=== PATIENT | male | born 1935 | race Caucasian/White ===

== ENCOUNTER → 2016-03-30 | Outpatient (CLI) | payer BC, OTHER ==
[~2016-03-30] MED LIST: AMLO2.5T PO; ASPI81TA21 PO; ATV5 PO; CHOL2000 PO; FLV1 PO; IPRASOL4 INH; MGNO400 PO; MRLP17X PO; MULTCHW PO; NCDT21 TD; PRD20 PO; RST15 PO; SIMV20TA2 PO; THM100 PO; VENL75CA PO; ZTHM250 PO
--- NOTE | 2016-03-30 11:53 | DIAGNOSTIC IMAGING REPORT ---
TWO VIEW CHEST CLINICAL HISTORY: Dyspnea. FINDINGS: PA and lateral chest radiographs are compared to chest x-ray and chest CT dated 12/30/2015. The cardiomediastinal silhouette is unremarkable. There is atherosclerotic calcification of the thoracic aorta. Advanced emphysema and chronic interstitial thickening is similar to previous. Superimposed patchy airspace opacities are present at the left lung base, best seen on the lateral view. No pleural effusion is identified. There is no pneumothorax. The skeletal structures are osteopenic. 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 IMPRESSION: 1. Advanced emphysema. 2. Patchy airspace opacities are present at the left lung base, best seen on the lateral view. Correlate clinically for evidence of pneumonia/aspiration pneumonitis. Radiographic follow-up to resolution is recommended. Electronically signed by: Kali Mason M.D. 03/30/2016 11:52 AM Dictated Date/Time: 03/30/2016 11:49 AM
== END | disposition home or self-care (01) ==
LOC: C.RAD1850 11:36
PROVIDERS: ATTEND Nurse Practitioner Family
DX: J43.9 Emphysema, unspecified (principal)

== ENCOUNTER → 2016-11-23 | Outpatient (CLI) | payer BC ==
[~2016-11-23] MED LIST changes: +FLUT1INH PO; +NLT50 PO; +ZLF/100 PO
--- NOTE | 2016-11-23 12:48 | DIAGNOSTIC IMAGING REPORT ---
CHEST 2 VIEWS ROUTINE CLINICAL HISTORY: COPD dyspnea COMPARISON STUDY: 03/30/2016 FINDINGS: Stable bilateral emphysematous change. Improved left basilar infiltrative process. Minimal residual at the posterior gastric angle. Interstitial prominence throughout both hemithoraces considered stable. IMPRESSION: Diffuse emphysematous change with a superimposed infiltrate left base improved from the prior exam. The above report was generated using voice recognition software. It may contain grammatical, syntax or spelling errors. Electronically signed by: Elieser Mireles M.D. 11/23/2016 12:47 PM Dictated Date/Time: 11/23/2016 12:46 PM
== END | disposition home or self-care (01) ==
LOC: C.RAD 12:20
PROVIDERS: ATTEND Family Medicine
DX: J44.1 Chronic obstructive pulmonary disease with (acute) exacerbation (principal)

== ENCOUNTER 2016-12-13 09:23 | Inpatient (IN) | payer BC, OTHER ==
[~2016-12-13] VITALS: Ht 170.2 cm; Wt 55.2 kg
[~2016-12-13 09:23] MED LIST changes: -FLUT1INH PO; -NLT50 PO; -ZLF/100 PO
[2016-12-13] MEDS ORDERED: SODIUM CHLORIDE 0.9% 1000ML 500 ML IV STA (10:10)
[2016-12-13] MEDS ORDERED: ALBUT/IPRATROP 3MG/0.5MG NEB 3 ML VIAL INH STA (10:10)
[2016-12-13] MEDS ORDERED: ACETAMINOPHEN 500 MG TAB PO STA (10:10)
--- NOTE | 2016-12-13 10:58 | EMERGENCY ROOM VISIT NOTE ---
History Report prepared by Joselyn: Milla Flannery Under the Supervision of: Dr. Kali Valverde M.D. First contact with patient: 10:00 Chief Complaint: FALL Stated Complaint: FELL, BRUISED RIB, IN PAIN History of Present Illness The patient is a 81 year old male who presents to the Emergency Room with complaints of an episode of a fall occurring last night. The patient got up in the middle of the night to go to the bathroom. When he was coming back to bed he went to sit down, but was too far away from the bed. He fell onto his buttocks on the floor and hit his right mid back and lower ribs on the bed frame. The patient reports pain and bruising to that area. Movement exacerbates his pain. He rates his pain as a 6/10 in severity. He did not take any medications for his pain. His daughter did not want to give him any medications because he had been drinking alcohol heavily last night. The patient denies headache, nausea, vomiting, diarrhea, and abdominal pain. He has been eating and drinking normally. Daughter is concerned that the patient also fell a couple of days ago. He had some bleeding on his face that he states was from scratching, but his daughter thinks he possibly fell. The patient's tetanus is up to date. Source of History: patient, family (daughter) Onset: last night Position: back (lower) Symptom Intensity: 6/10 Timing: other (episode) Modifying Factors (Worsening): movement Associated Symptoms: No headache, No nausea, No vomiting, No abdominal pain , No diarrhea Review of Systems See HPI for pertinent positives & negatives. A total of 10 systems reviewed and were otherwise negative. Past Medical & Surgical Medical Problems: (1) Alcohol withdrawal (2) COPD (chronic obstructive pulmonary disease) (3) COPD exacerbation Family History No significant family history Social History Smoking Status: Heavy Tobacco Smoker Alcohol Use: heavy Drug Use: marijuana Marital Status: , Housing Status: lives with family Occupation Status: retired Current/Historical Medications Scheduled Amlodipine (Norvasc), 2.5 MG PO QPM Aspirin Enteric Coated (Ecotrin Or Generic), 81 MG PO QPM Azithromycin (Azithromycin), 250 MG PO QAM Cholecalciferol (Vitamin D3), 2,000 INTER.UNIT PO QPM Fluticasone-Salmeterol (Fluticasone Propionate/SA 113-14 Mcg/Act), 1 PUFF PO BID Folic Acid (Folic Acid), 1 MG PO QAM Multiple Vitamins W/ Minerals (Centrum Silver), 1 TAB PO QAM Naltrexone HCl (Naltrexone HCl), 50 MG PO DAILY Prednisone (Prednisone), 20 MG PO BID Sertraline HCl (Sertraline HCl), 100 MG PO DAILY Simvastatin (Zocor), 40 MG PO QPM Thiamine HCl (Vitamin B-1), 100 MG PO QAM Scheduled PRN Polyethylene (Miralax), 17 GM PO DAILY PRN for Constipation Allergies Coded Allergies: Penicillins (Verified Allergy, Unknown, 12/13/16) Physical Exam Vital Signs Date Time Temp Pulse Resp B/P (MAP) Pulse Ox O2 Delivery O2 Flow Rate FiO2 12/13/16 16:15 81 20 162/73 92 Room Air 12/13/16 15:00 73 20 165/73 93 Room Air 12/13/16 14:36 76 18 156/88 94 Room Air 12/13/16 14:09 81 20 93 Room Air 12/13/16 13:14 86 12/13/16 12:29 83 18 165/67 92 Room Air 12/13/16 11:44 79 18 141/80 92 Room Air 12/13/16 11:19 84 18 164/74 92 Room Air 12/13/16 10:41 82 16 154/69 97 Nebulizer 6.0 12/13/16 10:40 89 Room Air 12/13/16 10:33 89 Room Air 12/13/16 09:48 85 12/13/16 09:30 36.9 95 18 160/72 89 Room Air Physical Exam GENERAL: Patient is in no acute distress. HEENT: There is a healing abrasion to the left maxillary face, no obvious fracture. No scalp hematomas. Mucous membranes are moist. NECK: No stridor, no adenopathy, no meningismus, trachea is midline. LUNGS: Clear to auscultation bilaterally, no wheeze, no rhonchi, breath sounds equal. HEART: Without murmurs gallops or rubs, regular rate and rhythm. ABDOMEN: Soft, nontender, bowel sounds positive, no hernias, no peritonitis. BACK: There is a contusion to the right lower posterior lateral ribs, this area is tender and some crepitus was noted. EXTREMITIES: No cyanosis or edema, full range of motion of all the joints without pain or difficulty, no signs for acute trauma. NEUROLOGIC: Oriented x 3, no acute motor or sensory deficits, no focal weakness. SKIN: No rash, no jaundice, no diaphoresis. Medical Decision & Procedures ER Provider Diagnostic Interpretation: Radiology results as stated below per my review and radiologist interpretation: AP CHEST WITH RIGHT-SIDED RIB SERIES CLINICAL HISTORY: Fall with right chest wall pain. FINDINGS: An AP upright chest radiograph with 4 additional views may right-sided rib series is compared to study dated 11/23/2016 and correlated with chest CT dated 12/30/2015. The heart is normal in size and there is atherosclerotic calcification of the thoracic aorta. Advanced emphysema and chronic interstitial thickening is similar to previous. Bibasilar airspace opacities likely represent atelectasis. There is no lobar consolidation or large pleural effusion. No pneumothorax is seen. The skeletal structures are osteopenic. There are minimally distracted right anterolateral 9th and 10th as well as posterior 11th and 12th rib fractures. There is a healed right lateral 5th rib fracture. The remainder of the bony thorax is grossly intact. Calcific tendinopathy is seen in the left shoulder. IMPRESSION: 1. Severe emphysema. No acute cardiopulmonary abnormality is seen. 2. Acute right lower rib fractures as above. Electronically signed by: Kali Mason M.D. 12/13/2016 12:23 PM Dictated Date/Time: 12/13/2016 12:[address] SCAN OF THE BRAIN WITHOUT IV CONTRAST CLINICAL HISTORY: Fall. Weakness. COMPARISON STUDY: CT of the brain dated 10/10/2015. TECHNIQUE: Unenhanced axial CT scan of the brain is performed from the vertex to the skull base. CT DOSE: 614.27 mGy.cm FINDINGS: Brain parenchyma: There are age-related involutional changes noting moderate confluent subcortical and periventricular microangiopathic change. There is no hemorrhage, mass effect, or evidence of acute territorial ischemia by CT criteria. 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 Joiner-white matter is preserved. No extra-axial fluid collection is seen. Ventricles, sulci, cisterns: Prominent secondary to involutional change. Intracranial vasculature: There is atherosclerotic calcification of the cavernous carotid and vertebral arteries. Calvarium: The skeletal structures are osteopenic. No depressed calvarial fracture is seen. Sinuses and mastoids: The visualized paranasal sinuses are clear. There is trace right mastoid effusion. The left mastoid air cells are well pneumatized. Orbits: The bony orbits are grossly intact. IMPRESSION: Senescent changes as above with no hemorrhage, mass effect, or evidence of acute territorial ischemia by CT criteria. Electronically signed by: Kali Maosn M.D. 12/13/2016 12:18 PM Dictated Date/Time: 12/13/2016 12:[address] SCAN OF THE ABDOMEN AND PELVIS WITH IV CONTRAST CLINICAL HISTORY: Trauma. Fall. COMPARISON STUDY: Abdominal ultrasound dated 05/15/2015. TECHNIQUE: Following the IV administration of 93 cc of Optiray 320, CT scan of the abdomen and pelvis is performed from the lung bases to the proximal femora. Images are reviewed in the axial, sagittal, and coronal planes. IV contrast was administered without complication. A dose lowering technique was utilized adhering to the principles of ALARA. CT DOSE: 246.50 mGy.cm FINDINGS: Lung bases: The heart is normal in size and without pericardial effusion. There are coronary artery calcifications. Advanced emphysematous change is noted. A trace right pleural effusion is identified. Fluid/secretions are present within the lower lobe airways. A calcified granulomas noted in the left lower lobe. Liver: The contrast-enhanced liver is normal in size, contour, and attenuation. There is no intrahepatic biliary ductal dilatation. The hepatic veins and portal veins are patent. Gallbladder: Unremarkable. Spleen: Normal in size and attenuation. Pancreas: Atrophic and grossly unremarkable. Adrenal glands: Unremarkable. Kidneys: The contrast enhanced kidneys demonstrate cortical atrophy and are without hydronephrosis. The kidneys enhance symmetrically. Renovascular calcifications are noted. Abdominal vasculature: There is advanced atherosclerotic calcification and ectasia of the abdominal aorta and iliac arteries. 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 High-grade stenosis is also suggested in the right external iliac artery and the right superficial femoral artery. Bowel: The small bowel and colon are normal in course and caliber. There is advanced colonic diverticulosis without CT evidence of acute diverticulitis. The appendix is well-visualized and normal. Peritoneum: There is no intraperitoneal free air or abdominal ascites. Lymphadenopathy: None. Pelvic viscera: The prostate gland is enlarged and heterogeneous, measuring 4.7 cm in transverse diameter. There is median lobe hypertrophy. The bladder is normal as imaged. Skeletal structures: The skeletal structures are osteopenic. There are acute right anterior 8th through 10th rib fractures as well as acute left posterior 11th and 12th rib fractures. Several of these fractures are mildly distracted. Advanced lumbosacral spondylosis is observed. Vertebral body height is maintained throughout the imaged thoracolumbar spine. No lytic or blastic lesions are seen. IMPRESSION: 1. Acute right lower rib fractures as above. 2. There is no evidence of solid organ injury in the abdomen or pelvis. 3. Severe emphysema. 4. Fluid/secretions are present within the lower lobe airways bilaterally. Correlate clinically for evidence of mucous plugging versus aspiration. 5. Advanced atherosclerotic disease. 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 6. Advanced colonic diverticulosis without CT evidence of acute diverticulitis. 7. Additional findings as above. Electronically signed by: Kali Mason M.D. 12/13/2016 12:36 PM Dictated Date/Time: 12/13/2016 12:26 PM Laboratory Results 12/13/16 11:10 Red Blood Count 4.81, Mean Corpuscular Volume 89.8, Mean Corpuscular Hemoglobin 31.2, Mean Corpuscular Hemoglobin Concent 34.7, Mean Platelet Volume 8.9, Neutrophils (%) (Auto) 76.2, Lymphocytes (%) (Auto) 16.5, Monocytes (%) (Auto) 6.4, Eosinophils (%) (Auto) 0.5, Basophils (%) (Auto) 0.2, Neutrophils # (Auto) 8.15, Lymphocytes # (Auto) 1.77, Monocytes # (Auto) 0.69, Eosinophils # (Auto) 0.05, Basophils # (Auto) 0.02 12/13/16 11:10 Test 12/13/16 11:10 12/13/16 12:40 White Blood Count 10.70 K/uL (4.8-10.8) Red Blood Count 4.81 M/uL (4.7-6.1) Hemoglobin 15.0 g/dL (14.0-18.0) Hematocrit 43.2 % (42-52) Mean Corpuscular Volume 89.8 fL (80-100) Mean Corpuscular Hemoglobin 31.2 pg (25-34) Mean Corpuscular Hemoglobin Concent 34.7 g/dl (32-36) Platelet Count 197 K/uL (130-400) Mean Platelet Volume 8.9 fL (7.4-10.4) Neutrophils (%) (Auto) 76.2 % Lymphocytes (%) (Auto) 16.5 % Monocytes (%) (Auto) 6.4 % Eosinophils (%) (Auto) 0.5 % Basophils (%) (Auto) 0.2 % Neutrophils # (Auto) 8.15 K/uL (1.4-6.5) Lymphocytes # (Auto) 1.77 K/uL (1.2-3.4) Monocytes # (Auto) 0.69 K/uL (0.11-0.59) Eosinophils # (Auto) 0.05 K/uL (0-0.5) Basophils # (Auto) 0.02 K/uL (0-0.2) RDW Standard Deviation 46.7 fL (36.4-46.3) RDW Coefficient of Variation 14.2 % (11.5-14.5) Immature Granulocyte % (Auto) 0.2 % Immature Granulocyte # (Auto) 0.02 K/uL (0.00-0.02) Prothrombin Time 10.0 SECONDS (9.0-12.0) Prothromb Time International Ratio 0.9 (0.9-1.1) Activated Partial Thromboplast Time 27.1 SECONDS (21.0-31.0) Partial Thromboplastin Ratio 1.0 Anion Gap 11.0 mmol/L (3-11) Estimated GFR () 102.5 Estimated GFR (Non- 88.4 BUN/Creatinine Ratio 20.6 (10-20) Calcium Level 9.0 mg/dl (8.5-10.1) Magnesium Level 1.8 mg/dl (1.8-2.4) Total Bilirubin 1.5 mg/dl (0.2-1) Aspartate Amino Transf (AST/SGOT) 38 U/L (15-37) Alanine Aminotransferase (ALT/SGPT) 39 U/L (12-78) Alkaline Phosphatase 36 U/L (45-117) Total Creatine Kinase 274 U/L (39-308) Troponin I < 0.015 ng/ml (0-0.045) Total Protein 7.4 gm/dl (6.4-8.2) Albumin 3.8 gm/dl (3.4-5.0) Globulin 3.6 gm/dl (2.5-4.0) Albumin/Globulin Ratio 1.1 (0.9-2) Thyroid Stimulating Hormone (TSH) 2.120 uIu/ml (0.300-4.500) Urine Color YELLOW Urine Appearance CLEAR (CLEAR) Urine pH 5.5 (4.5-7.5) Urine Specific [place] 1.020 (1.000-1.030) Urine Protein 1+ (NEG) Urine Glucose (UA) NEG (NEG) Urine Ketones 2+ (NEG) Urine Occult Blood NEG (NEG) Urine Nitrite NEG (NEG) Urine Bilirubin NEG (NEG) Urine Urobilinogen NEG (NEG) Urine Leukocyte Esterase NEG (NEG) Urine RBC 0-4 /hpf (0-4) Urine WBC 1-5 /hpf (0-5) Urine Epithelial Cells 10-20 /lpf (0-5) Urine Bacteria NEG (NEG) Urine Hyaline Casts 5-10 /lpf (0-5) Urine Granular Casts 0-3 /lpf (0) Urine White Blood Cell Casts 0-3 /lpf (0) Laboratory results reviewed by me. Medications Administered Medications (Trade) Dose Ordered Sig/Etienne Route Start Time Stop Time Status Last Admin Dose Admin Sodium Chloride 500 ml @ 999 mls/hr Q31M STAT IV 12/13/16 10:10 12/13/16 10:40 DC 12/13/16 11:21 999 MLS/HR Acetaminophen (Tylenol Tab) 1,000 mg NOW STAT PO 12/13/16 10:10 12/13/16 10:14 DC 12/13/16 10:34 1,000 MG Albuterol/ Ipratropium (Duoneb) 3 ml NOW STAT INH 12/13/16 10:10 12/13/16 10:14 DC 12/13/16 10:34 3 ML ECG Indication: other Rate (beats per minute): 83 Rhythm: normal sinus Findings: no acute ischemic change, no ectopy ED Course 1000: The patient was evaluated in room C6. A complete history and physical exam was performed. 1010: DuoNeb 3 ml INH, Tylenol Tab 1000 mg PO, NSS 500 ml @ 999 mls/hr IV 1251: I updated the patient and his daughter on his results. We discussed the patient's treatment plan. 1302: I spoke with the field nurse case manager regarding the patient's treatment plan. The [facility] liaison will evaluate the patient in the ED. 165: I reassessed the patient at this time. He is feeling better and resting comfortably. I discussed the results and treatment plan with the patient and his daughter. I answered all pertaining questions that they had. They expressed understanding and verbalized agreement. 165: I spoke with Dr. Hart. We discussed the patients case. The patient will be evaluated by the [facility] for further management. Medical Decision Differential diagnoses includes intracranial bleeding, rib fracture, renal or liver injury, dehydration, electrolyte imbalance, debilitation. There is no leukocytosis or worrisome anemia. No significant electrolyte abnormality or kidney failure. There were some very minimal liver enzyme elevations noted. No coagulopathy. Urinalysis does not show infection, some dehydration was noted by UA. The patient appears to be in a euthyroid state. There is no coagulopathy. Brain CT shows no acute bleed or mass effect. EKG shows a sinus rhythm, no acute ischemia. Cardiac enzyme testing times one is not consistent with acute cardiac injury. Abdominal and pelvis CT shows 5 lower right rib fractures, no solid organ injury noted across the abdomen or pelvis. Right rib series shows lower right rib fractures, no pneumothorax or pulmonary contusion. The patient was given a DuoNeb, he received oral Tylenol for pain, he received IV saline. The patient is in need of more help at home especially, given these new rib fractures. He was seen by the [facility] rehabilitation team. Unfortunately , he needs to stay in the hospital overnight and could possibly go to rehabilitation tomorrow if doing well. I spoke to the patient and his family. I spoke with case management. The on-call hospitalist was consulted. Medication Reconcilliation Current Medication List: was personally reviewed by me Blood Pressure Screening Patient's blood pressure: Elevated blood pressure Blood pressure disposition: Elevated BP felt to be situational Consults Time Called: 1650 Consulting Physician: Dr. Hart Returned Call: [address] Hart. We discussed the patients case. The patient will be evaluated by the [facility] for further management. Impression Primary Impression: Multiple fractures of ribs, right side, initial encounter for closed fracture Additional Impressions: Fall Alcohol abuse Scribe Attestation The scribe's documentation has been prepared under my direction and personally reviewed by me in its entirety. I confirm that the note above accurately reflects all work, treatment, procedures, and medical decision making performed by me. Departure Information Dispostion Being Evaluated By Hospitalist Referrals Oumar Bradley M.D. (PCP) Patient Instructions My [facility] Problem Qualifiers Additional Impressions: Fall Encounter type: initial encounter Qualified Codes: W19.XXXA - Unspecified fall, initial encounter
[2016-12-13] MEDS ORDERED: FLUT1INH PO (11:01)
[2016-12-13] MEDS ORDERED: NLT50 PO (11:01)
[2016-12-13] MEDS ORDERED: ZLF/100 PO (11:01)
[2016-12-13 11:32] LABS: BASO % 0.2 %; BASO ABS # 0.02 K/uL (0-0.2); COMPLETE YES; EOS % 0.5 %; HEMATOCRIT 43.2 % (42-52); IG% 0.2 %; LYMPH % 16.5 %; LYMPH ABS # 1.77 K/uL (1.2-3.4); MEAN CELL VOLUME 89.8 fL (80-100); MEAN CORPUSCULAR HEMOGLOBIN 31.2 pg (25-34); MEAN CORPUSCULAR HGB CONC 34.7 g/dl (32-36); MEAN PLATELET VOLUME 8.9 fL (7.4-10.4); MONO % 6.4 %; NEUT % 76.2 %; PLATELET COUNT 197 K/uL (130-400); RED BLOOD COUNT 4.81 M/uL (4.7-6.1)
[2016-12-13 11:39] LABS: INR 0.9 (0.9-1.1)
[2016-12-13 11:41] LABS: ALT/SGPT 39 U/L (12-78); AST/SGOT 38 U/L (15-37); BLOOD UREA NITROGEN 14 mg/dl (7-18); BUN/CREATININE RATIO 20.6 (10-20); CARBON DIOXIDE 26 mmol/L (21-32); CHLORIDE 101 mmol/L (98-107); CREATININE 0.69 mg/dl (0.60-1.40); GLUCOSE 93 mg/dl (70-99); MAGNESIUM 1.8 mg/dl (1.8-2.4); POTASSIUM 4.3 mmol/L (3.5-5.1); SODIUM 138 mmol/L (136-145)
[2016-12-13 11:52] LABS: ALB/GLOB RATIO 1.1 (0.9-2); ALKALINE PHOSPHATASE 36 U/L (45-117)
[2016-12-13] MEDS ORDERED: OPTIRAY 320 IV PRN (12:00)
--- NOTE | 2016-12-13 12:19 | DIAGNOSTIC IMAGING REPORT ---
CT SCAN OF THE BRAIN WITHOUT IV CONTRAST CLINICAL HISTORY: Fall. Weakness. COMPARISON STUDY: CT of the brain dated 10/10/2015. TECHNIQUE: Unenhanced axial CT scan of the brain is performed from the vertex to the skull base. CT DOSE: 614.27 mGy.cm FINDINGS: Brain parenchyma: There are age-related involutional changes noting moderate confluent subcortical and periventricular microangiopathic change. There is no hemorrhage, mass effect, or evidence of acute territorial ischemia by CT criteria. 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 Joiner-white matter is preserved. No extra-axial fluid collection is seen. Ventricles, sulci, cisterns: Prominent secondary to involutional change. Intracranial vasculature: There is atherosclerotic calcification of the cavernous carotid and vertebral arteries. Calvarium: The skeletal structures are osteopenic. No depressed calvarial fracture is seen. Sinuses and mastoids: The visualized paranasal sinuses are clear. There is trace right mastoid effusion. The left mastoid air cells are well pneumatized. Orbits: The bony orbits are grossly intact. IMPRESSION: Senescent changes as above with no hemorrhage, mass effect, or evidence of acute territorial ischemia by CT criteria. Electronically signed by: Kali Mason M.D. 12/13/2016 12:18 PM Dictated Date/Time: 12/13/2016 12:15 PM
--- NOTE | 2016-12-13 12:25 | DIAGNOSTIC IMAGING REPORT ---
AP CHEST WITH RIGHT-SIDED RIB SERIES CLINICAL HISTORY: Fall with right chest wall pain. FINDINGS: An AP upright chest radiograph with 4 additional views may right-sided rib series is compared to study dated 11/23/2016 and correlated with chest CT dated 12/30/2015. The heart is normal in size and there is atherosclerotic calcification of the thoracic aorta. Advanced emphysema and chronic interstitial thickening is similar to previous. Bibasilar airspace opacities likely represent atelectasis. There is no lobar consolidation or large pleural effusion. No pneumothorax is seen. The skeletal structures are osteopenic. There are minimally distracted right anterolateral 9th and 10th as well as posterior 11th and 12th rib fractures. There is a healed right lateral 5th rib fracture. The remainder of the bony thorax is grossly intact. Calcific tendinopathy is seen in the left shoulder. IMPRESSION: 1. Severe emphysema. No acute cardiopulmonary abnormality is seen. 2. Acute right lower rib fractures as above. Electronically signed by: Kali Mason M.D. 12/13/2016 12:23 PM Dictated Date/Time: 12/13/2016 12:18 PM
--- NOTE | 2016-12-13 12:37 | DIAGNOSTIC IMAGING REPORT ---
CT SCAN OF THE ABDOMEN AND PELVIS WITH IV CONTRAST CLINICAL HISTORY: Trauma. Fall. COMPARISON STUDY: Abdominal ultrasound dated 05/15/2015. TECHNIQUE: Following the IV administration of 93 cc of Optiray 320, CT scan of the abdomen and pelvis is performed from the lung bases to the proximal femora. Images are reviewed in the axial, sagittal, and coronal planes. IV contrast was administered without complication. A dose lowering technique was utilized adhering to the principles of ALARA. CT DOSE: 246.50 mGy.cm FINDINGS: Lung bases: The heart is normal in size and without pericardial effusion. There are coronary artery calcifications. Advanced emphysematous change is noted. A trace right pleural effusion is identified. Fluid/secretions are present within the lower lobe airways. A calcified granulomas noted in the left lower lobe. Liver: The contrast-enhanced liver is normal in size, contour, and attenuation. There is no intrahepatic biliary ductal dilatation. The hepatic veins and portal veins are patent. Gallbladder: Unremarkable. Spleen: Normal in size and attenuation. Pancreas: Atrophic and grossly unremarkable. Adrenal glands: Unremarkable. Kidneys: The contrast enhanced kidneys demonstrate cortical atrophy and are without hydronephrosis. The kidneys enhance symmetrically. Renovascular calcifications are noted. Abdominal vasculature: There is advanced atherosclerotic calcification and ectasia of the abdominal aorta and iliac arteries. 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 High-grade stenosis is also suggested in the right external iliac artery and the right superficial femoral artery. Bowel: The small bowel and colon are normal in course and caliber. There is advanced colonic diverticulosis without CT evidence of acute diverticulitis. The appendix is well-visualized and normal. Peritoneum: There is no intraperitoneal free air or abdominal ascites. Lymphadenopathy: None. Pelvic viscera: The prostate gland is enlarged and heterogeneous, measuring 4.7 cm in transverse diameter. There is median lobe hypertrophy. The bladder is normal as imaged. Skeletal structures: The skeletal structures are osteopenic. There are acute right anterior 8th through 10th rib fractures as well as acute left posterior 11th and 12th rib fractures. Several of these fractures are mildly distracted. Advanced lumbosacral spondylosis is observed. Vertebral body height is maintained throughout the imaged thoracolumbar spine. No lytic or blastic lesions are seen. IMPRESSION: 1. Acute right lower rib fractures as above. 2. There is no evidence of solid organ injury in the abdomen or pelvis. 3. Severe emphysema. 4. Fluid/secretions are present within the lower lobe airways bilaterally. Correlate clinically for evidence of mucous plugging versus aspiration. 5. Advanced atherosclerotic disease. 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 6. Advanced colonic diverticulosis without CT evidence of acute diverticulitis. 7. Additional findings as above. Electronically signed by: Kali Mason M.D. 12/13/2016 12:36 PM Dictated Date/Time: 12/13/2016 12:26 PM
[2016-12-13 12:48] LABS: MANUAL MICROSCOPIC REQUIRED? YES; URINE APPEARANCE CLEAR (CLEAR); URINE BILIRUBIN NEG (NEG); URINE COLOR YELLOW; URINE NITRITE NEG (NEG); URINE PH 5.5 (4.5-7.5); UROBILINOGEN NEG (NEG)
[2016-12-13 12:49] LABS: REVIEW REQ? NO
[2016-12-13 13:02] LABS: URINE RBC 0-4 /hpf (0-4)
[2016-12-13 13:03] LABS: URINE BACTERIA NEG (NEG); URINE GRANULAR CAST 0-3 /lpf (0)
[2016-12-13 13:04] LABS: URINE WHITE BLOOD CELL CAST 0-3 /lpf (0); ZZUR CULT IF INDIC CLEAN CATCH NO
--- NOTE | 2016-12-13 17:01 | History and Physical ---
History & Physical Date & Time of Service: Dec 13, 2016 at 17:01 Chief Complaint: Fell, Bruised Rib, In Pain Primary Care Physician: Oumar Bradley M.D. History of Present Illness Source: patient, hospital records The patient is an 81-year-old male who presents to the emergency department with report of a fall that happened last night while he was up in the middle of the night to go to the bathroom. He reports that he was walking backwards to sit on the bed, misjudged the distance, and fell backward. His daughter did not give him any pain medications last night, as he has been drinking alcohol heavily. His daughter also reports that he had fallen a couple days ago as well. He reported to her that bleeding on his face was from scratching, but she was concerned that he had fallen. Past Medical/Surgical History Medical Problems: (1) COPD (chronic obstructive pulmonary disease) Status: Chronic Family History No significant family history Social History Smoking Status: Heavy Tobacco Smoker Smokeless Tobacco Use: No Alcohol Use: heavy Drug Use: marijuana Marital Status: , Housing status: lives with family Occupational Status: retired Immunizations History of Influenza Vaccine: No History of Tetanus Vaccine?: Unknown History of Pneumococcal: Yes Pneumococcal Date: Oct 09, 2004 History of Hepatitis B Vaccine: Unknown Multi-Drug Resistant Organisms History of MDRO: No Allergies Coded Allergies: Penicillins (Verified Allergy, Unknown, 12/13/16) Home Medications Scheduled Amlodipine (Norvasc), 2.5 MG PO QPM Aspirin Enteric Coated (Ecotrin Or Generic), 81 MG PO QPM Azithromycin (Azithromycin), 250 MG PO QAM Cholecalciferol (Vitamin D3), 2,000 INTER.UNIT PO QPM Fluticasone-Salmeterol (Fluticasone Propionate/SA 113-14 Mcg/Act), 1 PUFF PO BID Folic Acid (Folic Acid), 1 MG PO QAM Multiple Vitamins W/ Minerals (Centrum Silver), 1 TAB PO QAM Naltrexone HCl (Naltrexone HCl), 50 MG PO DAILY Prednisone (Prednisone), 20 MG PO BID Sertraline HCl (Sertraline HCl), 100 MG PO DAILY Simvastatin (Zocor), 40 MG PO QPM Thiamine HCl (Vitamin B-1), 100 MG PO QAM Scheduled PRN Polyethylene (Miralax), 17 GM PO DAILY PRN for Constipation Review of Systems The patient denies palpitations, shortness of breath, cough, lower extremity swelling, vision change, hearing change, sore throat, fevers, chills, sweats, weight change, fatigue, nausea, vomiting, diarrhea or constipation, abdominal pain, pelvic pain, blood in urine or stool, dysuria, urinary frequency or urgency, lightheadedness , dizziness, headache, rash, abnormal bruising or bleeding, focal or generalized weakness, numbness or tingling in arms or legs, generalized arthralgias or myalgias, neck pain, or night sweats. The review of systems is otherwise negative other than for that already noted above, and at least 10 systems have been reviewed. Physical Exam Vital Signs Date Time Temp Pulse Resp B/P (MAP) Pulse Ox O2 Delivery O2 Flow Rate FiO2 12/13/16 16:15 81 20 162/73 92 Room Air 12/13/16 15:00 73 20 165/73 93 Room Air 12/13/16 14:36 76 18 156/88 94 Room Air 12/13/16 14:09 81 20 93 Room Air 12/13/16 13:14 86 12/13/16 12:29 83 18 165/67 92 Room Air 12/13/16 11:44 79 18 141/80 92 Room Air 12/13/16 11:19 84 18 164/74 92 Room Air 12/13/16 10:41 82 16 154/69 97 Nebulizer 6.0 12/13/16 10:40 89 Room Air 12/13/16 10:33 89 Room Air 12/13/16 09:48 85 12/13/16 09:30 36.9 95 18 160/72 89 Room Air The patient is awake, well-developed and adequately nourished, alert and oriented 3, healing abrasion to left maxillary area, lying in bed and in no acute distress. HEENT--PERRL, EOMI, mucous membranes and oropharynx dry. Neck--supple, no JVD or bruits, thyroid normal, trachea midline, no adenopathy. Heart--normal S1 and S2, no extra beats, no murmurs, rubs or gallops. Lungs--diminished throughout, no respiratory distress, no accessory muscle use. Abdomen--normal bowel sounds and soft, nontender and nondistended, no hernias or masses, no organomegaly. Extremities--no cyanosis, clubbing or edema. There are good distal pulses b/l. Dermatologic--scattered bruises. Neurologic--cranial nerves II through XII grossly intact, motor and sensory examination normal. Rheumatologic--reproducible pain over right anterior chest wall and left posterior chest wall with light touch Psychiatric--normal affect. Diagnostics Laboratory Results Results Past 24 Hours Test 12/13/16 11:10 12/13/16 12:40 Range/Units White Blood Count 10.70 4.8-10.8 K/uL Red Blood Count 4.81 4.7-6.1 M/uL Hemoglobin 15.0 14.0-18.0 g/dL Hematocrit 43.2 42-52 % Mean Corpuscular Volume 89.8 80-100 fL Mean Corpuscular Hemoglobin 31.2 25-34 pg Mean Corpuscular Hemoglobin Concent 34.7 32-36 g/dl Platelet Count 197 130-400 K/uL Mean Platelet Volume 8.9 7.4-10.4 fL Neutrophils (%) (Auto) 76.2 % Lymphocytes (%) (Auto) 16.5 % Monocytes (%) (Auto) 6.4 % Eosinophils (%) (Auto) 0.5 % Basophils (%) (Auto) 0.2 % Neutrophils # (Auto) 8.15 1.4-6.5 K/uL Lymphocytes # (Auto) 1.77 1.2-3.4 K/uL Monocytes # (Auto) 0.69 0.11-0.59 K/uL Eosinophils # (Auto) 0.05 0-0.5 K/uL Basophils # (Auto) 0.02 0-0.2 K/uL RDW Standard Deviation 46.7 36.4-46.3 fL RDW Coefficient of Variation 14.2 11.5-14.5 % Immature Granulocyte % (Auto) 0.2 % Immature Granulocyte # (Auto) 0.02 0.00-0.02 K/uL Prothrombin Time 10.0 9.0-12.0 SECONDS Prothromb Time International Ratio 0.9 0.9-1.1 Activated Partial Thromboplast Time 27.1 21.0-31.0 SECONDS Partial Thromboplastin Ratio 1.0 Sodium Level 138 136-145 mmol/L Potassium Level 4.3 3.5-5.1 mmol/L Chloride Level 101 98-107 mmol/L Carbon Dioxide Level 26 21-32 mmol/L Anion Gap 11.0 3-11 mmol/L Blood Urea Nitrogen 14 7-18 mg/dl Creatinine 0.69 0.60-1.40 mg/dl Estimated GFR () 102.5 Estimated GFR (Non- 88.4 BUN/Creatinine Ratio 20.6 10-20 Random Glucose 93 70-99 mg/dl Calcium Level 9.0 8.5-10.1 mg/dl Magnesium Level 1.8 1.8-2.4 mg/dl Total Bilirubin 1.5 0.2-1 mg/dl Aspartate Amino Transf (AST/SGOT) 38 15-37 U/L Alanine Aminotransferase (ALT/SGPT) 39 12-78 U/L Alkaline Phosphatase 36 45-117 U/L Total Creatine Kinase 274 39-308 U/L Troponin I < 0.015 0-0.045 ng/ml Total Protein 7.4 6.4-8.2 gm/dl Albumin 3.8 3.4-5.0 gm/dl Globulin 3.6 2.5-4.0 gm/dl Albumin/Globulin Ratio 1.1 0.9-2 Thyroid Stimulating Hormone (TSH) 2.120 0.300-4.500 uIu/ml Urine Color YELLOW Urine Appearance CLEAR CLEAR Urine pH 5.5 4.5-7.5 Urine Specific [place] 1.020 1.000-1.030 Urine Protein 1+ NEG Urine Glucose (UA) NEG NEG Urine Ketones 2+ NEG Urine Occult Blood NEG NEG Urine Nitrite NEG NEG Urine Bilirubin NEG NEG Urine Urobilinogen NEG NEG Urine Leukocyte Esterase NEG NEG Urine RBC 0-4 0-4 /hpf Urine WBC 1-5 0-5 /hpf Urine Epithelial Cells 10-20 0-5 /lpf Urine Bacteria NEG NEG Urine Hyaline Casts 5-10 0-5 /lpf Urine Granular Casts 0-3 0 /lpf Urine White Blood Cell Casts 0-3 0 /lpf Diagnostic Radiology Patient Name: BRENDA CUELLAR Unit Number: [id number] Dictated: 12/13/161217 Transcribed: 12/13/161217 EV Printed Date/Time: [~ rep prt dt]/[~ rep prt tm] [~ rep ct labl] - [~ rep ct ivnm] [facility] [place] [address] Dictated: 12/13/161217 Transcribed: 12/13/161217 EV Printed Date/Time: [~ rep prt dt]/[~ rep prt tm] [~ rep ct labl] - [~ rep ct ivnm] [~ rep ct add3]] AP CHEST WITH RIGHT-SIDED RIB SERIES CLINICAL HISTORY: Fall with right chest wall pain. FINDINGS: An AP upright chest radiograph with 4 additional views may right-sided rib series is compared to study dated 11/23/2016 and correlated with chest CT dated 12/30/2015. The heart is normal in size and there is atherosclerotic calcification of the thoracic aorta. Advanced emphysema and chronic interstitial thickening is similar to previous. Bibasilar airspace opacities likely represent atelectasis. There is no lobar consolidation or large pleural effusion. No pneumothorax is seen. The skeletal structures are osteopenic. There are minimally distracted right anterolateral 9th and 10th as well as posterior 11th and 12th rib fractures. There is a healed right lateral 5th rib fracture. The remainder of the bony thorax is grossly intact. Calcific tendinopathy is seen in the left shoulder. IMPRESSION: 1. Severe emphysema. No acute cardiopulmonary abnormality is seen. 2. Acute right lower rib fractures as above. Electronically signed by: Kali Mason M.D. 12/13/2016 12:23 PM Dictated Date/Time: 12/13/2016 12:18 PM The status of this report is Signed. Draft = Not yet reviewed or approved by Radiologist. Signed = Reviewed and approved by Radiologist. <AttendingPhy></AttendingPhy> <FamilyPhy>Oumar Bradley M.D.</FamilyPhy> < PrimaryPhy>Oumar Bradley M.D.</PrimaryPhy> <UnitNumber>[id number]</ UnitNumber> <VisitNumber>[id number]</VisitNumber> <PatientName>BRENDA CUELLAR</PatientName> <DateOfBirth>1935</DateOfBirth> <Location>[facility]</ Location> <ServiceDate>12/13/16</ServiceDate> <MNE>ESINDI</MNE> <OrderingPhy> Kali Valverde M.D.</OrderingPhy> <OrderingPhyMNE>f rep ord dr fortune</ OrderingPhyMNE> <DictatingPhyMNE>f rep dict dr fortune</DictatingPhyMNE> <CCListMNE> f rep ct mne</CCListMNE> <AdmittingPhyMNE>f pt admit dr fortune</AdmittingPhyMNE> < AttendingPhyMNE>f pt attend dr fortune</AttendingPhyMNE> <ConsultingPhyMNE>f pt consult dr fortune</ConsultingPhyMNE> <FamilyPhyMNE>f pt fam dr fortune</FamilyPhyMNE> <OtherPhyMNE>f pt other dr fortune</OtherPhyMNE> < PrimaryPhyMNE>f pt prim care dr fortune</PrimaryPhyMNE> <ReferringPhyMNE>f pt referring dr fortune</ReferringPhyMNE> Patient Name: BRENDA CUELLAR Unit Number: [id number] Dictated: 12/13/161214 Transcribed: 12/13/161214 EV Printed Date/Time: [~ rep prt dt]/[~ rep prt tm] [~ rep ct labl] - [~ rep ct ivnm] [facility] [place] [address] Dictated: 12/13/161214 Transcribed: 12/13/161214 EV Printed Date/Time: [~ rep prt dt]/[~ rep prt tm] [~ rep ct labl] - [~ rep ct ivnm] CT SCAN OF THE BRAIN WITHOUT IV CONTRAST CLINICAL HISTORY: Fall. Weakness. COMPARISON STUDY: CT of the brain dated 10/10/2015. TECHNIQUE: Unenhanced axial CT scan of the brain is performed from the vertex to the skull base. CT DOSE: 614.27 mGy.cm FINDINGS: Brain parenchyma: There are age-related involutional changes noting moderate confluent subcortical and periventricular microangiopathic change. There is no hemorrhage, mass effect, or evidence of acute territorial ischemia by CT criteria. 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 Joiner-white matter is preserved. No extra-axial fluid collection is seen. Ventricles, sulci, cisterns: Prominent secondary to involutional change. Intracranial vasculature: There is atherosclerotic calcification of the cavernous carotid and vertebral arteries. Calvarium: The skeletal structures are osteopenic. No depressed calvarial fracture is seen. Sinuses and mastoids: The visualized paranasal sinuses are clear. There is trace right mastoid effusion. The left mastoid air cells are well pneumatized. Orbits: The bony orbits are grossly intact. IMPRESSION: Senescent changes as above with no hemorrhage, mass effect, or evidence of acute territorial ischemia by CT criteria. Electronically signed by: Kali Mason M.D. 12/13/2016 12:18 PM Dictated Date/Time: 12/13/2016 12:15 PM The status of this report is Signed. Draft = Not yet reviewed or approved by Radiologist. Signed = Reviewed and approved by Radiologist. <AttendingPhy></AttendingPhy> <FamilyPhy>Oumar Bradley M.D.</FamilyPhy> < PrimaryPhy>Oumar Bradley M.D.</PrimaryPhy> <UnitNumber>[id number]</ UnitNumber> <VisitNumber>[id number]</VisitNumber> <PatientName>BRENDA CUELLAR</PatientName> <DateOfBirth>1935</DateOfBirth> <Location>[facility]</ Location> <ServiceDate>12/13/16</ServiceDate> <MNE>ESINDI</MNE> <OrderingPhy> Kali Valverde M.D.</OrderingPhy> <OrderingPhyMNE>f rep ord dr fortune</ OrderingPhyMNE> <DictatingPhyMNE>f rep dict dr fortune</DictatingPhyMNE> <CCListMNE> f rep ct tong</CCListMNE> <AdmittingPhyMNE>f pt admit dr fortune</AdmittingPhyMNE> < AttendingPhyMNE>f pt attend dr fortune</AttendingPhyMNE> <ConsultingPhyMNE>f pt consult dr fortune</ConsultingPhyMNE> <FamilyPhyMNE>f pt fam dr mne</FamilyPhyMNE> <OtherPhyMNE>f pt other dr fortune</OtherPhyMNE> < PrimaryPhyMNE>f pt prim care dr fortune</PrimaryPhyMNE> <ReferringPhyMNE>f pt referring dr fortune</ReferringPhyMNE> Patient Name: BRENDA CUELLAR Unit Number: [id number] Dictated: 12/13/161225 Transcribed: 12/13/161225 EV Printed Date/Time: [~ rep prt dt]/[~ rep prt tm] [~ rep ct labl] - [~ rep ct ivnm] [facility] [place] [address] Dictated: 12/13/161225 Transcribed: 12/13/161225 EV Printed Date/Time: [~ rep prt dt]/[~ rep prt tm] [~ rep ct labl] - [~ rep ct ivnm] [~ rep ct add3]] CT SCAN OF THE ABDOMEN AND PELVIS WITH IV CONTRAST CLINICAL HISTORY: Trauma. Fall. COMPARISON STUDY: Abdominal ultrasound dated 05/15/2015. TECHNIQUE: Following the IV administration of 93 cc of Optiray 320, CT scan of the abdomen and pelvis is performed from the lung bases to the proximal femora. Images are reviewed in the axial, sagittal, and coronal planes. IV contrast was administered without complication. A dose lowering technique was utilized adhering to the principles of ALARA. CT DOSE: 246.50 mGy.cm FINDINGS: Lung bases: The heart is normal in size and without pericardial effusion. There are coronary artery calcifications. Advanced emphysematous change is noted. A trace right pleural effusion is identified. Fluid/secretions are present within the lower lobe airways. A calcified granulomas noted in the left lower lobe. Liver: The contrast-enhanced liver is normal in size, contour, and attenuation. There is no intrahepatic biliary ductal dilatation. The hepatic veins and portal veins are patent. Gallbladder: Unremarkable. Spleen: Normal in size and attenuation. Pancreas: Atrophic and grossly unremarkable. Adrenal glands: Unremarkable. Kidneys: The contrast enhanced kidneys demonstrate cortical atrophy and are without hydronephrosis. The kidneys enhance symmetrically. Renovascular calcifications are noted. Abdominal vasculature: There is advanced atherosclerotic calcification and ectasia of the abdominal aorta and iliac arteries. 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 High-grade stenosis is also suggested in the right external iliac artery and the right superficial femoral artery. Bowel: The small bowel and colon are normal in course and caliber. There is advanced colonic diverticulosis without CT evidence of acute diverticulitis. The appendix is well-visualized and normal. Peritoneum: There is no intraperitoneal free air or abdominal ascites. Lymphadenopathy: None. Pelvic viscera: The prostate gland is enlarged and heterogeneous, measuring 4.7 cm in transverse diameter. There is median lobe hypertrophy. The bladder is normal as imaged. Skeletal structures: The skeletal structures are osteopenic. There are acute right anterior 8th through 10th rib fractures as well as acute left posterior 11th and 12th rib fractures. Several of these fractures are mildly distracted. Advanced lumbosacral spondylosis is observed. Vertebral body height is maintained throughout the imaged thoracolumbar spine. No lytic or blastic lesions are seen. IMPRESSION: 1. Acute right lower rib fractures as above. 2. There is no evidence of solid organ injury in the abdomen or pelvis. 3. Severe emphysema. 4. Fluid/secretions are present within the lower lobe airways bilaterally. Correlate clinically for evidence of mucous plugging versus aspiration. 5. Advanced atherosclerotic disease. 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 6. Advanced colonic diverticulosis without CT evidence of acute diverticulitis. 7. Additional findings as above. Electronically signed by: Kali Mason M.D. 12/13/2016 12:36 PM Dictated Date/Time: 12/13/2016 12:26 PM The status of this report is Signed. Draft = Not yet reviewed or approved by Radiologist. Signed = Reviewed and approved by Radiologist. <AttendingPhy></AttendingPhy> <FamilyPhy>Oumar Bradley M.D.</FamilyPhy> < PrimaryPhy>Oumar Bradley M.D.</PrimaryPhy> <UnitNumber>[id number]</ UnitNumber> <VisitNumber>[id number]</VisitNumber> <PatientName>BRENDA CUELLAR</PatientName> <DateOfBirth>1935</DateOfBirth> <Location>[facility]</ Location> <ServiceDate>12/13/16</ServiceDate> <MNE>ESINDI</MNE> <OrderingPhy> Kali Valverde M.D.</OrderingPhy> <OrderingPhyMNE>f rep ord dr fortune</ OrderingPhyMNE> <DictatingPhyMNE>f rep dict dr fortune</DictatingPhyMNE> <CCListMNE> f rep ct mne</CCListMNE> <AdmittingPhyMNE>f pt admit dr fortune</AdmittingPhyMNE> < AttendingPhyMNE>f pt attend dr fortune</AttendingPhyMNE> <ConsultingPhyMNE>f pt consult dr fortune</ConsultingPhyMNE> <FamilyPhyMNE>f pt fam dr fortune</FamilyPhyMNE> <OtherPhyMNE>f pt other dr fortune</OtherPhyMNE> < PrimaryPhyMNE>f pt prim care dr fortune</PrimaryPhyMNE> <ReferringPhyMNE>f pt referring dr fortune</ReferringPhyMNE> EKG EKG shows normal sinus rhythm at 83 bpm, no acute ST-T changes, and no change compared to 12/30/2015. Impression Assessment and Plan Multiple rib fractures status post fall/right anterior 8 through 10/left posterior to -- Admit to the hospital for pain control and oxygen monitoring. Lidoderm patch Tramadol when necessary Peripheral arterial disease/near-complete occlusion of the right common iliac artery/high-grade stenoses of right external iliac and right superficial femoral arteries-- Order bilateral lower extremity arterial Dopplers. Hypertension--continue amlodipine 2.5 mg by mouth daily, aspirin 81 mg by mouth daily Alcohol abuse/history of alcohol withdrawal-- Continue folic acid, thiamine, multivitamin with minerals, and naltrexone. Place on alcohol withdrawal program. Next Severe COPD-- Continue Advair and prednisone. Depression--continue sertraline. Hyperlipidemia--continue simvastatin Level of Care Telemetry Advanced Directives Existing Advance Directive: No Existing Living Will: No Existing Power of Assembler Watch Train: No Resuscitation Status FULL RESUSCITATION VTE Prophylaxis VTE Risk Assessment Done? Y/N: Yes Risk Level: Moderate Given or contraindicated: SCD's
[2016-12-13] MEDS ORDERED: NITROGLYCERIN 0.4 MG SL PER TAB CHARGE SL PRN (17:45)
[2016-12-13] MEDS ORDERED: POLYETHYLENE (MIRALAX) 17 GM PACK PO PRN (17:45)
[2016-12-13] MEDS ORDERED: INFLUENZA VIRUS QUAD VACCINE 0.5 ML SYR IM. ONE (17:45)
[2016-12-13] MEDS ORDERED: PNEUMOCOCCAL POLYSACCHARIDES 25 MCG/0.5 ML VIAL/SYR IM. ONE (17:45)
[2016-12-13] MEDS ORDERED: ACETAMINOPHEN 325 MG TAB PO PRN (17:45)
--- NOTE | 2016-12-13 17:53 | EMERGENCY ROOM VISIT NOTE ---
ED Visit Note First contact with patient: 10:00 I did speak to the physician on-call for the patient's insurance. The patient was felt in need of a hospital stay for now. He was not felt to be a good candidate for rehabilitation at this time. There were concerns with the number of rib fractures, his COPD and his history of alcohol abuse. A hospital stay was felt more appropriate.
[2016-12-13] MEDS ORDERED: LORAZEPAM 2 MG/ML 1 ML VIAL IV PRN (18:15)
[2016-12-13 19:34] VITALS: BP 177/72; PULSE 73; TEMP 37.2; O2SAT 91
[2016-12-13] MEDS ORDERED: INFLUENZA VACCINE HIGH DOSE 65+ 0.5 ML SYR IM. ONE (19:45)
[2016-12-13] MEDS ORDERED: PNEUMOCOCCAL ADMINISTRATION CHARGE ONE (19:45)
[2016-12-13] MEDS ORDERED: INFLUENZA ADMINISTRATION CHARGE ONE (19:45)
[2016-12-13 20:05] VITALS: BP 177/72; PULSE 73; TEMP 37.2; Ht 170.2 cm; Wt 55.2 kg
[2016-12-13 20:15] VITALS: BP 155/76; PULSE 64; TEMP 37; O2SAT 92
[2016-12-13] MEDS: NSS + 20MEQ KCL 1000ML 1,000 ML IV SCH (20:50)
[2016-12-13] MEDS: FLUTICASONE/SALMETEROL 250/50 (ADVAIR) 14 PUFF/1 INHALER INH SCH (20:52)
[2016-12-13] MEDS: SIMVASTATIN 40 MG TAB PO SCH (20:52)
[2016-12-13] MEDS: ASPIRIN 81 MG ECTAB PO SCH (20:52)
[2016-12-13] MEDS: TRAMADOL HCL 50 MG TAB PO PRN (21:00)
[2016-12-13] MEDS ORDERED: AMLODIPINE BESYLATE 5 MG TAB PO SCH (21:00)
[2016-12-13 23:56] VITALS: BP 136/53; PULSE 64; TEMP 36.9; O2SAT 92
[2016-12-14] VITALS (10 sets, daily range): BP systolic 127–158; BP diastolic 61–70; PULSE 70–79; TEMP 36.5–37.2; O2SAT 90–93
[2016-12-14] MEDS: NSS + 20MEQ KCL 1000ML 1,000 ML IV SCH ×3 (05:50→22:35)
--- NOTE | 2016-12-14 07:01 | DIAGNOSTIC IMAGING REPORT ---
DUPLEX ULTRASOUND OF THE LOWER EXTREMITIES BILATERALLY CLINICAL HISTORY: ABNORMAL CT COMPARISON STUDY: CT scan dated 12/13/2016 FINDINGS: The left brachial artery systolic pressure was 146 mmHg. The right posterior tibial arterial systolic pressure was 92 mmHg. The right dorsalis pedis systolic pressure was 85 mmHg. This yields a right-sided ankle arm index of 0.6. The left posterior tibial and dorsalis pedis arteries were noncompressible and accurate pressures could not be obtained. On the right there is monophasic flow within the common femoral artery. There is monophasic flow within the right superficial femoral artery. There is monophasic flow within the right popliteal posterior tibial and anterior tibial and peroneal arteries. In the left there is monophasic flow within the common femoral artery. There is monophasic flow within the left superficial femoral artery with a focus of elevated velocity involving the distal left superficial femoral artery consistent with a focal stenosis. There is monophasic flow within the anterior tibial posterior tibial and popliteal arteries on the left. IMPRESSION: 1. Monophasic flow within both common femoral arteries, a finding suggesting a more proximal iliac artery stenosis. 2. Elevated velocity involving the distal left superficial femoral artery consistent with a focal stenosis 3. Diffuse atheromatous changes 4. Right ankle arm index of 0.6. A left ankle arm index could not be obtained as the dorsalis pedis and posterior tibial arteries on the left were noncompressible. Electronically signed by: Jose Gray M.D. 12/14/2016 6:59 AM Dictated Date/Time: 12/14/2016 6:54 AM
[2016-12-14] MEDS: FLUTICASONE/SALMETEROL 250/50 (ADVAIR) 14 PUFF/1 INHALER INH SCH ×2 (08:13→20:43)
[2016-12-14] MEDS: CHOLECALCIFEROL 1000 INTER.UNIT TAB PO SCH (08:13)
[2016-12-14] MEDS: SERTRALINE HCL 100 MG TAB PO SCH (08:13)
[2016-12-14] MEDS: LIDODERM (LIDOCAINE) PATCH 5% TD SCH (08:14)
[2016-12-14] MEDS: THIAMINE HCL 100 MG TAB PO SCH (08:14)
[2016-12-14] MEDS: TRAMADOL HCL 50 MG TAB PO PRN (08:23)
--- NOTE | 2016-12-14 08:24 | Family Medicine Progress Note ---
Progress Note Date of Service Dec 14, 2016. Subjective Pt evaluation today including: conversation w/ patient, physical exam, chart review, lab review, review of studies, conversation w/ aviation consultant, review of inpatient medication list Patient lying comfortably in bed. Denies chest pain at rest. Breathing comfortably when not inspiring to fast or too deeply on room air. Pain is worse when transitioning from lying to sitting. He has not ambulated yet. He denies any abdominal pain or nausea, he tolerated breakfast well. When asked about his previous tobacco and alcohol use, he admits to one pack a day for the last 60 years and about 1 pint of bourbon drink every day for the last 20 years. He's been to alcohol rehabilitation previously, but states she will never go again. He shows no interest in cessation of either tobacco or alcohol at this time. When asked about leg cramping, he does state that this will occur intermittently. He is not able to quantify exercise tolerance as he states he rarely leaves his home. He does say he is able to climb one flight of stairs in his home without difficulty. All Other Systems: Reviewed and Negative Objective Vital Signs Date Time Temp Pulse Resp B/P (MAP) Pulse Ox O2 Delivery O2 Flow Rate FiO2 12/14/16 07:34 36.5 73 18 155/70 (98) 90 Room Air 12/14/16 04:34 36.8 70 18 127/65 (85) 92 Room Air 12/14/16 04:05 Room Air 12/14/16 00:05 Room Air 12/14/16 00:05 Room Air 12/13/16 23:56 36.9 64 16 136/53 (80) 92 Room Air 12/13/16 20:15 37.0 64 16 155/76 (102) 92 Room Air 12/13/16 20:05 37.2 73 20 177/72 Room Air 12/13/16 19:34 37.2 73 20 177/72 (107) 91 Room Air 12/13/16 18:27 73 18 159/75 93 12/13/16 17:28 78 20 159/75 93 Room Air 12/13/16 17:16 72 12/13/16 16:15 81 20 162/73 92 Room Air 12/13/16 15:00 73 20 165/73 93 Room Air 12/13/16 14:36 76 18 156/88 94 Room Air 12/13/16 14:09 81 20 93 Room Air 12/13/16 13:14 86 12/13/16 12:29 83 18 165/67 92 Room Air 12/13/16 11:44 79 18 141/80 92 Room Air 12/13/16 11:19 84 18 164/74 92 Room Air 12/13/16 10:41 82 16 154/69 97 Nebulizer 6.0 12/13/16 10:40 89 Room Air 12/13/16 10:33 89 Room Air 12/13/16 09:48 85 12/13/16 09:30 36.9 95 18 160/72 89 Room Air Physical Exam General Appearance: WD/WN, + mild distress (when taking deep breaths or moving right arm) Eyes: normal inspection ENT: hearing grossly normal Neck: supple Respiratory/Chest: no respiratory distress, no accessory muscle use, + decreased breath sounds (patient splinting secondary to pain), + rhonchi Cardiovascular: regular rate, rhythm, no murmur, + pertinent finding ( peripheral pulses present but diminished) Abdomen: normal bowel sounds, soft, + tenderness (tender in right upper quadrant likely secondary to rib pain) Extremities: normal inspection, no pedal edema, no calf tenderness, normal capillary refill Neurologic/Psychiatric: alert, normal mood/affect, oriented x 3 Skin: normal color, warm/dry, no rash Assessment and Plan 81 year old male chronic smoker with severe emphysema, chronic alcohol abuse, HTN, HLD and depression admitted with multiple rib fractures s/p fall. Multiple rib fractures status post fall/right anterior 8 through 10/left posterior to -- - Pain control: lidoderm patch, acetaminophen, [place] PRN pain Peripheral arterial disease -- near-complete occlusion of the right common iliac artery/high-grade stenoses of right external iliac and right superficial femoral arteries. Lower extremity arterial Doppler report consistent with this finding. - Aspirin 81mg daily - Vascular surgery consulted Hypertension -- - Amlodipine increased to 5mg daily Alcohol abuse/history of alcohol withdrawal -- - Continue folic acid, thiamine, multivitamin with minerals, and naltrexone. - On alcohol withdrawal program. Severe COPD -- - Continue Advair and prednisone. Depression -- - Continue sertraline. Hyperlipidemia -- - continue simvastatin Dispo - PT/OT eval FULL CODE Continued [facility] stay due to: inadequate oral pain control Resident Tracking Resident Involvement: Resident Care Provided Care Provided: Adult Hospital Medicine
[2016-12-14] MEDS: CEROVITE ADV FORMULA TAB PO SCH (08:47)
[2016-12-14] MEDS: NALTREXONE HCL 50 MG TAB PO SCH (08:47)
[2016-12-14] MEDS ORDERED: ASPIRIN 81 MG ECTAB PO SCH (09:00)
[2016-12-14] MEDS: HYDROCODONE/ACETAMOPHEN 5/325MG TAB PO PRN ×2 (15:26→21:56)
[2016-12-14] MEDS ORDERED: LORAZEPAM 2 MG/ML 1 ML VIAL IV PRN (19:00)
[2016-12-14] MEDS: AMLODIPINE BESYLATE 5 MG TAB PO SCH (20:48)
[2016-12-14] MEDS: SIMVASTATIN 40 MG TAB PO SCH (20:49)
[2016-12-14] MEDS: ASPIRIN 81 MG ECTAB PO SCH (21:57)
[2016-12-15] VITALS (8 sets, daily range): BP systolic 120–170; BP diastolic 66–74; PULSE 64–77; TEMP 36.5–37; O2SAT 90–94
[2016-12-15] MEDS: HYDROCODONE/ACETAMOPHEN 5/325MG TAB PO PRN ×3 (04:15→17:53)
[2016-12-15] MEDS: FLUTICASONE/SALMETEROL 250/50 (ADVAIR) 14 PUFF/1 INHALER INH SCH ×2 (08:18→20:43)
[2016-12-15] MEDS: NALTREXONE HCL 50 MG TAB PO SCH (08:19)
[2016-12-15] MEDS: SERTRALINE HCL 100 MG TAB PO SCH (08:19)
[2016-12-15] MEDS: CHOLECALCIFEROL 1000 INTER.UNIT TAB PO SCH (08:19)
[2016-12-15] MEDS: CEROVITE ADV FORMULA TAB PO SCH (08:19)
[2016-12-15] MEDS: THIAMINE HCL 100 MG TAB PO SCH (08:20)
[2016-12-15] MEDS: LIDODERM (LIDOCAINE) PATCH 5% TD SCH (08:45)
[2016-12-15] MEDS: NSS + 20MEQ KCL 1000ML 1,000 ML IV SCH ×2 (08:48→21:31)
[2016-12-15] MEDS: IV FLUIDS COMPLETED PRN (08:50)
--- NOTE | 2016-12-15 10:45 | Surgery Consultation ---
Consultation Date of Service Dec 15, 2016. (Karen Branch PA-C) Chief Complaint PAD (Kaern Branch PA-C) History of Present Illness The patient is a 81 year old male with hx of ETOH abuse and cigarette smoking, HTN, COPD, admitted with multiple rib fx after a fall at home, seen in consultation today for BLE arterial disease noted on imaging. Pt admits R hip claudication when ambulating up an incline, but denies claudication in either leg when walking on flat surface. Admits severe rib pain from recent fx, worsened with movement and breathing. States is ambulatory at home. Denies BATES , fever, chills, SOB, abd pain, N/V, rest pain, ulcerations, other complaints. (Karen Branch PA-C) Vitals Vital Signs Past 12 Hours Date Time Temp Pulse Resp B/P (MAP) Pulse Ox O2 Delivery O2 Flow Rate FiO2 12/15/16 08:08 36.6 66 18 151/67 (95) 92 Room Air 12/15/16 08:00 Room Air 12/15/16 04:00 92 Room Air 12/15/16 04:00 37.0 64 18 148/66 (93) 94 Room Air 12/15/16 00:00 92 Room Air 12/14/16 23:43 37.2 74 22 128/65 (86) 93 Room Air (Karen Branch PA-C) Allergies Coded Allergies: Penicillins (Verified Allergy, Unknown, 12/13/16) Home Medications Scheduled Amlodipine (Norvasc), 2.5 MG PO QPM Aspirin Enteric Coated (Ecotrin Or Generic), 81 MG PO QPM Azithromycin (Azithromycin), 250 MG PO QAM Cholecalciferol (Vitamin D3), 2,000 INTER.UNIT PO QPM Fluticasone-Salmeterol (Fluticasone Propionate/SA 113-14 Mcg/Act), 1 PUFF PO BID Folic Acid (Folic Acid), 1 MG PO QAM Multiple Vitamins W/ Minerals (Centrum Silver), 1 TAB PO QAM Naltrexone HCl (Naltrexone HCl), 50 MG PO DAILY Prednisone (Prednisone), 20 MG PO BID Sertraline HCl (Sertraline HCl), 100 MG PO DAILY Simvastatin (Zocor), 40 MG PO QPM Thiamine HCl (Vitamin B-1), 100 MG PO QAM Scheduled PRN Polyethylene (Miralax), 17 GM PO DAILY PRN for Constipation Problem List Medical Problems: (1) Alcohol withdrawal (2) COPD (chronic obstructive pulmonary disease) (3) COPD exacerbation (Karen Branch PA-C) Surgical / Medical History Hx Cardiac Surgery: No Hx Abdominal Surgery: No Hx Cancer Surgery: No Hx Thoracic Surgery: No Hx Orthopedic: No Hx Urinary Tract Surgery: No Past Medical/Surgical History: Hypertension (Karen Branch PA-C) Family History No significant family history (Karen Branch PA-C) No significant family history (Keanu Berger M.D.) Social History Smoking Status: Heavy Tobacco Smoker Hx Tobacco Use In Past Year?: Yes Hx Alcohol Use - Type & Amnt: Yes (bourbon 3-5 day ) Hx Substance Use -Type & Amnt: Yes (Karen Branch PA-C) Review of Systems Constitutional: + malaise, No chills, No fever Skin: No change in color Eyes: No visual changes ENMT: No sore throat Respiratory: + cough, + [place], No hemoptysis, No orthopnea, No short of breath Cardiovascular: + chest pain (d/t rib fx), + intermittent claudication (R hip with ambulation up incline only), No palpitations, No syncope, No edema Gastrointestinal: No abdominal pain, No nausea, No vomiting Neurologic: No dizziness, No headache, No numbness, No tingling (Karen Branch, RAFAEL) Physical Exam Constitutional: General Apperance: well-nourished, well-developed, too thin Level of Distress: NAD Psychiatric: Mental Status: active & alert, normal mood, normal affect Orientation: oriented except where noted, to time, to place, to person Memory: recent memory normal, remote memory normal Head: normocephalic, atraumatic Eyes: EOM: EOMI ENMT: normal ENT inspection, hearing grossly normal Neck: supple, trachea midline Lungs: Respiratory effort: no dyspnea Auscultation: decreased breath sounds, wet rales/crackles, rhonchi Cardiovascular: Apical Impulse: not displaced Heart Auscultation: RRR, no rubs, no gallops Peripheral Pulses: Pulses: full and equal, in all extremities except if noted Bruits: none appreciated Carotid Pulse: normal on the left, normal on the right Brachial Pulses: normal on the left, normal on the right Radial Pulse: normal on the left, normal on the right Femoral Pulse: pertinent finding (Nonpalpable BLE) Posterior Tibialis Pulse: pertinent finding (Nonpalpable BLE) Dorsalis Pedis Pulse: pertinent finding (Nonpalpable BLE) Abdomen: Bowel Sounds: normal Inspection & Palpation: soft, non-distended, no tenderness, guarding & rebound Musculoskeletal: normal tone Extremities: Upper Right: no cyanosis, no edema, no varicosities Upper Left: no cyanosis, no edema, no varicosities Lower Right: no cyanosis, no edema, no varicosities, pertinent finding ( brisk cap refill BLE) Lower Left: no cyanosis, no edema, no varicosities Neurologic: Cranial Nerves: grossly intact Sensation: grossly intact (Karen Branch, PA-C) Assessment and Plan ASSESSMENT and PLAN: PAD, mild R hip claudication Pt denies activity-limiting claudication, feet are not ischemic. No indications for vascular surgical intervention at this time. Will see in office in 1-2 month to reevaluate. Pt discussed with Dr Berger. Please call if needed. (Karen Branch, PA-C) Patient was seen, examined, and chart reviewed. Agree with exam and treatment plan of the Vascular PA. (Keanu Berger M.D.)
--- NOTE | 2016-12-15 19:56 | Family Medicine Progress Note ---
Progress Note Date of Service Dec 15, 2016. Subjective Pt evaluation today including: conversation w/ patient, physical exam, chart review, lab review, review of studies, conversation w/ computer consultant, review of inpatient medication list Patient well, denies acute overnight events. States ongoing pain. Currently rated as non-existent at rest, but up to 8-10 out of 10 with movement namely transitioning from lying to sitting. He states that the [place] helps to significantly alleviate the pain, and allowed him to sleep comfortably overnight. He otherwise denies shortness of breath, palpitations, abdominal pain, nausea or vomiting. He is tolerating diet, and voiding and stooling appropriately. All Other Systems: Reviewed and Negative Objective Vital Signs Date Time Temp Pulse Resp B/P (MAP) Pulse Ox O2 Delivery O2 Flow Rate FiO2 12/15/16 19:44 36.7 72 20 163/70 (101) 93 Room Air 12/15/16 15:55 Room Air 12/15/16 15:51 36.5 77 20 163/74 (103) 91 Room Air 12/15/16 12:08 36.9 72 18 120/70 (87) 90 Room Air 12/15/16 12:00 Room Air 12/15/16 08:08 36.6 66 18 151/67 (95) 92 Room Air 12/15/16 08:00 Room Air 12/15/16 04:00 92 Room Air 12/15/16 04:00 37.0 64 18 148/66 (93) 94 Room Air 12/15/16 00:00 92 Room Air 12/14/16 23:43 37.2 74 22 128/65 (86) 93 Room Air 12/14/16 20:09 36.9 77 20 136/61 (86) 91 Room Air 12/14/16 20:01 92 Room Air Physical Exam General Appearance: WD/WN, no apparent distress Eyes: normal inspection ENT: hearing grossly normal Neck: supple Respiratory/Chest: lungs clear, no respiratory distress, no accessory muscle use, + decreased breath sounds (secondary to decreased chest expansion due to pain) Cardiovascular: regular rate, rhythm, no edema, no murmur Abdomen: normal bowel sounds, non tender, soft Extremities: non-tender, no pedal edema, no calf tenderness Neurologic/Psychiatric: alert, normal mood/affect, oriented x 3 Skin: normal color, warm/dry, no rash Assessment and Plan 81 year old male chronic smoker with severe emphysema, chronic alcohol abuse, HTN, HLD and depression admitted with multiple rib fractures s/p fall. Multiple rib fractures status post fall/right anterior 8 through 10/left posterior to -- - Pain control: lidoderm patch, acetaminophen, [place] PRN pain Peripheral arterial disease -- near-complete occlusion of the right common iliac artery/high-grade stenoses of right external iliac and right superficial femoral arteries. Lower extremity arterial Doppler report consistent with this finding. - Aspirin 81mg daily - Vascular surgery consulted - Recs appreciated. They will follow up with patient in office in 1-2 month to reevaluate. Hypertension -- - Amlodipine 5mg daily Alcohol abuse/history of alcohol withdrawal -- admits to drinking 1 pint of bourban daily. Has never had DT. Has done rehab once, but not amenable to try again. No benzodiazepine required thus far. - Continue folic acid, thiamine, multivitamin with minerals, and naltrexone. - On alcohol withdrawal program. Severe COPD -- patient has a 60 pack year history of tobacco use, and not contemplating stopping. Smoking cessation encouraged and support offered. - Continue Advair and prednisone. - Nicotine patch Depression -- - Continue sertraline. Hyperlipidemia -- - continue simvastatin Dispo - PT/OT cortneyals completed - To [facility] pending approval Discharge planning: rehab hospital
[2016-12-15] MEDS: AMLODIPINE BESYLATE 5 MG TAB PO SCH (20:43)
[2016-12-15] MEDS: ASPIRIN 81 MG ECTAB PO SCH (20:43)
[2016-12-15] MEDS: SIMVASTATIN 40 MG TAB PO SCH (20:43)
[2016-12-15] MEDS: NICOTINE 14 MG/24 HR TDSY TD SCH (21:31)
[2016-12-16] VITALS (9 sets, daily range): BP systolic 150–179; BP diastolic 65–76; PULSE 63–73; TEMP 36.5–36.7; O2SAT 90–95
[2016-12-16] MEDS: HYDROCODONE/ACETAMOPHEN 5/325MG TAB PO PRN ×3 (03:19→19:51)
[2016-12-16 06:36] LABS: HEMATOCRIT 33.9 % (42-52); MEAN CELL VOLUME 89.7 fL (80-100); MEAN CORPUSCULAR HEMOGLOBIN 30.7 pg (25-34); MEAN CORPUSCULAR HGB CONC 34.2 g/dl (32-36); MEAN PLATELET VOLUME 9.5 fL (7.4-10.4); PLATELET COUNT 169 K/uL (130-400); RED BLOOD COUNT 3.78 M/uL (4.7-6.1); WHITE BLOOD COUNT 7.04 K/uL (4.8-10.8)
[2016-12-16 07:07] LABS: BUN/CREATININE RATIO 18.6 (10-20); CALCIUM 8.5 mg/dl (8.5-10.1); CREATININE 0.43 mg/dl (0.60-1.40); POTASSIUM 3.9 mmol/L (3.5-5.1)
[2016-12-16] MEDS: IV FLUIDS COMPLETED PRN ×2 (08:00→17:40)
[2016-12-16] MEDS: NSS + 20MEQ KCL 1000ML 1,000 ML IV SCH (08:22)
[2016-12-16] MEDS: NALTREXONE HCL 50 MG TAB PO SCH (08:22)
[2016-12-16] MEDS: FLUTICASONE/SALMETEROL 250/50 (ADVAIR) 14 PUFF/1 INHALER INH SCH ×2 (08:22→19:47)
[2016-12-16] MEDS: LIDODERM (LIDOCAINE) PATCH 5% TD SCH (08:23)
[2016-12-16] MEDS: CEROVITE ADV FORMULA TAB PO SCH (08:23)
[2016-12-16] MEDS: SERTRALINE HCL 100 MG TAB PO SCH (08:23)
[2016-12-16] MEDS: THIAMINE HCL 100 MG TAB PO SCH (08:23)
[2016-12-16] MEDS: CHOLECALCIFEROL 1000 INTER.UNIT TAB PO SCH (08:23)
[2016-12-16] MEDS ORDERED: NURSING VERBAL MED ORDER ONE (09:45)
[2016-12-16] MEDS: GUAIFENESIN 600 MG TABCR PO SCH ×2 (10:54→19:48)
--- NOTE | 2016-12-16 16:32 | Family Medicine Progress Note ---
Progress Note Date of Service Dec 16, 2016. Subjective Pt evaluation today including: conversation w/ patient, physical exam, chart review, lab review Pain: well controlled PO Intake: good 81-year-old male with a past medical history of emphysema secondary to chronic cigarette smoking, chronic alcohol abuse, hypertension, hyperlipidemia and depression admitted after a fall resulting in multiple rib fractures. No acute events overnight. Pain is fairly well controlled with Alloy as needed , pain is especially worse on changing posture and taking deep breaths. Denies any shortness of breath, chest pain (except at the fracture site), palpitations. Denies any restlessness, anxiety Constitutional: No fever, No chills Eyes: No worsening of vision ENT: No hearing loss Cardiovascular: + chest pain (at rib fracture sites) Abdomen: No pain, No nausea, No vomiting Musculoskeletal: No joint pain Male : No dysuria Neurologic: No memory loss Psychiatric: No depression symptoms Medications Current Inpatient Medications Medications (Trade) Dose Ordered Sig/Etienne Route Start Time Stop Time Status Last Admin Dose Admin Ioversol (Optiray 320) 100 ml UD PRN IV 12/13/16 12:00 12/17/16 11:59 Potassium Chloride/Sodium Chloride 1,000 ml @ 100 mls/hr Q10H IV 12/13/16 19:15 01/12/17 19:14 12/16/16 08:22 100 MLS/HR Acetaminophen (Tylenol Tab) 650 mg Q4H PRN PO 12/13/16 17:45 01/12/17 17:44 Nitroglycerin (Nitrostat Tab) 0.4 mg UD PRN SL 12/13/16 17:45 01/12/17 17:44 Aspirin (Ecotrin Tab) 81 mg QPM PO 12/13/16 21:00 01/12/17 20:59 12/15/16 20:43 81 MG Folic Acid (Folvite Tab) 1 mg QAM PO 12/14/16 09:00 01/13/17 08:59 12/16/16 08:22 1 MG Polyethylene (Miralax Powder Packet) 17 gm DAILY PRN PO 12/13/16 17:45 01/12/17 17:44 Sertraline HCl (Zoloft Tab) 100 mg DAILY PO 12/14/16 09:00 01/13/17 08:59 12/16/16 08:23 100 MG Simvastatin (Zocor Tab) 40 mg QPM PO 12/13/16 21:00 01/12/17 20:59 12/15/16 20:43 40 MG Thiamine HCl (Vitamin B-1 Tab) 100 mg QAM PO 12/14/16 09:00 01/13/17 08:59 12/16/16 08:23 100 MG Cholecalciferol (Vitamin D Tab) 2,000 inter.unit QAM PO 12/14/16 09:00 01/13/17 08:59 12/16/16 08:23 2,000 INTER.UNIT Salmeterol Xinafoate/ Fluticasone (Advair Diskus 250/50 Inh) 1 puff BID INH 12/13/16 21:00 01/12/17 20:59 12/16/16 08:22 1 PUFF Naltrexone HCl (Naltrexone) 50 mg DAILY PO 12/14/16 09:00 01/13/17 08:59 12/16/16 08:22 50 MG Multivitamins/ Minerals (Multivitamin W/ Minerals Tab) 1 tab QAM PO 12/14/16 09:00 01/13/17 08:59 12/16/16 08:23 1 TAB Lidocaine (Lidoderm Patch 5%) 1 patch QAM TD 12/14/16 09:00 01/13/17 08:59 12/16/16 08:23 1 PATCH Miscellaneous (Remove Lidoderm Patch) 1 ea DAILY@21 N/A 12/13/16 21:00 01/12/17 20:59 12/15/16 20:43 1 EA Lorazepam (Ativan Inj) PRN Dosing -Active Protocol Q1H PRN IV 12/13/16 18:15 01/12/17 18:14 Miscellaneous (Iv Fluids Completed) 1 ea PRN PRN N/A 12/14/16 01:00 12/14/17 00:59 12/15/16 08:50 1 EA Amlodipine Besylate (Norvasc Tab) 5 mg QPM PO 12/14/16 21:00 01/12/17 20:59 12/15/16 20:43 5 MG Acetaminophen/ Hydrocodone Bitart (Alloy 5/325 Tab) 1 tab Q6H PRN PO 12/14/16 14:30 12/28/16 14:29 12/16/16 10:59 1 TAB Lorazepam (Ativan Inj) 1 mg ONE PRN IV 12/14/16 19:00 Nicotine (Nicoderm Cq 14MG Patch) 1 patch QPM TD 12/15/16 21:00 01/14/17 20:59 12/15/16 21:31 1 PATCH Guaifenesin (Mucinex Contr Rel Tab) 600 mg Q12 PO 12/16/16 10:00 01/15/17 09:59 12/16/16 10:54 600 MG Objective Vital Signs Date Time Temp Pulse Resp B/P (MAP) Pulse Ox O2 Delivery O2 Flow Rate FiO2 12/16/16 15:12 36.7 65 18 150/76 (100) 95 Room Air 12/16/16 12:00 Room Air 12/16/16 11:32 36.6 63 18 157/70 (99) 95 Room Air 12/16/16 10:56 66 153/65 (94) 12/16/16 07:55 Room Air 12/16/16 07:28 36.5 70 18 171/65 (100) 90 Nasal Cannula 2.0 12/16/16 04:00 36.5 73 20 169/69 (102) 93 Room Air 12/16/16 04:00 93 Room Air 12/16/16 00:00 93 Room Air 12/15/16 23:43 36.9 72 20 170/67 (101) 93 Room Air 12/15/16 20:00 90 Room Air 12/15/16 20:00 90 Room Air 12/15/16 19:44 36.7 72 20 163/70 (101) 93 Room Air Physical Exam General Appearance: WD/WN, no apparent distress Eyes: normal inspection ENT: hearing grossly normal Neck: supple Respiratory/Chest: lungs clear, normal breath sounds, no respiratory distress, + pertinent finding (tenderness on anterior and posterior aspect of lower ribs) Cardiovascular: regular rate, rhythm Abdomen: normal bowel sounds, non tender, soft Extremities: no pedal edema Neurologic/Psychiatric: alert, normal mood/affect, oriented x 3 Laboratory Results 12/16/16 05:57 12/16/16 05:57 Test 12/16/16 05:57 Red Blood Count 3.78 M/uL (4.7-6.1) Mean Corpuscular Volume 89.7 fL (80-100) Mean Corpuscular Hemoglobin 30.7 pg (25-34) Mean Corpuscular Hemoglobin Concent 34.2 g/dl (32-36) RDW Standard Deviation 45.6 fL (36.4-46.3) RDW Coefficient of Variation 13.9 % (11.5-14.5) Mean Platelet Volume 9.5 fL (7.4-10.4) Anion Gap 7.0 mmol/L (3-11) Est Creatinine Clear Calc Drug Dose 102.3 ml/min Estimated GFR () 124.5 Estimated GFR (Non- 107.4 BUN/Creatinine Ratio 18.6 (10-20) Calcium Level 8.5 mg/dl (8.5-10.1) Assessment and Plan 81-year-old male with a past medical history of emphysema secondary to chronic cigarette smoking, chronic alcohol abuse, hypertension, hyperlipidemia and depression admitted after a fall resulting in multiple rib fractures. Multiple rib fractures secondary to mechanical fall: - Fractures involving anterolateral ninth, 10th ribs, posterior 11th and 12th ribs - Pain control with Lidoderm patch, Tylenol, Alloy as needed Chronic alcohol abuse -Drinks about half to 1 pint of bourbon every night, last drink about 3 days ago - Monitor for withdrawal symptoms, alcohol withdrawal protocol in place - Supplement folic acid, thiamine Hypertension: - Continue Norvasc 5 mg daily Peripheral arterial disease: - Abdominal CT high-grade stenosis with near complete to complete occlusion in the right common iliac artery. High-grade stenosis is also suggested in the right external iliac artery and the right superficial femoral artery. - Arterial Doppler indicative of PAD - Vascular surgery consult- to be followed as an outpatient - Continue 81 mg of aspirin daily COPD: - Secondary to chronic history of more than 60 pack years - Continue Advair and prednisone -Smoking cessation counseling , NicoDerm patch Hyperlipidemia: -Continue simvastatin Depression: -Continue Zoloft PT/OT Disposition: Referral made to [facility] for acute rehabilitation. Monitor for alcohol withdrawal Resident Tracking Resident Involvement: Resident Care Provided Care Provided: Adult Hospital Medicine Reviewed: Pt Seen/Exam by Me History Resident Physician Supervision Note: I interviewed and examined the patient. Discussed with Dr. Gallegos and agree with findings and plan as documented in the note. Any exceptions or clarifications are listed here: Pt feeling fine, pain controlled at rest, still painful in ribs with movement. Is using IS. Yarely po, moving bowels and making urine. No beds available today at [facility] for him. Pt reports he is not likely to quit smoking. Says his last drink of EtOH was 2 months ago, then says well "maybe that's not accurate..." RN reports pt is owning, but perfectly oriented and fine during daytime Vitals reviewed NAD, alert, awake, pleasant RRR no mgr Lungs with diminished BS throughout, some coarse BS anteriorly but not posteriorly Abd +BS soft NT ND Ext no edema 81 yo male with a h/o EtOH dependence, PAD, COPD, HTN, current smoker, and depression, with multiple admissions for EtOH intoxication and withdrawal, here with a fall while intoxicated resulting in multiple rib fractures. Having some delirium in the evenings, not requiring ativan. -advised RN to watch carefully for withdrawal today as would be most likely to have DTs today as he has in the past and BPs are high -lorazepam prn signs of EtOH withdrawal as per protocol, continue naltrexone as Rxd by his Psychiatrist for substance abuse -continue pain control, encouraged IS -Vascular f/u as outpt in 1-2 months for RLE PAD-continue ASA, statin -d/c IVFs today -is NOT on prednisone as stated above--> says he was on it prior to admission but not any longer -consider increasing amlodipine to 7.5mg if BPs still high tomorrow -encouraged smoking cessation but he declines once he gets home-continue nicotine for now -continue Zoloft for depression, f/u with Psych after discharge -hopeful for dc to [facility] tomorrow-awaiting acceptance and bed availability proph-add on Lovenox Documented By: Mandie Gonzalez
[2016-12-16] MEDS: SIMVASTATIN 40 MG TAB PO SCH (19:48)
[2016-12-16] MEDS: NICOTINE 14 MG/24 HR TDSY TD SCH (19:49)
[2016-12-16] MEDS: ASPIRIN 81 MG ECTAB PO SCH (19:50)
[2016-12-16] MEDS: AMLODIPINE BESYLATE 5 MG TAB PO SCH (19:50)
[2016-12-17] MEDS: ENOXAPARIN 30 MG/0.3 ML SYR SQ SCH ×2 (00:46→21:10)
[2016-12-17] MEDS: HYDROCODONE/ACETAMOPHEN 5/325MG TAB PO PRN ×3 (01:38→21:13)
[2016-12-17 04:00] VITALS: BP 140/70; PULSE 63; TEMP 36.5; O2SAT 94
[2016-12-17 07:32] VITALS: BP_SYST 173; BP_SYST 176; BP_DIAS 71; BP_DIAS 81; PULSE 66; TEMP 36.8; O2SAT 95
[2016-12-17] MEDS: FLUTICASONE/SALMETEROL 250/50 (ADVAIR) 14 PUFF/1 INHALER INH SCH ×2 (08:13→21:09)
[2016-12-17] MEDS: THIAMINE HCL 100 MG TAB PO SCH (08:14)
[2016-12-17] MEDS: NALTREXONE HCL 50 MG TAB PO SCH (08:14)
[2016-12-17] MEDS: CEROVITE ADV FORMULA TAB PO SCH (08:15)
[2016-12-17] MEDS: SERTRALINE HCL 100 MG TAB PO SCH (08:15)
[2016-12-17] MEDS: CHOLECALCIFEROL 1000 INTER.UNIT TAB PO SCH (08:15)
[2016-12-17] MEDS: LIDODERM (LIDOCAINE) PATCH 5% TD SCH (08:15)
[2016-12-17] MEDS: GUAIFENESIN 600 MG TABCR PO SCH ×2 (08:15→21:12)
[2016-12-17 11:38] VITALS: BP 143/62; PULSE 67; TEMP 36.7; O2SAT 92
[2016-12-17 14:50] VITALS: BP 138/70; PULSE 65; TEMP 36.7; O2SAT 92
--- NOTE | 2016-12-17 17:28 | Family Medicine Progress Note ---
Progress Note Date of Service Dec 17, 2016. Subjective Pt evaluation today including: conversation w/ patient, physical exam, chart review, lab review Pain: continues to have pain at the fracture site especially on movement PO Intake: good Voiding: no voiding problems Constitutional: No fever, No chills Eyes: No worsening of vision ENT: No hearing loss Respiratory: No cough, No sputum Cardiovascular: + chest pain (at the site of the fractures) Abdomen: No pain, No nausea Male : No dysuria, No urinary frequency Neurologic: No memory loss Psychiatric: No depression symptoms Heme: No abnormal bleeding/bruising Medications Current Inpatient Medications Medications (Trade) Dose Ordered Sig/Etienne Route Start Time Stop Time Status Last Admin Dose Admin Acetaminophen (Tylenol Tab) 650 mg Q4H PRN PO 12/13/16 17:45 01/12/17 17:44 Nitroglycerin (Nitrostat Tab) 0.4 mg UD PRN SL 12/13/16 17:45 01/12/17 17:44 Aspirin (Ecotrin Tab) 81 mg QPM PO 12/13/16 21:00 01/12/17 20:59 12/16/16 19:50 81 MG Folic Acid (Folvite Tab) 1 mg QAM PO 12/14/16 09:00 01/13/17 08:59 12/17/16 08:14 1 MG Polyethylene (Miralax Powder Packet) 17 gm DAILY PRN PO 12/13/16 17:45 01/12/17 17:44 Sertraline HCl (Zoloft Tab) 100 mg DAILY PO 12/14/16 09:00 01/13/17 08:59 12/17/16 08:15 100 MG Simvastatin (Zocor Tab) 40 mg QPM PO 12/13/16 21:00 01/12/17 20:59 12/16/16 19:48 40 MG Thiamine HCl (Vitamin B-1 Tab) 100 mg QAM PO 12/14/16 09:00 01/13/17 08:59 12/17/16 08:14 100 MG Cholecalciferol (Vitamin D Tab) 2,000 inter.unit QAM PO 12/14/16 09:00 01/13/17 08:59 12/17/16 08:15 2,000 INTER.UNIT Salmeterol Xinafoate/ Fluticasone (Advair Diskus 250/50 Inh) 1 puff BID INH 12/13/16 21:00 01/12/17 20:59 12/17/16 08:13 1 PUFF Naltrexone HCl (Naltrexone) 50 mg DAILY PO 12/14/16 09:00 01/13/17 08:59 12/17/16 08:14 50 MG Multivitamins/ Minerals (Multivitamin W/ Minerals Tab) 1 tab QAM PO 12/14/16 09:00 01/13/17 08:59 12/17/16 08:15 1 TAB Lidocaine (Lidoderm Patch 5%) 1 patch QAM TD 12/14/16 09:00 01/13/17 08:59 12/17/16 08:15 1 PATCH Miscellaneous (Remove Lidoderm Patch) 1 ea DAILY@21 N/A 12/13/16 21:00 01/12/17 20:59 12/16/16 19:47 1 EA Lorazepam (Ativan Inj) PRN Dosing -Active Protocol Q1H PRN IV 12/13/16 18:15 01/12/17 18:14 Miscellaneous (Iv Fluids Completed) 1 ea PRN PRN N/A 12/14/16 01:00 12/14/17 00:59 12/15/16 08:50 1 EA Amlodipine Besylate (Norvasc Tab) 5 mg QPM PO 12/14/16 21:00 01/12/17 20:59 12/16/16 19:50 5 MG Acetaminophen/ Hydrocodone Bitart ([place] 5/325 Tab) 1 tab Q6H PRN PO 12/14/16 14:30 12/28/16 14:29 12/17/16 08:14 1 TAB Lorazepam (Ativan Inj) 1 mg ONE PRN IV 12/14/16 19:00 Nicotine (Nicoderm Cq 14MG Patch) 1 patch QPM TD 12/15/16 21:00 01/14/17 20:59 12/15/16 21:31 1 PATCH Guaifenesin (Mucinex Contr Rel Tab) 600 mg Q12 PO 12/16/16 10:00 01/15/17 09:59 12/17/16 08:15 600 MG Enoxaparin Sodium (Lovenox Inj) 30 mg HS SQ 12/17/16 00:30 01/16/17 00:29 12/17/16 00:46 30 MG Objective Vital Signs Date Time Temp Pulse Resp B/P (MAP) Pulse Ox O2 Delivery O2 Flow Rate FiO2 12/17/16 16:00 Room Air 12/17/16 14:50 36.7 65 16 138/70 (92) 92 Room Air 12/17/16 12:00 Room Air 12/17/16 11:38 36.7 67 18 143/62 (89) 92 Room Air 12/17/16 08:00 Room Air 12/17/16 07:32 36.8 66 18 173/81 (111) 95 Room Air 176/71 (106) 12/17/16 04:00 Room Air 12/17/16 04:00 36.5 63 20 140/70 (93) 94 Room Air 12/17/16 00:00 Room Air 12/16/16 22:49 36.6 70 18 172/67 (102) 94 Room Air 12/16/16 20:00 92 Room Air 2.0 12/16/16 19:31 36.6 70 20 179/72 (107) 92 Room Air Physical Exam General Appearance: WD/WN, no apparent distress Eyes: normal inspection ENT: hearing grossly normal Neck: supple Respiratory/Chest: lungs clear, + decreased breath sounds (likely secondary to restricted breathing due to pain), + pertinent finding (tenderness of the chest at the site of the fractures) Cardiovascular: regular rate, rhythm Abdomen: non tender, soft Extremities: no pedal edema Neurologic/Psychiatric: alert, normal mood/affect, oriented x 3 Skin: normal color Assessment and Plan 81-year-old male with a past medical history of emphysema secondary to chronic cigarette smoking, chronic alcohol abuse, hypertension, hyperlipidemia and depression admitted after a fall resulting in multiple rib fractures. Multiple rib fractures secondary to mechanical fall: - Fractures involving anterolateral ninth, 10th ribs, posterior 11th and 12th ribs - Pain control with Lidoderm patch, Tylenol, [place] as needed Chronic alcohol abuse: -Drinks about half to 1 pint of bourbon every night, last drink about 4 days ago - Monitor for withdrawal symptoms, alcohol withdrawal protocol in place - Supplement folic acid, thiamine Hypertension: - Continue Norvasc 5 mg daily, consider increasing to 7.5 mg if blood pressure seems uncontrolled Peripheral arterial disease: - Abdominal CT high-grade stenosis with near complete to complete occlusion in the right common iliac artery. High-grade stenosis is also suggested in the right external iliac artery and the right superficial femoral artery. - Arterial Doppler indicative of PAD - Vascular surgery consult- to be followed as an outpatient - Continue 81 mg of aspirin daily, simvastatin COPD: - Secondary to chronic history of smoking for more than 60 pack years - Continue Advair and prednisone -Smoking cessation counseling , NicoDerm patch Hyperlipidemia: -Continue simvastatin Depression: -Continue Zoloft PT/OT Disposition: Referral to [facility] denied. Family is planning to appeal Resident Tracking Resident Involvement: Resident Care Provided Care Provided: Adult [facility] Medicine Reviewed: Pt Seen/Exam by Me History Resident Physician Supervision Note: I interviewed and examined the patient. Discussed with Dr. Gallegos and agree with findings and plan as documented in the note. Any exceptions or clarifications are listed here: Feels better today. Pain more controlled but will present with movement. BPs improved today, no CP or SOB, no other concerns Vitals reviewed NAD, alert, awake, pleasant RRR no mgr Lungs with diminished BS throughout, a few scattered rhonchi posteriorly but otherwise clear Abd +BS soft NT ND Ext no edema 81 yo male with a h/o EtOH dependence, PAD, COPD, HTN, current smoker, and depression, with multiple admissions for EtOH intoxication and withdrawal, here with a fall while intoxicated resulting in multiple rib fractures. Was previously having some delirium in the evenings, not requiring ativan, now resolved -not likely to have EtOH withdrawal at this point, BPs improved, no further delirium -lorazepam prn signs of EtOH withdrawal as per protocol, continue naltrexone as Rxd by his Psychiatrist for substance abuse, thiamine and folate -continue pain control, encouraged IS -Vascular f/u as outpt in 1-2 months for RLE PAD-continue ASA, statin -encouraged smoking cessation but he declines once he gets home-continue nicotine for now -continue Zoloft for depression, f/u with Psych after discharge -hopeful for dc to [facility]-awaiting family appeal proph-Lovenox Documented By: Mandie Gonzalez
[2016-12-17 19:21] VITALS: BP 131/62; PULSE 65; TEMP 36.9; O2SAT 92
[2016-12-17 20:00] VITALS: O2SAT 92
[2016-12-17] MEDS: NICOTINE 14 MG/24 HR TDSY TD SCH (21:00)
[2016-12-17] MEDS: ASPIRIN 81 MG ECTAB PO SCH (21:11)
[2016-12-17] MEDS: SIMVASTATIN 40 MG TAB PO SCH (21:12)
[2016-12-17] MEDS: AMLODIPINE BESYLATE 5 MG TAB PO SCH (21:13)
[2016-12-18] VITALS (13 sets, daily range): BP systolic 132–153; BP diastolic 44–73; PULSE 62–72; TEMP 36.5–36.8; O2SAT 92–96
[2016-12-18] MEDS: THIAMINE HCL 100 MG TAB PO SCH (08:42)
[2016-12-18] MEDS: FLUTICASONE/SALMETEROL 250/50 (ADVAIR) 14 PUFF/1 INHALER INH SCH ×2 (08:42→20:48)
[2016-12-18] MEDS: SERTRALINE HCL 100 MG TAB PO SCH (08:42)
[2016-12-18] MEDS: NALTREXONE HCL 50 MG TAB PO SCH (08:42)
[2016-12-18] MEDS: CEROVITE ADV FORMULA TAB PO SCH (08:42)
[2016-12-18] MEDS: GUAIFENESIN 600 MG TABCR PO SCH ×2 (08:43→20:46)
[2016-12-18] MEDS: CHOLECALCIFEROL 1000 INTER.UNIT TAB PO SCH (08:44)
[2016-12-18] MEDS: LIDODERM (LIDOCAINE) PATCH 5% TD SCH (08:45)
[2016-12-18] MEDS ORDERED: IV FLUIDS COMPLETED PRN (11:45)
--- NOTE | 2016-12-18 11:55 | DIAGNOSTIC IMAGING REPORT ---
CHEST INSPIRAT/EXPIRAT CLINICAL HISTORY: Suspected pneumothorax chest pain COMPARISON STUDY: 11/23/2016 FINDINGS: The chest has an emphysematous configuration. There is no focal pulmonary consolidation. There is no failure. There are no pleural effusions. No pneumothorax is visualized. Right-sided lower rib fractures are evident. IMPRESSION: 1. Emphysema 2. Right-sided rib fractures 3. No evidence of pneumothorax Electronically signed by: Jose Gary M.D. 12/18/2016 11:54 AM Dictated Date/Time: 12/18/2016 11:52 AM
--- NOTE | 2016-12-18 16:35 | Hospitalist Progress Note ---
Hospitalist Progress Note Date of Service Dec 18, 2016. (Deandra Lopez CRNP) Subjective Pt evaluation today including: conversation w/ patient, physical exam Voiding: no voiding problems Mr. Nelson had some change in lung sounds per nursing. He is not expressing any distress or sob. Rib pain is mostly under control, bothers him most when changing positions. Constitutional: No fever, No chills Respiratory: + cough (baseline), + sputum (clear), No shortness of breath Cardiovascular: No chest pain Abdomen: No pain, No nausea, No vomiting, No diarrhea, No constipation All Other Systems: Reviewed and Negative (Deandra Lopez CRNP) Medications Medications Administered Medications (Trade) Dose Ordered Sig/Etienne Route Start Time Stop Time Status Last Admin Dose Admin Sodium Chloride 500 ml @ 999 mls/hr Q31M STAT IV 12/13/16 10:10 12/13/16 10:40 DC 12/13/16 11:21 999 MLS/HR Acetaminophen (Tylenol Tab) 1,000 mg NOW STAT PO 12/13/16 10:10 12/13/16 10:14 DC 12/13/16 10:34 1,000 MG Albuterol/ Ipratropium (Duoneb) 3 ml NOW STAT INH 12/13/16 10:10 12/13/16 10:14 DC 12/13/16 10:34 3 ML Potassium Chloride/Sodium Chloride 1,000 ml @ 100 mls/hr Q10H IV 12/13/16 19:15 12/16/16 16:29 DC 12/16/16 08:22 100 MLS/HR Amlodipine Besylate (Norvasc Tab) 2.5 mg QPM PO 12/13/16 21:00 12/14/16 14:25 DC 12/13/16 20:53 2.5 MG Aspirin (Ecotrin Tab) 81 mg QPM PO 12/13/16 21:00 01/12/17 20:59 12/17/16 21:11 81 MG Folic Acid (Folvite Tab) 1 mg QAM PO 12/14/16 09:00 01/13/17 08:59 12/18/16 08:43 1 MG Sertraline HCl (Zoloft Tab) 100 mg DAILY PO 12/14/16 09:00 01/13/17 08:59 12/18/16 08:42 100 MG Simvastatin (Zocor Tab) 40 mg QPM PO 12/13/16 21:00 01/12/17 20:59 12/17/16 21:12 40 MG Thiamine HCl (Vitamin B-1 Tab) 100 mg QAM PO 12/14/16 09:00 01/13/17 08:59 12/18/16 08:42 100 MG Cholecalciferol (Vitamin D Tab) 2,000 inter.unit QAM PO 12/14/16 09:00 01/13/17 08:59 12/18/16 08:44 2,000 INTER.UNIT Salmeterol Xinafoate/ Fluticasone (Advair Diskus 250/50 Inh) 1 puff BID INH 12/13/16 21:00 01/12/17 20:59 12/18/16 08:42 1 PUFF Naltrexone HCl (Naltrexone) 50 mg DAILY PO 12/14/16 09:00 01/13/17 08:59 12/18/16 08:42 50 MG Multivitamins/ Minerals (Multivitamin W/ Minerals Tab) 1 tab QAM PO 12/14/16 09:00 01/13/17 08:59 12/18/16 08:42 1 TAB Lidocaine (Lidoderm Patch 5%) 1 patch QAM TD 12/14/16 09:00 01/13/17 08:59 12/18/16 08:45 1 PATCH Miscellaneous (Remove Lidoderm Patch) 1 ea DAILY@21 N/A 12/13/16 21:00 01/12/17 20:59 12/16/16 19:47 1 EA Tramadol HCl (Ultram Tab) 50 mg Q4H PRN PO 12/13/16 18:00 12/14/16 14:26 DC 12/14/16 08:23 50 MG Influenza Virus Vaccine (Fluzone High-Dose Pf 0.5 ml) 0.5 ml ONCE ONCE IM. 12/13/16 19:45 12/13/16 19:46 DC 12/14/16 14:13 0.5 ML Miscellaneous (Iv Fluids Completed) 1 ea PRN PRN N/A 12/14/16 01:00 12/14/17 00:59 12/16/16 08:00 1 EA Amlodipine Besylate (Norvasc Tab) 5 mg QPM PO 12/14/16 21:00 01/12/17 20:59 12/17/16 21:13 5 MG Acetaminophen/ Hydrocodone Bitart ([place] 5/325 Tab) 1 tab Q6H PRN PO 12/14/16 14:30 12/28/16 14:29 12/17/16 21:13 1 TAB Nicotine (Nicoderm Cq 14MG Patch) 1 patch QPM TD 12/15/16 21:00 01/14/17 20:59 12/15/16 21:31 1 PATCH Guaifenesin (Mucinex Contr Rel Tab) 600 mg Q12 PO 12/16/16 10:00 01/15/17 09:59 12/18/16 08:43 600 MG Enoxaparin Sodium (Lovenox Inj) 30 mg HS SQ 12/17/16 00:30 01/16/17 00:29 12/17/16 21:10 30 MG (Deandra Lopez CRNP) Objective Vital Signs Date Time Temp Pulse Resp B/P (MAP) Pulse Ox O2 Delivery O2 Flow Rate FiO2 12/18/16 15:54 137/65 (89) 12/18/16 15:37 36.7 62 20 132/44 (73) 96 12/18/16 12:04 36.7 63 18 151/70 (97) 93 Room Air 12/18/16 12:00 92 Room Air 12/18/16 08:00 92 Room Air 12/18/16 07:01 36.5 69 18 141/73 (95) 93 Room Air 12/18/16 04:11 36.8 69 18 153/70 (97) 92 Room Air 12/18/16 04:00 92 Room Air 12/18/16 00:02 36.8 68 18 147/69 (95) 96 Room Air 12/18/16 00:00 92 Room Air 12/17/16 20:00 92 Room Air 12/17/16 19:21 36.9 65 20 131/62 (85) 92 Room Air (Deandra Lopez CRNP) Physical Exam Notes: General: no distress Eyes: normal inspection, PERLL Respiratory: chest non tender, coarse bases bilaterally to auscultation, no respiratory distress, no accessory muscle use Cardiac: regular rate and rhythm, no rub or gallop, no murmur, no edema, no jvd GI/: active bowel sounds, no abd pain or tenderness, soft, non distended Extremities: normal range of motion, normal strength, non tender Neuro/Psych: alert and oriented x 3, normal mood and affect Skin: normal color, dry, ecchymosis right flank (Deandra Lopez, MAKEDA) Laboratory Results 12/16/16 05:57 12/16/16 05:57 Test 12/13/16 11:10 12/13/16 12:40 12/16/16 05:57 Immature Granulocyte % (Auto) 0.2 % White Blood Count 10.70 K/uL (4.8-10.8) Red Blood Count 4.81 M/uL (4.7-6.1) 3.78 M/uL (4.7-6.1) Hemoglobin 15.0 g/dL (14.0-18.0) Hematocrit 43.2 % (42-52) Mean Corpuscular Volume 89.8 fL (80-100) 89.7 fL (80-100) Mean Corpuscular Hemoglobin 31.2 pg (25-34) 30.7 pg (25-34) Mean Corpuscular Hemoglobin Concent 34.7 g/dl (32-36) 34.2 g/dl (32-36) Platelet Count 197 K/uL (130-400) Mean Platelet Volume 8.9 fL (7.4-10.4) 9.5 fL (7.4-10.4) Neutrophils (%) (Auto) 76.2 % Lymphocytes (%) (Auto) 16.5 % Monocytes (%) (Auto) 6.4 % Eosinophils (%) (Auto) 0.5 % Basophils (%) (Auto) 0.2 % Neutrophils # (Auto) 8.15 K/uL (1.4-6.5) Lymphocytes # (Auto) 1.77 K/uL (1.2-3.4) Monocytes # (Auto) 0.69 K/uL (0.11-0.59) Eosinophils # (Auto) 0.05 K/uL (0-0.5) Basophils # (Auto) 0.02 K/uL (0-0.2) Immature Granulocyte # (Auto) 0.02 K/uL (0.00-0.02) Prothrombin Time 10.0 SECONDS (9.0-12.0) Prothromb Time International Ratio 0.9 (0.9-1.1) Activated Partial Thromboplast Time 27.1 SECONDS (21.0-31.0) Partial Thromboplastin Ratio 1.0 Magnesium Level 1.8 mg/dl (1.8-2.4) Total Bilirubin 1.5 mg/dl (0.2-1) Aspartate Amino Transf (AST/SGOT) 38 U/L (15-37) Alanine Aminotransferase (ALT/SGPT) 39 U/L (12-78) Alkaline Phosphatase 36 U/L (45-117) Total Creatine Kinase 274 U/L (39-308) Troponin I < 0.015 ng/ml (0-0.045) Total Protein 7.4 gm/dl (6.4-8.2) Albumin 3.8 gm/dl (3.4-5.0) Globulin 3.6 gm/dl (2.5-4.0) Albumin/Globulin Ratio 1.1 (0.9-2) Thyroid Stimulating Hormone (TSH) 2.120 uIu/ml (0.300-4.500) Urine Color YELLOW Urine Appearance CLEAR (CLEAR) Urine pH 5.5 (4.5-7.5) Urine Specific [place] 1.020 (1.000-1.030) Urine Protein 1+ (NEG) Urine Glucose (UA) NEG (NEG) Urine Ketones 2+ (NEG) Urine Occult Blood NEG (NEG) Urine Nitrite NEG (NEG) Urine Bilirubin NEG (NEG) Urine Urobilinogen NEG (NEG) Urine Leukocyte Esterase NEG (NEG) Urine RBC 0-4 /hpf (0-4) Urine WBC 1-5 /hpf (0-5) Urine Epithelial Cells 10-20 /lpf (0-5) Urine Bacteria NEG (NEG) Urine Hyaline Casts 5-10 /lpf (0-5) Urine Granular Casts 0-3 /lpf (0) Urine White Blood Cell Casts 0-3 /lpf (0) RDW Standard Deviation 45.6 fL (36.4-46.3) RDW Coefficient of Variation 13.9 % (11.5-14.5) Anion Gap 7.0 mmol/L (3-11) Est Creatinine Clear Calc Drug Dose 102.3 ml/min Estimated GFR () 124.5 Estimated GFR (Non- 107.4 BUN/Creatinine Ratio 18.6 (10-20) Calcium Level 8.5 mg/dl (8.5-10.1) (Deandar Lopez CRNP) Assessment and Plan 81-year-old male with a past medical history of emphysema secondary to chronic cigarette smoking, chronic alcohol abuse, hypertension, hyperlipidemia and depression admitted after a fall resulting in multiple rib fractures. Multiple rib fractures secondary to mechanical fall: - Fractures involving anterolateral ninth, 10th ribs, posterior 11th and 12th ribs - Pain control with Lidoderm patch, Tylenol, [place] as needed Chronic alcohol abuse: -Drinks about half to 1 pint of bourbon every night, last drink about 4 days ago - Monitor for withdrawal symptoms, alcohol withdrawal protocol in place - Supplement folic acid, thiamine Hypertension: - Continue Norvasc 5 mg daily, consider increasing to 7.5 mg if blood pressure seems uncontrolled Peripheral arterial disease: - Abdominal CT high-grade stenosis with near complete to complete occlusion in the right common iliac artery. High-grade stenosis is also suggested in the right external iliac artery and the right superficial femoral artery. - Arterial Doppler indicative of PAD - Vascular surgery consult- to be followed as an outpatient - Continue 81 mg of aspirin daily, simvastatin COPD: - Secondary to chronic history of smoking for more than 60 pack years - Continue Advair and prednisone -Smoking cessation counseling , NicoDerm patch - CXR 12/18 showed no acute process/pneumo Hyperlipidemia: -Continue simvastatin Depression: -Continue Zoloft PT/OT Disposition: Referral to [facility] denied. Family is planning to appeal, to [facility] if [facility] appeal denied (Deandra Lopez CRNP) Reviewed: Pt Seen/Exam by Me (Mandie Gonzalez MD) History Nurse Practitioner Supervision Note: I interviewed and examined the patient. Discussed with Ms. Lopez and agree with findings and plan as documented in the note. Any exceptions or clarifications are listed here: Feels well, no concerns, pain only wiht movement but is improving Vitals reviewed NAD, alert, awake, pleasant RRR no mgr Lungs with diminished BS throughout, a few scattered rhonchi posteriorly but otherwise clear Abd +BS soft NT ND Ext no edema 81 yo male with a h/o EtOH dependence, PAD, COPD, HTN, current smoker, and depression, with multiple admissions for EtOH intoxication and withdrawal, here with a fall while intoxicated resulting in multiple rib fractures. Was previously having some delirium in the evenings, not requiring ativan, now resolved -not likely to have EtOH withdrawal at this point, BPs improved, no further delirium -continue naltrexone as Rxd by his Psychiatrist for substance abuse, thiamine and folate -continue pain control, encouraged IS -Vascular f/u as outpt in 1-2 months for RLE PAD-continue ASA, statin -encouraged smoking cessation but he declines -continue Zoloft for depression, f/u with Psych after discharge -hopeful for dc to [facility]-awaiting family appeal proph-Lovenox Documented By: Mandie Gonzalez (Mandie Gonzalez MD)
[2016-12-18] MEDS: ASPIRIN 81 MG ECTAB PO SCH (20:45)
[2016-12-18] MEDS: ENOXAPARIN 30 MG/0.3 ML SYR SQ SCH (20:46)
[2016-12-18] MEDS: SIMVASTATIN 40 MG TAB PO SCH (20:46)
[2016-12-18] MEDS: AMLODIPINE BESYLATE 5 MG TAB PO SCH (20:47)
[2016-12-18] MEDS: NICOTINE 14 MG/24 HR TDSY TD SCH (20:47)
[2016-12-19] VITALS (8 sets, daily range): BP systolic 130–159; BP diastolic 56–79; PULSE 60–74; TEMP 36.4–36.9; O2SAT 93–97
[2016-12-19] MEDS: HYDROCODONE/ACETAMOPHEN 5/325MG TAB PO PRN (05:44)
[2016-12-19] MEDS: THIAMINE HCL 100 MG TAB PO SCH (08:16)
[2016-12-19] MEDS: NALTREXONE HCL 50 MG TAB PO SCH (08:16)
[2016-12-19] MEDS: CEROVITE ADV FORMULA TAB PO SCH (08:17)
[2016-12-19] MEDS: SERTRALINE HCL 100 MG TAB PO SCH (08:17)
[2016-12-19] MEDS: GUAIFENESIN 600 MG TABCR PO SCH ×2 (08:17→20:37)
[2016-12-19] MEDS: LIDODERM (LIDOCAINE) PATCH 5% TD SCH ×2 (08:17→08:20)
[2016-12-19] MEDS: CHOLECALCIFEROL 1000 INTER.UNIT TAB PO SCH (08:17)
[2016-12-19] MEDS: FLUTICASONE/SALMETEROL 250/50 (ADVAIR) 14 PUFF/1 INHALER INH SCH ×2 (08:18→20:36)
--- NOTE | 2016-12-19 14:55 | Hospitalist Progress Note ---
Hospitalist Progress Note Date of Service Dec 19, 2016. (Andria Ortega ., PA-C) Subjective Pt evaluation today including: conversation w/ patient, conversation w/ family (daughter at bedside ), physical exam, lab review, review of studies, review of inpatient medication list Voiding: no voiding problems Patient feeling well. Laying in bed w/ no signs of acute distress. Eating and drinking OK. Pain is well controlled. Denies withdrawal s/s. Patient denies any fever, chills, sweats, lightheadedness, dizziness, vision changes, CP, palpitations, edema, SOB, wheezing, cough, abdominal pain, nausea, vomiting, diarrhea, urinary symptoms, melena, numbness/tingling, weakness, anxiety/depression, active bleeding, or new skin discoloration/changes. Per daughter, would like referrals to [facility] if [facility] is declined. [facility] would be an out of pocket expense and would like to avoid if possible. (Andria Ortega ., PA-C) Medications Current Inpatient Medications Medications (Trade) Dose Ordered Sig/Etienne Route Start Time Stop Time Status Last Admin Dose Admin Acetaminophen (Tylenol Tab) 650 mg Q4H PRN PO 12/13/16 17:45 01/12/17 17:44 Nitroglycerin (Nitrostat Tab) 0.4 mg UD PRN SL 12/13/16 17:45 01/12/17 17:44 Aspirin (Ecotrin Tab) 81 mg QPM PO 12/13/16 21:00 01/12/17 20:59 12/18/16 20:45 81 MG Folic Acid (Folvite Tab) 1 mg QAM PO 12/14/16 09:00 01/13/17 08:59 12/19/16 08:17 1 MG Polyethylene (Miralax Powder Packet) 17 gm DAILY PRN PO 12/13/16 17:45 01/12/17 17:44 Sertraline HCl (Zoloft Tab) 100 mg DAILY PO 12/14/16 09:00 01/13/17 08:59 12/19/16 08:17 100 MG Simvastatin (Zocor Tab) 40 mg QPM PO 12/13/16 21:00 01/12/17 20:59 12/18/16 20:46 40 MG Thiamine HCl (Vitamin B-1 Tab) 100 mg QAM PO 12/14/16 09:00 01/13/17 08:59 12/19/16 08:16 100 MG Cholecalciferol (Vitamin D Tab) 2,000 inter.unit QAM PO 12/14/16 09:00 01/13/17 08:59 12/19/16 08:17 2,000 INTER.UNIT Salmeterol Xinafoate/ Fluticasone (Advair Diskus 250/50 Inh) 1 puff BID INH 12/13/16 21:00 01/12/17 20:59 12/19/16 08:18 1 PUFF Naltrexone HCl (Naltrexone) 50 mg DAILY PO 12/14/16 09:00 01/13/17 08:59 12/19/16 08:16 50 MG Multivitamins/ Minerals (Multivitamin W/ Minerals Tab) 1 tab QAM PO 12/14/16 09:00 01/13/17 08:59 12/19/16 08:17 1 TAB Lidocaine (Lidoderm Patch 5%) 1 patch QAM TD 12/14/16 09:00 01/13/17 08:59 12/19/16 08:17 1 PATCH Miscellaneous (Remove Lidoderm Patch) 1 ea DAILY@21 N/A 12/13/16 21:00 01/12/17 20:59 12/18/16 20:52 1 EA Lorazepam (Ativan Inj) PRN Dosing -Active Protocol Q1H PRN IV 12/13/16 18:15 01/12/17 18:14 Miscellaneous (Iv Fluids Completed) 1 ea PRN PRN N/A 12/14/16 01:00 12/14/17 00:59 12/16/16 08:00 1 EA Amlodipine Besylate (Norvasc Tab) 5 mg QPM PO 12/14/16 21:00 01/12/17 20:59 12/18/16 20:47 5 MG Acetaminophen/ Hydrocodone Bitart ([place] 5/325 Tab) 1 tab Q6H PRN PO 12/14/16 14:30 12/28/16 14:29 12/19/16 05:44 1 TAB Lorazepam (Ativan Inj) 1 mg ONE PRN IV 12/14/16 19:00 Nicotine (Nicoderm Cq 14MG Patch) 1 patch QPM TD 12/15/16 21:00 01/14/17 20:59 12/18/16 20:47 1 PATCH Guaifenesin (Mucinex Contr Rel Tab) 600 mg Q12 PO 12/16/16 10:00 01/15/17 09:59 12/19/16 08:17 600 MG Enoxaparin Sodium (Lovenox Inj) 30 mg HS SQ 12/17/16 00:30 01/16/17 00:29 12/18/16 20:46 30 MG Miscellaneous (Iv Fluids Completed) 1 ea PRN PRN N/A 12/18/16 11:45 12/18/17 11:44 (Andria Ortega ., PA-C) Objective Vital Signs Date Time Temp Pulse Resp B/P (MAP) Pulse Ox O2 Delivery O2 Flow Rate FiO2 12/19/16 12:15 Room Air 12/19/16 11:32 36.6 68 18 159/74 (102) 95 Room Air 12/19/16 08:30 Room Air 12/19/16 07:21 36.4 60 20 152/63 (92) 97 Room Air 12/19/16 04:00 Room Air 12/19/16 03:52 36.6 66 18 134/62 (86) 94 Room Air 12/19/16 00:00 Room Air 12/18/16 23:30 36.7 69 18 133/50 (77) Room Air 12/18/16 20:00 Room Air 12/18/16 19:00 36.6 72 18 152/68 (96) 94 Room Air 12/18/16 18:33 94 Room Air 12/18/16 16:00 Room Air 12/18/16 15:54 137/65 (89) 12/18/16 15:37 36.7 62 20 132/44 (73) 96 (Andria Ortega ., PA-C) Physical Exam General Appearance: no apparent distress, + thin Eyes: normal inspection, PERRL ENT: hearing grossly normal Neck: supple Respiratory/Chest: lungs clear, no respiratory distress, no accessory muscle use, + decreased breath sounds (throughtout all lung quiroz ) Cardiovascular: regular rate, rhythm Abdomen: normal bowel sounds, non tender, soft Extremities: no pedal edema, no calf tenderness Neurologic/Psychiatric: alert, normal mood/affect, oriented x 3 Skin: normal color, warm/dry, no rash (Murarik, Andria ., PA-C) Assessment and Plan 81-year-old male with a past medical history of emphysema secondary to chronic cigarette smoking, chronic alcohol abuse, hypertension, hyperlipidemia and depression admitted after a fall resulting in multiple rib fractures. Multiple rib fractures- involving anterolateral ninth, 10th ribs, posterior 11th and 12th ribs, secondary to mechanical fall: - Pain control with Lidoderm patch, Tylenol, [place] q6 hrs PRN for pain management Chronic alcohol abuse: - Alcohol withdrawal protocol - Continue Naltrexone 50 mg daily - Supplement folic acid and thiamine Hypertension: Continue Norvasc 5 mg daily RLE PAD, HLD: - Abdominal CT and ultrasound reviewed - Vascular surgery consulted- f/u outpatient in 1-2 months - Continue ASA 81 mg daily, Zocor 40 mg HS COPD w/out exacerbation, h/o tobacco abuse: - Continue Advair - Smoking cessation counseling Depression: Continue Zoloft 100 mg daily DVT prophylaxis: Lovenox SQ daily Code Status: LEVEL I, FULL Disposition: Stable for discharge- pending acute rehab placement- PT/OT and CM consulted (Andria Ortega PA-C) Reviewed: Pt Seen/Exam by Me (Mandie Gonzalez MD) History Physician School Vocational Educator Supervision Note: I interviewed and examined the patient. Discussed with BASSAM Ortega and agree with findings and plan as documented in the note. Any exceptions or clarifications are listed here: Doing very well, no complaints. Again, waiting for placement. Pain controlled Vitals reviewed NAD, AAOx3 RRR no mgr CTAB no wcr Ext no edema 81 yo male with fall resulting in rib fractures bilat while intoxicated, h/o EtOH dependence, smoking. -continue pain control -naltrexone for substance abuse -continue to await dc placement Documented By: Mandie Gonzalez (Mandie Gonzalez MD)
[2016-12-19] MEDS: NICOTINE 14 MG/24 HR TDSY TD SCH (20:36)
[2016-12-19] MEDS: AMLODIPINE BESYLATE 5 MG TAB PO SCH (20:36)
[2016-12-19] MEDS: ENOXAPARIN 30 MG/0.3 ML SYR SQ SCH (20:37)
[2016-12-19] MEDS: SIMVASTATIN 40 MG TAB PO SCH (20:38)
[2016-12-19] MEDS: ASPIRIN 81 MG ECTAB PO SCH (20:38)
[2016-12-20 04:14] VITALS: BP 140/63; PULSE 68; TEMP 36.5; O2SAT 94
[2016-12-20 05:39] LABS: HEMATOCRIT 35.1 % (42-52); MEAN CELL VOLUME 91.2 fL (80-100); MEAN CORPUSCULAR HEMOGLOBIN 31.2 pg (25-34); MEAN CORPUSCULAR HGB CONC 34.2 g/dl (32-36); MEAN PLATELET VOLUME 8.5 fL (7.4-10.4); PLATELET COUNT 252 K/uL (130-400); RED BLOOD COUNT 3.85 M/uL (4.7-6.1)
[2016-12-20 06:05] LABS: CREATININE 0.7 mg/dl (0.60-1.40)
[2016-12-20 07:31] VITALS: BP 137/53; PULSE 65; TEMP 36.5; O2SAT 94
[2016-12-20 08:00] VITALS: O2SAT 93
[2016-12-20] MEDS: GUAIFENESIN 600 MG TABCR PO SCH (08:37)
[2016-12-20] MEDS: SERTRALINE HCL 100 MG TAB PO SCH (08:37)
[2016-12-20] MEDS: FLUTICASONE/SALMETEROL 250/50 (ADVAIR) 14 PUFF/1 INHALER INH SCH (08:37)
[2016-12-20] MEDS: CEROVITE ADV FORMULA TAB PO SCH (08:37)
[2016-12-20] MEDS: NALTREXONE HCL 50 MG TAB PO SCH (08:37)
[2016-12-20] MEDS: CHOLECALCIFEROL 1000 INTER.UNIT TAB PO SCH (08:38)
[2016-12-20] MEDS: THIAMINE HCL 100 MG TAB PO SCH (08:38)
[2016-12-20] MEDS: LIDODERM (LIDOCAINE) PATCH 5% TD SCH (08:39)
[2016-12-20 11:18] VITALS: BP 151/65; PULSE 62; TEMP 36.5; O2SAT 95
[2016-12-20] MEDS ORDERED: HYDR-5688 PO ×2 (11:52→12:11)
[2016-12-20] MEDS ORDERED: AMLO-110 PO (11:52)
[2016-12-20 12:00] VITALS: O2SAT 93
--- NOTE | 2016-12-20 12:19 | Discharge Summary ---
Discharge Summary Date of Service Dec 20, 2016. (Andria Ortega PA-C) Discharge Summary Admission Date: Dec 18, 2016 at 11:19 Discharge Date: Dec 20, 2016 Discharge Disposition: Home with services Principal Diagnosis: multiple right rib fractures secondary to fall Problems/Secondary Diagnoses: Chronic alcohol abuse Hypertension RLE PAD HLD COPD w/out exacerbation h/o tobacco abuse Depression Immunizations: Have You Had Influenza Vaccine: No History of Tetanus Vaccine?: Unknown History of Pneumococcal: Yes Pneumococcal Date: Oct 09, 2004 History of Hepatitis B Vaccine: Unknown Procedures: AP CHEST WITH RIGHT-SIDED RIB SERIES CLINICAL HISTORY: Fall with right chest wall pain. FINDINGS: An AP upright chest radiograph with 4 additional views may right-sided rib series is compared to study dated 11/23/2016 and correlated with chest CT dated 12/30/2015. The heart is normal in size and there is atherosclerotic calcification of the thoracic aorta. Advanced emphysema and chronic interstitial thickening is similar to previous. Bibasilar airspace opacities likely represent atelectasis. There is no lobar consolidation or large pleural effusion. No pneumothorax is seen. The skeletal structures are osteopenic. There are minimally distracted right anterolateral 9th and 10th as well as posterior 11th and 12th rib fractures. There is a healed right lateral 5th rib fracture. The remainder of the bony thorax is grossly intact. Calcific tendinopathy is seen in the left shoulder. IMPRESSION: 1. Severe emphysema. No acute cardiopulmonary abnormality is seen. 2. Acute right lower rib fractures as above. Electronically signed by: Kali Mason M.D. 12/13/2016 12:23 PM Dictated Date/Time: 12/13/2016 12:18 PM The status of this report is Signed. Draft = Not yet reviewed or approved by Radiologist. Signed = Reviewed and approved by Radiologist. CT SCAN OF THE BRAIN WITHOUT IV CONTRAST CLINICAL HISTORY: Fall. Weakness. COMPARISON STUDY: CT of the brain dated 10/10/2015. TECHNIQUE: Unenhanced axial CT scan of the brain is performed from the vertex to the skull base. CT DOSE: 614.27 mGy.cm FINDINGS: Brain parenchyma: There are age-related involutional changes noting moderate confluent subcortical and periventricular microangiopathic change. There is no hemorrhage, mass effect, or evidence of acute territorial ischemia by CT criteria. 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 Joiner-white matter is preserved. No extra-axial fluid collection is seen. Ventricles, sulci, cisterns: Prominent secondary to involutional change. Intracranial vasculature: There is atherosclerotic calcification of the cavernous carotid and vertebral arteries. Calvarium: The skeletal structures are osteopenic. No depressed calvarial fracture is seen. Sinuses and mastoids: The visualized paranasal sinuses are clear. There is trace right mastoid effusion. The left mastoid air cells are well pneumatized. Orbits: The bony orbits are grossly intact. IMPRESSION: Senescent changes as above with no hemorrhage, mass effect, or evidence of acute territorial ischemia by CT criteria. Electronically signed by: Kali Mason M.D. 12/13/2016 12:18 PM Dictated Date/Time: 12/13/2016 12:15 PM The status of this report is Signed. Draft = Not yet reviewed or approved by Radiologist. Signed = Reviewed and approved by Radiologist. CT SCAN OF THE ABDOMEN AND PELVIS WITH IV CONTRAST CLINICAL HISTORY: Trauma. Fall. COMPARISON STUDY: Abdominal ultrasound dated 05/15/2015. TECHNIQUE: Following the IV administration of 93 cc of Optiray 320, CT scan of the abdomen and pelvis is performed from the lung bases to the proximal femora. Images are reviewed in the axial, sagittal, and coronal planes. IV contrast was administered without complication. A dose lowering technique was utilized adhering to the principles of ALARA. CT DOSE: 246.50 mGy.cm FINDINGS: Lung bases: The heart is normal in size and without pericardial effusion. There are coronary artery calcifications. Advanced emphysematous change is noted. A trace right pleural effusion is identified. Fluid/secretions are present within the lower lobe airways. A calcified granulomas noted in the left lower lobe. Liver: The contrast-enhanced liver is normal in size, contour, and attenuation. There is no intrahepatic biliary ductal dilatation. The hepatic veins and portal veins are patent. Gallbladder: Unremarkable. Spleen: Normal in size and attenuation. Pancreas: Atrophic and grossly unremarkable. Adrenal glands: Unremarkable. Kidneys: The contrast enhanced kidneys demonstrate cortical atrophy and are without hydronephrosis. The kidneys enhance symmetrically. Renovascular calcifications are noted. Abdominal vasculature: There is advanced atherosclerotic calcification and ectasia of the abdominal aorta and iliac arteries. 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 High-grade stenosis is also suggested in the right external iliac artery and the right superficial femoral artery. Bowel: The small bowel and colon are normal in course and caliber. There is advanced colonic diverticulosis without CT evidence of acute diverticulitis. The appendix is well-visualized and normal. Peritoneum: There is no intraperitoneal free air or abdominal ascites. Lymphadenopathy: None. Pelvic viscera: The prostate gland is enlarged and heterogeneous, measuring 4.7 cm in transverse diameter. There is median lobe hypertrophy. The bladder is normal as imaged. Skeletal structures: The skeletal structures are osteopenic. There are acute right anterior 8th through 10th rib fractures as well as acute left posterior 11th and 12th rib fractures. Several of these fractures are mildly distracted. Advanced lumbosacral spondylosis is observed. Vertebral body height is maintained throughout the imaged thoracolumbar spine. No lytic or blastic lesions are seen. IMPRESSION: 1. Acute right lower rib fractures as above. 2. There is no evidence of solid organ injury in the abdomen or pelvis. 3. Severe emphysema. 4. Fluid/secretions are present within the lower lobe airways bilaterally. Correlate clinically for evidence of mucous plugging versus aspiration. 5. Advanced atherosclerotic disease. 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 6. Advanced colonic diverticulosis without CT evidence of acute diverticulitis. 7. Additional findings as above. Electronically signed by: Kali Mason M.D. 12/13/2016 12:36 PM Dictated Date/Time: 12/13/2016 12:26 PM The status of this report is Signed. Draft = Not yet reviewed or approved by Radiologist. Signed = Reviewed and approved by Radiologist. DUPLEX ULTRASOUND OF THE LOWER EXTREMITIES BILATERALLY CLINICAL HISTORY: ABNORMAL CT COMPARISON STUDY: CT scan dated 12/13/2016 FINDINGS: The left brachial artery systolic pressure was 146 mmHg. The right posterior tibial arterial systolic pressure was 92 mmHg. The right dorsalis pedis systolic pressure was 85 mmHg. This yields a right-sided ankle arm index of 0.6. The left posterior tibial and dorsalis pedis arteries were noncompressible and accurate pressures could not be obtained. On the right there is monophasic flow within the common femoral artery. There is monophasic flow within the right superficial femoral artery. There is monophasic flow within the right popliteal posterior tibial and anterior tibial and peroneal arteries. In the left there is monophasic flow within the common femoral artery. There is monophasic flow within the left superficial femoral artery with a focus of elevated velocity involving the distal left superficial femoral artery consistent with a focal stenosis. There is monophasic flow within the anterior tibial posterior tibial and popliteal arteries on the left. IMPRESSION: 1. Monophasic flow within both common femoral arteries, a finding suggesting a more proximal iliac artery stenosis. 2. Elevated velocity involving the distal left superficial femoral artery consistent with a focal stenosis 3. Diffuse atheromatous changes 4. Right ankle arm index of 0.6. A left ankle arm index could not be obtained as the dorsalis pedis and posterior tibial arteries on the left were noncompressible. Electronically signed by: Jose Gray M.D. 12/14/2016 6:59 AM Dictated Date/Time: 12/14/2016 6:54 AM The status of this report is Signed. Draft = Not yet reviewed or approved by Radiologist. Signed = Reviewed and approved by Radiologist. CHEST INSPIRAT/EXPIRAT CLINICAL HISTORY: Suspected pneumothorax chest pain COMPARISON STUDY: 11/23/2016 FINDINGS: The chest has an emphysematous configuration. There is no focal pulmonary consolidation. There is no failure. There are no pleural effusions. No pneumothorax is visualized. Right-sided lower rib fractures are evident. IMPRESSION: 1. Emphysema 2. Right-sided rib fractures 3. No evidence of pneumothorax Electronically signed by: Jose Gray M.D. 12/18/2016 11:54 AM Dictated Date/Time: 12/18/2016 11:52 AM The status of this report is Signed. Draft = Not yet reviewed or approved by Radiologist. Signed = Reviewed and approved by Radiologist. Consultations: Vascular surgery (Andria Ortega PA-C) Problems/Secondary Diagnoses: Multiple chronic lacunar infarcts/CVAs (Mandie Gonzalez MD) Medication Reconciliation New Medications: Hydrocodone/Acetaminophen 5MG/325MG ([place] 5MG/325MG) Tab 1 TABLET PO Q6H PRN for Pain for 3 Days, #12 TAB Changed Medications: Amlodipine (Norvasc) 5 Mg Tab 5 MG PO DAILY for 30 Days, #30 TAB (Changed from: Amlodipine (Norvasc) 2.5 Mg Tab 2.5 Mg PO QPM) Continued Medications: Aspirin Enteric Coated (Ecotrin Or Generic) 81 Mg Tab 81 MG PO QPM, TAB Cholecalciferol (Vitamin D3) 2,000 Unit Cap 2000 INTER.UNIT PO QPM, CAP Fluticasone-Salmeterol (Fluticasone Propionate/SA 113-14 Mcg/Act) 1 Inh Inh 1 PUFF PO BID Folic Acid (Folic Acid) 1 Mg Tab 1 MG PO QAM for 30 Days, #30 TAB Multiple Vitamins W/ Minerals (Centrum Silver) 1 Chw Chw 1 TAB PO QAM Naltrexone HCl (Naltrexone HCl) 50 Mg Tab 50 MG PO DAILY Polyethylene (Miralax) 17 Gm Pow 17 GM PO DAILY PRN for Constipation for 7 Days Sertraline HCl (Sertraline HCl) 100 Mg Tab 100 MG PO DAILY Simvastatin (Zocor) 20 Mg Tab 40 MG PO QPM, TAB Thiamine HCl (Vitamin B-1) 100 Mg Tab 100 MG PO QAM for 30 Days, #30 TAB Discontinued Medications: Azithromycin (Azithromycin) 250 Mg Tab 250 MG PO QAM for 3 Days, #3 TAB Prednisone (Prednisone) 20 Mg Tab 20 MG PO BID for 8 Days, #15 2 tab of 20 mg po bid for 2 days then 1 tab po bid for 2 days then 1 tab po daily for 2 days then 1/2 tabl po daily for 2 days then stop Referrals At Discharge Follow up Referrals: Family Practice Referral - Within 1 Week with Oumar Bradley M.D. Surgery Referral - Within a Month with Keanu Berger M.D. Discharge Exam Review of Systems: Constitutional: No fever, No chills, No sweats, No weakness, No fatigue ENT: + sore throat, No hearing loss Respiratory: No cough, No shortness of breath, No hemoptysis Cardiovascular: No chest pain, No edema, No palpitations Abdomen: No pain, No nausea, No vomiting, No diarrhea, No constipation Musculoskeletal: + joint pain, + muscle pain, No swelling, No calf pain Genitourinary - Male: No hematuria, No dysuria Neurologic: No weakness, No numbness/tingling Psychiatric: No depression symptoms, No anxiety Hematologic / Lymphatic: No abnormal bleeding/bruising Integumentary: No rash, No itch, No new/changing skin lesions Physical Exam: General Appearance: no apparent distress, + thin Eyes: normal inspection, PERRL ENT: hearing grossly normal Neck: supple Respiratory/Chest: lungs clear, no respiratory distress, no accessory muscle use, + decreased breath sounds (throughout ) Cardiovascular: regular rate, rhythm Abdomen / GI: normal bowel sounds, non tender, soft Extremities: no calf tenderness, no pedal edema Neurologic/Psychiatric: alert, normal mood/affect, oriented x 3 Skin: normal color, warm/dry, no rash (Andria Ortega, RAFAEL) Hospital Course Admission H&P: The patient is an 81-year-old male who presents to the emergency department with report of a fall that happened last night while he was up in the middle of the night to go to the bathroom. He reports that he was walking backwards to sit on the bed, misjudged the distance, and fell backward. His daughter did not give him any pain medications last night, as he has been drinking alcohol heavily. His daughter also reports that he had fallen a couple days ago as well. He reported to her that bleeding on his face was from scratching, but she was concerned that he had fallen. Physical Exam Vital Signs Date Time Temp Pulse Resp B/P (MAP) Pulse Ox O2 Delivery O2 Flow Rate FiO2 12/13/16 16:15 81 20 162/73 92 Room Air 12/13/16 15:00 73 20 165/73 93 Room Air 12/13/16 14:36 76 18 156/88 94 Room Air 12/13/16 14:09 81 20 93 Room Air 12/13/16 13:14 86 12/13/16 12:29 83 18 165/67 92 Room Air 12/13/16 11:44 79 18 141/80 92 Room Air 12/13/16 11:19 84 18 164/74 92 Room Air 12/13/16 10:41 82 16 154/69 97 Nebulizer 6.0 12/13/16 10:40 89 Room Air 12/13/16 10:33 89 Room Air 12/13/16 09:48 85 12/13/16 09:30 36.9 95 18 160/72 89 Room Air The patient is awake, well-developed and adequately nourished, alert and oriented 3, healing abrasion to left maxillary area, lying in bed and in no acute distress. HEENT--PERRL, EOMI, mucous membranes and oropharynx dry. Neck--supple, no JVD or bruits, thyroid normal, trachea midline, no adenopathy. Heart--normal S1 and S2, no extra beats, no murmurs, rubs or gallops. Lungs--diminished throughout, no respiratory distress, no accessory muscle use. Abdomen--normal bowel sounds and soft, nontender and nondistended, no hernias or masses, no organomegaly. Extremities--no cyanosis, clubbing or edema. There are good distal pulses b/l. Dermatologic--scattered bruises. Neurologic--cranial nerves II through XII grossly intact, motor and sensory examination normal. Rheumatologic--reproducible pain over right anterior chest wall and left posterior chest wall with light touch Psychiatric--normal affect. Hospital Course: 81-year-old male with a past medical history of emphysema secondary to chronic cigarette smoking, chronic alcohol abuse, hypertension, hyperlipidemia and depression admitted after a fall resulting in multiple rib fractures. Multiple rib fractures- involving anterolateral ninth, 10th ribs, posterior 11th and 12th ribs, secondary to mechanical fall: - Pain control with Lidoderm patch, Tylenol, [place] q6 hrs PRN for pain management Chronic alcohol abuse: - Alcohol withdrawal protocol - Continue Naltrexone 50 mg daily - Supplement folic acid and thiamine Hypertension: Continue Norvasc 5 mg daily RLE PAD, HLD: - Abdominal CT and ultrasound reviewed - Vascular surgery consulted- f/u outpatient in 1-2 months - Continue ASA 81 mg daily, Zocor 40 mg HS COPD w/out exacerbation, h/o tobacco abuse: - Continue Advair - Smoking cessation counseling Depression: Continue Zoloft 100 mg daily DVT prophylaxis: Lovenox SQ daily Code Status: LEVEL I, FULL Disposition: Discharge to [facility] Total Time Spent: Greater than 30 minutes This includes examination of the patient, discharge planning, medication reconciliation, and communication with other providers. (Andria Ortega PA-C) Discharge Instructions Please refer to the electronic Patient Visit Report (Discharge Instructions) for additional information. (Andria Ortega PA-C) Follow-Up Follow-up with [facility] provider within 24-48 hours Please follow-up with your PCP within 5-7 days Please follow-up/keep all of your subspecialty appointments (Andria Ortega PA-C) Additional Copies To Oumar Bradley M.D.; [facility] Reviewed: Pt Seen/Exam by Me (Mandie Gonzalez MD) History Physician Physician Practice Coordinator Supervision Note: I interviewed and examined the patient. Discussed with BASSAM Ortega and agree with findings and plan as documented in the note. Any exceptions or clarifications are listed here: Doing very well, no complaints. Vitals reviewed NAD, AAOx3 RRR no mgr CTAB no wcr Ext no edema Skin: left lateral leg with crusted nodule with scab about 1 x 1.5 cm 81 yo male with fall resulting in rib fractures bilat while intoxicated, h/o EtOH dependence, smoking. -continue pain control -naltrexone for substance abuse -placement at [facility] today with home PT -Recommended f/u with DERMATOLOGY for left leg crusted nodule x several months- probably a SCC, needs excision/biopsy -f/u Vascular in 1-2 months Documented By: Mandie Gonzalez (Mandie Gonzalez MD)
--- NOTE | 2016-12-20 12:20 | Discharge Instructions ---
Discharge Instructions Date of Service Dec 20, 2016. Admission Reason for Admission: Alcohol Abuse, Multiple Fractures Of Ribs, Right Discharge Discharge Diagnosis / Problem: Alcohol abuse; multiple right rib fractures secondary to fall Discharge Goals Goal(s): Decrease discomfort, Improve function, Increase independence, Improve disease control, Improve nutritional status, Learn about illness, Diagnostic testing, Therapeutic intervention, Prevent Disease Progression Activity Recommendations Activity Limitations: resume your previous activity . Instructions / Follow-Up Instructions / Follow-Up Rib fractures: You may take [place] 1 tablet every 6 hours, ONLY NEEDED, for pain Hypertension (high blood pressure): Your Amlodipine was INCREASED from 2.5 to 5 mg once daily for better blood pressure control AVOID ALL ALCOHOL USE!! Resume all other regular home medications FOLLOW-UPS: Please follow-up with your PCP within 5-7 days Please follow-up/keep all of your subspecialty appointments Current Hospital Diet Patient's current hospital diet: Regular Diet Discharge Diet Recommended Diet: Regular Diet Pending Studies Studies pending at discharge: no Medical Emergencies . Who to Call and When: Medical Emergencies: If at any time you feel your situation is an emergency, please call 911 immediately. . Non-Emergent Contact Non-Emergency issues call your: Primary Care Provider . . "Provider Documentation" section prepared by Andria Ortega. . VTE Core Measure Inpt VTE Proph given/why not?: Unfractionated heparin SQ, SCD's
[2016-12-20] MEDS ORDERED: LDDP5 TD (13:01)
[2016-12-20 13:12] VITALS: BP 151/65; PULSE 62; TEMP 36.5; O2SAT 95
== END 2016-12-20 16:05 | disposition home health service (06) | DRG 184 ==
LOC: C.EDB 09:24 → C.MED 17:40 → ENRESERV 17:57 → OBSVTOIN 12-18 11:19
PROVIDERS: ADMIT Hospitalist; ATTEND Family Medicine
DX: S22.41XA Multiple fractures of ribs, right side, initial encounter for closed fracture (principal); F10.239 Alcohol dependence with withdrawal, unspecified; J44.9 Chronic obstructive pulmonary disease, unspecified; F17.200 Nicotine dependence, unspecified, uncomplicated; F12.10 Cannabis abuse, uncomplicated; I10 Essential (primary) hypertension; F32.9 Major depressive disorder, single episode, unspecified; E78.5 Hyperlipidemia, unspecified; I73.9 Peripheral vascular disease, unspecified; Z79.82 Long term (current) use of aspirin; W19.XXXA Unspecified fall, initial encounter

== ENCOUNTER 2017-03-06 23:55 | Inpatient (IN) | payer BC, OTHER ==
[~2017-03-06] VITALS: Ht 170.2 cm; Wt 54.9 kg
[~2017-03-06 23:55] MED LIST changes: -AMLO2.5T PO; -ATV5 PO; +FLUT1INH PO; -IPRASOL4 INH; +LDDP5 TD; -MGNO400 PO; +NALT50TA16 PO; -NCDT21 TD; -PRD20 PO; -RST15 PO; -VENL75CA PO; +ZLF/100 PO; -ZTHM250 PO
[2017-03-07] VITALS (11 sets, daily range): BP systolic 116–154; BP diastolic 53–91; PULSE 76–144; TEMP 36.4–36.9; O2SAT 88–97; Ht 170.2 cm; Wt 54.9 kg
[2017-03-07] MEDS ORDERED: SODIUM CHLORIDE 0.9% 1000ML 1,000 ML IV STA (00:01)
[2017-03-07] MEDS ORDERED: METHYLPREDNISOLONE 125 MG VIAL IV STA (00:01)
--- NOTE | 2017-03-07 00:09 | EMERGENCY ROOM VISIT NOTE ---
History Report prepared by Anaibdomenica: Wendi Kasper Under the Supervision of: Dr. Karl Barrera M.D. First contact with patient: 23:59 Chief Complaint: RESPIRATORY PROBLEMS Stated Complaint: COUGH/RESPIRATORY PROBLEM History of Present Illness The patient is an 81 year old male who presents to the Emergency Room with complaints of intermittent respiratory problems for the past 3 weeks. He was brought to the ED via EMS from [facility], where he resides. The patient is a current smoker and states he does not normally wear Oxygen. Earlier today, he "slid out of bed", but sustained no injuries and did not lose consciousness. EMS was called when the patient fell out of bed, and brought the patient to the ED. The patient admits to diarrhea last night. He denies any fevers, neck pain, shortness of breath, nausea, vomiting, or swelling in his legs. He states he does not feel short of breath here in the ED. The patient does not take daily blood thinners or a water pill. 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 A total of ten systems were reviewed and were otherwise negative. Past Medical & Surgical Medical Problems: (1) Alcohol withdrawal (2) COPD (chronic obstructive pulmonary disease) (3) COPD exacerbation (4) Fall at home (5) Hypoxia (6) PAD (peripheral artery disease) Social History Problems: (1) ETOH abuse Family History No significant family history Social History Smoking Status: Heavy Tobacco Smoker Alcohol Use: heavy Drug Use: marijuana Marital Status: , Housing Status: lives with family Occupation Status: retired Current/Historical Medications Scheduled Amlodipine (Norvasc), 5 MG PO QAM Cholecalciferol (Vitamin D3), 2,000 INTER.UNIT PO QPM AT 1700 Fluticasone-Salmeterol (Fluticasone Propionate/SA 113-14 Mcg/Act), 1 PUFF PO BID Folic Acid (Folvite), 1 MG PO QAM Multiple Vitamins W/ Minerals (Centrum Silver 50+Men), 1 TAB PO QAM Sertraline HCl (Sertraline HCl), 150 MG PO QAM Simvastatin (Zocor), 20 MG PO QPM AT 1700 Thiamine Mononitrate (Vitamin B1), 100 MG PO QAM Scheduled PRN Acetaminophen (Arthritis Pain Relief), 1,300 MG PO Q8 PRN for Pain Hydrocodone/Acetaminophen 5MG/325MG ([place] 5MG/325MG), 1 TABLET PO Q6H PRN for Pain Polyethylene Glycol 3350 (Miralax), 17 GM PO DAILY PRN for Constipation Allergies Coded Allergies: Penicillins (Verified Allergy, Unknown, 03/07/17) Physical Exam Vital Signs Date Time Temp Pulse Resp B/P (MAP) Pulse Ox O2 Delivery O2 Flow Rate FiO2 03/07/17 02:11 145 20 117/64 92 Nasal Cannula 5.0 03/07/17 02:02 155 03/07/17 00:50 107 22 168/67 93 Nasal Cannula 10.0 03/07/17 00:42 109 22 92 Nasal Cannula 3.0 03/07/17 00:10 104 03/07/17 00:05 92 Nasal Cannula 5.0 03/07/17 00:05 92 Nasal Cannula 5.0 03/07/17 00:02 36.9 116 18 131/73 91 Nasal Cannula 5.0 03/07/17 00:02 79 Room Air Physical Exam GENERAL: Awake, alert, dyspneic, cachectic-appearing, in no distress HENT: Normocephalic, atraumatic. Oropharynx unremarkable. Dry cracked mucous membranes. EYES: Normal conjunctiva. Sclera non-icteric. NECK: Supple. No nuchal rigidity. FROM. No JVD. RESPIRATORY: Scattered wheezes and rhonchi. CARDIAC: Regular rate, normal rhythm. Extremities warm and well perfused. Pulses equal. ABDOMEN: Soft, non-distended. No tenderness to palpation. No rebound or guarding. No masses. RECTAL: Deferred. MUSCULOSKELETAL: Chest examination reveals no tenderness. The back is symmetrical on inspection without obvious abnormality. There is no CVA tenderness to palpation. No joint edema. LOWER EXTREMITIES: Calves are equal size bilaterally and non-tender. No edema. No discoloration. NEURO: Normal sensorium. No sensory or motor deficits noted. SKIN: No rash or jaundice noted. Medical Decision & Procedures ER Provider Diagnostic Interpretation: Radiology results as stated below per my review and radiologist interpretation: CHEST X-RAY Diffuse left sided patchy interstitial infiltrates seen on X-Ray. Laboratory Results 03/07/17 00:02 Red Blood Count 4.18, Mean Corpuscular Volume 90.9, Mean Corpuscular Hemoglobin 31.6, Mean Corpuscular Hemoglobin Concent 34.7, Mean Platelet Volume 9.0, Neutrophils (%) (Auto) 85.9, Lymphocytes (%) (Auto) 6.4, Monocytes (%) (Auto) 4.6, Eosinophils (%) (Auto) 0.0, Basophils (%) (Auto) 0.1, Neutrophils # (Auto) 11.90, Lymphocytes # (Auto) 0.88, Monocytes # (Auto) 0.63, Eosinophils # (Auto) 0.00, Basophils # (Auto) 0.01 03/07/17 00:02 Test 03/07/17 00:02 03/07/17 00:29 03/07/17 02:00 White Blood Count 13.84 K/uL (4.8-10.8) Red Blood Count 4.18 M/uL (4.7-6.1) Hemoglobin 13.2 g/dL (14.0-18.0) Hematocrit 38.0 % (42-52) Mean Corpuscular Volume 90.9 fL (80-100) Mean Corpuscular Hemoglobin 31.6 pg (25-34) Mean Corpuscular Hemoglobin Concent 34.7 g/dl (32-36) Platelet Count 227 K/uL (130-400) Mean Platelet Volume 9.0 fL (7.4-10.4) Neutrophils (%) (Auto) 85.9 % Lymphocytes (%) (Auto) 6.4 % Monocytes (%) (Auto) 4.6 % Eosinophils (%) (Auto) 0.0 % Basophils (%) (Auto) 0.1 % Neutrophils # (Auto) 11.90 K/uL (1.4-6.5) Lymphocytes # (Auto) 0.88 K/uL (1.2-3.4) Monocytes # (Auto) 0.63 K/uL (0.11-0.59) Eosinophils # (Auto) 0.00 K/uL (0-0.5) Basophils # (Auto) 0.01 K/uL (0-0.2) RDW Standard Deviation 45.2 fL (36.4-46.3) RDW Coefficient of Variation 13.6 % (11.5-14.5) Immature Granulocyte % (Auto) 3.0 % Immature Granulocyte # (Auto) 0.42 K/uL (0.00-0.02) Toxic Vacuolation 1+ Dohle Bodies 1+ Echinocytes 1+ Anion Gap 9.0 mmol/L (3-11) Est Creatinine Clear Calc Drug Dose 49.3 ml/min Estimated GFR () 73.7 Estimated GFR (Non- 63.6 BUN/Creatinine Ratio 30.5 (10-20) Calcium Level 8.7 mg/dl (8.5-10.1) Total Bilirubin 1.9 mg/dl (0.2-1) Direct Bilirubin 0.8 mg/dl (0-0.2) Aspartate Amino Transf (AST/SGOT) 17 U/L (15-37) Alanine Aminotransferase (ALT/SGPT) 20 U/L (12-78) Alkaline Phosphatase 32 U/L (45-117) Troponin I < 0.015 ng/ml (0-0.045) Total Protein 6.8 gm/dl (6.4-8.2) Albumin 2.5 gm/dl (3.4-5.0) Lipase 32 U/L (73-393) Influenza Type A (RT-PCR) Neg for Influ A (NEG) Influenza Type A Antigen Neg for Influ A (NEG) Influenza Type B Antigen Neg for Influ B (NEG) Influenza Type B (RT-PCR) Neg for Influ B (NEG) Venous Blood pH 7.40 (7.36-7.41) Venous Blood Partial Pressure CO2 41 mmHg (38.0-50.0) Venous Blood Partial Pressure O2 47 mmHg Venous Blood HCO3 25 mmol/L Venous Blood Oxygen Saturation 80.4 % Venous Blood Base Excess 0.2 mEq/L Lactic Acid Level 2.5 mmol/L (0.4-2.0) Urine Color ORANGE Urine Appearance CLEAR (CLEAR) Urine pH 5.0 (4.5-7.5) Urine Specific [place] 1.024 (1.000-1.030) Urine Protein 1+ (NEG) Urine Glucose (UA) NEG (NEG) Urine Ketones 1+ (NEG) Urine Occult Blood NEG (NEG) Urine Nitrite NEG (NEG) Urine Bilirubin NEG (NEG) Urine Urobilinogen NEG (NEG) Urine Leukocyte Esterase NEG (NEG) Urine WBC (Auto) 1-5 /hpf (0-5) Urine RBC (Auto) 0-4 /hpf (0-4) Urine Hyaline Casts (Auto) >30 /lpf (0-5) Urine Epithelial Cells (Auto) >30 /lpf (0-5) Urine Bacteria (Auto) NEG (NEG) Urine Pathogenic Casts /lpf (0) Laboratory results reviewed by me Medications Administered Medications (Trade) Dose Ordered Sig/Etienne Route Start Time Stop Time Status Last Admin Dose Admin Sodium Chloride 1,000 ml @ 999 mls/hr Q1H1M STAT IV 03/07/17 00:01 03/07/17 01:01 DC 03/07/17 00:13 999 MLS/HR Albuterol/ Ipratropium (Duoneb) 12 ml ONE ONCE INH 03/07/17 00:15 03/07/17 00:16 DC 03/07/17 00:42 12 ML Methylprednisolone Sodium Succinate (Solu-Medrol IV) 125 mg NOW STAT IV 03/07/17 00:01 03/07/17 00:07 DC 03/07/17 00:13 125 MG Magnesium Sulfate (Magnesium Sulfate) 2 gm NOW STAT IV 03/07/17 00:12 03/07/17 00:13 DC 03/07/17 00:43 2 GM Vancomycin HCl 1500 mg/Sodium Chloride 530 ml @ 200 mls/hr ONE STAT IV 03/07/17 00:57 03/07/17 03:35 DC 03/07/17 01:51 200 MLS/HR Piperacillin Sod/ Tazobactam Sod (Zosyn Iv) 4.5 gm NOW STAT IV 03/07/17 00:57 03/07/17 01:01 DC 03/07/17 01:11 4.5 GM ECG Indication: SOB/dyspnea Rate (beats per minute): 107 Rhythm: sinus tachycardia Findings: PAC, no acute ischemic change, other (normal axis) ED Course 0000: The patient was evaluated in room A11B. A complete history and physical exam was performed. 0103: I discussed the patients case with Dr. Stevenson, [facility] Hospitalist. The patient will be further evaluated. Medical Decision I reviewed the patient's past medical history, medications, and the nursing notes as described above. Differential Diagnoses: reactive airway disease, pneumonia, pneumothorax, COPD, CHF, cardiac ischemia, pulmonary embolism, musculoskeletal, gastrointestinal, as well as others were entertained. The patient is a 81 y/o gentleman with a pmhx of COPD on home O2 who presents to the ED from SNF with worsening SOB per staff at facility per HPI. On arrival the patient appears dyspneic with O2 sat low 90s on 5LNC. HR 100s and otherwise VSS. On exam the patient has diffuse rhonchi/wheezes with dimished BS at bases. CXR notable for patchy interstitial infiltrates on left with WBC 13.8. Lactate 2.5 Will treat for sepsis/HCAP with Vanc/Zosyn given patient comes from SNF. BUN /Cr > 20 suggesting mild dehydration. Case d/w Dr. Stevenson, [facility] hospitalist who will admit the patient for further management. Medication Reconcilliation Current Medication List: was personally reviewed by me Blood Pressure Screening Patient's blood pressure: Elevated blood pressure Blood pressure disposition: Elevated BP felt to be situational Consults Time Called: 0103 Consulting Physician: Dr. Stevenson, [facility] Hospitalist Returned Call: 0103 I discussed the patients case with Dr. Stevenson, [facility] Hospitalist. The patient will be further evaluated. Impression Primary Impression: Pneumonia Additional Impression: Sepsis Critical Care I have personally spent greater than 35 minutes of critical care time in the direct management of this patient. This includes bedside care, interpretation of diagnostic studies, and testing, discussion with consultants, patient, and family members, and other required patient management activities. This 35 minutes is in excess of all separately billable procedures. Scribe Attestation The scribe's documentation has been prepared under my direction and personally reviewed by me in its entirety. I confirm that the note above accurately reflects all work, treatment, procedures, and medical decision making performed by me. Departure Information Dispostion Being Evaluated By Hospitalist Referrals Oumar Bradley M.D. (PCP) Patient Instructions My [facility] Problem Qualifiers
[2017-03-07] MEDS ORDERED: MAGNESIUM SULFATE 1GM / D5W 1 GM BAG IV STA (00:12)
[2017-03-07] MEDS ORDERED: ALBUT/IPRATROP 3MG/0.5MG NEB 3 ML VIAL INH ONE (00:15)
[2017-03-07 00:25] LABS: HEMOGLOBIN 13.2 g/dL (14.0-18.0); MEAN CELL VOLUME 90.9 fL (80-100); MEAN CORPUSCULAR HEMOGLOBIN 31.6 pg (25-34); MEAN CORPUSCULAR HGB CONC 34.7 g/dl (32-36); PLATELET COUNT 227 K/uL (130-400); RED CELL DISTRIBUTION WIDTH CV 13.6 % (11.5-14.5); RED CELL DISTRIBUTION WIDTH SD 45.2 fL (36.4-46.3); WHITE BLOOD COUNT 13.84 K/uL (4.8-10.8)
[2017-03-07 00:42] LABS: ALBUMIN 2.5 gm/dl (3.4-5.0); ALT/SGPT 20 U/L (12-78); AST/SGOT 17 U/L (15-37); BLOOD UREA NITROGEN 33 mg/dl (7-18); CALCIUM 8.7 mg/dl (8.5-10.1); CARBON DIOXIDE 27 mmol/L (21-32); CREATININE 1.08 mg/dl (0.60-1.40); GLUCOSE 195 mg/dl (70-99); LIPASE 32 U/L (73-393); POTASSIUM 3.6 mmol/L (3.5-5.1); SODIUM 133 mmol/L (136-145)
[2017-03-07] MEDS ORDERED: POLY335019 PO (00:42)
[2017-03-07] MEDS ORDERED: ACET650T49 PO (00:42)
[2017-03-07] MEDS ORDERED: THIA1TAB11 PO (00:42)
[2017-03-07] MEDS ORDERED: HYDR-5688 PO (00:42)
[2017-03-07] MEDS ORDERED: AMLO-110 PO (00:42)
[2017-03-07] MEDS ORDERED: FOLI1TAB8 PO (00:42)
[2017-03-07] MEDS ORDERED: MULT-1093 PO (00:46)
[2017-03-07 00:48] LABS: ALKALINE PHOSPHATASE 32 U/L (45-117); TOTAL PROTEIN 6.8 gm/dl (6.4-8.2)
[2017-03-07 00:50] LABS: BASO % 0.1 %; BASO ABS # 0.01 K/uL (0-0.2); IG# 0.42 K/uL (0.00-0.02); LYMPH % 6.4 %; LYMPH ABS # 0.88 K/uL (1.2-3.4); MONO % 4.6 %; MONO ABS # 0.63 K/uL (0.11-0.59); NEUT % 85.9 %
[2017-03-07 00:51] LABS: INFLUENZA B ANTIGEN Neg for Influ B (NEG)
[2017-03-07] MEDS ORDERED: VANCOMYCIN INJ 1,500 MG in SODIUM CHLORIDE 0.9% 500ML 500 ML IV STA (00:57)
[2017-03-07] MEDS ORDERED: PIPERACILLIN/TAZOBACTAM 4.5 GM/100ML D5W IV STA (00:57)
[2017-03-07 01:03] LABS: INFLUENZA A PCR Neg for Influ A (NEG); INFLUENZA B PCR Neg for Influ B (NEG)
[2017-03-07] MEDS ORDERED: HYDROCODONE/ACETAMOPHEN 5/325MG TAB PO PRN (02:15)
[2017-03-07] MEDS ORDERED: LEVALBUTEROL 1.25MG/3ML NEB INH PRN (02:30)
[2017-03-07] MEDS ORDERED: ALUMINUM/MAGNESIUM/SIMETH (MAALOX MAX) 30 ML UDC PO PRN (02:30)
[2017-03-07] MEDS ORDERED: MAGNESIUM HYDROXIDE SUSP 30 ML UDC PO PRN (02:30)
[2017-03-07] MEDS ORDERED: MoRPHine SULFATE 2 MG/ML CARP IV PRN (02:30)
[2017-03-07] MEDS ORDERED: POLYETHYLENE (MIRALAX) 17 GM PACK PO PRN (02:30)
[2017-03-07] MEDS ORDERED: ACETAMINOPHEN 325 MG TAB PO PRN (02:30)
[2017-03-07] MEDS ORDERED: ONDANSETRON INJ 2 MG/ML 2 ML VIAL IV PRN (02:30)
--- NOTE | 2017-03-07 02:40 | History and Physical ---
History & Physical Date & Time of Service: Mar 07, 2017 at 02:20 Chief Complaint: Cough/Respiratory Problem Primary Care Physician: Oumar Bradley M.D. History of Present Illness Source: patient, hospital records 81 y/o M COPD, HTN, HPL, ETOH abuse, smoker - presenting from a nursing facility with reported SOB. The pt denies SOB on arrival, however, he is requiring 5L 02 to maintain an adequate saturation. He has a chronic cough which he states is worse today. He denies CP, N/V, dysuria or fevers. He does admit that he fell out of bed earlier in the day but denies any significant trauma or LOC. 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 Leukocytosis is present on initial labs. Past Medical/Surgical History 1) COPD 2) ETOH abuse 3) Tobacco abuse 4) HTN 5) HPL 6) Frequent falls 7) Rib fractures 12/19 Family History No significant family history Social History Smoking Status: Current Every Day Smoker Drug Use: marijuana Marital Status: , Housing status: lives with family Occupational Status: retired Immunizations History of Influenza Vaccine: No History of Tetanus Vaccine?: Unknown History of Pneumococcal: Yes Pneumococcal Date: Oct 09, 2004 History of Hepatitis B Vaccine: Unknown Multi-Drug Resistant Organisms History of MDRO: No Allergies Coded Allergies: Penicillins (Verified Allergy, Unknown, 03/07/17) Home Medications Scheduled Amlodipine (Norvasc), 5 MG PO QAM Cholecalciferol (Vitamin D3), 2,000 INTER.UNIT PO QPM AT 1700 Fluticasone-Salmeterol (Fluticasone Propionate/SA 113-14 Mcg/Act), 1 PUFF PO BID Folic Acid (Folvite), 1 MG PO QAM Multiple Vitamins W/ Minerals (Centrum Silver 50+Men), 1 TAB PO QAM Sertraline HCl (Sertraline HCl), 150 MG PO QAM Simvastatin (Zocor), 20 MG PO QPM AT 1700 Thiamine Mononitrate (Vitamin B1), 100 MG PO QAM Scheduled PRN Acetaminophen (Arthritis Pain Relief), 1,300 MG PO Q8 PRN for Pain Hydrocodone/Acetaminophen 5MG/325MG ([place] 5MG/325MG), 1 TABLET PO Q6H PRN for Pain Polyethylene Glycol 3350 (Miralax), 17 GM PO DAILY PRN for Constipation Review of Systems Constitutional: No fever, No chills, No sweats Eyes: No worsening of vision ENT: No hearing loss, No nasal symptoms Respiratory: + cough, + sputum, + shortness of breath (reported by care staff - denies on admission) Cardiovascular: No chest pain, No orthopnea Abdomen: No pain, No nausea, No vomiting Musculoskeletal: No joint pain Genitourinary - Male: No hematuria, No dysuria Neurologic: + balance problems (chronic), No memory loss, No paralysis, No weakness Endocrine: No fatigue Hematologic / Lymphatic: No abnormal bleeding/bruising Integumentary: No rash Allergic / Immunologic: No environmental allergies Physical Exam Vital Signs Date Time Temp Pulse Resp B/P (MAP) Pulse Ox O2 Delivery O2 Flow Rate FiO2 03/07/17 02:11 145 20 117/64 92 Nasal Cannula 5.0 03/07/17 02:02 155 03/07/17 00:50 107 22 168/67 93 Nasal Cannula 10.0 03/07/17 00:42 109 22 92 Nasal Cannula 3.0 03/07/17 00:10 104 03/07/17 00:05 92 Nasal Cannula 5.0 03/07/17 00:05 92 Nasal Cannula 5.0 03/07/17 00:02 36.9 116 18 131/73 91 Nasal Cannula 5.0 03/07/17 00:02 79 Room Air General Appearance: WD/WN, no apparent distress, + pertinent finding (Pleasant , elderly male in no distress) Head: normocephalic Eyes: normal inspection ENT: normal ENT inspection, pharynx normal Neck: supple, no JVD Respiratory/Chest: chest non-tender, + pertinent finding (Poor BL air movement - no clear crackles or wheezing) Cardiovascular: no edema, no gallop, + tachycardia Abdomen/GI: normal bowel sounds, non tender, soft Back: normal inspection, no CVA tenderness Neurologic/Psych: protection specialist II-XII nml as tested, no motor/sensory deficits, alert Skin: normal color Diagnostics Laboratory Results Results Past 24 Hours Test 03/07/17 00:02 03/07/17 00:29 03/07/17 02:00 Range/Units White Blood Count 13.84 4.8-10.8 K/uL Red Blood Count 4.18 4.7-6.1 M/uL Hemoglobin 13.2 14.0-18.0 g/dL Hematocrit 38.0 42-52 % Mean Corpuscular Volume 90.9 80-100 fL Mean Corpuscular Hemoglobin 31.6 25-34 pg Mean Corpuscular Hemoglobin Concent 34.7 32-36 g/dl Platelet Count 227 130-400 K/uL Mean Platelet Volume 9.0 7.4-10.4 fL Neutrophils (%) (Auto) 85.9 % Lymphocytes (%) (Auto) 6.4 % Monocytes (%) (Auto) 4.6 % Eosinophils (%) (Auto) 0.0 % Basophils (%) (Auto) 0.1 % Neutrophils # (Auto) 11.90 1.4-6.5 K/uL Lymphocytes # (Auto) 0.88 1.2-3.4 K/uL Monocytes # (Auto) 0.63 0.11-0.59 K/uL Eosinophils # (Auto) 0.00 0-0.5 K/uL Basophils # (Auto) 0.01 0-0.2 K/uL RDW Standard Deviation 45.2 36.4-46.3 fL RDW Coefficient of Variation 13.6 11.5-14.5 % Immature Granulocyte % (Auto) 3.0 % Immature Granulocyte # (Auto) 0.42 0.00-0.02 K/uL Toxic Vacuolation 1+ Dohle Bodies 1+ Echinocytes 1+ Sodium Level 133 136-145 mmol/L Potassium Level 3.6 3.5-5.1 mmol/L Chloride Level 97 98-107 mmol/L Carbon Dioxide Level 27 21-32 mmol/L Anion Gap 9.0 3-11 mmol/L Blood Urea Nitrogen 33 7-18 mg/dl Creatinine 1.08 0.60-1.40 mg/dl Est Creatinine Clear Calc Drug Dose 49.3 ml/min Estimated GFR () 73.7 Estimated GFR (Non- 63.6 BUN/Creatinine Ratio 30.5 10-20 Random Glucose 195 70-99 mg/dl Calcium Level 8.7 8.5-10.1 mg/dl Total Bilirubin 1.9 0.2-1 mg/dl Direct Bilirubin 0.8 0-0.2 mg/dl Aspartate Amino Transf (AST/SGOT) 17 15-37 U/L Alanine Aminotransferase (ALT/SGPT) 20 12-78 U/L Alkaline Phosphatase 32 45-117 U/L Troponin I < 0.015 0-0.045 ng/ml Total Protein 6.8 6.4-8.2 gm/dl Albumin 2.5 3.4-5.0 gm/dl Lipase 32 73-393 U/L Influenza Type A (RT-PCR) Neg for Influ A NEG Influenza Type A Antigen Neg for Influ A NEG Influenza Type B Antigen Neg for Influ B NEG Influenza Type B (RT-PCR) Neg for Influ B NEG Venous Blood pH 7.40 7.36-7.41 Venous Blood Partial Pressure CO2 41 38.0-50.0 mmHg Venous Blood Partial Pressure O2 47 mmHg Venous Blood HCO3 25 mmol/L Venous Blood Oxygen Saturation 80.4 % Venous Blood Base Excess 0.2 mEq/L Lactic Acid Level 2.5 0.4-2.0 mmol/L Urine Color ORANGE Urine Appearance CLEAR CLEAR Urine pH 5.0 4.5-7.5 Urine Specific [place] 1.024 1.000-1.030 Urine Protein 1+ NEG Urine Glucose (UA) NEG NEG Urine Ketones 1+ NEG Urine Occult Blood NEG NEG Urine Nitrite NEG NEG Urine Bilirubin NEG NEG Urine Urobilinogen NEG NEG Urine Leukocyte Esterase NEG NEG Microbiology Results 03/07/17 Blood Culture, Received Pending 03/07/17 Blood Culture, Received Pending Diagnostic Radiology BL infiltrates - multifocal PNM EKG Sinus tach with PACs Impression Assessment and Plan 81 y/o M COPD, HTN, HPL, ETOH abuse, smoker - presenting from a nursing facility with reported SOB. The pt denies SOB on arrival, however, he is requiring 5L 02 to maintain an adequate saturation. He has a chronic cough which he states is worse today. He denies CP, N/V, dysuria or fevers. He does admit that he fell out of bed earlier in the day but denies any significant trauma or LOC. 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 Leukocytosis is present on initial labs. 1) Hypoxia - COPD and PNM - placed on Levaquin which we believe is clinically reasonable. He was initially provided with Vanc and Zosyn in the ER. Consider HCAP coverage with any worsening or lack of improvement. We will treat for COPD exacerbation as well - Duonebs/Albuterol, Methylprednisolone - 02 protocol - can continue long-acting INH 2) ETOH abuse - takes daily Thiamine and Folate - Has not had a drink since admission to assisted living one month ago. 3) HTN 4) HPL 5) Smoker - does not convey any interest in cessation Full code - SCDs due to significant fall risk Total time for this admit including review of labs, meds, imaging, records - discussion with pt and ER attending - 37 min Level of Care Telemetry Resuscitation Status FULL RESUSCITATION VTE Prophylaxis Given or contraindicated: SCD's
[2017-03-07] MEDS ORDERED: NSS + 20MEQ KCL 1000ML 1,000 ML IV SCH (04:00)
[2017-03-07] MEDS ORDERED: LEVOFLOXACIN CONSULT ACTIVE PRN (04:00)
[2017-03-07] MEDS: ALBUT/IPRATROP 3MG/0.5MG NEB 3 ML VIAL INH SCH ×4 (04:18→19:38)
[2017-03-07] MEDS: METHYLPREDNISOLONE IV 40 MG in SYRINGE 0 ML IV SCH ×3 (05:27→18:18)
[2017-03-07] MEDS ORDERED: PNEUMOCOCCAL POLYSACCHARIDES 25 MCG/0.5 ML VIAL/SYR IM. ONE (05:30)
[2017-03-07] MEDS ORDERED: PNEUMOCOCCAL ADMINISTRATION CHARGE ONE (05:30)
--- NOTE | 2017-03-07 06:50 | DIAGNOSTIC IMAGING REPORT ---
CHEST ONE VIEW PORTABLE CLINICAL HISTORY: CHEST PAIN dyspnea COMPARISON STUDY: 12/18/2016 FINDINGS: Interval development of a diffuse parenchymal infiltrate left hemithorax. Slight blunting left lateral costophrenic angle. Potential minimal parenchymal infiltrative change right mid and lower lung region. No significant cardiac enlargement. IMPRESSION: Diffuse parenchymal infiltrative change left hemithorax. Minimal parenchymal infiltrative change right lung. The above report was generated using voice recognition software. It may contain grammatical, syntax or spelling errors. Electronically signed by: Elieser Mireles M.D. 03/07/2017 6:49 AM Dictated Date/Time: 03/07/2017 6:48 AM
[2017-03-07] MEDS: LEVOFLOXACIN / D5W 750 MG in PREMIXED IN D5W 150 ML IV SCH (07:45)
[2017-03-07] MEDS: SERTRALINE HCL 100 MG TAB PO SCH (08:20)
[2017-03-07] MEDS: THIAMINE HCL 100 MG TAB PO SCH (08:20)
[2017-03-07] MEDS: AMLODIPINE BESYLATE 5 MG TAB PO SCH (08:20)
[2017-03-07] MEDS: CEROVITE ADV FORMULA TAB PO SCH (08:20)
--- NOTE | 2017-03-07 10:34 | Hospitalist Progress Note ---
Hospitalist Progress Note Date of Service Mar 07, 2017. (Deandra Lopez ., MAKEDA) Subjective Pt evaluation today including: conversation w/ patient, physical exam, chart review, lab review, review of inpatient medication list Voiding: no voiding problems Mr. Nelson is feeling much improved today. He is not sob, he is still coughing with some clear mucous production. No aches or chills or fever. He is eating and drinking well. ROS Constitutional: no chills, aches, sweats or fever Respiratory: see HPI Cardiac: no chest pain, palpitations, edema, orthopnea or lightheadedness GI: no abdominal pain, nausea, vomiting, diarrhea or constipation : no dysuria or hesitancy Extremities: no joint pain or weakness Skin: no rash All other systems reviewed and negative (Deandra Lopez CRNP) Medications Medications (Trade) Dose Ordered Sig/Etienne Route Start Time Stop Time Status Last Admin Dose Admin Sodium Chloride 1,000 ml @ 999 mls/hr Q1H1M STAT IV 03/07/17 00:01 03/07/17 01:01 DC 03/07/17 00:13 999 MLS/HR Albuterol/ Ipratropium (Duoneb) 12 ml ONE ONCE INH 03/07/17 00:15 03/07/17 00:16 DC 03/07/17 00:42 12 ML Methylprednisolone Sodium Succinate (Solu-Medrol IV) 125 mg NOW STAT IV 03/07/17 00:01 03/07/17 00:07 DC 03/07/17 00:13 125 MG Magnesium Sulfate (Magnesium Sulfate) 2 gm NOW STAT IV 03/07/17 00:12 03/07/17 00:13 DC 03/07/17 00:43 2 GM Vancomycin HCl 1500 mg/Sodium Chloride 530 ml @ 200 mls/hr ONE STAT IV 03/07/17 00:57 03/07/17 03:35 DC 03/07/17 01:51 200 MLS/HR Piperacillin Sod/ Tazobactam Sod (Zosyn Iv) 4.5 gm NOW STAT IV 03/07/17 00:57 03/07/17 01:01 DC 03/07/17 01:11 4.5 GM Levofloxacin 750 mg/Prmx 150 ml @ 100 mls/hr Q24H IV 03/07/17 08:00 03/14/17 07:59 03/07/17 07:45 100 MLS/HR Potassium Chloride/Sodium Chloride 1,000 ml @ 100 mls/hr Q10H IV 03/07/17 04:00 03/07/17 13:59 03/07/17 04:38 100 MLS/HR Amlodipine Besylate (Norvasc Tab) 5 mg QAM PO 03/07/17 09:00 04/06/17 08:59 03/07/17 08:20 5 MG Folic Acid (Folvite Tab) 1 mg QAM PO 03/07/17 09:00 04/06/17 08:59 03/07/17 08:20 1 MG Multivitamins/ Minerals (Multivitamin W/ Minerals Tab) 1 tab QAM PO 03/07/17 09:00 04/06/17 08:59 03/07/17 08:20 1 TAB Sertraline HCl (Zoloft Tab) 150 mg QAM PO 03/07/17 09:00 04/06/17 08:59 03/07/17 08:20 150 MG Thiamine HCl (Vitamin B-1 Tab) 100 mg QAM PO 03/07/17 09:00 04/06/17 08:59 03/07/17 08:20 100 MG Albuterol/ Ipratropium (Duoneb) 3 ml Q6R INH 03/07/17 03:00 04/06/17 02:59 03/07/17 07:12 3 ML Methylprednisolone Sodium Succinate 40 mg/Syringe 0.64 ml @ 1.5 mls/min Q6H IV 03/07/17 06:00 04/06/17 05:59 03/07/17 05:27 1.5 MLS/MIN (Deandra Lopez, MAKEDA) Objective Vital Signs Date Time Temp Pulse Resp B/P (MAP) Pulse Ox O2 Delivery O2 Flow Rate FiO2 03/07/17 08:00 Nasal Cannula 3.0 03/07/17 07:39 36.7 94 18 133/71 (91) 94 3.0 03/07/17 07:12 88 18 97 Nasal Cannula 3.0 03/07/17 04:04 36.7 144 22 116/59 90 Nasal Cannula 5.0 03/07/17 02:11 145 20 117/64 92 Nasal Cannula 5.0 03/07/17 02:02 155 03/07/17 00:50 107 22 168/67 93 Nasal Cannula 10.0 03/07/17 00:42 109 22 92 Nasal Cannula 3.0 03/07/17 00:10 104 03/07/17 00:05 92 Nasal Cannula 5.0 03/07/17 00:05 92 Nasal Cannula 5.0 03/07/17 00:02 36.9 116 18 131/73 91 Nasal Cannula 5.0 03/07/17 00:02 79 Room Air (Deandra Lopez CRNP) Physical Exam Notes: General: no distress Eyes: normal inspection, PERLL Respiratory: chest non tender, coarse left base, no respiratory distress, no accessory muscle use Cardiac: regular rate and rhythm, no rub or gallop, no murmur, no edema, no jvd GI/: active bowel sounds, no abd pain or tenderness, soft, non distended Extremities: normal range of motion, normal strength, non tender Neuro/Psych: alert and oriented x 3, normal mood and affect Skin: normal color, dry (Deandra Lopez CRNP) Laboratory Results Last 24 Hours Test 03/07/17 00:02 03/07/17 00:29 03/07/17 02:00 White Blood Count 13.84 K/uL Red Blood Count 4.18 M/uL Hemoglobin 13.2 g/dL Hematocrit 38.0 % Mean Corpuscular Volume 90.9 fL Mean Corpuscular Hemoglobin 31.6 pg Mean Corpuscular Hemoglobin Concent 34.7 g/dl Platelet Count 227 K/uL Mean Platelet Volume 9.0 fL Neutrophils (%) (Auto) 85.9 % Lymphocytes (%) (Auto) 6.4 % Monocytes (%) (Auto) 4.6 % Eosinophils (%) (Auto) 0.0 % Basophils (%) (Auto) 0.1 % Neutrophils # (Auto) 11.90 K/uL Lymphocytes # (Auto) 0.88 K/uL Monocytes # (Auto) 0.63 K/uL Eosinophils # (Auto) 0.00 K/uL Basophils # (Auto) 0.01 K/uL RDW Standard Deviation 45.2 fL RDW Coefficient of Variation 13.6 % Immature Granulocyte % (Auto) 3.0 % Immature Granulocyte # (Auto) 0.42 K/uL Toxic Vacuolation 1+ Dohle Bodies 1+ Echinocytes 1+ Sodium Level 133 mmol/L Potassium Level 3.6 mmol/L Chloride Level 97 mmol/L Carbon Dioxide Level 27 mmol/L Anion Gap 9.0 mmol/L Blood Urea Nitrogen 33 mg/dl Creatinine 1.08 mg/dl Est Creatinine Clear Calc Drug Dose 49.3 ml/min Estimated GFR () 73.7 Estimated GFR (Non- 63.6 BUN/Creatinine Ratio 30.5 Random Glucose 195 mg/dl Calcium Level 8.7 mg/dl Total Bilirubin 1.9 mg/dl Direct Bilirubin 0.8 mg/dl Aspartate Amino Transf (AST/SGOT) 17 U/L Alanine Aminotransferase (ALT/SGPT) 20 U/L Alkaline Phosphatase 32 U/L Troponin I < 0.015 ng/ml Total Protein 6.8 gm/dl Albumin 2.5 gm/dl Lipase 32 U/L Influenza Type A (RT-PCR) Neg for Influ A Influenza Type A Antigen Neg for Influ A Influenza Type B Antigen Neg for Influ B Influenza Type B (RT-PCR) Neg for Influ B Venous Blood pH 7.40 Venous Blood Partial Pressure CO2 41 mmHg Venous Blood Partial Pressure O2 47 mmHg Venous Blood HCO3 25 mmol/L Venous Blood Oxygen Saturation 80.4 % Venous Blood Base Excess 0.2 mEq/L Lactic Acid Level 2.5 mmol/L Urine Color ORANGE Urine Appearance CLEAR Urine pH 5.0 Urine Specific Aurora 1.024 Urine Protein 1+ Urine Glucose (UA) NEG Urine Ketones 1+ Urine Occult Blood NEG Urine Nitrite NEG Urine Bilirubin NEG Urine Urobilinogen NEG Urine Leukocyte Esterase NEG Urine WBC (Auto) 1-5 /hpf Urine RBC (Auto) 0-4 /hpf Urine Hyaline Casts (Auto) >30 /lpf Urine Epithelial Cells (Auto) >30 /lpf Urine Bacteria (Auto) NEG Urine Pathogenic Casts /lpf (Deandra Lopez, MAKEDA) Assessment and Plan 81 y/o M here with hypoxic respiratory failure due to COPD adn PNM Hypoxic respiratory failure due to COPD and PNM - continue Levaquin. - continue duonebs, O2 per protocol, solumedrol - continue telemetry for today as tachycardia persisted until aluminum siding applicator. ETOH abuse - continue Thiamine and Folate - Has not had a drink since admission to assisted living one month ago. HTN - continue amlodipine HPL - continue statin Smoker - smoking cessation education Depression - continue sertraline Full code - SCDs (Deandra Lopez ., MAKEDA) I agree with MAKEDA assessment and plan and have seen and examined pt myself Admitted with PNA Labs reviewed Elev lactic acid, repeat and obtain procalcitonin Cont antibx Pt improving at this time Cont O2 protocol Cont to monitor (Anderson Balderrama D.O.)
[2017-03-07] MEDS: SIMVASTATIN 20 MG TAB PO SCH (20:09)
[2017-03-08] VITALS (11 sets, daily range): BP systolic 112–130; BP diastolic 55–72; PULSE 53–96; TEMP 36.2–36.6; O2SAT 91–95
[2017-03-08] MEDS: METHYLPREDNISOLONE IV 40 MG in SYRINGE 0 ML IV SCH ×3 (00:09→20:10)
[2017-03-08] MEDS: ALBUT/IPRATROP 3MG/0.5MG NEB 3 ML VIAL INH SCH ×4 (02:11→19:22)
--- NOTE | 2017-03-08 08:23 | Clinical Documentation Query ---
CLINICAL DOCUMENTATION QUERY An 81 year old male who presents to the Emergency Room with complaints of intermittent respiratory problems for the past 3 weeks. In your clinical opinion is this patient being managed for: ( X ) Sepsis, in the setting of pneumonia and treated with IV Vancomycin, Levoquin, and Zosyn ( ) Not Agree ( ) Other explanation of clinical findings (Please Explain) ( ) Unable to determine (Please Define) ( ) Need to Discuss The medical record reflects the following clinical findings, treatment, and risk factors. Clinical Indicators: WBC 13.84, lactic acid 2.5, pulse 155, respirations 22, SPO2 79% Treatment: IV Vancomycin, Levaquin, Zosyn, IV hydration Risk Factors: Age, COPD, pneumonia Please clarify and document your clinical opinion in the progress notes and discharge summary. Terms such as "probable", "suspected", "likely", "questionable", "possible", or "still to be ruled out" are acceptable. IF IN AGREEMENT, YOU MUST DOCUMENT ABOVE DIAGNOSTIC STATEMENT IN DAILY PROGRESS NOTES AND DISCHARGE SUMMARY. This document is not part of the patient's record. Thank You, Lea Thorne RN [phone]
[2017-03-08 08:39] LABS: HEMOGLOBIN A1C 6.2 % (4.5-5.6)
[2017-03-08 08:46] LABS: HEMATOCRIT 33.8 % (42-52); HEMOGLOBIN 11.8 g/dL (14.0-18.0); MEAN CELL VOLUME 89.2 fL (80-100); MEAN CORPUSCULAR HEMOGLOBIN 31.1 pg (25-34); MEAN CORPUSCULAR HGB CONC 34.9 g/dl (32-36); MEAN PLATELET VOLUME 9.1 fL (7.4-10.4); PLATELET COUNT 262 K/uL (130-400); RED CELL DISTRIBUTION WIDTH CV 13.5 % (11.5-14.5); RED CELL DISTRIBUTION WIDTH SD 44.2 fL (36.4-46.3)
[2017-03-08] MEDS: AMLODIPINE BESYLATE 5 MG TAB PO SCH (08:52)
[2017-03-08] MEDS: CEROVITE ADV FORMULA TAB PO SCH (08:52)
[2017-03-08] MEDS: SERTRALINE HCL 100 MG TAB PO SCH (08:52)
[2017-03-08] MEDS: LEVOFLOXACIN / D5W 750 MG in PREMIXED IN D5W 150 ML IV SCH (08:52)
[2017-03-08] MEDS: THIAMINE HCL 100 MG TAB PO SCH (08:53)
[2017-03-08 09:53] LABS: CALCIUM 9.3 mg/dl (8.5-10.1); CREATININE 0.72 mg/dl (0.60-1.40); POTASSIUM 3.9 mmol/L (3.5-5.1)
--- NOTE | 2017-03-08 10:59 | Hospitalist Progress Note ---
Hospitalist Progress Note Date of Service Mar 08, 2017. (Deandra Lopez CRNP) Subjective Pt evaluation today including: conversation w/ patient, physical exam, chart review, lab review, review of inpatient medication list Voiding: no voiding problems Mr. Nelson is feeling better today, he is seated in a chair bedside. He is eating and drinking well. Continues to have cough productive of clear sputum. He reports that he wears oxygen during the day most days at his SNF but does not need it at night. He thinks he wears about 4L but is unsure ROS Constitutional: no chills, aches, sweats or fever Respiratory: see HPI Cardiac: no chest pain, palpitations, edema, orthopnea or lightheadedness GI: no abdominal pain, nausea, vomiting, diarrhea or constipation : no dysuria or hesitancy Extremities: no joint pain or weakness Skin: no rash All other systems reviewed and negative (Deandra Lopez CRNP) Medications Medications (Trade) Dose Ordered Sig/Etienne Route Start Time Stop Time Status Last Admin Dose Admin Simvastatin (Zocor Tab) 20 mg HS PO 03/07/17 21:00 04/06/17 20:59 03/07/17 20:09 20 MG (Deandra Lopez CRNP) Objective Vital Signs Date Time Temp Pulse Resp B/P (MAP) Pulse Ox O2 Delivery O2 Flow Rate FiO2 03/08/17 08:20 36.4 87 18 122/55 (77) 91 4.0 03/08/17 07:48 53 18 91 Nasal Cannula 4.0 03/08/17 04:00 Nasal Cannula 4.0 03/08/17 03:30 36.5 92 23 128/62 (84) 92 Nasal Cannula 4.0 03/08/17 02:12 81 16 93 Nasal Cannula 2.0 03/08/17 00:01 Nasal Cannula 4.0 03/07/17 23:41 36.9 86 18 126/67 (86) 93 Nasal Cannula 4.0 03/07/17 20:30 36.6 91 20 122/62 (82) 91 Nasal Cannula 4.0 03/07/17 20:00 Nasal Cannula 4.0 03/07/17 19:41 91 16 88 Nasal Cannula 2.0 03/07/17 16:00 Nasal Cannula 3.0 03/07/17 15:37 36.6 88 16 120/53 (75) 92 Nasal Cannula 2.0 03/07/17 15:18 86 16 91 Nasal Cannula 3.0 03/07/17 12:00 Nasal Cannula 3.0 03/07/17 11:15 36.4 92 18 124/67 (86) 94 3.0 (Deandra Lopez CRNP) Physical Exam Notes: General: no distress Eyes: normal inspection, PERLL Respiratory: chest non tender, clear to auscultation, normal breath sounds, no respiratory distress, no accessory muscle use Cardiac: regular rate and rhythm, no rub or gallop, no murmur, no edema, no jvd GI/: active bowel sounds, no abd pain or tenderness, soft, non distended Extremities: normal range of motion, normal strength, non tender Neuro/Psych: alert and oriented x 3, normal mood and affect Skin: normal color, dry (Deandra Lopez CRNP) Laboratory Results Last 24 Hours Test 03/07/17 15:53 03/08/17 07:45 03/08/17 07:46 Lactic Acid Level 1.4 mmol/L 1.5 mmol/L Procalcitonin 16.29 ng/ml White Blood Count 14.80 K/uL Red Blood Count 3.79 M/uL Hemoglobin 11.8 g/dL Hematocrit 33.8 % Mean Corpuscular Volume 89.2 fL Mean Corpuscular Hemoglobin 31.1 pg Mean Corpuscular Hemoglobin Concent 34.9 g/dl RDW Standard Deviation 44.2 fL RDW Coefficient of Variation 13.5 % Platelet Count 262 K/uL Mean Platelet Volume 9.1 fL Sodium Level 134 mmol/L Potassium Level 3.9 mmol/L Chloride Level 102 mmol/L Carbon Dioxide Level 25 mmol/L Anion Gap 7.0 mmol/L Blood Urea Nitrogen 27 mg/dl Creatinine 0.72 mg/dl Est Creatinine Clear Calc Drug Dose 61.4 ml/min Estimated GFR () 100.7 Estimated GFR (Non- 86.9 BUN/Creatinine Ratio 37.0 Random Glucose 128 mg/dl Estimated Average Glucose 131 mg/dl Hemoglobin A1c 6.2 % Calcium Level 9.3 mg/dl (Deandra Lopez CRNP) Assessment and Plan 81 y/o M here with hypoxic respiratory failure due to COPD and PNM Hypoxic respiratory failure due to COPD and PNM - continue Levaquin, initiated / - continue duonebs, O2 per protocol, solumedrol reduced to 40 mg bid - transferred to med surg as patient was no longer experiencing as high heart rates, highest was 110 but mostly sinus in the 80s and 90s. - Incentive spirometry ETOH abuse - continue Thiamine and Folate - Has not had a drink since admission to assisted living one month ago. HTN - continue amlodipine HPL - continue statin Smoker - smoking cessation education - nicotene patch Depression - continue sertraline Full code - SCDs (Deandra Lopez ., MAKEDA) I agree with MAKEDA assessment and plan and have seen and examined pt myself Admitted with PNA Labs reviewed Lactic acid WNL now Cont antibx BCx NGTD Pt improving at this time Cont O2 protocol Cont to monitor (Anderson Balderrama, D.O.)
[2017-03-08] MEDS ORDERED: NICOTINE 14 MG/24 HR TDSY TD ONE (11:30)
[2017-03-08] MEDS: SIMVASTATIN 20 MG TAB PO SCH (20:10)
[2017-03-09] VITALS (7 sets, daily range): BP systolic 125–137; BP diastolic 61–72; PULSE 69–90; TEMP 36.3; O2SAT 92–97
[2017-03-09] MEDS: ALBUT/IPRATROP 3MG/0.5MG NEB 3 ML VIAL INH SCH ×3 (02:11→14:21)
[2017-03-09] MEDS: LEVOFLOXACIN / D5W 750 MG in PREMIXED IN D5W 150 ML IV SCH (08:22)
[2017-03-09] MEDS: THIAMINE HCL 100 MG TAB PO SCH (08:23)
[2017-03-09] MEDS: CEROVITE ADV FORMULA TAB PO SCH (08:23)
[2017-03-09] MEDS: METHYLPREDNISOLONE IV 40 MG in SYRINGE 0 ML IV SCH (08:23)
[2017-03-09] MEDS: AMLODIPINE BESYLATE 5 MG TAB PO SCH (08:23)
[2017-03-09] MEDS: SERTRALINE HCL 100 MG TAB PO SCH (08:24)
[2017-03-09] MEDS ORDERED: NICOTINE 14 MG/24 HR TDSY TD SCH (09:00)
[2017-03-09] MEDS ORDERED: LEVO750T23 PO (13:26)
[2017-03-09] MEDS ORDERED: HYDR-5688 PO (13:26)
--- NOTE | 2017-03-09 13:29 | Discharge Instructions ---
Discharge Instructions Date of Service Mar 09, 2017. Admission Reason for Admission: Hypoxia, Pneumonia Discharge Discharge Diagnosis / Problem: Pneumonia, hypoxia Discharge Goals Goal(s): Decrease discomfort, Improve function, Increase independence, Improve disease control, Learn about illness, Diagnostic testing, Therapeutic intervention, Prevent Disease Progression Activity Recommendations Activity Limitations: resume your previous activity Exercise/Sports Limitations: as tolerated . Instructions / Follow-Up Instructions / Follow-Up Patient to be discharged back to nursing facility Will require O2 on discharge Patient will need to be placed on course of levaquin 750 mg by mouth daily for 7 more days No further changes at this time Current Hospital Diet Patient's current hospital diet: AHA Diet (Heart Healthy) Discharge Diet Recommended Diet: AHA Diet (Heart Healthy) Pending Studies Studies pending at discharge: no Laboratory Results Hemoglobin A1c Test 03/08/17 07:46 Range/Units Estimated Average Glucose 131 mg/dl Hemoglobin A1c 6.2 H 4.5-5.6 % Medical Emergencies . Who to Call and When: Medical Emergencies: If at any time you feel your situation is an emergency, please call 911 immediately. . Non-Emergent Contact Non-Emergency issues call your: Primary Care Provider Call Non-Emergent contact if: you have a fever . . "Provider Documentation" section prepared by Andesron Balderrama. . VTE Core Measure Inpt VTE Proph given/why not?: SCD's
--- NOTE | 2017-03-09 20:10 | Discharge Summary ---
Discharge Summary Date of Service Mar 09, 2017. Discharge Summary Admission Date: Mar 07, 2017 at 02:29 Discharge Date: Mar 09, 2017 Discharge Disposition: Home with services Principal Diagnosis: Pneumonia, hypoxia Immunizations: Have You Had Influenza Vaccine: No History of Tetanus Vaccine?: Unknown History of Pneumococcal: Yes Pneumococcal Date: Oct 09, 2004 History of Hepatitis B Vaccine: Unknown Medication Reconciliation New Medications: Levofloxacin (Levaquin) 750 Mg Tab 1 TAB PO DAILY for 7 Days, #7 TAB Continued Medications: Acetaminophen (Arthritis Pain Relief) 650 Mg Tab 1300 MG PO Q8 PRN for Pain MAX 3 GRAM APAP/24 HOURS. Amlodipine (Norvasc) 5 Mg Tab 5 MG PO QAM, TAB Cholecalciferol (Vitamin D3) 2,000 Unit Cap 2000 INTER.UNIT PO QPM AT 1700, CAP Fluticasone-Salmeterol (Fluticasone Propionate/SA 113-14 Mcg/Act) 1 Inh Inh 1 PUFF PO BID Folic Acid (Folvite) 1 Mg Tab 1 MG PO QAM, TAB Hydrocodone/Acetaminophen 5MG/325MG (Edwards 5MG/325MG) Tab 1 TABLET PO Q6H PRN for Pain, #30 TAB (This prescription has been renewed) MAX 3 GRAM APAP/24 HOURS. Multiple Vitamins W/ Minerals (Centrum Silver 50+Men) 1 Tab Tab 1 TAB PO QAM Polyethylene Glycol 3350 (Miralax) 1 Pow Pow 17 GM PO DAILY PRN for Constipation, #255 GM Sertraline HCl (Sertraline HCl) 100 Mg Tab 150 MG PO QAM Simvastatin (Zocor) 20 Mg Tab 20 MG PO QPM AT 1700, TAB Thiamine Mononitrate (Vitamin B1) 100 Mg Tab 100 MG PO QAM Discharge Exam Review of Systems: Constitutional: No fever, No chills, No sweats, No weight loss, No weakness , No fatigue, No problem reported Eyes: No worsening of vision, No eye pain, No redness, No discharge, No diplopia, No problem reported ENT: No hearing loss, No unusual epistaxis, No nasal symptoms, No sore throat, No tinnitus, No dental problems, No trouble swallowing, No problem reported Respiratory: No cough, No sputum, No wheezing, No shortness of breath, No dyspnea on exertion, No dyspnea at rest, No hemoptysis, No problem reported Cardiovascular: No chest pain, No orthopnea, No PND, No edema, No claudication, No palpitations, No problem reported Abdomen: No pain, No nausea, No vomiting, No diarrhea, No constipation, No GI bleeding, No problem reported Musculoskeletal: No joint pain, No muscle pain, No swelling, No calf pain, No problem reported Genitourinary - Male: No hematuria, No dysuria, No urinary frequency, No urinary urgency, No urinary hesitancy, No urinary retention, No urinary incontinence, No penile discharge, No lesions, No impotence, No problem reported Neurologic: No memory loss, No paralysis, No weakness, No numbness/tingling , No vertigo, No balance problems, No problem reported Psychiatric: No depression symptoms, No anhedonism, No anxiety, No insomnia , No substance abuse, No problem reported Endocrine: No fatigue, No excessive thirst, No excessive urination, No problem reported Physical Exam: General Appearance: WD/WN, no apparent distress ENT: normal ENT inspection, hearing grossly normal, TMs normal, pharynx normal Neck: supple, no adenopathy, thyroid normal, no JVD Respiratory/Chest: chest non-tender, no respiratory distress, no accessory muscle use, + decreased breath sounds Cardiovascular: regular rate, rhythm, no edema, no gallop, no JVD Abdomen / GI: normal bowel sounds, non tender, soft, no organomegaly Extremities: normal inspection, no calf tenderness, normal capillary refill , no pedal edema, normal range of motion Neurologic/Psychiatric: no motor/sensory deficits, alert, normal mood/affect , oriented x 3 Skin: normal color, warm/dry, no rash Lymphatic: no adenopathy Hospital Course 81 y/o M here with hypoxic respiratory failure due to COPD and PNM Sepsis in setting on PNA, hypoxic respiratory failure due to COPD and PNM - continue Levaquin, initiated 03/07, DC on levaquin 750 mg PO daily for another 7 days - continue duonebs, O2 per protocol, solumedrol reduced to 40 mg bid - transferred to med surg as patient was no longer experiencing as high heart rates, highest was 110 but mostly sinus in the 80s and 90s. - Incentive spirometry, pt qualified for O2 on discharge ETOH abuse - continue Thiamine and Folate - Has not had a drink since admission to assisted living one month ago. HTN - continue amlodipine HPL - continue statin Smoker - smoking cessation education - nicotene patch Depression - continue sertraline Full code - SCDs Total Time Spent: Greater than 30 minutes This includes examination of the patient, discharge planning, medication reconciliation, and communication with other providers. Discharge Instructions Please refer to the electronic Patient Visit Report (Discharge Instructions) for additional information. Additional Copies To Oumar Bradley M.D.
[2017-03-10] MEDS ORDERED: LEVOFLOXACIN 750 MG TAB PO SCH (11:00)
== END 2017-03-09 19:25 | disposition home or self-care (01) | DRG 871 ==
LOC: EDBD 23:55 → C.EDA 23:57 → C.2T 03-07 02:29 → ENRESERV 03-07 02:46 → EDBEDREQ 03-08 11:08 → EDBEDREQSVC 03-08 11:08 → ENRESERV 03-08 11:10 → C.MS2W 03-08 13:18
PROVIDERS: ADMIT Internal Medicine; ATTEND Internal Medicine
DX: A41.9 Sepsis, unspecified organism (principal); J18.9 Pneumonia, unspecified organism; J96.91 Respiratory failure, unspecified with hypoxia; J44.0 Chronic obstructive pulmonary disease with (acute) lower respiratory infection; J44.1 Chronic obstructive pulmonary disease with (acute) exacerbation; I10 Essential (primary) hypertension; F32.9 Major depressive disorder, single episode, unspecified; F10.10 Alcohol abuse, uncomplicated; F17.200 Nicotine dependence, unspecified, uncomplicated; Z79.899 Other long term (current) drug therapy; Z91.81 History of falling

== ENCOUNTER → 2017-05-31 | Outpatient (CLI) | payer BC ==
[~2017-05-31] MED LIST changes: +ACET650T49 PO; +AMLO-110 PO; +AMOX875T PO; -ASPI81TA21 PO; -FLV1 PO; +FOLI1TAB8 PO; +HYDR-5688 PO; -LDDP5 TD; -MRLP17X PO; +MULT-1093 PO; -MULTCHW PO; -NALT50TA16 PO; +NUTR-706 PO; +OXGN; +POLY335019 PO; +PRED10TA PO; +THIA1TAB11 PO; -THM100 PO; +VNTHFA/IN INH
--- NOTE | 2017-05-31 18:19 | DIAGNOSTIC IMAGING REPORT ---
CHEST 2 VIEWS ROUTINE CLINICAL HISTORY: 81 years-old Male presenting with SOB,COUGH, HX OF OTHER DISEASES OF RESPIRATORY. TECHNIQUE: PA and lateral views of the chest were obtained. COMPARISON: 03/07/2017. FINDINGS: Atherosclerosis of the aortic arch. Cardiac silhouette normal in size. Significant interval decrease in diffuse left lung opacity. Architectural distortion of the left lung base. Suspected small left pleural effusion or pleural thickening. Right lung and pleural space clear. The right lung is hyperinflated. Degenerative changes of the thoracic spine. Chronic elevation of the left hemidiaphragm resulting in apparent subpleural opacity at the left lung base. IMPRESSION: 1. Significant interval decrease in diffuse left lung opacities, consistent with resolving pneumonia. 2. Emphysema. 3. Chronic elevation of the left hemidiaphragm best visualized on prior CT from 12/30/2015. Electronically signed by: Donald Pettit M.D. 05/31/2017 6:17 PM Dictated Date/Time: 05/31/2017 6:14 PM
== END | disposition home or self-care (01) ==
LOC: C.RAD 17:55
PROVIDERS: ATTEND Nurse Practitioner Family
DX: R06.02 Shortness of breath (principal); Z87.09 Personal history of other diseases of the respiratory system; R05 Cough; J43.9 Emphysema, unspecified

== ENCOUNTER 2017-06-09 09:56 | Inpatient (IN) | payer BC, OTHER ==
[~2017-06-09] VITALS: Ht 170.2 cm; Wt 57.4 kg
[~2017-06-09 09:56] MED LIST changes: -AMOX875T PO; -NUTR-706 PO; -OXGN; -PRED10TA PO; -VNTHFA/IN INH
--- NOTE | 2017-06-09 10:42 | EMERGENCY ROOM VISIT NOTE ---
History Report prepared by Joselyn: Marlo Calvillo Under the Supervision of: Dr. Kali Valverde M.D. First contact with patient: 10:28 Chief Complaint: FALL Stated Complaint: FELL OUT OF BED,WEAKNESS IN RT LEG AND HAND History of Present Illness The patient is a 81 year old male who presents to the Emergency Room with complaints of constant right sided weakness beginning this morning. The patient states that he was sitting on the side of his bed today at 0730 when he slid off the bed and hit the ground. He notes hitting his shoulder on the ground, but denies hitting his head, fainting, or experiencing any chest pain prior to his fall. The patient's daughter denies any changes in the patient's speech. The patient reports feeling normal strength in his right side last night. The patient reports that he stays at the [facility] assisted living facility. The patient's daughter states that nurses at the [facility] [place] informed her that the patient was dragging his right leg at 0900 this morning. The patient notes that he always wears 2L oxygen secondary to his history of COPD. He also states that he is currently taking Augmentin for pneumonia, and recently completed a 5 day prednisone taper. Source of History: patient, family (daughter) Onset: This morning. Position: other (Right side of body) Quality: other (weakness) Timing: constant Associated Symptoms: No LOC, No chest pain Note: Associated Symptoms: Fall. Denies: Hitting head during fall. Review of Systems See HPI for pertinent positives & negatives. A total of 10 systems reviewed and were otherwise negative. Past Medical & Surgical Medical Problems: (1) Alcohol withdrawal (2) COPD (chronic obstructive pulmonary disease) (3) COPD exacerbation (4) CVA (cerebral vascular accident) (5) Fall at home (6) Hypoxia (7) PAD (peripheral artery disease) Social History Problems: (1) ETOH abuse Family History No significant family history Social History Smoking Status: Current Every Day Smoker Alcohol Use: heavy Drug Use: marijuana Marital Status: , Housing Status: lives with family Occupation Status: retired Current/Historical Medications Scheduled Amlodipine (Norvasc), 5 MG PO QAM Amoxicillin & Pot Clavulanate (Augmentin 875-125 mg), 1 TAB PO BID Cholecalciferol (Vitamin D3), 2,000 INTER.UNIT PO QPM AT 1700 Enteral Nutrition Formula (Ensure), 1 CAN PO PM Fluticasone-Salmeterol (Fluticasone Propionate/SA 113-14 Mcg/Act), 1 PUFF PO BID Folic Acid (Folvite), 1 MG PO QAM Home O2 Therapy (Oxygen), 1-3 LITERS NA PRN Multiple Vitamins W/ Minerals (Centrum Silver 50+Men), 1 TAB PO QAM Prednisone Tab (Prednisone), 30 MG PO QDB Sertraline HCl (Sertraline HCl), 150 MG PO QAM Simvastatin (Zocor), 20 MG PO QPM AT 1700 Thiamine Mononitrate (Vitamin B1), 100 MG PO QAM Scheduled PRN Acetaminophen (Arthritis Pain Relief), 1,300 MG PO Q8 PRN for Pain Albuterol Hfa (Ventolin Hfa), 2 PUFFS INH Q4 PRN for SOB/Wheezing Hydrocodone/Acetaminophen 5MG/325MG ([place] 5MG/325MG), 1 TABLET PO Q6H PRN for Pain Polyethylene Glycol 3350 (Miralax), 17 GM PO DAILY PRN for Constipation Allergies Coded Allergies: Penicillins (Verified Allergy, Unknown, 06/09/17) Physical Exam Vital Signs Date Time Temp Pulse Resp B/P (MAP) Pulse Ox O2 Delivery O2 Flow Rate FiO2 06/09/17 13:01 98 Nasal Cannula 2.0 06/09/17 12:48 66 18 141/78 98 Room Air 06/09/17 11:51 65 18 154/68 98 Room Air 06/09/17 11:09 58 18 150/69 96 Nasal Cannula 2.0 06/09/17 10:24 Nasal Cannula 2.5 06/09/17 10:11 36.3 70 20 152/69 90 Nasal Cannula 2.0 Physical Exam GENERAL: Patient is in no acute distress. HEENT: No acute trauma, normocephalic atraumatic, mucous membranes moist, no nasal congestion, no scleral icterus. NECK: No stridor, no adenopathy, no meningismus, trachea is midline. LUNGS: Decreased breath sounds bilaterally, no respiratory distress. Wheezing and crackles heard in both lungs. HEART: 2/6 systolic murmur with regular rate and rhythm ABDOMEN: Soft, nontender, bowel sounds positive, no hernias, no peritonitis. EXTREMITIES: No cyanosis or edema, full range of motion of all the joints without pain or difficulty, no signs for acute trauma. NEUROLOGIC: Awake and alert oriented x3, no speech slur or facial droop, no extremity drift. Some difficult with cerebellar function in both right upper and lower extremities. Difficulty with rapid alternating movement of right upper extremity. SKIN: No rash, no jaundice, no diaphoresis. Medical Decision & Procedures ER Provider Diagnostic Interpretation: Radiology results as stated below per my review and radiologist interpretation: [~ rep ct add3]] HEAD WITHOUT CONTRAST (CT) CLINICAL HISTORY: 81 years-old Male presenting with Stroke, unwitnessed fall, right sided weakness in hand and leg. TECHNIQUE: Multidetector CT imaging of the head was performed without the use of intravenous contrast. IV contrast: None. A dose lowering technique was used consistent with the principles of ALARA (as low as reasonably achievable). COMPARISON: 12/13/2016. CT DOSE (mGy.cm): The estimated cumulative dose is 537.48 mGy.cm. FINDINGS: [place] topogram: Unremarkable. Ventricles and sulci normal in size. Periventricular and subcortical white matter hypoattenuation, nonspecific but likely indicative of chronic small vessel ischemic change. No mass effect or midline shift. No hemorrhage or acute territorial infarct. No extra-axial fluid collection. Paranasal sinuses and mastoid air cells clear. Calvarium intact. IMPRESSION: 1. Chronic small vessel ischemic change. No acute intracranial abnormality. Electronically signed by: Donald Pettit M.D. 06/09/2017 11:24 AM Dictated Date/Time: 06/09/2017 11:21 AM CHEST ONE VIEW PORTABLE CLINICAL HISTORY: 81 years-old Male presenting with Stroke. TECHNIQUE: Portable upright AP view of the chest was obtained. COMPARISON: 05/31/2017. FINDINGS: Atherosclerosis of the aortic arch. Cardiac silhouette normal in size. Chronic elevation of the left hemidiaphragm with left basilar opacity. No new focal opacity. Hyperinflation of the right lung unchanged. No large effusion or pneumothorax. Degenerative changes of the spine. IMPRESSION: 1. No significant change or evidence of acute cardiopulmonary disease. 2. Findings suggest underlying emphysema. 3. Chronic elevation of the left hemidiaphragm with left basilar atelectasis. Electronically signed by: Donald Pettit M.D. 06/09/2017 11:18 AM Dictated Date/Time: 06/09/2017 11:16 AM Laboratory Results 06/09/17 10:50 Red Blood Count 4.68, Mean Corpuscular Volume 88.5, Mean Corpuscular Hemoglobin 29.3, Mean Corpuscular Hemoglobin Concent 33.1, Mean Platelet Volume 8.7, Neutrophils (%) (Auto) 78.0, Lymphocytes (%) (Auto) 14.8, Monocytes (%) (Auto) 5.7, Eosinophils (%) (Auto) 1.1, Basophils (%) (Auto) 0.2, Neutrophils # (Auto) 10.20, Lymphocytes # (Auto) 1.94, Monocytes # (Auto) 0.74, Eosinophils # (Auto) 0.15, Basophils # (Auto) 0.02 06/09/17 10:50 Test 06/09/17 10:50 06/09/17 11:00 White Blood Count 13.07 K/uL (4.8-10.8) Red Blood Count 4.68 M/uL (4.7-6.1) Hemoglobin 13.7 g/dL (14.0-18.0) Hematocrit 41.4 % (42-52) Mean Corpuscular Volume 88.5 fL (80-100) Mean Corpuscular Hemoglobin 29.3 pg (25-34) Mean Corpuscular Hemoglobin Concent 33.1 g/dl (32-36) Platelet Count 252 K/uL (130-400) Mean Platelet Volume 8.7 fL (7.4-10.4) Neutrophils (%) (Auto) 78.0 % Lymphocytes (%) (Auto) 14.8 % Monocytes (%) (Auto) 5.7 % Eosinophils (%) (Auto) 1.1 % Basophils (%) (Auto) 0.2 % Neutrophils # (Auto) 10.20 K/uL (1.4-6.5) Lymphocytes # (Auto) 1.94 K/uL (1.2-3.4) Monocytes # (Auto) 0.74 K/uL (0.11-0.59) Eosinophils # (Auto) 0.15 K/uL (0-0.5) Basophils # (Auto) 0.02 K/uL (0-0.2) RDW Standard Deviation 48.9 fL (36.4-46.3) RDW Coefficient of Variation 15.3 % (11.5-14.5) Immature Granulocyte % (Auto) 0.2 % Immature Granulocyte # (Auto) 0.02 K/uL (0.00-0.02) Prothrombin Time 10.2 SECONDS (9.0-12.0) Prothromb Time International Ratio 1.0 (0.9-1.1) Activated Partial Thromboplast Time 24.5 SECONDS (21.0-31.0) Partial Thromboplastin Ratio 0.9 Anion Gap 6.0 mmol/L (3-11) Est Creatinine Clear Calc Drug Dose 62.0 ml/min Estimated GFR () 99.6 Estimated GFR (Non- 85.9 BUN/Creatinine Ratio 24.8 (10-20) Calcium Level 9.2 mg/dl (8.5-10.1) Magnesium Level 2.1 mg/dl (1.8-2.4) Total Bilirubin 0.6 mg/dl (0.2-1) Direct Bilirubin 0.2 mg/dl (0-0.2) Aspartate Amino Transf (AST/SGOT) 24 U/L (15-37) Alanine Aminotransferase (ALT/SGPT) 30 U/L (12-78) Alkaline Phosphatase 31 U/L (45-117) Total Creatine Kinase 161 U/L (39-308) Creatine Kinase MB 3.6 ng/ml (0.5-3.6) Creatine Kinase MB Ratio 2.2 (0-3.0) Troponin I < 0.015 ng/ml (0-0.045) Total Protein 7.7 gm/dl (6.4-8.2) Albumin 3.7 gm/dl (3.4-5.0) Thyroid Stimulating Hormone (TSH) 2.530 uIu/ml (0.300-4.500) Urine Color YELLOW Urine Appearance CLEAR (CLEAR) Urine pH 6.5 (4.5-7.5) Urine Specific Media 1.020 (1.000-1.030) Urine Protein NEG (NEG) Urine Glucose (UA) NEG (NEG) Urine Ketones NEG (NEG) Urine Occult Blood NEG (NEG) Urine Nitrite NEG (NEG) Urine Bilirubin NEG (NEG) Urine Urobilinogen NEG (NEG) Urine Leukocyte Esterase NEG (NEG) Laboratory results reviewed by me. ECG Per My Interpretation Indication: weakness Rate (beats per minute): 64 Rhythm: normal sinus Findings: no ectopy, other (No ST elevation, no PVS) ED Course 1029: The patient was evaluated in room A4. A complete history and physical exam was performed. 1154: I discussed the patient's case with nurse practitioner Duc Green exhaust emissions automotive technician for [facility]. She will evaluate the patient for further treatment and care. 1200: I discussed the patients results with the patient. He is up to date on his current treatment plan. Medical Decision The patient is a 81 year old male who presents to the ED with complaints of right-sided weakness. Differential diagnoses considered include electrolyte imbalance, stroke, intracranial bleeding, anemia, infection, UTI or viral illness.. There is a mild leukocytosis, this could be consistent with infection or his recent steroid use. No concerning anemia. No significant electrolyte abnormality, kidney failure or hepatitis. EKG shows a normal sinus rhythm, no acute ischemia. Cardiac enzyme testing 1 is not consistent with acute cardiac injury. Patient appears to be in a euthyroid state. Chest film shows a hazy area to the left lower lung, this could be pneumonia or atelectasis but looks similar to previous films. Brain CT shows no acute bleed or mass-effect. Urinalysis does not show infection. On exam, patient did have some cerebellar dysfunction on the right side when compared to the left. The patient presents with weakness, his last known well time was sometime last evening. He is not a candidate for TPA. Certainly, he could have a small stroke as the cause for his symptoms. Further workup in the hospital is warranted. I spoke to the patient and case management. The on-call hospitalist was consulted. Medication Reconcilliation Current Medication List: was personally reviewed by me Blood Pressure Screening Patient's blood pressure: Elevated blood pressure Referred to hospitalist Consults Time Called: 1149 Consulting Physician: nurse practitioner Duc Green exhaust emissions automotive technician for [facility] Call: [phone] I discussed the patient's case with nurse practitioner Duc Green exhaust emissions automotive technician for [facility]. She will evaluate the patient for further treatment and care. Impression Primary Impression: Stroke-like symptoms Scribe Attestation The scribe's documentation has been prepared under my direction and personally reviewed by me in its entirety. I confirm that the note above accurately reflects all work, treatment, procedures, and medical decision making performed by me. Departure Information Dispostion Being Evaluated By Hospitalist Referrals Oumar Bradley M.D. (PCP) Patient Instructions My [facility] Stroke History Time Last Known Well Last night Stroke t-PA Criteria Reviewed Does NOT meet criteria for t-PA Reason t-PA Not Given Treatment not indicated
[2017-06-09 11:05] LABS: BASO % 0.2 %; BASO ABS # 0.02 K/uL (0-0.2); EOS % 1.1 %; EOS ABS # 0.15 K/uL (0-0.5); HEMATOCRIT 41.4 % (42-52); HEMOGLOBIN 13.7 g/dL (14.0-18.0); IG# 0.02 K/uL (0.00-0.02); LYMPH % 14.8 %; LYMPH ABS # 1.94 K/uL (1.2-3.4); MEAN CELL VOLUME 88.5 fL (80-100); MEAN CORPUSCULAR HEMOGLOBIN 29.3 pg (25-34); MEAN CORPUSCULAR HGB CONC 33.1 g/dl (32-36); MEAN PLATELET VOLUME 8.7 fL (7.4-10.4); MONO % 5.7 %; MONO ABS # 0.74 K/uL (0.11-0.59); PLATELET COUNT 252 K/uL (130-400); RED CELL DISTRIBUTION WIDTH CV 15.3 % (11.5-14.5); RED CELL DISTRIBUTION WIDTH SD 48.9 fL (36.4-46.3); WHITE BLOOD COUNT 13.07 K/uL (4.8-10.8)
[2017-06-09 11:14] LABS: PTT PATIENT 24.5 SECONDS (21.0-31.0)
[2017-06-09] MEDS ORDERED: VNTHFA/IN INH (11:17)
[2017-06-09] MEDS ORDERED: PRED10TA PO (11:17)
[2017-06-09] MEDS ORDERED: NUTR-706 PO (11:17)
[2017-06-09] MEDS ORDERED: AMOX875T PO (11:17)
[2017-06-09] MEDS ORDERED: OXGN (11:19)
--- NOTE | 2017-06-09 11:19 | DIAGNOSTIC IMAGING REPORT ---
CHEST ONE VIEW PORTABLE CLINICAL HISTORY: 81 years-old Male presenting with Stroke. TECHNIQUE: Portable upright AP view of the chest was obtained. COMPARISON: 05/31/2017. FINDINGS: Atherosclerosis of the aortic arch. Cardiac silhouette normal in size. Chronic elevation of the left hemidiaphragm with left basilar opacity. No new focal opacity. Hyperinflation of the right lung unchanged. No large effusion or pneumothorax. Degenerative changes of the spine. IMPRESSION: 1. No significant change or evidence of acute cardiopulmonary disease. 2. Findings suggest underlying emphysema. 3. Chronic elevation of the left hemidiaphragm with left basilar atelectasis. Electronically signed by: Donald Pettit M.D. 06/09/2017 11:18 AM Dictated Date/Time: 06/09/2017 11:16 AM
[2017-06-09 11:22] LABS: ALBUMIN 3.7 gm/dl (3.4-5.0); ALT/SGPT 30 U/L (12-78); AST/SGOT 24 U/L (15-37); BLOOD UREA NITROGEN 18 mg/dl (7-18); CALCIUM 9.2 mg/dl (8.5-10.1); CARBON DIOXIDE 31 mmol/L (21-32); CREATININE 0.74 mg/dl (0.60-1.40); GLUCOSE 101 mg/dl (70-99); SODIUM 139 mmol/L (136-145)
--- NOTE | 2017-06-09 11:26 | DIAGNOSTIC IMAGING REPORT ---
HEAD WITHOUT CONTRAST (CT) CLINICAL HISTORY: 81 years-old Male presenting with Stroke, unwitnessed fall, right sided weakness in hand and leg. TECHNIQUE: Multidetector CT imaging of the head was performed without the use of intravenous contrast. IV contrast: None. A dose lowering technique was used consistent with the principles of ALARA (as low as reasonably achievable). COMPARISON: 12/13/2016. CT DOSE (mGy.cm): The estimated cumulative dose is 537.48 mGy.cm. FINDINGS: [employer] Performance [employer] topogram: Unremarkable. Ventricles and sulci normal in size. Periventricular and subcortical white matter hypoattenuation, nonspecific but likely indicative of chronic small vessel ischemic change. No mass effect or midline shift. No hemorrhage or acute territorial infarct. No extra-axial fluid collection. Paranasal sinuses and mastoid air cells clear. Calvarium intact. IMPRESSION: 1. Chronic small vessel ischemic change. No acute intracranial abnormality. Electronically signed by: Donald Pettit M.D. 06/09/2017 11:24 AM Dictated Date/Time: 06/09/2017 11:21 AM
[2017-06-09 11:35] LABS: ALKALINE PHOSPHATASE 31 U/L (45-117); CKMB 3.6 ng/ml (0.5-3.6); TOTAL PROTEIN 7.7 gm/dl (6.4-8.2)
--- NOTE | 2017-06-09 12:37 | History and Physical ---
History & Physical Date & Time of Service: Jun 09, 2017 at 12:17 Chief Complaint: Fell Out Of Bed,Weakness In Rt Leg And Hand Primary Care Physician: Oumar Bradley M.D. History of Present Illness Source: patient This is an 81-year-old gentleman with a history of COPD. He is oxygen dependent at 2 L. Also with a recent history of alcohol abuse and he continues to smoke. He is currently residing at [facility]. Patient notes that over the last couple weeks he feels as though his balance and strength has been off. He has a history of falls and notes in the last month he thinks he is fallen 3 times. He was last admitted to the hospital in March for pneumonia and rib fractures after a fall. Of note, patient was being treated for a pneumonia with Augmentin and a 5 day steroid taper. Approximately 730 this morning he went to sit down and slid off of his bed. Prior to the fall he had no chest pain no shortness of breath no lightheadedness dizziness no vision changes and no headache. He denies ever striking his head and there was no loss of consciousness. There is no loss of bowel or bladder. He did note that he struck his right shoulder and his right shoulder is sore. Around 930 this morning the nurses noted that he was dragging his right leg when walking and he was subsequently brought to the emergency department for evaluation. Next Patient was evaluated in the ED. CT scan of the head showed no acute intracranial process. Because of his recent pneumonia he did have a chest x- ray. There is no significant change or evidence of acute cardiopulmonary disease and findings were suggestive of underlying emphysema. His WBCs were elevated at 13.07 but he was on prednisone. Troponin TSH and other labs were relatively unremarkable. He was found to have cerebellar deficits on the right with both upper and lower extremities and the patient is right-handed. Concern at this point is that the patient had a stroke. It is uncertain when his last known normal was and therefore he is not TPA candidate. Hospital medicine was asked to evaluate patient and patient will be subsequently placed under the hospitalist service. Past Medical/Surgical History Medical Problems: (1) COPD -oxygen dependent at 2 L (2) Alcohol abuse -he has not had any drinks and more than 3 months (3) frequent falls (4) peripheral artery disease (5) Hypertension (6) Hyperlipidemia Past surgical history: 1. Tonsils when he was a child Family History No significant family history Social History Smoking Status: Current Every Day Smoker (1/2 to 1 pack a day most of life) Alcohol Use: none (was a heavy drinker until March 22 when he went to personal care) Drug Use: marijuana Marital Status: , Housing status: assisted living Occupational Status: retired Immunizations History of Influenza Vaccine: No History of Tetanus Vaccine?: Unknown History of Pneumococcal: Yes Pneumococcal Date: Oct 09, 2004 History of Hepatitis B Vaccine: Unknown Allergies Coded Allergies: Penicillins (Verified Allergy, Unknown, 06/09/17) Home Medications Scheduled Amlodipine (Norvasc), 5 MG PO QAM Amoxicillin & Pot Clavulanate (Augmentin 875-125 mg), 1 TAB PO BID Cholecalciferol (Vitamin D3), 2,000 INTER.UNIT PO QPM AT 1700 Enteral Nutrition Formula (Ensure), 1 CAN PO PM Fluticasone-Salmeterol (Fluticasone Propionate/SA 113-14 Mcg/Act), 1 PUFF PO BID Folic Acid (Folvite), 1 MG PO QAM Home O2 Therapy (Oxygen), 1-3 LITERS NA PRN Multiple Vitamins W/ Minerals (Centrum Silver 50+Men), 1 TAB PO QAM Prednisone Tab (Prednisone), 30 MG PO QDB Sertraline HCl (Sertraline HCl), 150 MG PO QAM Simvastatin (Zocor), 20 MG PO QPM AT 1700 Thiamine Mononitrate (Vitamin B1), 100 MG PO QAM Scheduled PRN Acetaminophen (Arthritis Pain Relief), 1,300 MG PO Q8 PRN for Pain Albuterol Hfa (Ventolin Hfa), 2 PUFFS INH Q4 PRN for SOB/Wheezing Hydrocodone/Acetaminophen 5MG/325MG ([place] 5MG/325MG), 1 TABLET PO Q6H PRN for Pain Polyethylene Glycol 3350 (Miralax), 17 GM PO DAILY PRN for Constipation Review of Systems Constitutional: No fever, No chills, No sweats, No weight loss, No weakness, No fatigue, No problem reported Eyes: No worsening of vision, No eye pain, No redness, No discharge, No diplopia, No problem reported ENT: No hearing loss, No unusual epistaxis, No nasal symptoms, No sore throat, No tinnitus, No dental problems, No trouble swallowing, No problem reported Respiratory: + cough, + shortness of breath Cardiovascular: No chest pain, No orthopnea, No PND, No edema, No claudication , No palpitations, No problem reported Abdomen: No pain, No nausea, No vomiting, No diarrhea, No constipation, No GI bleeding, No problem reported Musculoskeletal: + problem reported (shoulder pain) Genitourinary - Male: No hematuria, No dysuria, No urinary frequency, No urinary urgency, No urinary hesitancy, No urinary retention, No urinary incontinence, No penile discharge, No lesions, No impotence, No problem reported Neurologic: + balance problems, + problem reported (right side weaker, feels "off") Psychiatric: No depression symptoms, No anhedonism, No anxiety, No insomnia, No substance abuse, No problem reported Endocrine: No fatigue, No excessive thirst, No excessive urination, No problem reported Hematologic / Lymphatic: No abnormal bleeding/bruising, No clotting problems, No swollen lymph nodes, No night sweats, No problem reported Integumentary: No rash, No itch, No new/changing skin lesions, No color change , No bleeding, No problem reported Allergic / Immunologic: No environmental allergies, No seasonal allergies, No pet sensitivities, No food allergies, No hives, No frequent infections, No poor healing, No prolonged convalescence, No problem reported Physical Exam Vital Signs Date Time Temp Pulse Resp B/P (MAP) Pulse Ox O2 Delivery O2 Flow Rate FiO2 06/09/17 11:51 65 18 154/68 98 Room Air 06/09/17 11:09 58 18 150/69 96 Nasal Cannula 2.0 06/09/17 10:24 Nasal Cannula 2.5 06/09/17 10:11 36.3 70 20 152/69 90 Nasal Cannula 2.0 General Appearance: WD/WN, no apparent distress Head: normocephalic, atraumatic Eyes: normal inspection, EOMI, sclerae normal, + pertinent finding (pupils pin point at 2mm) ENT: normal ENT inspection, hearing grossly normal Neck: supple, no JVD, + pertinent finding (carotid bruits on right) Respiratory/Chest: chest non-tender, lungs clear, normal breath sounds, no respiratory distress Cardiovascular: regular rate, rhythm, no edema, no gallop, no JVD, no murmur, normal peripheral pulses Abdomen/GI: normal bowel sounds, non tender, soft, no organomegaly, no pulsatile mass Back: normal inspection, no CVA tenderness, no muscle spasm Extremities/Musculoskelatal: normal inspection, no calf tenderness, normal capillary refill 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, alert, normal mood/affect, oriented x 3, + abnormal cerebellar tests (finger to nose and heel to marroquin off on the right) Skin: normal color, warm/dry, no rash Diagnostics Laboratory Results Results Past 24 Hours Test 06/09/17 10:50 06/09/17 11:00 Range/Units White Blood Count 13.07 4.8-10.8 K/uL Red Blood Count 4.68 4.7-6.1 M/uL Hemoglobin 13.7 14.0-18.0 g/dL Hematocrit 41.4 42-52 % Mean Corpuscular Volume 88.5 80-100 fL Mean Corpuscular Hemoglobin 29.3 25-34 pg Mean Corpuscular Hemoglobin Concent 33.1 32-36 g/dl Platelet Count 252 130-400 K/uL Mean Platelet Volume 8.7 7.4-10.4 fL Neutrophils (%) (Auto) 78.0 % Lymphocytes (%) (Auto) 14.8 % Monocytes (%) (Auto) 5.7 % Eosinophils (%) (Auto) 1.1 % Basophils (%) (Auto) 0.2 % Neutrophils # (Auto) 10.20 1.4-6.5 K/uL Lymphocytes # (Auto) 1.94 1.2-3.4 K/uL Monocytes # (Auto) 0.74 0.11-0.59 K/uL Eosinophils # (Auto) 0.15 0-0.5 K/uL Basophils # (Auto) 0.02 0-0.2 K/uL RDW Standard Deviation 48.9 36.4-46.3 fL RDW Coefficient of Variation 15.3 11.5-14.5 % Immature Granulocyte % (Auto) 0.2 % Immature Granulocyte # (Auto) 0.02 0.00-0.02 K/uL Prothrombin Time 10.2 9.0-12.0 SECONDS Prothromb Time International Ratio 1.0 0.9-1.1 Activated Partial Thromboplast Time 24.5 21.0-31.0 SECONDS Partial Thromboplastin Ratio 0.9 Sodium Level 139 136-145 mmol/L Potassium Level 4.0 3.5-5.1 mmol/L Chloride Level 102 98-107 mmol/L Carbon Dioxide Level 31 21-32 mmol/L Anion Gap 6.0 3-11 mmol/L Blood Urea Nitrogen 18 7-18 mg/dl Creatinine 0.74 0.60-1.40 mg/dl Est Creatinine Clear Calc Drug Dose 62.0 ml/min Estimated GFR () 99.6 Estimated GFR (Non- 85.9 BUN/Creatinine Ratio 24.8 10-20 Random Glucose 101 70-99 mg/dl Calcium Level 9.2 8.5-10.1 mg/dl Magnesium Level 2.1 1.8-2.4 mg/dl Total Bilirubin 0.6 0.2-1 mg/dl Direct Bilirubin 0.2 0-0.2 mg/dl Aspartate Amino Transf (AST/SGOT) 24 15-37 U/L Alanine Aminotransferase (ALT/SGPT) 30 12-78 U/L Alkaline Phosphatase 31 45-117 U/L Total Creatine Kinase 161 39-308 U/L Creatine Kinase MB 3.6 0.5-3.6 ng/ml Creatine Kinase MB Ratio 2.2 0-3.0 Troponin I < 0.015 0-0.045 ng/ml Total Protein 7.7 6.4-8.2 gm/dl Albumin 3.7 3.4-5.0 gm/dl Thyroid Stimulating Hormone (TSH) 2.530 0.300-4.500 uIu/ml Urine Color YELLOW Urine Appearance CLEAR CLEAR Urine pH 6.5 4.5-7.5 Urine Specific [place] 1.020 1.000-1.030 Urine Protein NEG NEG Urine Glucose (UA) NEG NEG Urine Ketones NEG NEG Urine Occult Blood NEG NEG Urine Nitrite NEG NEG Urine Bilirubin NEG NEG Urine Urobilinogen NEG NEG Urine Leukocyte Esterase NEG NEG Diagnostic Radiology CHEST ONE VIEW PORTABLE CLINICAL HISTORY: 81 years-old Male presenting with Stroke. TECHNIQUE: Portable upright AP view of the chest was obtained. COMPARISON: 05/31/2017. FINDINGS: Atherosclerosis of the aortic arch. Cardiac silhouette normal in size. Chronic elevation of the left hemidiaphragm with left basilar opacity. No new focal opacity. Hyperinflation of the right lung unchanged. No large effusion or pneumothorax. Degenerative changes of the spine. IMPRESSION: 1. No significant change or evidence of acute cardiopulmonary disease. 2. Findings suggest underlying emphysema. 3. Chronic elevation of the left hemidiaphragm with left basilar atelectasis. HEAD WITHOUT CONTRAST (CT) CLINICAL HISTORY: 81 years-old Male presenting with Stroke, unwitnessed fall, right sided weakness in hand and leg. TECHNIQUE: Multidetector CT imaging of the head was performed without the use of intravenous contrast. IV contrast: None. A dose lowering technique was used consistent with the principles of ALARA (as low as reasonably achievable). COMPARISON: 12/13/2016. CT DOSE (mGy.cm): The estimated cumulative dose is 537.48 mGy.cm. 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 Ventricles and sulci normal in size. Periventricular and subcortical white matter hypoattenuation, nonspecific but likely indicative of chronic small vessel ischemic change. No mass effect or midline shift. No hemorrhage or acute territorial infarct. No extra-axial fluid collection. Paranasal sinuses and mastoid air cells clear. Calvarium intact. IMPRESSION: 1. Chronic small vessel ischemic change. No acute intracranial abnormality. Normal EKG Impression Assessment and Plan 81-year-old gentleman with history of COPD, oxygen dependent 2 L, presented to the emergency department with complaints of right-sided weakness after a fall this morning. 1. 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 Patient has cerebellar deficits with finger to nose and heel to marroquin testing on the right. Patient also notes he was dragging his right leg earlier today and feels he has been leaning towards the right when ambulating. CT scan of the head was negative for any acute process. Will order MRI/MRA of the brain/neck as he does have carotid bruit. We will get neurology to see the patient. Will start him on aspirin and increase his statin as well as update his lipids. 2. COPD, oxygen dependent. Patient's COPD actually appears stable at this point. He is not requiring any supplemental oxygen above his 2 L will continue to monitor. 3. Hypertension-patient is on amlodipine which we will continue. 4. Hyperlipidemia will update his lipid panel and increase his Zocor from 20 mg daily to 40 mg daily. 5. History of alcohol abuse. Last drink was more than 3 months ago. We will start him no a banana bag daily. Check B1, B12 and folate. R/O Wernicke's 6. DVT prophylaxis with SCDs teds and Lovenox 7. Full code 8. Estimated length of stay 2 midnights. We will get physical therapy and Occupational Therapy to evaluate the patient. Uncertain of discharge needs at this point. Patient is currently living in assisted living. Resuscitation Status full code VTE Prophylaxis Will order VTE Prophylaxis: Yes Reviewed: Pt Seen/Exam by Me History Pt is feeling overall improved. He feels that his R UE is back to usual. He has not been walking much since admission, but he did transfer from the chair to the bed without issues with his R LE. He is eating dinner without issue. Denies chest pain, SOB. He does not remember the R foot dragging and states "that's what they tell me" when he is asked about it. Agree with HPI/ROS as noted by BRUSH FILLER HAND. 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
[2017-06-09] MEDS ORDERED: ALUMINUM/MAGNESIUM/SIMETH (MAALOX MAX) 30 ML UDC PO PRN (12:45)
[2017-06-09] MEDS ORDERED: ACETAMINOPHEN 325 MG TAB PO PRN (12:45)
[2017-06-09] MEDS ORDERED: MAGNESIUM HYDROXIDE SUSP 30 ML UDC PO PRN (12:45)
[2017-06-09] MEDS ORDERED: ONDANSETRON INJ 2 MG/ML 2 ML VIAL IV PRN (12:45)
[2017-06-09] MEDS ORDERED: ALBUTEROL HFA 8 GM INHALER INH PRN (12:45)
[2017-06-09] MEDS ORDERED: POLYETHYLENE (MIRALAX) 17 GM PACK PO PRN (12:45)
[2017-06-09 13:01] VITALS: O2SAT 98; Ht 170.2 cm; Wt 57.4 kg
[2017-06-09 14:21] VITALS: BP 160/73; PULSE 80; TEMP 36.7; O2SAT 96
[2017-06-09] MEDS: MULTI-VITAMIN INFUSION INJ 10 ML, THIAMINE HCL INJ 100 MG, FoLIC ACID INJ 1 MG in SODIU... IV SCH (15:37)
[2017-06-09] MEDS: ENOXAPARIN 40 MG/0.4 ML SYR SQ SCH (15:39)
[2017-06-09 17:00] VITALS: BP 143/65; PULSE 66; TEMP 36.9; O2SAT 96
[2017-06-09] MEDS ORDERED: GADAVIST IV PRN (18:00)
--- NOTE | 2017-06-09 18:15 | DIAGNOSTIC IMAGING REPORT ---
BRAIN WITHOUT CONTRAST CLINICAL HISTORY: 81 years-old Male presenting with right sided weakness. TECHNIQUE: Multisequence, multiplanar MR imaging of the brain was performed without the use of intravenous contrast. IV contrast: None. COMPARISON: Noncontrast CT head performed earlier the same day. FINDINGS: Proportional ventricular and sulcal prominence, likely age-related parenchymal volume loss. Periventricular and subcortical white matter T2/FLAIR hyperintensity, nonspecific but likely indicative of chronic small vessel ischemic change. No mass effect or midline shift. Acute lacunar infarct in the left thalamus. 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 Old bilateral thalamic and left basal ganglia lacunar infarcts. No extra-axial fluid collection. T2 skull base flow voids preserved. Bone marrow signal intensity within the calvarium within normal limits. IMPRESSION: 1. Acute lacunar infarct in the left thalamus. 2. Extensive chronic small vessel ischemic change with multiple old lacunar infarcts noted. Electronically signed by: Donald Pettit M.D. 06/09/2017 6:13 PM Dictated Date/Time: 06/09/2017 6:10 PM
--- NOTE | 2017-06-09 18:18 | DIAGNOSTIC IMAGING REPORT ---
MRA HEAD WITHOUT CONTRAST CLINICAL HISTORY: 81 years-old Male presenting with right-sided weakness. TECHNIQUE: MR angiography of the head was performed without the use of intravenous contrast using 3-D [id number] technique. 3-D volumetric and/or maximum intensity projection (MIP) images were subsequently reconstructed for review. IV contrast: None. COMPARISON: None. FINDINGS: Anterior circulation: Intracranial portions of the internal carotid arteries patent to the level of the termini. Anterior and middle cerebral arteries patent. Anterior communicating artery hypoplastic or aplastic. Posterior circulation: Codominant vertebral arteries. Intradural portions of the vertebral arteries patent. Posterior inferior cerebellar arteries patent. Basilar artery patent. Anterior inferior cerebellar arteries poorly visualized. Superior cerebellar and posterior cerebral arteries patent. Posterior communicating arteries patent. IMPRESSION: 1. No significant stenosis, aneurysm, or focal vessel occlusion. Electronically signed by: Donald Pettit M.D. 06/09/2017 6:17 PM Dictated Date/Time: 06/09/2017 6:13 PM
--- NOTE | 2017-06-09 18:23 | DIAGNOSTIC IMAGING REPORT ---
MRA NECK COMBO CLINICAL HISTORY: 81 years-old Male presenting with right-sided weakness. TECHNIQUE: MR angiography of the neck was performed without the use of intravenous contrast using 3-D [id number] technique. 3-D volumetric and/or maximum intensity projection (MIP) images were subsequently reconstructed for review. IV contrast: None. Stenosis measurements were based on NASCET-like criteria. COMPARISON: None. FINDINGS: Localizer images: Unremarkable. Aortic arch: Atherosclerosis of the three-vessel aortic arch. Innominate artery: Patent. Right common carotid artery: Irregularity of the right carotid bulb likely due to atherosclerosis. Right internal and external carotid arteries: Irregularity of the proximal right ICA likely due to atherosclerosis, which does not significantly narrow its lumen (less than 25% stenosis). Stenosis of the origin of the right ECA. Left common carotid artery: Irregularity of the left carotid bulb likely due to atherosclerosis. Left internal and external carotid arteries: At least 50% stenosis of the origin of the left ICA though the remainder of the left ICA is widely patent. Left ECA patent. Left subclavian artery: Atherosclerosis results in luminal irregularity without significant narrowing of the proximal left subclavian artery. Vertebral arteries: Codominant vertebral arteries. Significant stenosis (approximately 75%) of the origin of the left vertebral artery. The region of stenosis extends for partially 5 mm from the origin distally through the remainder of the left vertebral artery is widely. Right vertebral artery patent at its origin and along its course. Other: Limited intracranial evaluation within normal limits. Soft tissues of the neck normal allowing for the phase of contrast. IMPRESSION: 1. 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 2. Less than 25% stenosis of the proximal right ICA. 3. Approximately 75% stenosis of the origin of the left vertebral artery. Codominant vertebral arteries. Electronically signed by: Donald Pettit M.D. 06/09/2017 6:22 PM Dictated Date/Time: 06/09/2017 6:17 PM
[2017-06-09] MEDS: FLUTICASONE/SALMETEROL 250/50 (ADVAIR) 14 PUFF/1 INHALER INH SCH (19:45)
[2017-06-09] MEDS: SIMVASTATIN 20 MG TAB PO SCH (19:45)
[2017-06-09 19:56] VITALS: BP 156/67; PULSE 67; TEMP 37.3; O2SAT 97
[2017-06-10 00:04] VITALS: BP 155/69; PULSE 60; TEMP 36.9; O2SAT 99
[2017-06-10 03:36] VITALS: BP 148/62; PULSE 60; TEMP 36.5; O2SAT 91
[2017-06-10 07:22] VITALS: BP 153/65; PULSE 55; TEMP 36.5; O2SAT 98
[2017-06-10 07:44] LABS: HEMATOCRIT 37.3 % (42-52); HEMOGLOBIN 12.2 g/dL (14.0-18.0); MEAN CORPUSCULAR HEMOGLOBIN 28.8 pg (25-34); MEAN CORPUSCULAR HGB CONC 32.7 g/dl (32-36); MEAN PLATELET VOLUME 8.4 fL (7.4-10.4); PLATELET COUNT 237 K/uL (130-400); RED CELL DISTRIBUTION WIDTH CV 15.2 % (11.5-14.5); RED CELL DISTRIBUTION WIDTH SD 48.8 fL (36.4-46.3)
[2017-06-10 08:12] LABS: CALCIUM 8.6 mg/dl (8.5-10.1); CREATININE 0.66 mg/dl (0.60-1.40); POTASSIUM 3.7 mmol/L (3.5-5.1)
[2017-06-10] MEDS: CEROVITE ADV FORMULA TAB PO SCH (08:46)
[2017-06-10] MEDS: AMLODIPINE BESYLATE 5 MG TAB PO SCH (08:47)
[2017-06-10] MEDS: SERTRALINE HCL 100 MG TAB PO SCH (08:47)
[2017-06-10] MEDS: FLUTICASONE/SALMETEROL 250/50 (ADVAIR) 14 PUFF/1 INHALER INH SCH ×2 (08:47→19:46)
[2017-06-10] MEDS: MULTI-VITAMIN INFUSION INJ 10 ML, THIAMINE HCL INJ 100 MG, FoLIC ACID INJ 1 MG in SODIU... IV SCH (08:57)
--- NOTE | 2017-06-10 09:03 | Neurology Consultation ---
Neurology Consultation Date of Consultation: Jun 10, 2017. Attending Physician: Jess Montes DO Primary Care Physician: Oumar Bradley M.D. Reason for Consultation: Stroke History of Present Illness Source: patient, hospital records The patient is an 81-year-old right-handed male with a chief complaint right- sided weakness. He resides in an assisted living facility and had slid off the edge of his bed onto the floor upon awakening yesterday morning. Staff later noted that he was dragging his right leg. He also complains of some associated numbness and tingling affecting the finger tips of his right hand. He reports that his weakness has significantly improved. He denies headache or changes in vision. Past medical history notable for alcohol and tobacco abuse, COPD, stroke, and peripheral vascular disease. He is prescribed Norvasc, Zoloft, Zocor, and B vitamins. He has also recently been treated for pneumonia with an antibiotic and prednisone. The patient indicates that he has been residing in an assisted living facility for the past few weeks. He recalls that he had been taking a daily baby aspirin at home prior to moving into the assisted living facility. Daily aspirin does not appear to be listed on his emergency department record or admission history. A CT of the head completed in the emergency department was negative for hemorrhage or acute process. There was chronic small vessel ischemic disease. A brain MRI revealed an acute lacunar infarct within the left thalamus as well as extensive chronic small vessel disease and multiple old lacunar infarcts. MR angiography of the head and neck negative for significant intracranial vascular disease. There is evidence of a 50 percent stenosis of the left internal carotid artery, less than 25 percent stenosis of the proximal right internal carotid artery and 75 percent stenosis at the origin of the left vertebral artery. I reviewed the images as well as the radiologist's interpretation of these tests. Electrocardiogram reveals normal sinus rhythm, 64 beats per minute. Past Medical/Surgical History Medical Problems: (1) Alcohol abuse Status: Acute (2) Alcohol abuse Status: Acute (3) Alcoholic hepatitis Status: Acute (4) Alcoholism Status: Acute (5) Dehydration Status: Acute (6) Depression Status: Acute (7) Fall Status: Acute (8) Hypomagnesemia Status: Acute (9) Multiple fractures of ribs, right side, initial encounter forclosed fracture Status: Acute (10) Pneumonia Status: Acute (11) Sepsis Status: Acute (12) Stroke-like symptoms Status: Acute Family History Patient indicates that his father had COPD. He denies a history of stroke in either parent. Social History Patient indicates that he currently smokes about a half pack of cigarettes per day although had previously smoked a pack a day for many years Smoking Status: Current every day smoker Alcohol Use: none (was a heavy drinker until March 22 when he went to personal care) Drug Use: marijuana Marital Status: , Housing Status: lives with family Occupation Status: retired Allergies Coded Allergies: Penicillins (Verified Allergy, Unknown, 06/09/17) Current Inpatient Medications Current Inpatient Medications Medications (Trade) Dose Ordered Sig/Etienne Route Start Time Stop Time Status Last Admin Dose Admin Enoxaparin Sodium (Lovenox Inj) 40 mg Q24H SQ 06/09/17 16:00 07/09/17 15:59 06/09/17 15:39 40 MG Acetaminophen (Tylenol Tab) 650 mg Q4H PRN PO 06/09/17 12:45 07/09/17 12:44 Al Hydrox/Mg Hydrox/Simethicone (Maalox Max Susp) 15 ml Q4H PRN PO 06/09/17 12:45 07/09/17 12:44 Magnesium Hydroxide (Milk Of Magnesia Susp) 30 ml Q6H PRN PO 06/09/17 12:45 07/09/17 12:44 Polyethylene (Miralax Powder Packet) 17 gm DAILY PRN PO 06/09/17 12:45 07/09/17 12:44 Ondansetron HCl (Zofran Inj) 4 mg Q6H PRN IV 06/09/17 12:45 07/09/17 12:44 Albuterol (Ventolin Hfa Inhaler) 2 puffs Q4 PRN INH 06/09/17 12:45 07/09/17 12:44 Amlodipine Besylate (Norvasc Tab) 5 mg QAM PO 06/10/17 09:00 07/10/17 08:59 Multivitamins/ Minerals (Multivitamin W/ Minerals Tab) 1 tab QAM PO 06/10/17 09:00 07/10/17 08:59 Sertraline HCl (Zoloft Tab) 150 mg QAM PO 06/10/17 09:00 07/10/17 08:59 Simvastatin (Zocor Tab) 40 mg HS PO 06/09/17 21:00 07/09/17 20:59 06/09/17 19:45 40 MG Salmeterol Xinafoate/ Fluticasone (Advair Diskus 250/50 Inh) 1 puff BID INH 06/09/17 21:00 07/09/17 20:59 06/09/17 19:45 1 PUFF Multivitamins 10 ml/Thiamine HCl 100 mg/Folic Acid 1 mg/Sodium Chloride 1,011.2 ml @ 100 mls/ hr DAILY@0900 IV 06/09/17 15:00 07/09/17 14:59 06/09/17 15:37 100 MLS/HR Gadobutrol (Gadavist) 8.2 mmol UD PRN IV 06/09/17 18:00 06/13/17 17:59 Review of Systems Constitutional: No fever chills Eyes: No vision loss or diplopia ENT: Patient complains of chronic partial hearing loss Cardiovascular: No chest pain or palpitations Respiratory: Patient complains of chronic shortness of breath and cough Neurological: As per history of present illness Musculoskeletal: Patient complains of some right shoulder discomfort related to his recent fall Psychiatric: No depression or anxiety. Hematologic: No abnormal bleeding or swollen glands A full 10 point review of systems was obtained from this patient with pertinent positives and negatives described in the history of present illness and otherwise listed above. All remaining systems were reviewed and are negative. Physical Exam Vital Signs (Past 24 Hrs): Date Time Temp Pulse Resp B/P (MAP) Pulse Ox O2 Delivery O2 Flow Rate FiO2 06/10/17 07:22 36.5 55 18 153/65 (94) 98 Nasal Cannula 2.0 06/10/17 04:00 Nasal Cannula 2.0 06/10/17 03:36 36.5 60 18 148/62 (90) 91 Room Air 06/10/17 00:04 36.9 60 17 155/69 (97) 99 Nasal Cannula 4.0 06/10/17 00:00 Nasal Cannula 2.0 06/09/17 20:00 Nasal Cannula 2.0 06/09/17 19:56 37.3 67 18 156/67 (96) 97 Nasal Cannula 4.0 06/09/17 17:00 36.9 66 16 143/65 (91) 96 Nasal Cannula 2.0 06/09/17 14:21 96 Nasal Cannula 2.0 06/09/17 14:21 36.7 80 18 160/73 (102) 96 Nasal Cannula 2.0 06/09/17 13:55 67 18 134/74 98 06/09/17 13:01 98 Nasal Cannula 2.0 06/09/17 12:48 66 18 141/78 98 Room Air 06/09/17 11:51 65 18 154/68 98 Room Air 06/09/17 11:09 58 18 150/69 96 Nasal Cannula 2.0 06/09/17 10:24 Nasal Cannula 2.5 06/09/17 10:11 36.3 70 20 152/69 90 Nasal Cannula 2.0 The patient is a thin elderly male. He is resting comfortably in bed and is pleasant and cooperative. He is alert and fully oriented. Recent and remote memory intact. Attention and concentration normal. Patient exhibits a normal spontaneous speech pattern. He is able to name objects and repeat phrases. Patient exhibits an age-appropriate fund of knowledge a normal vocabulary. Visual quiroz full to confrontation. Visual acuity normal. Pupils equal round react to light and accommodation. Eye movements normal. There is no nystagmus. Facial sensation intact bilaterally. There is no facial droop or facial weakness noted. Hearing intact to finger rub bilaterally. Palate elevates to midline. Shoulder shrug strength intact bilaterally. Tongue protrudes to midline. Sensation intact to light touch, temperature, vibration, and proprioception for all 4 limbs. Deep tendon reflexes are intact and symmetrical for the arms and legs. Right plantar response upgoing. Left plantar response downgoing. There is mild dysmetria with finger to nose on the right. There is no dysmetria with finger to nose on the left or with heel to marroquin for either lower limb. Ophthalmoscopic examination reveals normal- appearing optic discs and posterior segments. No papilledema or hemorrhages. Carotid pulses normal bilaterally. No bruits to auscultation. Gait and station not tested due to safety concerns. Muscle strength and tone normal for all 4 limbs. No atrophy. No abnormal movements observed. Laboratory Results Past 24 Hours: 06/10/17 07:12 06/10/17 07:12 Test 06/09/17 10:50 06/09/17 11:00 06/09/17 14:32 06/10/17 07:12 Immature Granulocyte % (Auto) 0.2 % White Blood Count 13.07 K/uL (4.8-10.8) Red Blood Count 4.68 M/uL (4.7-6.1) 4.24 M/uL (4.7-6.1) Hemoglobin 13.7 g/dL (14.0-18.0) Hematocrit 41.4 % (42-52) Mean Corpuscular Volume 88.5 fL (80-100) 88.0 fL (80-100) Mean Corpuscular Hemoglobin 29.3 pg (25-34) 28.8 pg (25-34) Mean Corpuscular Hemoglobin Concent 33.1 g/dl (32-36) 32.7 g/dl (32-36) Platelet Count 252 K/uL (130-400) Mean Platelet Volume 8.7 fL (7.4-10.4) 8.4 fL (7.4-10.4) Neutrophils (%) (Auto) 78.0 % Lymphocytes (%) (Auto) 14.8 % Monocytes (%) (Auto) 5.7 % Eosinophils (%) (Auto) 1.1 % Basophils (%) (Auto) 0.2 % Neutrophils # (Auto) 10.20 K/uL (1.4-6.5) Lymphocytes # (Auto) 1.94 K/uL (1.2-3.4) Monocytes # (Auto) 0.74 K/uL (0.11-0.59) Eosinophils # (Auto) 0.15 K/uL (0-0.5) Basophils # (Auto) 0.02 K/uL (0-0.2) Immature Granulocyte # (Auto) 0.02 K/uL (0.00-0.02) Prothrombin Time 10.2 SECONDS (9.0-12.0) Prothromb Time International Ratio 1.0 (0.9-1.1) Activated Partial Thromboplast Time 24.5 SECONDS (21.0-31.0) Partial Thromboplastin Ratio 0.9 Magnesium Level 2.1 mg/dl (1.8-2.4) Total Bilirubin 0.6 mg/dl (0.2-1) Direct Bilirubin 0.2 mg/dl (0-0.2) Aspartate Amino Transf (AST/SGOT) 24 U/L (15-37) Alanine Aminotransferase (ALT/SGPT) 30 U/L (12-78) Alkaline Phosphatase 31 U/L (45-117) Total Creatine Kinase 161 U/L (39-308) Creatine Kinase MB 3.6 ng/ml (0.5-3.6) Creatine Kinase MB Ratio 2.2 (0-3.0) Troponin I < 0.015 ng/ml (0-0.045) Total Protein 7.7 gm/dl (6.4-8.2) Albumin 3.7 gm/dl (3.4-5.0) Thyroid Stimulating Hormone (TSH) 2.530 uIu/ml (0.300-4.500) Urine Color YELLOW Urine Appearance CLEAR (CLEAR) Urine pH 6.5 (4.5-7.5) Urine Specific Geff 1.020 (1.000-1.030) Urine Protein NEG (NEG) Urine Glucose (UA) NEG (NEG) Urine Ketones NEG (NEG) Urine Occult Blood NEG (NEG) Urine Nitrite NEG (NEG) Urine Bilirubin NEG (NEG) Urine Urobilinogen NEG (NEG) Urine Leukocyte Esterase NEG (NEG) Vitamin B12 Level 825 pg/mL (211-911) Folate > 24.00 ng/mL (>5.38) RDW Standard Deviation 48.8 fL (36.4-46.3) RDW Coefficient of Variation 15.2 % (11.5-14.5) Anion Gap 7.0 mmol/L (3-11) Est Creatinine Clear Calc Drug Dose 67.9 ml/min Estimated GFR () 104.4 Estimated GFR (Non- 90.0 BUN/Creatinine Ratio 23.4 (10-20) Calcium Level 8.6 mg/dl (8.5-10.1) Triglycerides Level 79 mg/dl (0-150) Cholesterol Level 191 mg/dl (0-200) HDL Cholesterol 93 mg/dl LDL Cholesterol, Calculated 82 mg/dl VLDL Cholesterol, Calculated 16 mg/dl Cholesterol/HDL Ratio 2.1 Impression Small acute ischemic infarct within the left thalamus, adjacent to the posterior limb of the left internal capsule resulting what appears to be an improving sensory motor lacunar stroke syndrome. He has mild residual dysmetria with [id number] on the right and complains of mild residual numbness affecting the finger tips of the right hand. Etiology likely intracranial small vessel ischemic disease. Patient also noted to have extensive, chronic, small vessel ischemic disease and multiple small lacunar infarcts. Long-term cigarette smoking is a significant risk factor for this patient. Plan This patient should be on daily antiplatelet therapy. It does not appear that he had been taking daily low-dose aspirin recently based on the admission record. I would recommend that he start either aspirin 81 milligrams per day or Plavix 75 milligrams per day. A vascular surgery consult is not really necessary for vertebral artery stenosis. Medical management is recommended. A transthoracic echocardiogram with bubble study should also be completed. PT/OT consult as ordered Smoking cessation counseling Please contact me if I may be of further assistance.
[2017-06-10] MEDS: NICOTINE 7 MG/24 HR TDSY TD SCH (11:36)
[2017-06-10 11:59] VITALS: BP 137/63; PULSE 66; TEMP 36.7; O2SAT 96
--- NOTE | 2017-06-10 15:13 | Progress Note ---
Subjective Date of Service: Jun 10, 2017. Subjective Pt evaluation today including: conversation w/ patient, conversation w/ family , physical exam, lab review, review of studies, conversation w/ creative consultant, review of inpatient medication list Pain: no pain PO Intake: adequate Voiding: no voiding problems patient moving right arm and right leg better today cerebellar movements are more coordinated swallowing normally, no issues with speech reviewed MRI brain, lacunar infarct in left thalamus, showed prior lacunar infarct MRA head and neck did not show significant stenosis no atrial fibrillation on monitor appreciate neurology consult reviewed labs, normal updated patient's family at the bedside Problem List Medical Problems: (1) Alcohol abuse Status: Acute (2) Alcohol abuse Status: Acute (3) Alcoholic hepatitis Status: Acute (4) Alcoholism Status: Acute (5) Dehydration Status: Acute (6) Depression Status: Acute (7) Fall Status: Acute (8) Hypomagnesemia Status: Acute (9) Multiple fractures of ribs, right side, initial encounter forclosed fracture Status: Acute (10) Pneumonia Status: Acute (11) Sepsis Status: Acute (12) Stroke-like symptoms Status: Acute Review of Systems Neurologic: + weakness (right arm and leg), + problem reported (poor coordination right hand/arm and leg) All Other Systems: Reviewed and Negative Medications Current Inpatient Medications Medications (Trade) Dose Ordered Sig/Etienne Route Start Time Stop Time Status Last Admin Dose Admin Enoxaparin Sodium (Lovenox Inj) 40 mg Q24H SQ 06/09/17 16:00 07/09/17 15:59 06/09/17 15:39 40 MG Acetaminophen (Tylenol Tab) 650 mg Q4H PRN PO 06/09/17 12:45 07/09/17 12:44 Al Hydrox/Mg Hydrox/Simethicone (Maalox Max Susp) 15 ml Q4H PRN PO 06/09/17 12:45 07/09/17 12:44 Magnesium Hydroxide (Milk Of Magnesia Susp) 30 ml Q6H PRN PO 06/09/17 12:45 07/09/17 12:44 Polyethylene (Miralax Powder Packet) 17 gm DAILY PRN PO 06/09/17 12:45 07/09/17 12:44 Ondansetron HCl (Zofran Inj) 4 mg Q6H PRN IV 06/09/17 12:45 07/09/17 12:44 Albuterol (Ventolin Hfa Inhaler) 2 puffs Q4 PRN INH 06/09/17 12:45 07/09/17 12:44 Amlodipine Besylate (Norvasc Tab) 5 mg QAM PO 06/10/17 09:00 07/10/17 08:59 06/10/17 08:47 5 MG Multivitamins/ Minerals (Multivitamin W/ Minerals Tab) 1 tab QAM PO 06/10/17 09:00 07/10/17 08:59 06/10/17 08:46 1 TAB Sertraline HCl (Zoloft Tab) 150 mg QAM PO 06/10/17 09:00 07/10/17 08:59 06/10/17 08:47 150 MG Simvastatin (Zocor Tab) 40 mg HS PO 06/09/17 21:00 07/09/17 20:59 06/09/17 19:45 40 MG Salmeterol Xinafoate/ Fluticasone (Advair Diskus 250/50 Inh) 1 puff BID INH 06/09/17 21:00 07/09/17 20:59 06/10/17 08:47 1 PUFF Multivitamins 10 ml/Thiamine HCl 100 mg/Folic Acid 1 mg/Sodium Chloride 1,011.2 ml @ 100 mls/ hr DAILY@0900 IV 06/09/17 15:00 07/09/17 14:59 06/10/17 08:57 100 MLS/HR Gadobutrol (Gadavist) 8.2 mmol UD PRN IV 06/09/17 18:00 06/13/17 17:59 Nicotine (Nicoderm Cq 7 Mg Patch) 1 patch QAM TD 06/10/17 11:00 07/10/17 10:59 06/10/17 11:36 1 PATCH Miscellaneous (Remove Nicoderm Patch) 1 ea HS N/A 06/10/17 21:00 07/10/17 20:59 Objective Vital Signs Date Time Temp Pulse Resp B/P (MAP) Pulse Ox O2 Delivery O2 Flow Rate FiO2 06/10/17 12:00 Nasal Cannula 2.0 06/10/17 11:59 36.7 66 20 137/63 (87) 96 Room Air 06/10/17 08:00 Nasal Cannula 2.0 06/10/17 07:22 36.5 55 18 153/65 (94) 98 Nasal Cannula 2.0 06/10/17 04:00 Nasal Cannula 2.0 06/10/17 03:36 36.5 60 18 148/62 (90) 91 Room Air 06/10/17 00:04 36.9 60 17 155/69 (97) 99 Nasal Cannula 4.0 06/10/17 00:00 Nasal Cannula 2.0 06/09/17 20:00 Nasal Cannula 2.0 06/09/17 19:56 37.3 67 18 156/67 (96) 97 Nasal Cannula 4.0 06/09/17 17:00 36.9 66 16 143/65 (91) 96 Nasal Cannula 2.0 Physical Exam General Appearance: WD/WN, no apparent distress Eyes: normal inspection, PERRL, EOMI, sclerae normal ENT: normal ENT inspection, hearing grossly normal, pharynx normal Neck: supple, no adenopathy, no JVD, trachea midline Respiratory/Chest: chest non-tender, lungs clear, normal breath sounds, no respiratory distress, no accessory muscle use Cardiovascular: regular rate, rhythm, no edema, no gallop, no JVD, no murmur Abdomen: normal bowel sounds, non tender, soft, no organomegaly Extremities: normal range of motion, non-tender, normal inspection, no pedal edema, no calf tenderness, pelvis stable Neurologic/Psychiatric: 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, no motor/sensory deficits, alert, normal mood/affect, oriented x 3, + pertinent finding (finger to nose, rapid repeated movements, heel to marroquin all close to normal on the right side) Laboratory Results Last 24 Hours Test 06/10/17 07:12 White Blood Count 9.40 K/uL Red Blood Count 4.24 M/uL Hemoglobin 12.2 g/dL Hematocrit 37.3 % Mean Corpuscular Volume 88.0 fL Mean Corpuscular Hemoglobin 28.8 pg Mean Corpuscular Hemoglobin Concent 32.7 g/dl RDW Standard Deviation 48.8 fL RDW Coefficient of Variation 15.2 % Platelet Count 237 K/uL Mean Platelet Volume 8.4 fL Sodium Level 139 mmol/L Potassium Level 3.7 mmol/L Chloride Level 102 mmol/L Carbon Dioxide Level 30 mmol/L Anion Gap 7.0 mmol/L Blood Urea Nitrogen 15 mg/dl Creatinine 0.66 mg/dl Est Creatinine Clear Calc Drug Dose 67.9 ml/min Estimated GFR () 104.4 Estimated GFR (Non- 90.0 BUN/Creatinine Ratio 23.4 Random Glucose 84 mg/dl Calcium Level 8.6 mg/dl Triglycerides Level 79 mg/dl Cholesterol Level 191 mg/dl HDL Cholesterol 93 mg/dl LDL Cholesterol, Calculated 82 mg/dl VLDL Cholesterol, Calculated 16 mg/dl Cholesterol/HDL Ratio 2.1 Assessment and Plan 81-year-old gentleman with history of COPD, oxygen dependent 2 L, presented to the emergency department with complaints of right-sided weakness after a fall this morning. - Acute CVA, left thalamus, lacunar infarct, ischemic start Plavix for antiplatelet therapy continue tele to r/o afib, check echo with bubble study to look for PFO HDL is adequately high and LDL low, continue Zocor but at the increased dose of 40mg daily BP is 150-160's, may need to increase Norvasc to 10mg daily but for now BP are acceptable smoking cessation counseling PT/OT evaluations to look into rehab potential Dr. Dang following - COPD with chronic hypoxia stable, continue home regimen - HTN, Hyperlipidemia continue Norvasc 5mg daily, increased Zocor to 40mg daily - H/o alcohol abuse 3 months ago b12 and folate normal Full code DVT prophylaxis: Lovenox
[2017-06-10] MEDS: ENOXAPARIN 40 MG/0.4 ML SYR SQ SCH (16:20)
[2017-06-10 16:52] VITALS: BP 125/51; PULSE 58; TEMP 36.6; O2SAT 99
[2017-06-10 19:41] VITALS: BP 127/52; PULSE 66; TEMP 36.7; O2SAT 92
[2017-06-10] MEDS: SIMVASTATIN 20 MG TAB PO SCH (19:46)
[2017-06-11] VITALS (10 sets, daily range): BP systolic 134–152; BP diastolic 56–69; PULSE 61–75; TEMP 36.6–37.1; O2SAT 94–98
--- NOTE | 2017-06-11 07:32 | Clinical Documentation Query ---
NEGRO [facility]ela : CLINICAL DOCUMENTATION QUERY Patient is an 81 year old male admitted for treatment of COPD exacerbation. H&P notes a history of oxygen dependency, noting continuous supplemental use of 2 L/min via nasal cannula. As appropriate, consider documentation as suggested below as this impacts accurate DRG assignment. Thank you. In your clinical opinion is this patient being managed for: ( ) Chronic respiratory failure with hypoxia ( ) Not Agree ( ) Other explanation of clinical findings (Please Explain) ( ) Unable to determine (Please Define) ( ) Need to Discuss The medical record reflects the following clinical findings, treatment, and risk factors. Clinical Indicators: As above Treatment: Ongoing provision of supplemental Oxygen Risk Factors: COPD Please clarify and document your clinical opinion in the progress notes and discharge summary. Terms such as "probable", "suspected", "likely", "questionable", "possible", or "still to be ruled out" are acceptable. IF IN AGREEMENT, YOU MUST DOCUMENT ABOVE DIAGNOSTIC STATEMENT IN DAILY PROGRESS NOTES AND DISCHARGE SUMMARY. This document is not part of the patient's record. Thank You, Inderjit Smith, RN [phone]
[2017-06-11] MEDS: FLUTICASONE/SALMETEROL 250/50 (ADVAIR) 14 PUFF/1 INHALER INH SCH (08:08)
[2017-06-11] MEDS: NICOTINE 7 MG/24 HR TDSY TD SCH (08:09)
[2017-06-11] MEDS: CEROVITE ADV FORMULA TAB PO SCH (08:09)
[2017-06-11] MEDS: AMLODIPINE BESYLATE 5 MG TAB PO SCH (08:09)
[2017-06-11] MEDS: SERTRALINE HCL 100 MG TAB PO SCH (08:10)
--- NOTE | 2017-06-11 08:55 | Neurology Progress Notes ---
Neurology Progress Note Date of Service Jun 11, 2017. Subjective Patient feels improved today. He has no headache. He has no vision problems and no pain in the spine or limbs. The patient has a little bit a numbness and tingling in the 1st 2 digits distally in the right hand with some lesser tingling in the lateral digits in that hand. He has no numbness and tingling in the face or leg/foot. He feels that his right hand is a little clumsy and his right leg is a little weak. Overall, he believes that his strength is markedly improved and almost near baseline. Nursing reports no new events overnight or yesterday. CBC shows mild anemia. Chem profile was unremarkable including B12, folate, TSH. Lipid profile was unremarkable and total cholesterol was 191. Echocardiogram is pending. Objective Date Time Temp Pulse Resp B/P (MAP) Pulse Ox O2 Delivery O2 Flow Rate FiO2 06/11/17 07:40 37.1 68 16 151/63 (92) 96 Nasal Cannula 2.0 06/11/17 04:29 36.6 61 20 152/69 (96) 94 Room Air 06/11/17 04:00 Nasal Cannula 2.0 06/11/17 00:42 36.6 70 20 146/64 (91) 97 Nasal Cannula 2.0 06/10/17 23:59 Nasal Cannula 2.0 06/10/17 20:00 Room Air 06/10/17 19:41 36.7 66 16 127/52 (77) 92 Room Air 06/10/17 16:52 36.6 58 16 125/51 (75) 99 Nasal Cannula 2.0 06/10/17 16:00 Nasal Cannula 2.0 06/10/17 12:00 Nasal Cannula 2.0 06/10/17 11:59 36.7 66 20 137/63 (87) 96 Room Air Exam: He is awake and alert. Speech is without aphasia or dysarthria. Mood is normal and affect is appropriate. Thought processes seem intact to long and short-term memory. He is fully oriented and has a reasonable fund of knowledge. Extraocular eye muscles are intact without nystagmus. Pupils are 3 mm bilaterally and reactive to light. Tongue is midline. There is no facial droop. There is no facial asymmetry. Neck is supple. With outstretched arms there is no obvious drift. He has no ataxia with finger- to-nose testing. He has some slight postural and action tremor bilaterally only. There is no resting tremor. He has some slight clumsiness of the right hand compared to the left. There is some decreased sensation to touch in the digits of the right hand compared to the left which is normal. There is no decreased sensation in the right foot. Strength is 4+/5 in the right lower extremity proximally and closer to 5/5 distally. Reflexes are 2/4 in the upper extremities diffusely and 1/4 in the lower extremities diffusely. Toes are downgoing with plantar stimulation bilaterally. Current Inpatient Medications Medications (Trade) Dose Ordered Sig/Etienne Route Start Time Stop Time Status Last Admin Dose Admin Enoxaparin Sodium (Lovenox Inj) 40 mg Q24H SQ 06/09/17 16:00 07/09/17 15:59 06/10/17 16:20 40 MG Acetaminophen (Tylenol Tab) 650 mg Q4H PRN PO 06/09/17 12:45 07/09/17 12:44 Al Hydrox/Mg Hydrox/Simethicone (Maalox Max Susp) 15 ml Q4H PRN PO 06/09/17 12:45 07/09/17 12:44 Magnesium Hydroxide (Milk Of Magnesia Susp) 30 ml Q6H PRN PO 06/09/17 12:45 07/09/17 12:44 Polyethylene (Miralax Powder Packet) 17 gm DAILY PRN PO 06/09/17 12:45 07/09/17 12:44 Ondansetron HCl (Zofran Inj) 4 mg Q6H PRN IV 06/09/17 12:45 07/09/17 12:44 Albuterol (Ventolin Hfa Inhaler) 2 puffs Q4 PRN INH 06/09/17 12:45 07/09/17 12:44 Amlodipine Besylate (Norvasc Tab) 5 mg QAM PO 06/10/17 09:00 07/10/17 08:59 06/11/17 08:09 5 MG Multivitamins/ Minerals (Multivitamin W/ Minerals Tab) 1 tab QAM PO 06/10/17 09:00 07/10/17 08:59 06/11/17 08:09 1 TAB Sertraline HCl (Zoloft Tab) 150 mg QAM PO 06/10/17 09:00 07/10/17 08:59 06/11/17 08:10 150 MG Simvastatin (Zocor Tab) 40 mg HS PO 06/09/17 21:00 07/09/17 20:59 06/10/17 19:46 40 MG Salmeterol Xinafoate/ Fluticasone (Advair Diskus 250/50 Inh) 1 puff BID INH 06/09/17 21:00 07/09/17 20:59 06/11/17 08:08 1 PUFF Multivitamins 10 ml/Thiamine HCl 100 mg/Folic Acid 1 mg/Sodium Chloride 1,011.2 ml @ 100 mls/ hr DAILY@0900 IV 06/09/17 15:00 07/09/17 14:59 06/10/17 08:57 100 MLS/HR Gadobutrol (Gadavist) 8.2 mmol UD PRN IV 06/09/17 18:00 06/13/17 17:59 Nicotine (Nicoderm Cq 7 Mg Patch) 1 patch QAM TD 06/10/17 11:00 07/10/17 10:59 06/11/17 08:09 1 PATCH Miscellaneous (Remove Nicoderm Patch) 1 ea HS N/A 06/10/17 21:00 07/10/17 20:59 06/10/17 19:46 1 EA Clopidogrel Bisulfate (plAVix TAB) 75 mg QAM PO 06/11/17 09:00 07/11/17 08:59 06/11/17 08:08 75 MG Impression 1. 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 He had some right sided weakness and dysesthesias which are much improved currently. He only has some residual dysesthesias in the right hand and mild weakness in the right leg greater than right arm. He had been on 81 mg aspirin tablet for many years (at least since 2004). He may have been somewhat noncompliant with the regular use of aspirin more recently. He has multiple risk factors for stroke including heavy cigarette smoking for many years, hypertension in the past, dyslipidemia history, and heavy alcohol use in the past. 2. 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 Carotid and vertebral stenosis 50% stenosis in the left ICA at the origin, less than 25% stenosis in the right ICA at the origin, and 75% stenosis at the origin of the left vertebral artery. 4. History of major depression, currently stable, on sertraline 5. History of significant alcohol use/abuse for many years, with 0 alcohol since the beginning of this year, as he has been in a personal fci. Plan 1. We talked at length about decreasing risk factors for stroke including discontinuing cigarette smoking. He informs me if this will likely not happen. 2. Continue clopidogrel 75 mg a day instead of 81 mg aspirin. In theory, this should do better than aspirin in preventing small vessel ischemic strokes and vessel stenosis. 3. Continue physical, speech, and occupational therapy. 4. Continue sertraline at the current dose 5. Patient is a reasonable candidate for high-dose statins given his cholesterol level and age. I have no further testing or treatment recommendations to make at this time He can be followed as an outpatient with Dr. Dang. I spoke with Dr. Wright regarding the diagnosis and treatment options for this patient.
[2017-06-11] MEDS ORDERED: CLOPIDOGREL BISULFATE 75 MG TAB PO SCH (09:00)
[2017-06-11] MEDS ORDERED: PERFLUTREN LIPID MICROSPHERE (DEFINITY) IV ONE (10:21)
[2017-06-11] MEDS: MULTI-VITAMIN INFUSION INJ 10 ML, THIAMINE HCL INJ 100 MG, FoLIC ACID INJ 1 MG in SODIU... IV SCH (10:28)
--- NOTE | 2017-06-11 10:48 | DIAGNOSTIC IMAGING REPORT ---
CAROTID DOPPLER NECK ART CLINICAL HISTORY: 81 years-old Male with CVA. Acute lacunar infarction of the left thalamus COMPARISON: Brain MRI 06/09/2017 TECHNIQUE: Multiple real time sonographic images of the carotid bifurcations were obtained assessing aviles scale, color Doppler and spectral wave form appearance FINDINGS: RIGHT INTERNAL CAROTID: The peak systolic velocity measured 88 cm/sec. The end diastolic velocity measured 16 cm/sec. The ICA to CCA ratio measured 0.8 which correlates with a stenosis of 0-50%. LEFT INTERNAL CAROTID: The peak systolic velocity measured 192 cm/sec within the proximal portion of the vessel . The end diastolic velocity measured 36 cm/sec. The ICA to CCA ratio measured 1.7 which correlates with a stenosis of 50-69%. There is elevated peak systolic velocities within the external carotid artery on the left measuring up to 190 cm/s is extensive atherosclerosis and possible focal occlusion. Mild right and at least moderate mixed plaquing involves the common carotid arteries. There is normal antegrade vertebral flow bilaterally. IMPRESSION: 1. Elevated peak systolic velocity involving the left internal carotid artery correlates with stenosis of 50-69%. 2. Elevated peak systolic velocities with high-grade narrowing or focal occlusion of the left external carotid artery. 3. Antegrade flow of the vertebral arteries bilaterally. The above report was generated using voice recognition software. It may contain grammatical, syntax or spelling errors. Electronically signed by: Himanshu Park M.D. 06/11/2017 10:47 AM Dictated Date/Time: 06/11/2017 10:41 AM
--- NOTE | 2017-06-11 11:33 | Surgery Consultation ---
Consultation Date of Service Jun 11, 2017. Chief Complaint L hemiapheric CVA, carotid stenosis History of Present Illness The patient is a 81 year old male with multiple medical problems, admitted after staff at [facility] noted R leg and arm weakness and found to have CVA , seen in consultation today for ICAS and vertebral art stenosis. Pt denies hx of CVA or TIA in past. States sx resolved at [facility]. Denies vision changes, slurred speech, facial droop. Admits balance problems and falls at home. Pt denies BATES, fever, chills, chest pain, abd pain, N/V, rest pain, claudication, other complaints. Imaging demonstrates L hemispheric CVA. Neck MRA demonstrates L ICA stenosis of 50% nad vertebral art stenosis 75%. Vitals Vital Signs Past 12 Hours Date Time Temp Pulse Resp B/P (MAP) Pulse Ox O2 Delivery O2 Flow Rate FiO2 06/11/17 08:00 96 Nasal Cannula 2.0 06/11/17 07:40 37.1 68 16 151/63 (92) 96 Nasal Cannula 2.0 06/11/17 04:29 36.6 61 20 152/69 (96) 94 Room Air 06/11/17 04:00 Nasal Cannula 2.0 06/11/17 00:42 36.6 70 20 146/64 (91) 97 Nasal Cannula 2.0 06/10/17 23:59 Nasal Cannula 2.0 Allergies Coded Allergies: Penicillins (Verified Allergy, Unknown, 06/09/17) Home Medications Scheduled Amlodipine (Norvasc), 5 MG PO QAM Amoxicillin & Pot Clavulanate (Augmentin 875-125 mg), 1 TAB PO BID Cholecalciferol (Vitamin D3), 2,000 INTER.UNIT PO QPM AT 1700 Enteral Nutrition Formula (Ensure), 1 CAN PO PM Fluticasone-Salmeterol (Fluticasone Propionate/SA 113-14 Mcg/Act), 1 PUFF PO BID Folic Acid (Folvite), 1 MG PO QAM Home O2 Therapy (Oxygen), 1-3 LITERS NA PRN Multiple Vitamins W/ Minerals (Centrum Silver 50+Men), 1 TAB PO QAM Prednisone Tab (Prednisone), 30 MG PO QDB Sertraline HCl (Sertraline HCl), 150 MG PO QAM Simvastatin (Zocor), 20 MG PO QPM AT 1700 Thiamine Mononitrate (Vitamin B1), 100 MG PO QAM Scheduled PRN Acetaminophen (Arthritis Pain Relief), 1,300 MG PO Q8 PRN for Pain Albuterol Hfa (Ventolin Hfa), 2 PUFFS INH Q4 PRN for SOB/Wheezing Hydrocodone/Acetaminophen 5MG/325MG (Bolivar 5MG/325MG), 1 TABLET PO Q6H PRN for Pain Polyethylene Glycol 3350 (Miralax), 17 GM PO DAILY PRN for Constipation Problem List Medical Problems: (1) Alcohol withdrawal (2) COPD (chronic obstructive pulmonary disease) (3) COPD exacerbation (4) CVA (cerebral vascular accident) (5) Fall at home (6) Hypoxia (7) PAD (peripheral artery disease) Social History Problems: (1) ETOH abuse Surgical / Medical History Hx Cardiac Surgery: No Hx Abdominal Surgery: No Hx Cancer Surgery: No Hx Thoracic Surgery: No Hx Orthopedic: No Hx Urinary Tract Surgery: No HX Other Surgery: Yes Past Medical/Surgical History: Hypertension, Liver Disease Family History No significant family history + HTN Social History Smoking Status: Current Every Day Smoker Hx Tobacco Use In Past Year?: Yes Hx Alcohol Use - Type & Amnt: Yes Hx Substance Use -Type & Amnt: Yes (marijuana) Review of Systems Constitutional: + malaise, No chills, No fever Skin: No change in color ENMT: No sore throat Respiratory: + cough, + PARISH, No hemoptysis, No short of breath Cardiovascular: No chest pain, No palpitations, No syncope Gastrointestinal: No abdominal pain, No nausea, No vomiting Neurologic: No dizziness, No lethargy, No numbness, No tingling Physical Exam Constitutional: General Apperance: well-nourished, well-developed Level of Distress: NAD, chronically ill Psychiatric: Mental Status: active & alert, normal mood, normal affect Orientation: oriented except where noted, to time, to place, to person Memory: recent memory normal, remote memory normal Head: normocephalic, atraumatic Eyes: EOM: EOMI ENMT: normal ENT inspection, hearing grossly normal Neck: supple, trachea midline Lungs: Auscultation: decreased breath sounds, expiratory wheezing, rhonchi Cardiovascular: Apical Impulse: not displaced Heart Auscultation: RRR, no rubs, no gallops Peripheral Pulses: Pulses: full and equal, in all extremities except if noted Bruits: carotid bruit on the left, carotid bruit on the right, femoral bruit on the left, femoral bruit on the right Carotid Pulse: normal on the left, normal on the right Brachial Pulses: normal on the left, normal on the right Radial Pulse: normal on the left, normal on the right Femoral Pulse: decreased on the left, absent on the right Posterior Tibialis Pulse: absent on the left, absent on the right Dorsalis Pedis Pulse: absent on the left, absent on the right Abdomen: Bowel Sounds: normal Inspection & Palpation: soft, non-distended, no tenderness, guarding & rebound Musculoskeletal: normal strength (5/5 throughout), normal tone Extremities: Upper Right: no cyanosis, no edema, no varicosities Upper Left: no cyanosis, no edema, no varicosities Lower Right: no cyanosis, no edema, no varicosities Lower Left: no cyanosis, no edema, no varicosities Neurologic: Cranial Nerves: grossly intact Sensation: grossly intact Assessment and Plan ASSESSMENT and PLAN: CVA carotid stenosis Pt discussed with Dr Nye, recommends carotid US be done to verify degree of stenosis. WIll make further recs after review of US. No indications for vertebral art intervention.
--- NOTE | 2017-06-11 12:50 | ECHOCARDIOGRAM REPORT ---
*NOTICE TO RECEIVING [employer]Y This information is strictly Confidential and protected under [place] law. [place] law prohibits you from making any further disclosure of this information unless further disclosure is expressly permitted by the written consent of the person to whom it pertains or is authorized by law. A general authorization for the release of medical or other information is not sufficient for this purpose. Hospital accepts no responsibility if the information is made available to any other person, INCLUDING THE PATIENT. Interpretation Summary * Name: BRENDA CUELLAR Study Date: 06/11/2017 08:34 AM BP: 152/69 mmHg * Patient Location: C.2T\S\S242\S\1 HR: 61 * : 1935 (M/d/yyy) Gender: Male Height: 67 in * Age: 81 yrs Ethnicity: CA Weight: 122 lb * Ordering Physician: Charli Cortez * Performed By: Susan Sexton RDCS * * Reason For Study: CEREBRAL ISCHEMIA/ EMBOLUS * BSA: 1.6 m2 * -- Conclusions -- * Left ventricular systolic function is normal. * Grade I diastolic dysfunction, (abnormal relaxation pattern). * Injection of contrast documented no interatrial shunt. * Aortic valve sclerosis mild, without significant aortic valvular stenosis. * There is mild mitral annular calcification. * No obvious soource of emboli, but image quality was sub-optimal Procedure Details * The study was technically difficult. * The study was technically limited. * There were technical limitations due to patient'sPoor acoustic windows secondary to severe lung disease. * A saline contrast injection was performed to assess for cardiac shunting. * The injection was performed through an intravenous line in the left arm. * The attending nurse who injected the saline contrast was DEJA SHI RN. * A total of 20 cc of agitated saline was given. * A contrast injection of Definity was performed to improve assessment of LV function. * Contrast was injected into an intravenous site in the left arm. * One vial of Definity ultrasound contrast was diluted in normal saline to a total volume of 10 ml. A total of '3' ml of solution was administered during imaging. * Lot # [id number] of Definity utilized for procedure. * Expiration date 06/21. * The attending nurse who injected the contrast agent was DEJA SHI RN. Left Ventricle * The left ventricle is normal in size. * There is normal left ventricular wall thickness. * Ejection Fraction = 65-70%. * Left ventricular systolic function is normal. * Grade I diastolic dysfunction, (abnormal relaxation pattern). * The left ventricular wall motion is normal. Right Ventricle * The right ventricle is not well visualized. * The right ventricular systolic function is normal as assessed by tricuspid annular plane systolic excursion (TAPSE) (normal >1.5 cm). Atria * The left atrium is not well visualized. * Right atrium not well visualized. * Injection of contrast documented no interatrial shunt. Mitral Valve * There is mild mitral annular calcification. * Significant mitral regurgitation is absent. Tricuspid Valve * The tricuspid valve is not well visualized. Aortic Valve * Aortic valve sclerosis mild, without significant aortic valvular stenosis. * No hemodynamically significant valvular aortic stenosis. * There is no significant aortic regurgitation. Pulmonic Valve * The pulmonic valve is not well visualized. Pericardium/Pleural * There is no pericardial effusion. Great Vessels * Normal inferior vena cava diameter and respiratory variation suggests normal central venous pressure. MMode 2D Measurements and Calculations IVSd 0.90 cm IVSs 1.6 cm LVIDd 4.3 cm LVIDs 2.6 cm LVPWd 1.2 cm LVPWs 1.3 cm IVS/LVPW 0.78 FS 38.3 % EDV(Teich) 82.1 ml ESV(Teich) 25.5 ml EF(Teich) 68.9 % EDV(cubed) 78.3 ml ESV(cubed) 18.4 ml EF(cubed) 76.6 % % IVS thick 72.2 % % LVPW thick 11.9 % LV mass(C)d 147.1 grams LV mass(C)dI 89.8 grams/m\S\2 LV mass(C)s 122.6 grams LV mass(C)sI 74.8 grams/m\S\2 SV(Teich) 56.6 ml SI(Teich) 34.5 ml/m\S\2 SV(cubed) 60.0 ml SI(cubed) 36.6 ml/m\S\2 ACS 0.83 cm LVOT diam 1.6 cm LVOT area 1.9 cm\S\2 Doppler Measurements and Calculations MV E max milady 84.9 cm/sec MV A max milady 113.0 cm/sec MV E/A 0.75 MV dec time 0.27 sec Ao V2 max 104.5 cm/sec Ao max PG 4.4 mmHg Ao max PG (full) 2.4 mmHg EDUARD(V,A) 1.3 cm\S\2 EDUARD(V,D) 1.3 cm\S\2 LV V1 max PG 2.0 mmHg LV V1 max 70.8 cm/sec PA V2 max 62.1 cm/sec PA max PG 1.5 mmHg
[2017-06-11] MEDS: ENOXAPARIN 40 MG/0.4 ML SYR SQ SCH (15:35)
[2017-06-11] MEDS ORDERED: PLV75 PO ×2 (15:51→18:44)
[2017-06-11] MEDS ORDERED: ZCR20 PO ×2 (15:51→18:44)
--- NOTE | 2017-06-11 15:55 | Discharge Instructions ---
Discharge Instructions Date of Service Jun 11, 2017. Admission Reason for Admission: Cva (Cerebral Vascular Accident), Fall At Home Discharge Discharge Diagnosis / Problem: CVA Discharge Goals Goal(s): Improve disease control Activity Recommendations Activity Limitations: resume your previous activity . Instructions / Follow-Up Instructions / Follow-Up Please follow up with your primary care provider within about a week Please follow up with neurology within the next couple of weeks. Please follow up with [facility] vascular surgery It's very important that you quit smoking since this is a significant risk factor for further strokes as well as other cardiovascular problems Risk Factors for Stroke: You can reduce your chances of stroke by working with your medical provider to adopt a healthy lifestyle. Some specific ways to lower your chance of stroke are: * If you are a smoker, now is the time to stop smoking cigarettes * If you are diabetic, improve the control of your blood sugars * Avoid excessive amounts of alcohol * Control high blood pressure * Lose weight if you are overweight * Be sure to lead an active lifestyle * Eat a healthy diet low in salt, cholesterol and fat You should know about other risk factors for stroke that you are unable to control. These include: * Age 55 years or older * Male gender * Certain racial groups: , or / * Family History of Stroke, Mini stroke or Heart Attack * Sickle Cell Disease Follow Up: It is important for you to keep your follow up appointments with your medical provider. Current Hospital Diet Patient's current hospital diet: AHA Diet (Heart Healthy) Discharge Diet Recommended Diet: AHA Diet (Heart Healthy) Procedures Procedures Performed: Brain and neck MRA Brain MRI Brain CT Chest Xray Carotid US Pending Studies Studies pending at discharge: no Laboratory Results Lipid Panel Test 06/10/17 07:12 Range/Units Triglycerides Level 79 0-150 mg/dl Cholesterol Level 191 0-200 mg/dl HDL Cholesterol 93 mg/dl Cholesterol/HDL Ratio 2.1 LDL Cholesterol, Calculated 82 mg/dl Medical Emergencies . Who to Call and When: Medical Emergencies: Call 911 immediately if you experience any of the following warning signs and symptoms of Stroke: * Sudden numbness or weakness of the face, arm or leg, especially on one side of the body * Sudden confusion, trouble speaking or understanding * Sudden trouble seeing in one or both eyes * Sudden trouble walking, dizziness, loss of balance or coordination * Sudden severe headache with no cause Do not delay calling 911 if you experience any warning signs or symptoms of a stroke. Delay in seeking medical attention may affect what treatments can be given to you. . Non-Emergent Contact Non-Emergency issues call your: Primary Care Provider Call Non-Emergent contact if: you have any medication questions . . "Provider Documentation" section prepared by Deandra Lopez. . Stroke Core Measures Reason no t-PA for Stroke: Treatment not indicated Reason no antithrom by day 2: Treatment provided - N/A Reason no antithrom at D/C: Treatment provided - N/A Reason no statin at D/C: Treatment provided - N/A Reason no anticoag w/a fib: Treatment not indicated
--- NOTE | 2017-06-11 16:24 | Discharge Summary ---
Discharge Summary Date of Service Jun 11, 2017. Discharge Summary Admission Date: Jun 09, 2017 at 13:14 Discharge Date: Jun 11, 2017 Discharge Disposition: Personal care Principal Diagnosis: CVA Problems/Secondary Diagnoses: COPD with chronic hypoxia, HTN, Hyperlipidemia, H/o alcohol abuse 3 months ago Immunizations: Have You Had Influenza Vaccine: No History of Tetanus Vaccine?: Unknown History of Pneumococcal: Yes Pneumococcal Date: Oct 09, 2004 History of Hepatitis B Vaccine: Unknown Procedures: Echo Interpretation Summary * Name: BRENDA CUELLAR Study Date: 06/11/2017 08:34 AM BP: 152/69 mmHg * Patient Location: 2\S\S242\S\1 HR: 61 * : 1935 (M/d/yy) Gender: Male Height: 67 in * Age: 81 yrs Ethnicity: [place] Weight: 122 lb * Ordering Physician: Charli Cortez * Performed By: Susan Sexton RDCS * * Reason For Study: CEREBRAL ISCHEMIA/ EMBOLUS * BSA: 1.6 m2 * -- Conclusions -- * Left ventricular systolic function is normal. * Grade I diastolic dysfunction, (abnormal relaxation pattern). * Injection of contrast documented no interatrial shunt. * Aortic valve sclerosis mild, without significant aortic valvular stenosis. * There is mild mitral annular calcification. * No obvious soource of emboli, but image quality was sub-optimal Procedure Details * The study was technically difficult. * The study was technically limited. * There were technical limitations due to patient'sPoor acoustic windows secondary to severe lung disease. * A saline contrast injection was performed to assess for cardiac shunting. * The injection was performed through an intravenous line in the left arm. * The attending nurse who injected the saline contrast was DEJA SHI RN. * A total of 20 cc of agitated saline was given. * A contrast injection of Definity was performed to improve assessment of LV function. * Contrast was injected into an intravenous site in the left arm. * One vial of Definity ultrasound contrast was diluted in normal saline to a total volume of 10 ml. A total of '3' ml of solution was administered during imaging. * Lot # [id number] of Definity utilized for procedure. * Expiration date 4/19. * The attending nurse who injected the contrast agent was DEJA SHI RN. Left Ventricle * The left ventricle is normal in size. * There is normal left ventricular wall thickness. * Ejection Fraction = 65-70%. * Left ventricular systolic function is normal. * Grade I diastolic dysfunction, (abnormal relaxation pattern). * The left ventricular wall motion is normal. Right Ventricle * The right ventricle is not well visualized. * The right ventricular systolic function is normal as assessed by tricuspid annular plane systolic excursion (TAPSE) (normal >1.5 cm). Atria * The left atrium is not well visualized. * Right atrium not well visualized. * Injection of contrast documented no interatrial shunt. Mitral Valve * There is mild mitral annular calcification. * Significant mitral regurgitation is absent. Tricuspid Valve * The tricuspid valve is not well visualized. Aortic Valve * Aortic valve sclerosis mild, without significant aortic valvular stenosis. * No hemodynamically significant valvular aortic stenosis. * There is no significant aortic regurgitation. Pulmonic Valve * The pulmonic valve is not well visualized. Pericardium/Pleural * There is no pericardial effusion. Great Vessels * Normal inferior vena cava diameter and respiratory variation suggests normal central venous pressure. MMode 2D Measurements and Calculations IVSd 0.90 cm IVSs 1.6 cm LVIDd 4.3 cm LVIDs 2.6 cm LVPWd 1.2 cm LVPWs 1.3 cm IVS/LVPW 0.78 FS 38.3 % EDV(Teich) 82.1 ml ESV(Teich) 25.5 ml EF(Teich) 68.9 % EDV(cubed) 78.3 ml ESV(cubed) 18.4 ml EF(cubed) 76.6 % % IVS thick 72.2 % % LVPW thick 11.9 % LV mass(C)d 147.1 grams LV mass(C)dI 89.8 grams/m\S\2 LV mass(C)s 122.6 grams LV mass(C)sI 74.8 grams/m\S\2 SV(Teich) 56.6 ml SI(Teich) 34.5 ml/m\S\2 SV(cubed) 60.0 ml SI(cubed) 36.6 ml/m\S\2 ACS 0.83 cm LVOT diam 1.6 cm LVOT area 1.9 cm\S\2 Doppler Measurements and Calculations MV E max milady 84.9 cm/sec MV A max milady 113.0 cm/sec MV E/A 0.75 MV dec time 0.27 sec Ao V2 max 104.5 cm/sec Ao max PG 4.4 mmHg Ao max PG (full) 2.4 mmHg EDUARD(V,A) 1.3 cm\S\2 EDUARD(V,D) 1.3 cm\S\2 LV V1 max PG 2.0 mmHg LV V1 max 70.8 cm/sec PA V2 max 62.1 cm/sec PA max PG 1.5 mmHg Created: Initialized: 06/11/17; 1250 <Electronically signed by Osiel Seymour MD> Signed: 06/11/17 1335 Osiel Seymour MD The status of this report is Signed. Draft = Not yet reviewed or approved by Generator Operator. Signed = Reviewed and approved by Generator Operator. CAROTID DOPPLER NECK ART CLINICAL HISTORY: 81 years-old Male with CVA. Acute lacunar infarction of the left thalamus COMPARISON: Brain MRI 06/09/2017 TECHNIQUE: Multiple real time sonographic images of the carotid bifurcations were obtained assessing aviles scale, color Doppler and spectral wave form appearance FINDINGS: RIGHT INTERNAL CAROTID: The peak systolic velocity measured 88 cm/sec. The end diastolic velocity measured 16 cm/sec. The ICA to CCA ratio measured 0.8 which correlates with a stenosis of 0-50%. LEFT INTERNAL CAROTID: The peak systolic velocity measured 192 cm/sec within the proximal portion of the vessel . The end diastolic velocity measured 36 cm/sec. The ICA to CCA ratio measured 1.7 which correlates with a stenosis of 50-69%. There is elevated peak systolic velocities within the external carotid artery on the left measuring up to 190 cm/s is extensive atherosclerosis and possible focal occlusion. Mild right and at least moderate mixed plaquing involves the common carotid arteries. There is normal antegrade vertebral flow bilaterally. IMPRESSION: 1. Elevated peak systolic velocity involving the left internal carotid artery correlates with stenosis of 50-69%. 2. Elevated peak systolic velocities with high-grade narrowing or focal occlusion of the left external carotid artery. 3. Antegrade flow of the vertebral arteries bilaterally. The above report was generated using voice recognition software. It may contain grammatical, syntax or spelling errors. Electronically signed by: Himanshu Park M.D. 06/11/2017 10:47 AM BRAIN WITHOUT CONTRAST CLINICAL HISTORY: 81 years-old Male presenting with right sided weakness. TECHNIQUE: Multisequence, multiplanar MR imaging of the brain was performed without the use of intravenous contrast. IV contrast: None. COMPARISON: Noncontrast CT head performed earlier the same day. FINDINGS: Proportional ventricular and sulcal prominence, likely age-related parenchymal volume loss. Periventricular and subcortical white matter T2/FLAIR hyperintensity, nonspecific but likely indicative of chronic small vessel ischemic change. No mass effect or midline shift. Acute lacunar infarct in the left thalamus. 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 Old bilateral thalamic and left basal ganglia lacunar infarcts. No extra-axial fluid collection. T2 skull base flow voids preserved. Bone marrow signal intensity within the calvarium within normal limits. IMPRESSION: 1. Acute lacunar infarct in the left thalamus. 2. Extensive chronic small vessel ischemic change with multiple old lacunar infarcts noted. Electronically signed by: Donald Pettit M.D. 06/09/2017 6:13 PM MRA HEAD WITHOUT CONTRAST CLINICAL HISTORY: 81 years-old Male presenting with right-sided weakness. TECHNIQUE: MR angiography of the head was performed without the use of intravenous contrast using 3-D [id number] technique. 3-D volumetric and/or maximum intensity projection (MIP) images were subsequently reconstructed for review. IV contrast: None. COMPARISON: None. FINDINGS: Anterior circulation: Intracranial portions of the internal carotid arteries patent to the level of the termini. Anterior and middle cerebral arteries patent. Anterior communicating artery hypoplastic or aplastic. Posterior circulation: Codominant vertebral arteries. Intradural portions of the vertebral arteries patent. Posterior inferior cerebellar arteries patent. Basilar artery patent. Anterior inferior cerebellar arteries poorly visualized. Superior cerebellar and posterior cerebral arteries patent. Posterior communicating arteries patent. IMPRESSION: 1. No significant stenosis, aneurysm, or focal vessel occlusion. Electronically signed by: Donald Pettit M.D. 06/09/2017 6:17 PM Dictated Date/Time: 06/09/2017 6:13 PM MRA NECK COMBO CLINICAL HISTORY: 81 years-old Male presenting with right-sided weakness. TECHNIQUE: MR angiography of the neck was performed without the use of intravenous contrast using 3-D [id number] technique. 3-D volumetric and/or maximum intensity projection (MIP) images were subsequently reconstructed for review. IV contrast: None. Stenosis measurements were based on NASCET-like criteria. COMPARISON: None. FINDINGS: Localizer images: Unremarkable. Aortic arch: Atherosclerosis of the three-vessel aortic arch. Innominate artery: Patent. Right common carotid artery: Irregularity of the right carotid bulb likely due to atherosclerosis. Right internal and external carotid arteries: Irregularity of the proximal right ICA likely due to atherosclerosis, which does not significantly narrow its lumen (less than 25% stenosis). Stenosis of the origin of the right ECA. Left common carotid artery: Irregularity of the left carotid bulb likely due to atherosclerosis. Left internal and external carotid arteries: At least 50% stenosis of the origin of the left ICA though the remainder of the left ICA is widely patent. Left ECA patent. Left subclavian artery: Atherosclerosis results in luminal irregularity without significant narrowing of the proximal left subclavian artery. Vertebral arteries: Codominant vertebral arteries. Significant stenosis (approximately 75%) of the origin of the left vertebral artery. The region of stenosis extends for partially 5 mm from the origin distally through the remainder of the left vertebral artery is widely. Right vertebral artery patent at its origin and along its course. Other: Limited intracranial evaluation within normal limits. Soft tissues of the neck normal allowing for the phase of contrast. IMPRESSION: 1. 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 2. Less than 25% stenosis of the proximal right ICA. 3. Approximately 75% stenosis of the origin of the left vertebral artery. Codominant vertebral arteries. Electronically signed by: Donald Pettit M.D. 06/09/2017 6:22 PM CHEST ONE VIEW PORTABLE CLINICAL HISTORY: 81 years-old Male presenting with Stroke. TECHNIQUE: Portable upright AP view of the chest was obtained. COMPARISON: 05/31/2017. FINDINGS: Atherosclerosis of the aortic arch. Cardiac silhouette normal in size. Chronic elevation of the left hemidiaphragm with left basilar opacity. No new focal opacity. Hyperinflation of the right lung unchanged. No large effusion or pneumothorax. Degenerative changes of the spine. IMPRESSION: 1. No significant change or evidence of acute cardiopulmonary disease. 2. Findings suggest underlying emphysema. 3. Chronic elevation of the left hemidiaphragm with left basilar atelectasis. Electronically signed by: Donald Pettit M.D. 06/09/2017 11:18 AM HEAD WITHOUT CONTRAST (CT) CLINICAL HISTORY: 81 years-old Male presenting with Stroke, unwitnessed fall, right sided weakness in hand and leg. TECHNIQUE: Multidetector CT imaging of the head was performed without the use of intravenous contrast. IV contrast: None. A dose lowering technique was used consistent with the principles of ALARA (as low as reasonably achievable). COMPARISON: 12/13/2016. CT DOSE (mGy.cm): The estimated cumulative dose is 537.48 mGy.cm. FINDINGS: Utility Tender Carding topogram: Unremarkable. Ventricles and sulci normal in size. Periventricular and subcortical white matter hypoattenuation, nonspecific but likely indicative of chronic small vessel ischemic change. No mass effect or midline shift. No hemorrhage or acute territorial infarct. No extra-axial fluid collection. Paranasal sinuses and mastoid air cells clear. Calvarium intact. IMPRESSION: 1. Chronic small vessel ischemic change. No acute intracranial abnormality. Electronically signed by: Donald Pettit M.D. 06/09/2017 11:24 AM Dictated Date/Time: 06/09/2017 11:21 AM Consultations: Drs. Dang and Diony from neurology Dr. Berger and Karen Branch from vascular surgery Medication Reconciliation New Medications: Clopidogrel Bisulfate (Clopidogrel) 75 Mg Tab 75 MG PO QAM for 30 Days, #30 TAB Simvastatin (Simvastatin) 20 Mg Tab 40 MG PO HS for 30 Days, #30 TAB Continued Medications: Acetaminophen (Arthritis Pain Relief) 650 Mg Tab 1300 MG PO Q8 PRN for Pain MAX 3 GRAM APAP/24 HOURS. Albuterol Hfa (Ventolin Hfa) 200 Puffs/84343 Mcg Aers 2 PUFFS INH Q4 PRN for SOB/Wheezing, #1 INHALER Amlodipine (Norvasc) 5 Mg Tab 5 MG PO QAM, TAB Cholecalciferol (Vitamin D3) 2,000 Unit Cap 2000 INTER.UNIT PO QPM AT 1700, CAP Enteral Nutrition Formula (Ensure) Liq 1 CAN PO PM Fluticasone-Salmeterol (Fluticasone Propionate/SA 113-14 Mcg/Act) 1 Inh Inh 1 PUFF PO BID Folic Acid (Folvite) 1 Mg Tab 1 MG PO QAM, TAB Home O2 Therapy (Oxygen) Gas 1-3 LITERS NA PRN, BTL TO KEEP PULSE OX AT 89% OR BETTER Hydrocodone/Acetaminophen 5MG/325MG ([place] 5MG/325MG) Tab 1 TABLET PO Q6H PRN for Pain, #30 TAB MAX 3 GRAM APAP/24 HOURS. Multiple Vitamins W/ Minerals (Centrum Silver 50+Men) 1 Tab Tab 1 TAB PO QAM Polyethylene Glycol 3350 (Miralax) 1 Pow Pow 17 GM PO DAILY PRN for Constipation, #255 GM Sertraline HCl (Sertraline HCl) 100 Mg Tab 150 MG PO QAM Thiamine Mononitrate (Vitamin B1) 100 Mg Tab 100 MG PO QAM Discontinued Medications: Amoxicillin & Pot Clavulanate (Augmentin 875-125 mg) 1 Tab Tab 1 TAB PO BID, #14 TAB Prednisone Tab (Prednisone) 10 Mg Tab 30 MG PO QDB, TAB Simvastatin (Zocor) 20 Mg Tab 20 MG PO QPM AT 1700, TAB Discharge Exam ROS Constitutional: no chills, aches, sweats or fever Respiratory: no sob,cough, sputum, or wheezing Cardiac: no chest pain, palpitations, edema, orthopnea or lightheadedness GI: no abdominal pain, nausea, vomiting, diarrhea or constipation : no dysuria or hesitancy Extremities: no joint pain or weakness, minor numbness ends of right fingertips Skin: no rash All other systems reviewed and negative General: no distress Eyes: normal inspection, PERLL Respiratory: chest non tender, clear to auscultation, normal breath sounds, no respiratory distress, no accessory muscle use Cardiac: regular rate and rhythm, no rub or gallop, no murmur, no edema, no jvd GI/: active bowel sounds, no abd pain or tenderness, soft, non distended Extremities: normal range of motion, normal strength, non tender Neuro/Psych: alert and oriented x 3, normal mood and affect, CN II-XII intact, no drift bilateral arms, able to touch finger to nose both sides as well as move heel up and down opposite marroquin Skin: normal color, dry Hospital Course 81-year-old gentleman with history of COPD, oxygen dependent 2 L, presented to the emergency department with complaints of right-sided weakness after a fall this morning. - Acute CVA, left thalamus, lacunar infarct, ischemic started Plavix for antiplatelet therapy continue tele to r/o afib - patient SR on the monitor, Echo showed: Left ventricular systolic function is normal. * Grade I diastolic dysfunction, (abnormal relaxation pattern). * Injection of contrast documented no interatrial shunt. * Aortic valve sclerosis mild, without significant aortic valvular stenosis. * There is mild mitral annular calcification. 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 Berger - recommends follow up outpatient with vascular surgery - COPD with chronic hypoxia stable, continue home regimen, patient wears 2-3 L O2 at home - HTN, Hyperlipidemia continue Norvasc 5mg daily, increased Zocor to 40mg daily - H/o alcohol abuse 3 months ago b12 and folate normal Supervising Note Dr. Wright I performed a history and physical examination on the patient. I reviewed above note and agree with it. I discussed plan with APC and patient. During my face to face encounter with the patient, I answered all of the patient's questions. Will continue plavix and have patient followup with Vascular surgery as an outpatient. Total Time Spent: Greater than 30 minutes This includes examination of the patient, discharge planning, medication reconciliation, and communication with other providers. Discharge Instructions Please refer to the electronic Patient Visit Report (Discharge Instructions) for additional information. Follow-Up Dr. Dang within next couple weeks PCP in a week Vascular surgery
== END 2017-06-11 18:47 | disposition home or self-care (01) | DRG 65 ==
LOC: C.EDB 09:58 → ENRESERV 13:12 → CANRESERV 13:12 → EDBEDREQ 13:12 → EDBEDREQSVC 13:13 → C.2T 13:14 → ENRESERV 13:18
PROVIDERS: ADMIT Family Medicine; ATTEND Internal Medicine Sports Medicine
DX: I63.8 Other cerebral infarction (principal); G81.91 Hemiplegia, unspecified affecting right dominant side; R29.700 NIHSS score 0; I67.2 Cerebral atherosclerosis; I65.22 Occlusion and stenosis of left carotid artery; J44.9 Chronic obstructive pulmonary disease, unspecified; R09.02 Hypoxemia; I10 Essential (primary) hypertension; E78.5 Hyperlipidemia, unspecified; F32.9 Major depressive disorder, single episode, unspecified; F10.11 Alcohol abuse, in remission; F17.210 Nicotine dependence, cigarettes, uncomplicated; Z51.81 Encounter for therapeutic drug level monitoring; Z79.899 Other long term (current) drug therapy; Z91.81 History of falling; Z87.01 Personal history of pneumonia (recurrent); Z99.81 Dependence on supplemental oxygen; Z88.0 Allergy status to penicillin; Z82.5 Family history of asthma and other chronic lower respiratory diseases

== ENCOUNTER → 2017-10-17 | Outpatient (CLI) | payer BC ==
[~2017-10-17] MED LIST changes: +ALBINS/ NEB; -AMLO-110 PO; +AMLO5TAB2 PO; -CHOL2000 PO; +CHOL200010 PO; +CLOP1TAB15 PO; +FLUT1INH INH; -FLUT1INH PO; +GUAI1TAB55 PO; +LACTCHW3 PO; +LVQ500 PO; +NUTR-706 PO; +OXGN; +PRED10TA PO; -SIMV20TA2 PO; +SIMV40TA2 PO; +VNTHFA/IN INH
--- NOTE | 2017-10-17 12:10 | DIAGNOSTIC IMAGING REPORT ---
PET/CT SKULL-THIGH CLINICAL HISTORY: 82 years-old Male presenting with LUNG NODULE, remote history of melanoma, recent pneumonia. TECHNIQUE: PET/CT was performed from the skull base through the proximal thighs following the intravenous administration of 12.829 mCi of F18-FDG. Blood glucose level 92 mg/dL. The injection was performed at 10:08 AM and imaging began at 11:[address] was performed for attenuation correction purposes and anatomic localization. COMPARISON: CT chest from 09/11/2017. CT DOSE (mGy.cm): The estimated cumulative dose is 282.01. FINDINGS: Head and neck: No FDG-avid mass in the visualized portion of the head or neck. No FDG avid or enlarged lymph nodes in the neck. Chest: Normal thyroid and thoracic inlet. No FDG avid axillary, supraclavicular, hilar or mediastinal lymphadenopathy. Evaluation of the shaina on anatomic imaging limited without intravenous contrast. Atherosclerosis of the aorta. Normal heart size. Coronary artery and aortic valve calcification. No pericardial or pleural effusion. Decreased size and conspicuity of the nodule in the left upper lobe of clinical concern. This measures 5 mm on the current exam, previously 10 mm, and demonstrates minimal FDG avidity (max SUV 0.60; comparison to uninvolved lung parenchyma max SUV 0.35). No convincing FDG avidity of this region. Interval evolution of previously noted consolidation in the posterior apical left upper lobe and superior segment of the left lower lobe as well as extensively in the right lung. Consolidation demonstrates FDG avidity, not unexpected in (max SUV 5.85). Background emphysematous changes. Abdomen and pelvis: Normal physiologic distribution of radiotracer in the gastrointestinal and genitourinary tracts. No FDG avid lymphadenopathy or mass lesion. Diverticulosis of the sigmoid colon. Atherosclerosis of the normal caliber abdominal aorta. Musculoskeletal: Degenerative changes of the spine. No FDG avid or destructive osseous lesion. FDG avidity along the gluteal muscle complex bilaterally likely muscle activation. IMPRESSION: 1. Initial PET/CT demonstrates interval decreased size and minimal FDG avidity of the left upper lobe nodule of clinical concern. This is most consistent with an infectious or inflammatory etiology. 2. Decreased bilateral consolidation consistent with resolving pneumonia. FDG avidity of this consolidation is not unexpected and likely represents the healing phase/organizing pneumonia following acute infection. 3. Emphysema. 4. Diverticulosis. Electronically signed by: Donald Pettit M.D. 10/17/2017 12:09 PM Dictated Date/Time: 10/17/2017 11:53 AM
== END | disposition home or self-care (01) ==
LOC: C.PET 09:39
PROVIDERS: ATTEND Surgery
DX: R91.8 Other nonspecific abnormal finding of lung field (principal)

== ENCOUNTER 2020-04-29 17:03 | Observation (INO) ==
[2020-04-29] MEDS ORDERED: ONDANSETRON INJ 2 MG/ML 2 ML VIAL IV STA (17:10)
[2020-04-29] MEDS ORDERED: SODIUM CHLORIDE 0.9% 500 ML IV STA (17:10)
--- NOTE | 2020-04-29 17:37 | XRay Report ---
SINGLE VIEW PELVIS; 2 VIEWS LEFT HIP CLINICAL HISTORY: Fall with left hip pain. FINDINGS: An AP view of the pelvis with AP and frog-leg views of the left hip are correlated with CT of the pelvis dated 12/13/2016. The skeletal structures are osteopenic. There is a left ilial fractur es extends the acetabula. The remainder of the bony pelvis in the proximal femora appear intact. Mild to moderate degenerative joint space narrowing is seen in both hips. Sclerotic change is noted in th e sacroiliac joints. The overlying soft tissues are normal as imaged. There is advanced atherosclerot ic calcification of the femoral arteries. Numerous phleboliths are seen in the pelvis. Lumbosacral sp ondylosis is partially visualized. IMPRESSION: 1. There is a left ilial fracture which extends to the acetabulum. 2. No additional fracture is seen involving the remainder of the bony pelvis with a proximal femora. Electronically signed by: Kali Mason M.D. 04/29/2020 5:36 PM
--- NOTE | 2020-04-29 17:43 | XRay Report ---
SINGLE VIEW CHEST CLINICAL HISTORY: Atypical chest pain. Fall. FINDINGS: 2 AP, portable, semierect chest radiographs are compared to study dated 08/22/2018 and corre lated with chest CT dated 04/19/2018. The cardiomediastinal silhouette is unremarkable noting atherosc lerotic calcification of the thoracic aorta. Emphysematous change with chronic interstitial thickenin g and foci of parenchymal scarring is similar to previous. There is no airspace consolidation typical for pneumonia or large pleural effusion. Fibrotic change in the upper lobes and pleural thickening a t the lung bases is similar to previous. There is increasing nodularity in the left suprahilar region . No pneumothorax is seen. The skeletal structures are osteopenic. The bony thorax is grossly intact. Degenerative change is seen throughout the thoracic spine. IMPRESSION: 1. Emphysema and chronic parenchymal changes as above. 2. There is increasing nodularity in the left suprahilar region. Nonemergent CT scan of the chest is recommended for further assessment. ACT 112: Negative or not required by law. Electronically signed by: Kali Mason M.D. 04/29/2020 5:41 PM
[2020-04-29 17:49] LABS: Basophils # (auto) 0.02 K/uL (0-0.2); Basophils % (auto) 0.3 %; Eosinophils % (auto) 3.8 %; Hematocrit (blood only) 41.1 % (42-52); Hemoglobin 13.5 g/dL (14.0-18.0); Immature Granulocytes # (auto) 0.02 K/uL (0.00-0.02); Immature Granulocytes % (auto) 0.3 %; Lymphocytes # (auto) 1.59 K/uL (1.2-3.4); Lymphocytes % (auto) 20.2 %; Mean Corpuscular Hemoglobin 29.3 pg (25-34); Mean Corpuscular Hgb Conc 32.8 g/dL (32-36); Mean Corpuscular Volume 89.2 fL (80-100); Mean Platelet Volume 8.5 fL (7.4-10.4); Monocytes % (auto) 3.8 %; Neutrophils # (auto) 5.63 K/uL (1.4-6.5); Neutrophils % (auto) 71.6 %; Platelet Count 210 K/uL (130-400); RDW Coefficient of Variation 14.9 % (11.5-14.5); RDW Standard Deviation 48.4 fL (36.4-46.3); Red Blood Count 4.61 M/uL (4.7-6.1); White Blood Count 7.86 K/uL (4.8-10.8)
[2020-04-29] MEDS: MoRPHine SULFATE 4 MG/ML 1 ML CARP\\VIAL IV PRN ×2 (17:52→21:30)
--- NOTE | 2020-04-29 17:53 | Emergency Department Note ---
Impression & Plan Acetabulum fracture, left, Fall, Closed pelvic fracture ED Provider Note NAME: BRENDA CUELLAR AGE: 84 SEX: M : 1935 ARRIVES VIA: Ambulance INFORMANT: Patient, prehospital personnel ED PROVIDER(S): Pérez Foss DO CHIEF COMPLAINT: Fall HPI: The patient is an 84-year-old male who presented to the emergency department after a fall. The patient lives in a personal chcf. He was ambulating when he tripped landing on his left side. The patient was unable to put weight on his left lower extremity because of pain. Ultimately prehospital personnel were called and the patient arrived via ambulance. The patient states he has very severe pain on the lateral aspect of his left hip. The pain is worsened with ambulation and relieved with remaining still. The patient did not strike his head. He denies having any loss of consciousness. He denies having any neck pain or back pain. He has no chest pain. He states the pain is localized to the left hip. He does complain of some hip pain with movement as well as pelvic pain. He has no pain below the knee. ROS: See above HPI for pertinent positives & negatives. A total of 10 systems reviewed and were otherwise negative. PAST MEDICAL HISTORY: See Below PAST SURGICAL HISTORY: See Below FAMILY HISTORY: See Below SOCIAL HISTORY: See Below HOME MEDICATIONS: See Below ALLERGIES: See Below VITALS: See Below PHYSICAL EXAMINATION: GENERAL: The patient is awake and alert. He is somewhat anxious appearing and appears to be uncomfortable. EYES: The conjunctivae are clear. The pupils are round and reactive. EARS, NOSE, MOUTH AND THROAT: The nose is without any evidence of any deformity. Mucous membranes are moist. Tongue is midline. NECK: The neck is nontender and supple. RESPIRATORY: Diminished breath sounds are noted in the right lung field. Scattered rhonchi were noted throughout. CARDIOVASCULAR: Regular rate and rhythm noted there no murmurs rubs or gallops normal S1 normal S2. GASTROINTESTINAL: The abdomen is soft. Abdomen is nontender. BACK: No midline tenderness or or step-off noted range of motion in flexion extension as well as rotation no signs of muscle spasm noted MUSCULOSKELETAL/EXTREMITIES: There is no rotation or deformity noted to the lower extremities. There is pain with internal and external rotation of the left hip. Pulses are symmetric in both feet. SKIN: There is no obvious evidence of any rash. There are no petechiae, pallor or cyanosis noted. NEUROLOGIC: Patient is awake alert and oriented x3. MEDICAL DECISION MAKING: The patient is an 84-year-old male who presented to the emergency department after a fall. The patient lives in a personal chcf. He fell onto his left side. He sustained a isolated left lower extremity injury. The patient was treated with pain medication in the emergency department. He was reevaluated multiple times. While he was at rest and in the bed he was having significant relief of pain. Any ambulation significantly worsened pain. Ultimately the patient was found to have a left acetabular fracture which was very complex. There is no displacement of the acetabular fracture. I discussed the patient's laboratory and radiographic studies with him. I also discussed his case with the on-call orthopedic physician. At this time this does not appear to be a surgical fracture. The patient will require inpatient rehab. For this reason I will discuss his condition with the on-call hospitalist group. Triage Nursing notes reviewed. Prior medical records reviewed Vital Signs: reviewed and remarkable for no significant abnormalities Differential diagnosis: Fracture, subluxation, dislocation, contusion, ligamentous injury, neurovascular, compartment syndrome, rhabdomyolysis, as well as other pa thologies. ER treatment provided: See below Diagnostics interpreted by me: ECG: EKG was obtained in the emergency department. My interpretation is normal sinus rhythm at 67 bpm. There is no ectopy. There is no acute ST segment abnormalities noted. This was compared to a tracing from August 302018. No significant changes were noted. Cardiac Monitoring: An order was placed for continuous cardiac monitoring. The monitor shows a rate of 92 bpm with sinus rhythm. Laboratory studies: As stated above and show below. Imaging studies: See below Consultation(s): 1999: I discussed this case with Dr. Flores who is on-call for the orthopedic group. He reviewed the patient's radiographic studies. The patient should be kept nonweightbearing and likely will require inpatient rehab. 2019: I discussed this case with Dr. Perez who is on-call for the [facility] hospitalist group. 2124: It was determined that the patient instead belongs to the [facility] group because of his primary care physician. They were notified about the patient. Past Med/Surg History Medical History (Updated 04/29/20 @ 20:13 by Pérez Foss DO) COPD (chronic obstructive pulmonary disease) CVA (cerebral vascular accident) Hypoxia No significant family history PAD (peripheral artery disease) Pneumonia Surgical History No significant past surgical history Family History Other No significant family history Social History Smoking Status: Current some day smoker Cigarettes Per Day: 20; Preferred Language: Korean Current Living Situation: Personal Care Facility Feels Safe at Home: Yes Allergies Allergies Allergy/AdvReac Type Severity Reaction Status Date / Time Penicillins Allergy Unknown Unknown Verified 04/29/20 20:39 Home Meds Home Medications Medication Instructions Recorded Confirmed albuterol sulfate 2.5 mg INHALATION QID 08/22/18 04/29/20 amlodipine 5 mg PO QAM 08/22/18 04/29/20 cholecalciferol (vitamin D3) 2,000 unit PO QPM 08/22/18 04/29/20 [Vitamin D3] clopidogrel 75 mg PO QAM 08/22/18 04/29/20 folic acid 1 mg PO QAM 08/22/18 04/29/20 tsoidfwy-sww-LE-lycopen-lutein 1 tab PO QAM 08/22/18 04/29/20 [Centrum Silver] sertraline 150 mg PO QAM 08/22/18 04/29/20 thiamine HCl (vitamin B1) [Vitamin 100 mg PO QAM 08/22/18 04/29/20 B-1] atorvastatin 20 mg PO QAM 04/29/20 04/29/20 tiotropium bromide [Spiriva with 1 cap INHALATION QAM 04/29/20 04/29/20 HandiHaler] Results & Data (ED) Vital Signs Vital Signs - 24 hr 04/29/20 17:06 04/29/20 17:13 04/29/20 19:13 Temperature 36.6 C Temperature Source Oral Pulse Rate 62 70 71 Pulse Rate from SpO2 Sensor 62 72 Pulse Rhythm Regular Pulse Strength Normal Respiratory Rate 19 18 22 Respiratory Effort / Characteristics Non-Labored Spontaneous Respiratory Depth Normal Respiratory Pattern Regular Blood Pressure 122/65 122/65 118/51 L Blood Pressure Mean 84 84 73 Pulse Oximetry 100 96 100 Oxygen Delivery Method Nasal Cannula Room Air Nasal Cannula Oxygen Flow Rate 3 3 Sepsis Recent Fever Within 48 Hours No Sepsis New/Unexplained Change in Mental Status N/A Sepsis Action Taken by Nursing No Action Required 04/29/20 19:30 04/29/20 20:00 04/29/20 20:30 Temperature Temperature Source Pulse Rate 67 71 72 Pulse Rate from SpO2 Sensor 67 72 72 Pulse Rhythm Pulse Strength Respiratory Rate 18 21 19 Respiratory Effort / Characteristics Respiratory Depth Respiratory Pattern Blood Pressure 139/67 143/65 H 136/67 Blood Pressure Mean 91 91 90 Pulse Oximetry 100 100 100 Oxygen Delivery Method Oxygen Flow Rate Sepsis Recent Fever Within 48 Hours Sepsis New/Unexplained Change in Mental Status Sepsis Action Taken by [facility] Medications Current Medication List: was personally reviewed by me Laboratory Data Attestation: I reviewed the patient's lab results. Result diagrams: 04/29/20 17:40 04/29/20 17:40 Lab Results 04/29/20 04/29/20 04/29/20 Range/Units 17:20 17:20 17:40 WBC 7.86 (4.8-10.8) K/uL RBC 4.61 L (4.7-6.1) M/uL Hgb 13.5 L (14.0-18.0) g/dL Hct 41.1 L (42-52) % MCV 89.2 (80-100) fL MCH 29.3 (25-34) pg MCHC 32.8 (32-36) g/dL RDW Std Deviation 48.4 H (36.4-46.3) fL RDW Coeff of Kaylyn 14.9 H (11.5-14.5) % Plt Count 210 (130-400) K/uL MPV 8.5 (7.4-10.4) fL Immature Gran % (Auto) 0.3 % Neut % (Auto) 71.6 % Lymph % (Auto) 20.2 % [place] % (Auto) 3.8 % Eos % (Auto) 3.8 % Baso % (Auto) 0.3 % Neut # (Auto) 5.63 (1.4-6.5) K/uL Lymph # (Auto) 1.59 (1.2-3.4) K/uL [place] # (Auto) 0.30 (0.11-0.59) K/uL Eos # (Auto) 0.30 (0-0.5) K/uL Baso # (Auto) 0.02 (0-0.2) K/uL Immature Gran # (Auto) 0.02 (0.00-0.02) K/uL PT (9.0-12.0) Seconds INR (0.9-1.1) APTT (21.0-31.0) Seconds PTT Ratio Sodium (136-145) mmol/L Potassium (3.5-5.1) mmol/L Chloride (98-107) mmol/L Carbon Dioxide (21-32) mmol/L Anion Gap (3-11) BUN (7-18) mg/dl Creatinine (0.6-1.4) mg/dl Est Cr Clr Drug Dosing ml/min Est GFR ( Amer) Est GFR (Non-Af Amer) BUN/Creatinine Ratio (10-20) Glucose (70-99) mg/dl Calcium (8.5-10.1) mg/dl Total Bilirubin (0.2-1) mg/dl AST (15-37) U/L ALT (12-78) U/L Alkaline Phosphatase (45-117) U/L Troponin I (0-0.045) ng/ml Total Protein (6.4-8.2) gm/dl Albumin (3.4-5.0) gm/dl Globulin (2.5-4.0) gm/dl Albumin/Globulin Ratio (0.9-2) COVID-19 Eval [facility] SARS-CoV-2, RNA, NAAT NEGATIVE (NEGATIVE) 04/29/20 04/29/20 Range/Units 17:40 17:40 WBC (4.8-10.8) K/uL RBC (4.7-6.1) M/uL Hgb (14.0-18.0) g/dL Hct (42-52) % MCV (80-100) fL MCH (25-34) pg MCHC (32-36) g/dL RDW Std Deviation (36.4-46.3) fL RDW Coeff of Kaylyn (11.5-14.5) % Plt Count (130-400) K/uL MPV (7.4-10.4) fL Immature Gran % (Auto) % Neut % (Auto) % Lymph % (Auto) % [place] % (Auto) % Eos % (Auto) % Baso % (Auto) % Neut # (Auto) (1.4-6.5) K/uL Lymph # (Auto) (1.2-3.4) K/uL [place] # (Auto) (0.11-0.59) K/uL Eos # (Auto) (0-0.5) K/uL Baso # (Auto) (0-0.2) K/uL Immature Gran # (Auto) (0.00-0.02) K/uL PT 10.3 (9.0-12.0) Seconds INR 1.0 (0.9-1.1) APTT 24.1 (21.0-31.0) Seconds PTT Ratio 0.9 Sodium 142 (136-145) mmol/L Potassium 4.6 (3.5-5.1) mmol/L Chloride 108 H (98-107) mmol/L Carbon Dioxide 30 (21-32) mmol/L Anion Gap 4.0 (3-11) BUN 20 H (7-18) mg/dl Creatinine 1.02 (0.6-1.4) mg/dl Est Cr Clr Drug Dosing 50.5 ml/min Est GFR ( Amer) 77.3 Est GFR (Non-Af Amer) 66.7 BUN/Creatinine Ratio 19.7 (10-20) Glucose 92 (70-99) mg/dl Calcium 9.0 (8.5-10.1) mg/dl Total Bilirubin 0.7 (0.2-1) mg/dl AST 17 (15-37) U/L ALT 24 (12-78) U/L Alkaline Phosphatase 38 L (45-117) U/L Troponin I < 0.015 (0-0.045) ng/ml Total Protein 7.6 (6.4-8.2) gm/dl Albumin 3.6 (3.4-5.0) gm/dl Globulin 4.0 (2.5-4.0) gm/dl Albumin/Globulin Ratio 0.9 (0.9-2) COVID-19 Eval Order SARS-CoV-2, RNA, NAAT (NEGATIVE) Administered Medications Morphine Sulfate (Morphine Sulfate 4 Mg/Ml 1 Ml Carp\Vial) 4 mg IV Q30M PRN PRN Reason: Pain Stop: 05/13/20 17:14 Last Admin: 04/29/20 17:52 Dose: 4 mg Documented by: [id number] Discontinued Medications Sodium Chloride (Nss) 500 mls @ 999 mls/hr IV .Q31M STA Stop: 04/29/20 17:40 Last Infusion: 04/29/20 19:15 Dose: 0 mls/hr Documented by: [id number] Admin: 04/29/20 17:52 Dose: 999 mls/hr Documented by: [id number] Ondansetron HCl (Ondansetron Inj 2 Mg/Ml 2 Ml Vial) 4 mg IV NOW STA Stop: 04/29/20 17:11 Last Admin: 04/29/20 17:52 Dose: 4 mg Documented by: [id number] Imaging Data Radiologist's Impression: Patient: BRENDA CUELLAR Admit Date: 04/29/20 MR#: [id number] Address1: [address] Acct ID:[id number] Address2: Date: 1935 [facility] Zip: [place] [address] Age: 84 Location: ED Sex: M Room/Bed: Att Phy: Diagnosis: FALL Shi Phy: [facility] Service Date: 04/29/20 Fam Phy: Interpreting Phy: Kali Mason MD Admit Phy: Ordering Phy: Pérez Foss DO cc: ~ CT SCAN OF THE PELVIS WITHOUT IV CONTRAST; CT SCAN OF THE LEFT HIP WITHOUT IV CONTRAST CLINICAL HISTORY: Fall. Fracture. COMPARISON STUDY: Pelvic CT dated 12/13/2016. Pelvic radiographs performed the same day 04/29/2020. TECHNIQUE: CT scan of the bony pelvis is performed from the pelvic inlet to the proximal femora. Additionally, CT scan of the left hip is performed from the bony pelvis to the femoral shaft. Images for both examinations are reviewed in the axial, sagittal, and coronal planes. IV contrast was not administered for this examination. 3-D reformats are created and assessed. A dose lowering technique was utilized adhering to the principles of ALARA. CT DOSE: 316.39 mGy.cm FINDINGS: The skeletal structures are osteopenic. There is a complex left acetabular fracture. Fracture involves the superior, medial, anterior, and posterior belle of the acetabulum. Fracture lucency extends into the left iliac wing and the left superior pubic ring. No significantly displaced fragments are identified. The remainder of the bony pelvis appears intact. The proximal femora are maintained. Degenerative joint space narrowing is noted in the hips. Lumbosacral spondylosis is partially visualized. The sacroiliac joints appear maintained. There is no evidence of avascular necrosis of the femoral heads. No lytic or blastic lesion is seen. Mild hemarthrosis is noted in the left hip. There is no joint effusion on the right. There is intrapelvic extraperitoneal hemorrhage identified along the left pelvic sidewall. Intramuscular hemorrhage is noted within the left obturator internus muscle. There is also mild intramuscular hemorrhage within the left iliacus. No intraperitoneal hemorrhage is identified. The prostate gland is enlarged and heterogeneous noting median lobe hypertrophy. The bladder wall appears thickened and trabeculated suggesting chronic outlet obstruction. There are bilateral fat-containing inguinal hernias. No pelvic sidewall or inguinal adenopathy is identified. The visualized loops of small bowel and colon are normal in caliber. A normal appendix is identified. There is moderate diverticulosis of the sigmoid colon without CT evidence of acute diverticulitis. Advanced atherosclerotic calcification is noted in the distal abdominal aorta and iliac arteries. IMPRESSION: 1. Complex left acetabular fracture as detailed above. 2. No additional fracture is seen involving the bony pelvis or the proximal femora. 3. Intramuscular hemorrhage is noted within the left obturator internus and iliacus muscles. 4. There is intrapelvic extraperitoneal hemorrhage identified along the left pelvic sidewall. 5. There is mild hemarthrosis of the left hip. 6. Additional findings as above. ACT 112: Negative or not required by law. Electronically signed by: Kali Mason M.D. 04/29/2020 7:20 PM Dictated: 04/29/201825 Transcribed: 04/29/201825 Patient: BRENDA CUELLAR Admit Date: 04/29/20 MR#: [id number] Address1: [address] Acct ID:[id number] Address2: Date: 1935 [facility] Zip: [place] [address] Age: 84 Location: ED Sex: M Room/Bed: Att Phy: Diagnosis: FALL Shi Phy: [facility] Service Date: 04/29/20 [facility] Phy: Interpreting Phy: Kali Mason MD Admit Phy: Ordering Phy: Pérez Foss DO cc: ~ SINGLE VIEW PELVIS; 2 VIEWS LEFT HIP CLINICAL HISTORY: Fall with left hip pain. FINDINGS: An AP view of the pelvis with AP and frog-leg views of the left hip are correlated with CT of the pelvis dated 12/13/2016. The skeletal structures are osteopenic. There is a left ilial fractures extends the acetabula. The remainder of the bony pelvis in the proximal femora appear intact. Mild to moderate degenerative joint space narrowing is seen in both hips. Sclerotic change is noted in the sacroiliac joints. The overlying soft tissues are normal as imaged. There is advanced atherosclerotic calcification of the femoral arteries. Numerous phleboliths are seen in the pelvis. Lumbosacral spondylosis is partially visualized. IMPRESSION: 1. There is a left ilial fracture which extends to the acetabulum. 2. No additional fracture is seen involving the remainder of the bony pelvis with a proximal femora. Electronically signed by: Kali Mason M.D. 04/29/2020 5:36 PM Dictated: 04/29/201732 Transcribed: 04/29/201732 Patient: BRENDA CUELLAR Admit Date: 04/29/20 MR#: [id number] Address1: [address] [place] [address] Acct ID:[id number] Address2: Date: 1935 [facility] Zip: [place] [address] Age: 84 Location: ED Sex: M Room/Bed: Att Phy: Diagnosis: FALL Shi Phy: [facility] Service Date: 04/29/20 [facility] Phy: Interpreting Phy: Kali Mason MD Admit Phy: Ordering Phy: Pérez Foss DO cc: ~ SINGLE VIEW CHEST CLINICAL HISTORY: Atypical chest pain. Fall. FINDINGS: 2 AP, portable, semierect chest radiographs are compared to study dated 08/22/2018 and correlated with chest CT dated 04/19/2018. The cardiomediastinal silhouette is unremarkable noting atherosclerotic calcification of the thoracic aorta. Emphysematous change with chronic interstitial thickening and foci of parenchymal scarring is similar to previous. There is no airspace consolidation typical for pneumonia or large pleural effu mandeep. Fibrotic change in the upper lobes and pleural thickening at the lung bases is similar to previous. There is increasing nodularity in the left suprahilar region. No pneumothorax is seen. The skeletal structures are osteopenic. The bony thorax is grossly intact. Degenerative change is seen thro ughout the thoracic spine. IMPRESSION: 1. Emphysema and chronic parenchymal changes as above. 2. There is increasing nodularity in the left suprahilar region. Nonemergent CT scan of the chest is recommended for further assessment. ACT 112: Negative or not required by law. Electronically signed by: Kali Mason M.D. 04/29/2020 5:41 PM Dictated: 04/29/201737 Transcribed: 04/29/201737 Discharge Plan Visit Data Chief Complaint: Hip Pain Stated Complaint: FALL ED Provider: Pérez Foss Discharge Problem: Acetabulum fracture, left, Fall, Closed pelvic fracture Patient Disposition: Being Evaluated by Hospitalist Condition: Good Forms Stand Alone Forms: [employer] Prescriptions Prescriptions: No Action albuterol sulfate 2.5 mg /3 mL (0.083 %) Solution For Nebulization 2.5 mg INHALATION QID RF: 0 sertraline 100 mg Tablet 150 mg PO QAM RF: 0 thiamine HCl (vitamin B1) [Vitamin B-1] 100 mg Tablet 100 mg PO QAM RF: 0 clopidogrel 75 mg Tablet 75 mg PO QAM RF: 0 amlodipine 5 mg Tablet 5 mg PO QAM RF: 0 folic acid 1 mg Tablet 1 mg PO QAM RF: 0 Centrum Silver 0.4-300-250 mg-mcg-mcg Tablet 1 tab PO QAM RF: 0 cholecalciferol (vitamin D3) [Vitamin D3] 2,000 unit Capsule 2,000 unit PO QPM RF: 0 atorvastatin 20 mg tablet 20 mg PO QAM RF: 0 Spiriva with HandiHaler 18 mcg capsule, w/inhalation device 1 cap INHALATION QAM RF: 0 Referrals Referrals: [facility] [Primary Care Provider] - Discharge Problem: Acetabulum fracture, left Qualifiers: Encounter type: initial encounter Sublocation of acetabulum: unspecified portion of acetabulum Fracture type: closed Fracture alignment: nondisplaced Qualified Code(s): S32.402A - Unspecified fracture of left acetabulum, initial encounter for closed fracture Fall Qualifiers: Encounter type: initial encounter Qualified Code(s): W19.XXXA - Unspecified fall, initial encounter Closed pelvic fracture Qualifiers: Encounter type: initial encounter Pelvic bone location: acetabulum Sublocation of acetabulum: unspecified portion of acetabulum Fracture alignment: nondisplaced Laterality: left Qualified Code(s): S32.402A - Unspecified fracture of left acetabulum, initial encounter for closed fracture
[2020-04-29 18:07] LABS: Alanine Aminotransferase 24 U/L (12-78); Albumin Level 3.6 gm/dl (3.4-5.0); Aspartate Aminotransferase 17 U/L (15-37); BUN Creatinine Ratio 19.7 (10-20); Blood Urea Nitrogen 20 mg/dl (7-18); Carbon Dioxide 30 mmol/L (21-32); Chloride 108 mmol/L (98-107); Creatinine Clr Calc Pharmacy 50.5 ml/min; Est GFR (African American) 77.3; Est GFR (Non-African American) 66.7; Glucose 92 mg/dl (70-99); Potassium 4.6 mmol/L (3.5-5.1); Sodium 142 mmol/L (136-145)
[2020-04-29 18:11] LABS: Albumin Globulin Ratio 0.9 (0.9-2); Alkaline Phosphatase 38 U/L (45-117); Bilirubin,Total 0.7 mg/dl (0.2-1); Total Protein 7.6 gm/dl (6.4-8.2); Troponin I < 0.015 ng/ml (0-0.045)
[2020-04-29 18:18] LABS: Partial Thromboplastin Ratio 0.9; Partial Thromboplastin Time 24.1 Seconds (21.0-31.0); Prothrombin Time 10.3 Seconds (9.0-12.0)
--- NOTE | 2020-04-29 19:21 | CT Scan Report ---
CT SCAN OF THE PELVIS WITHOUT IV CONTRAST; CT SCAN OF THE LEFT HIP WITHOUT IV CONTRAST CLINICAL HISTORY: Fall. Fracture. COMPARISON STUDY: Pelvic CT dated 12/13/2016. Pelvic radiographs performed the same day 04/29/2020. TECHNIQUE: CT scan of the bony pelvis is performed from the pelvic inlet to the proximal femora. Ayush tionally, CT scan of the left hip is performed from the bony pelvis to the femoral shaft. Images for both examinations are reviewed in the axial, sagittal, and coronal planes. IV contrast was not admini stered for this examination. 3-D reformats are created and assessed. A dose lowering technique was ut ilized adhering to the principles of ALARA. CT DOSE: 316.39 mGy.cm FINDINGS: The skeletal structures are osteopenic. There is a complex left acetabular fracture. Fracture involv es the superior, medial, anterior, and posterior belle of the acetabulum. Fracture lucency extends in to the left iliac wing and the left superior pubic ring. No significantly displaced fragments are iwona ntified. The remainder of the bony pelvis appears intact. The proximal femora are maintained. Degener ative joint space narrowing is noted in the hips. Lumbosacral spondylosis is partially visualized. Th e sacroiliac joints appear maintained. There is no evidence of avascular necrosis of the femoral head s. No lytic or blastic lesion is seen. Mild hemarthrosis is noted in the left hip. There is no joint effusion on the right. There is intrapelvic extraperitoneal hemorrhage identified along the left pelvic sidewall. Intramuscu lar hemorrhage is noted within the left obturator internus muscle. There is also mild intramuscular h emorrhage within the left iliacus. No intraperitoneal hemorrhage is identified. The prostate gland is enlarged and heterogeneous noting median lobe hypertrophy. The bladder wall annel ears thickened and trabeculated suggesting chronic outlet obstruction. There are bilateral fat-contai anel inguinal hernias. No pelvic sidewall or inguinal adenopathy is identified. The visualized loops of small bowel and colon are normal in caliber. A normal appendix is identified. There is moderate di verticulosis of the sigmoid colon without CT evidence of acute diverticulitis. Advanced atherosclerot ic calcification is noted in the distal abdominal aorta and iliac arteries. IMPRESSION: 1. Complex left acetabular fracture as detailed above. 2. No additional fracture is seen involving the bony pelvis or the proximal femora. 3. Intramuscular hemorrhage is noted within the left obturator internus and iliacus muscles. 4. There is intrapelvic extraperitoneal hemorrhage identified along the left pelvic sidewall. 5. There is mild hemarthrosis of the left hip. 6. Additional findings as above. ACT 112: Negative or not required by law. Electronically signed by: Kali Mason M.D. 04/29/2020 7:20 PM
--- NOTE | 2020-04-29 22:27 | History & Physical Report ---
Date of Service April 29, 2020 Assessment & Plan (1) Fall: Antonio Nelson is an 84-year-old male with a past medical history of CVA, COPD, Depression, HTN, PAD who requires admission for left nondisplaced acetabular fracture after a mechanical fall at his personal long term. Left acetabulum fracture secondary to mechanical fall Admit to MedSurg telemetry Orthopedics consultedno surgery recommended at this time No weightbearing Tylenol, ibuprofen, oxycodone as needed Morphine for breakthrough pain Narcan as needed Will hold Plavix due to hematoma on imaging CBC to monitor hemoglobin in the morning Consult PT/OT COPD Per patient, has never had PFTs DuoNebs as needed Continue home Spiriva or hospital alternative Hypertension Continue home amlodipine 5 mg p.o. every morning History of CVA Continue home atorvastatin 20 mg p.o. every morning Will hold Plavix as above Depression Continue home sertraline 150 mg p.o. every morning Diet: Heart healthy DVT prophylaxis: SCDs Dispo: MedSurg telemetry, will likely need transfer to inpatient rehabilitation at discharge CODE STATUS: Full (2) Acetabulum fracture, left: (3) Closed pelvic fracture: (4) COPD (chronic obstructive pulmonary disease): (5) CVA (cerebral vascular accident): History of Present Illness Chief Complaint: Fall Primary Care Provider: [facility] Antonio Nelson is an 84-year-old male with a past medical history of CVA, COPD, PAD who arrived after he tripped and fell at his personal long term. He says there was a wheelchair sticking out which she did not see and he tripped on it and fell on his left side. Says he did not hit his head, had no loss of consciousness, did not have dizziness, or headache. After the fall he was having severe pain with ambulation and bearing weight; pain was significantly better at rest. He denies chest pain, headache, neck and back pain. In the ED he had a hip/pelvis x-ray showing left ileal fracture extending into the acetabulum and a hip/pelvis CT with a complex nondisplaced left acetabular fracture, as well as intramuscular hemorrhage within the left obturator internus and iliacus muscles and an intrapelvic extraperitoneal hemorrhage along the left pelvic sidewall. Chest x-ray showing emphysema and chronic parenchymal changes, increasing nodularity in the left suprahilar region, nonemergent CT scan of chest recommended. Had an EKG showing normal sinus rhythm. Negative troponin. CBC with hemoglobin of 13.5. Electrolytes within normal limits. Received 1 dose of morphine 4 mg IV and 1 L normal saline. ED provider discussed the case with the on-call orthopedic physician who stated that at this time this does not appear to be a surgical fracture. The patient will likely require inpatient rehab. Allergies Allergy/AdvReac Type Severity Reaction Status Date / Time Penicillins Allergy Unknown Unknown Verified 04/29/20 20:39 Home Medications Medication Instructions Recorded Confirmed Type albuterol sulfate 2.5 mg INHALATION QID 08/22/18 04/29/20 History amlodipine 5 mg PO QAM 08/22/18 04/29/20 History cholecalciferol (vitamin D3) 2,000 unit PO QPM 08/22/18 04/29/20 History [Vitamin D3] clopidogrel 75 mg PO QAM 08/22/18 04/29/20 History folic acid 1 mg PO QAM 08/22/18 04/29/20 History ncpctrwq-beb-QQ-lycopen-lutein 1 tab PO QAM 08/22/18 04/29/20 History [Centrum Silver] sertraline 150 mg PO QAM 08/22/18 04/29/20 History thiamine HCl (vitamin B1) [Vitamin 100 mg PO QAM 08/22/18 04/29/20 History B-1] atorvastatin 20 mg PO QAM 04/29/20 04/29/20 History tiotropium bromide [Spiriva with 1 cap INHALATION QAM 04/29/20 04/29/20 History HandiHaler] Past Med/Surg History Medical History (Updated 04/30/20 @ 15:02 by Mandie Gonzalez MD) COPD (chronic obstructive pulmonary disease) CVA (cerebral vascular accident) Hypoxia No significant family history PAD (peripheral artery disease) Pneumonia Pulmonary nodule Surgical History No significant past surgical history Family History Other No significant family history Social History Smoking Status: Current every day smoker Cigarettes Per Day: 20; Do You Dip or Chew Tobacco: No; Hx Substance Use: No Preferred Language: Croatian Communication Ability: Effective Beliefs That Will Affect Care: None marital status: / Current Living Situation: Correction Other Information That Helps Us Care for You: No Feels Safe at Home: Yes Safety Concerns: Feels Safe At This Time Assistive Devices: Oxygen - Continuous Review of Systems Review of Systems: All systems reviewed & are unremarkable except as noted in HPI & below Physical Exam Physical Exam: General: WD/WN, cooperative, no acute distress HEENT: Atraumatic, normocephalic, PERRL, EOMI, anicteric sclerae Neck: Visual inspection normal CV: Regular rate and rhythm, S1-S2 normal, no murmurs, gallops or rubs Resp: CTAB, no increased work of breathing, no wheezes, rhonchi, rales GI: Nontender, nondistended, soft, bowel sounds positive in all 4 quadrants MSK: Muscle strength 5 out of 5 at bilateral upper extremities and right lower extremity, left lower extremity unable to move secondary to pain Skin: Warm and dry, no rashes or lesions Neuro: CN II to XII grossly intact Psych: A&Ox3, euthymic affect, speech normal Results & Data Results & Data ([facility]) Vital Signs (Past 12 Hours) Vital Signs Temp Pulse Resp BP Pulse Ox 04/29/20 20:30 72 19 136/67 100 04/29/20 20:00 71 21 143/65 H 100 04/29/20 19:30 67 18 139/67 100 04/29/20 19:13 71 22 118/51 L 100 04/29/20 17:13 36.6 C 70 18 122/65 96 04/29/20 17:06 62 19 122/65 100 Supervising Physician Co-Signing Physician Notes Attending addendum: I have physically seen this patient, have supervised the medical residents activities, and agree with the H&P unless as otherwise noted. Assessment and Plan: Closed left acetabular fracture- Status post mechanical fall Admit to medical surgical with telemetry Morphine sulfate 2 mg IV every 3 hours as needed severe pain Hold clopidogrel due to hematoma noted Consult orthopedic surgery Consult PT/OT Hypertension- Continue amlodipine with hold parameters Hyperlipidemia- Continue to lovastatin Remaining orders and notations as noted Resident Activity Tracking Resident Involvement: Resident Care Provided Care Provided: Adult Hospital Medicine (1) Closed pelvic fracture Encounter type: initial encounter Fracture alignment: nondisplaced Laterality: left Pelvic bone location: acetabulum Sublocation of acetabulum: unspecified portion of acetabulum Qualified Code(s): S32.402A - Unspecified fracture of left acetabulum, initial encounter for closed fracture (2) COPD (chronic obstructive pulmonary disease) COPD type: COPD with acute lower respiratory infection Qualified Code(s): J44.0 - Chronic obstructive pulmonary disease with acute lower respiratory infection (3) Acetabulum fracture, left Encounter type: initial encounter Fracture alignment: nondisplaced Fracture type: closed Sublocation of acetabulum: unspecified portion of acetabulum Qualified Code(s): S32.402A - Unspecified fracture of left acetabulum, initial encounter for closed fracture (4) Fall Encounter type: initial encounter Qualified Code(s): W19.XXXA - Unspecified fall, initial encounter
[2020-04-29] MEDS ORDERED: ONDANSETRON INJ 2 MG/ML 2 ML VIAL IV PRN (23:52)
[2020-04-29] MEDS ORDERED: NALOXONE HCL 0.4 MG/1 ML VIAL/CARP IV PRN (23:52)
[2020-04-29] MEDS ORDERED: POLYETHYLENE (MIRALAX) 17 GM PACK PO PRN (23:52)
[2020-04-29] MEDS ORDERED: IBUPROFEN 600 MG TAB PO PRN (23:52)
[2020-04-29] MEDS ORDERED: MAGNESIUM HYDROXIDE SUSP 30 ML UDC PO PRN (23:52)
[2020-04-29] MEDS ORDERED: ALUMINUM/MAGNESIUM SUSP 30 ML UDC PO PRN (23:52)
[2020-04-30] MEDS: oxyCODONE/ACETAMINOPHEN 5mg/325mg TAB PO PRN ×2 (01:14→19:26)
[2020-04-30 06:17] LABS: Basophils # (auto) 0.02 K/uL (0-0.2); Basophils % (auto) 0.2 %; Eosinophils # (auto) 0.33 K/uL (0-0.5); Eosinophils % (auto) 3.2 %; Hematocrit (blood only) 38.6 % (42-52); Hemoglobin 12.5 g/dL (14.0-18.0); Immature Granulocytes # (auto) 0.01 K/uL (0.00-0.02); Immature Granulocytes % (auto) 0.1 %; Lymphocytes # (auto) 1.13 K/uL (1.2-3.4); Lymphocytes % (auto) 11.1 %; Mean Corpuscular Hemoglobin 29.3 pg (25-34); Mean Corpuscular Hgb Conc 32.4 g/dL (32-36); Mean Corpuscular Volume 90.6 fL (80-100); Mean Platelet Volume 8.4 fL (7.4-10.4); Monocytes # (auto) 0.36 K/uL (0.11-0.59); Monocytes % (auto) 3.5 %; Neutrophils # (auto) 8.37 K/uL (1.4-6.5); Neutrophils % (auto) 81.9 %; Platelet Count 175 K/uL (130-400); RDW Coefficient of Variation 14.9 % (11.5-14.5); RDW Standard Deviation 49.1 fL (36.4-46.3); Red Blood Count 4.26 M/uL (4.7-6.1); White Blood Count 10.22 K/uL (4.8-10.8)
[2020-04-30 07:15] LABS: BUN Creatinine Ratio 23.5 (10-20); Calcium 8.8 mg/dl (8.5-10.1); Creatinine Clr Calc Pharmacy 48.8 ml/min; Est GFR (African American) 80.2; Est GFR (Non-African American) 69.2; Potassium 4.9 mmol/L (3.5-5.1)
[2020-04-30] MEDS: FOLIC ACID 1 MG TAB PO SCH (08:52)
[2020-04-30] MEDS: SERTRALINE HCL 50 MG TABLET PO SCH (08:52)
[2020-04-30] MEDS: THIAMINE HCL 100 MG TAB PO SCH (08:52)
[2020-04-30] MEDS: CEROVITE ADV FORMULA TAB PO SCH (08:53)
[2020-04-30] MEDS: ATORVASTATIN 20 MG TAB PO SCH (08:53)
[2020-04-30] MEDS: amLODIPine BESYLATE 5 MG TAB PO SCH (08:54)
[2020-04-30] MEDS: UMECLIDINIUM BROMIDE 62.5MCG/BLISTER 7 PUFFS/INHALER INH SCH (08:54)
--- NOTE | 2020-04-30 09:05 | Orthopedic Consultation ---
Date of Consultation April 30, 2020 Assessment & Plan (1) Acetabulum fracture, left: This case has been discussed with Dr. Flores who has reviewed the patient's films. Patient will need to be nonweightbearing on the left lower extremity for up to 6 weeks. He will need to be using a walker for assistive device. If he is unable to use a walker, he may need to be bed to chair for 6 weeks. Continue current pain control. If patient is expected to have an extended stay, would suggest repeat CT scan of the hip prior to discharge to make sure fracture alignment has not changed. Supervising Physician Co-Signing Physician Notes Patient seen and examined and agree with findings noted above. Nonoperative management of acute left minimally displaced acetabular fracture. Nonweightbearing left lower extremity for at least 6 weeks with walker and assist x1. May benefit from inpatient rehabilitation. We will reassess as an outpatient in approximately 2 to 3 weeks in the office with x-rays after discharge. History of Present Illness Reason for Consultation: Left acetabular fracture Attending Physician: Mandie Gonzalez MD History of Present Illness Patient is an 84-year-old white male who resides at [facility]. Patient states that as he was ambulating, he ended up catching his foot on a wheelchair wheel and lost his balance. He fell to the ground. He began having moderate pain in his left hip region and was unable to ambulate. He denies loss of consciousness. He denies shortness of breath, chest pain, lightheadedness prior to or after the fall. He was brought to the emergency room where he was seen by the staff and x-rays were taken. It was noted that he had a left acetabular fracture and was [facility]. Prior to admission, Dr. Flores discussed the case with ER Physician Dr. Foss and reviewed the films. Patient now being admitted for pain control and ambulation training. We have been asked to see him for his acetabular fracture. Allergies Allergy/AdvReac Type Severity Reaction Status Date / Time Penicillins Allergy Unknown Unknown Verified 04/29/20 20:39 Home Medications Medication Instructions Recorded Confirmed Type albuterol sulfate 2.5 mg INHALATION QID 08/22/18 04/29/20 History amlodipine 5 mg PO QAM 08/22/18 04/29/20 History cholecalciferol (vitamin D3) 2,000 unit PO QPM 08/22/18 04/29/20 History [Vitamin D3] clopidogrel 75 mg PO QAM 08/22/18 04/29/20 History folic acid 1 mg PO QAM 08/22/18 04/29/20 History nfkvskcu-abn-UY-lycopen-lutein 1 tab PO QAM 08/22/18 04/29/20 History [Centrum Silver] sertraline 150 mg PO QAM 08/22/18 04/29/20 History thiamine HCl (vitamin B1) [Vitamin 100 mg PO QAM 08/22/18 04/29/20 History B-1] atorvastatin 20 mg PO QAM 04/29/20 04/29/20 History tiotropium bromide [Spiriva with 1 cap INHALATION QAM 04/29/20 04/29/20 History HandiHaler] Patient History Medical History COPD (chronic obstructive pulmonary disease) CVA (cerebral vascular accident) Hypoxia No significant family history PAD (peripheral artery disease) Pneumonia Surgical History No significant past surgical history Family History Other No significant family history Social History Smoking Status: Current every day smoker Cigarettes Per Day: 20; Do You Dip or Chew Tobacco: No; Hx Substance Use: No Preferred Language: Maori Communication Ability: Effective Beliefs That Will Affect Care: None marital status: / Current Living Situation: Assisted Other Information That Helps Us Care for You: No Feels Safe at Home: Yes Safety Concerns: Feels Safe At This Time Assistive Devices: Denture - Upper, Denture - Lower, Glasses, Oxygen - Continuous and Walker Review of Systems Review of Systems: All systems reviewed & are unremarkable except as noted in HPI & below Physical Exam Physical Exam: On examination, the patient is sitting up in bed eating his breakfast. He appears comfortable and states that his pain is controlled while at rest. He is in no acute distress and pleasant cooperative. On examining his left lower extremity, leg lengths appear equal. He has some mild pain on palpation of the lateral hip. Left knee is nontender as is the ankle. Gentle passive flexion and extension, internal and external /rotation, abduction because the patient mild to moderate discomfort in the left hip. Left knee range of motion is limited due to left hip pain during exam. Ankle range of motion is within normal limits. Right lower extremity is within normal limits for range of motion and is nontender when taken through passive range of motion at the hip, knee, and ankle. He denies any pain in the upper extremities. Range of motion is within normal limits and he has no pain in the shoulders, elbows, wrists with range of motion or palpation. He denies any cervical, thoracic, lumbar pain at this time. Skin demonstrates no evidence of significant bruising or ecchymosis. No evidence of subcutaneous crepitans within the pelvis. There is no gross motor or sensory loss seen at this time. Pulses are equal bilaterally of the upper and lower extremities. Results & Data ([facility]) Vital Signs (Past 12 Hours) Vital Signs Temp Pulse Pulse Resp BP BP Pulse Ox 04/30/20 07:53 36.5 C 69 16 96/55 L 98 04/30/20 07:15 68 04/30/20 03:20 36.4 C L 73 14 110/62 98 04/30/20 00:30 80 04/30/20 00:29 04/30/20 00:02 36.6 C 87 103/62 93 04/29/20 22:30 80 21 124/66 98 04/29/20 22:00 83 22 113/64 86 L 04/29/20 21:30 80 21 135/70 100 Pulse Ox 04/30/20 07:53 04/30/20 07:15 04/30/20 03:20 04/30/20 00:30 04/30/20 00:29 93 04/30/20 00:02 04/29/20 22:30 04/29/20 22:00 04/29/20 21:30 Diagnostic Findings Patient: BRENDA CUELLAR Date: 04/29/20MR#: [id number]: [address]:[id number]: Date: 1935[facility] Zip: [place], [place] [address]Lcz: [id number]: EDSex: MRoom/Bed:Att Phy:Diagnosis: [facility]ALLPri [facility] Date: 04[facility]20Fam Phy:Interpr eting Phy: Kali Mason MDAdmit Phy: Ordering Phy: Pérez Foss DO cc: ~ CT SCAN OF THE PELVIS WITHOUT IV CONTRAST; CT SCAN OF THE LEFT HIP WITHOUT IV CONTRAST CLINICAL HISTORY: Fall. Fracture. COMPARISON STUDY: Pelvic CT dated 12/13/2016. Pelvic radiographs performed the same day 04/29/2020. TECHNIQUE: CT scan of the bony pelvis is performed from the pelvic inlet to the proximal femora. Additionally, CT scan of the left hip is performed from the bony pelvis to the femoral shaft. Images for both examinations are reviewed in the axial, sagittal, and coronal planes. IV contrast was not administered for this examination. 3-D reformats are created and assessed. A dose lowering technique was utilized adhering to the principles of ALARA. CT DOSE: 316.39 mGy.cm FINDINGS: The skeletal structures are osteopenic. There is a complex left acetabular fracture. Fracture involves the superior, medial, anterior, and posterior belle of the acetabulum. Fracture lucency extends into the left iliac wing and the left superior pubic ring. No significantly displaced fragments are identified. The remainder of the bony pelvis appears intact. The proximal femora are maintained. Degenerative joint space narrowing is noted in the hips. Lumbosacral spondylosis is partially visualized. The sacroiliac joints appear maintained. There is no evidence of avascular necrosis of the femoral heads. No lytic or blastic lesion is seen. Mild hemarthrosis is noted in the left hip. There is no joint effusion on the right. There is intrapelvic extraperitoneal hemorrhage identified along the left pelvic sidewall. Intramuscular hemorrhage is noted within the left obturator internus muscle. There is also mild intramuscular hemorrhage within the left iliacus. No intraperitoneal hemorrhage is identified. The prostate gland is enlarged and heterogeneous noting median lobe hypertrophy. The bladder wall appears thickened and trabeculated suggesting chronic outlet obstruction. There are bilateral fat-containing inguinal hernias. No pelvic sidewall or inguinal adenopathy is identified. The visualized loops of small bowel and colon are normal in caliber. A normal appendix is identified. There is moderate diverticulosis of the sigmoid colon without CT evidence of acute diverticulitis. Advanced atherosclerotic calcification is noted in the distal abdominal aorta and iliac arteries. IMPRESSION: 1. Complex left acetabular fracture as detailed above. 2. No additional fracture is seen involving the bony pelvis or the proximal femora. 3. Intramuscular hemorrhage is noted within the left obturator internus and iliacus muscles. 4. There is intrapelvic extraperitoneal hemorrhage identified along the left pelvic sidewall. 5. There is mild hemarthrosis of the left hip. 6. Additional findings as above. (1) Acetabulum fracture, left Encounter type: initial encounter Fracture alignment: nondisplaced Fracture type: closed Sublocation of acetabulum: unspecified portion of acetabulum Qualified Code(s): S32.402A - Unspecified fracture of left acetabulum, initial encounter for closed fracture
[2020-04-30] MEDS: ALBUT/IPRATROP 3MG/0.5MG NEB 3 ML VIAL NEB PRN (09:32)
[2020-04-30] MEDS: MoRPHine SULFATE 2 MG/ML CARP IV PRN ×2 (11:22→23:03)
--- NOTE | 2020-04-30 14:03 | Electrocardiogram Report ---
Test Reason : Blood Pressure : / mmHG Vent. Rate : 067 BPM Atrial Rate : 067 BPM P-R Int : 186 ms QRS Dur : 084 ms QT Int : 412 ms P-R-T Axes : 080 075 088 degrees QTc Int : 435 ms Poor data quality, interpretation may be adversely affected Normal sinus rhythm Confirmed by Osiel Seymour ([id number]) on 04/30/2020 2:02:54 PM Referred By: [facility] Confirmed By:Art Seymour
--- NOTE | 2020-04-30 15:02 | Hospitalist Progress Note ---
Date of Service April 30, 2020 Assessment & Plan (1) Fall: Antonio Nelson is an 84-year-old male with a past medical history of CVA, COPD, Depression, HTN, PAD who requires admission for left nondisplaced acetabular fracture after a mechanical fall at his personal nursing home. PT/OT needs rehab placement (2) Acetabulum fracture, left: Left acetabulum fracture secondary to mechanical fall Orthopedics consultedno surgery recommended at this time No weightbearing x 6 weeks and should use walker -If patient is expected to have an extended stay, would suggest repeat CT scan of the hip prior to discharge to make sure fracture alignment has not changed. Tylenol, oxycodone as needed for pain, dc ibuprofen given intrapelvic hemorrhage Morphine for breakthrough pain Will hold Plavix due to hematoma on imaging CBC to monitor hemoglobin in the morning-stable so far Consult PT/OT appreciated rehab placement won't be till Sunday (3) Closed pelvic fracture: as above (4) COPD (chronic obstructive pulmonary disease): Per patient, has never had PFTs CXR here with chronic changes, fibrosis, also left suprahilar adenopathy DuoNebs as needed Continue home Spiriva or hospital alternative -check CT CHest in AM for nodularity (5) Acute respiratory failure with hypoxia: requiring 3-4LNC here, not on O2 at home has COPD, chronic cough, wheezing here -check CT chest routine given left suprahilar nodularity nebs prn wean off O2 as able to incentive spirometry ordered (6) Current smoker: encouraged cessation added NRT patch (7) Pulmonary nodule: as above, check CT chest especially given new hypoxia (8) Depression: Continue home sertraline 150 mg p.o. every morning (9) CVA (cerebral vascular accident): History of CVA Continue home atorvastatin 20 mg p.o. every morning Will hold Plavix as above for hematoma BP control (10) HTN (hypertension), benign: Continue home amlodipine 5 mg p.o. every morning (11) DVT prophylaxis: Diet: Heart healthy DVT prophylaxis: SCDs only given hemorrhage from pelvic fracture Dispo: [facility], [facility] Sunday after auth obtained CODE STATUS: Full Admission and Anticipated Discharge Date Admission Date: April 29, 2020 Subjective Pt has no complaints, pain in hip is controlled. Has chronic cough but is not usually on O2 at home. Had wheezing this AM and improved with nebulizer. Has no other pain or injuries from his fall. Denies CP or SOB, no nausea, is eating well, last BM yesterday, making urine. Is agreeable to rehab placement Tele with NSR rates 60-80s Review of Systems Review of Systems: All systems reviewed & are unremarkable except as noted in HPI & below Physical Exam Constitutional: WD/WN, vitals as above Eyes: + anicteric sclerae Neck: trachea midline, no thyromegaly Respiratory: normal respiratory effort Auscultation: + rhonchi (upper airway); no crackles and no wheezes Cardiovascular: RRR, no murmur, no edema Chest (Breasts): Chest: normal inspection of chest Gastrointestinal (Abdomen): normal bowel sounds, soft, nontender, no hepatosplenomegaly Musculoskeletal: Extremities: extremities normal to inspection and + limited ROM of extremities (pain with log roll LLE); no cyanosis and no clubbing Skin: no rashes, warm and dry Neurologic: moves all extremities and awake; no focal motor deficits Psychiatric: A+Ox3, euthymic affect Lymphatic: no lymphedema Results & Data Results & Data ([facility]) Vital Signs (Past 12 Hours) Vital Signs Temp Pulse Pulse Resp BP Pulse Ox 04/30/20 11:31 36.7 C 70 18 103/50 L 96 04/30/20 09:32 83 24 84 L 04/30/20 07:53 36.5 C 69 16 96/55 L 98 04/30/20 07:15 68 04/30/20 03:20 36.4 C L 73 14 110/62 98 Laboratory Results 04/30/20 04/30/20 04/30/20 Range/Units 05:57 05:57 01:20 WBC 10.22 (4.8-10.8) K/uL RBC 4.26 L (4.7-6.1) M/uL Hgb 12.5 L (14.0-18.0) g/dL Hct 38.6 L (42-52) % MCV 90.6 (80-100) fL MCH 29.3 (25-34) pg MCHC 32.4 (32-36) g/dL RDW Std Deviation 49.1 H (36.4-46.3) fL RDW Coeff of Kaylyn 14.9 H (11.5-14.5) % Plt Count 175 (130-400) K/uL MPV 8.4 (7.4-10.4) fL Immature Gran % (Auto) 0.1 % Neut % (Auto) 81.9 % Lymph % (Auto) 11.1 % [place] % (Auto) 3.5 % Eos % (Auto) 3.2 % Baso % (Auto) 0.2 % Neut # (Auto) 8.37 H (1.4-6.5) K/uL Lymph # (Auto) 1.13 L (1.2-3.4) K/uL [place] # (Auto) 0.36 (0.11-0.59) K/uL Eos # (Auto) 0.33 (0-0.5) K/uL Baso # (Auto) 0.02 (0-0.2) K/uL Immature Gran # (Auto) 0.01 (0.00-0.02) K/uL Sodium 142 (136-145) mmol/L Potassium 4.9 (3.5-5.1) mmol/L Chloride 108 H (98-107) mmol/L Carbon Dioxide 29 (21-32) mmol/L Anion Gap 5.0 (3-11) BUN 23 H (7-18) mg/dl Creatinine 0.99 (0.6-1.4) mg/dl Est Cr Clr Drug Dosing 48.8 ml/min Est GFR ( Amer) 80.2 Est GFR (Non-Af Amer) 69.2 BUN/Creatinine Ratio 23.5 H (10-20) Glucose 155 H (70-99) mg/dl Calcium 8.8 (8.5-10.1) mg/dl Nasal Screen MRSA (PCR) Negative (Negative) PG Care Time/CCT Total # of Minutes Spent Total Time Spent with Patient: Total time spent is greater than 50% in coordination of care (as documented) at patient's floor/unit and/or counseling patient: Coding Level of Care Code 61223 Subseq Hosp Care Lvl 2 Diagnoses Fall W19.XXXA Encounter type: initial encounter Acetabulum fracture, left S32.402A Encounter type: initial encounter Fracture alignment: nondisplaced Fracture type: closed Sublocation of acetabulum: unspecified portion of acetabulum Closed pelvic fracture S32.402A Encounter type: initial encounter Fracture alignment: nondisplaced Laterality: left Pelvic bone location: acetabulum Sublocation of acetabulum: unspecified portion of acetabulum COPD (chronic obstructive pulmonary disease) J44.0 COPD type: COPD with acute lower respiratory infection Acute respiratory failure with hypoxia J96.01 Current smoker F17.200 Pulmonary nodule R91.1 Depression F32.9 CVA (cerebral vascular accident) I63.9 HTN (hypertension), benign I10 DVT prophylaxis Z29.9 (1) Closed pelvic fracture Encounter type: initial encounter Fracture alignment: nondisplaced Laterality: left Pelvic bone location: acetabulum Sublocation of acetabulum: unspecified portion of acetabulum Qualified Code(s): S32.402A - Unspecified fracture of left acetabulum, initial encounter for closed fracture (2) COPD (chronic obstructive pulmonary disease) COPD type: COPD with acute lower respiratory infection Qualified Code(s): J44.0 - Chronic obstructive pulmonary disease with acute lower respiratory infection (3) Acetabulum fracture, left Encounter type: initial encounter Fracture alignment: nondisplaced Fracture type: closed Sublocation of acetabulum: unspecified portion of acetabulum Qualified Code(s): S32.402A - Unspecified fracture of left acetabulum, initial encounter for closed fracture (4) Fall Encounter type: initial encounter Qualified Code(s): W19.XXXA - Unspecified fall, initial encounter
[2020-04-30] MEDS: NICOTINE 14 MG/24 HR PATCH TD SCH (16:00)
[2020-04-30] MEDS: CHOLECALCIFEROL 1,000 UNITS 25 MCG TAB PO SCH (21:40)
--- NOTE | 2020-04-30 21:40 | Billing Data ---
Date of Service April 30, 2020 Coding Level of Care Code 68218 Initial Inpt Care Lvl 2
[2020-05-01 06:59] LABS: Basophils # (auto) 0.03 K/uL (0-0.2); Basophils % (auto) 0.3 %; Eosinophils # (auto) 0.37 K/uL (0-0.5); Eosinophils % (auto) 3.4 %; Hemoglobin 11.8 g/dL (14.0-18.0); Immature Granulocytes # (auto) 0.01 K/uL (0.00-0.02); Immature Granulocytes % (auto) 0.1 %; Lymphocytes % (auto) 11.8 %; Mean Corpuscular Hemoglobin 29.4 pg (25-34); Mean Corpuscular Hgb Conc 32.8 g/dL (32-36); Mean Corpuscular Volume 89.8 fL (80-100); Mean Platelet Volume 8.4 fL (7.4-10.4); Monocytes # (auto) 0.63 K/uL (0.11-0.59); Monocytes % (auto) 5.7 %; Neutrophils # (auto) 8.67 K/uL (1.4-6.5); Neutrophils % (auto) 78.7 %; Platelet Count 155 K/uL (130-400); RDW Coefficient of Variation 14.7 % (11.5-14.5); RDW Standard Deviation 48.3 fL (36.4-46.3); Red Blood Count 4.01 M/uL (4.7-6.1); White Blood Count 11.01 K/uL (4.8-10.8)
[2020-05-01 07:30] LABS: BUN Creatinine Ratio 26.1 (10-20); Calcium 9.1 mg/dl (8.5-10.1); Creatinine Clr Calc Pharmacy 53.6 ml/min; Est GFR (African American) 88.8; Est GFR (Non-African American) 76.6; Potassium 4.4 mmol/L (3.5-5.1)
[2020-05-01] MEDS: ALBUT/IPRATROP 3MG/0.5MG NEB 3 ML VIAL NEB PRN (08:19)
[2020-05-01] MEDS: NICOTINE 14 MG/24 HR PATCH TD SCH (09:00)
--- NOTE | 2020-05-01 09:56 | Hospitalist Progress Note ---
Date of Service May 01, 2020 Assessment & Plan (1) Fall: Antonio Nelson is an 84-year-old male with a past medical history of CVA, COPD, Depression, HTN, PAD who requires admission for left nondisplaced acetabular fracture after a mechanical fall at his personal assisted. PT/OT needs rehab placement (2) Acetabulum fracture, left: Left acetabulum fracture secondary to mechanical fall Orthopedics consultedno surgery recommended at this time No weightbearing x 6 weeks and should use walker -Ortho recommends repeat CT scan of the hip if has prolonged stay to make sure fracture alignment has not changed-hold off for now Tylenol, oxycodone as needed for pain, no NSAIDs given intrapelvic hemorrhage Morphine for breakthrough pain Will continue to hold Plavix due to hematoma on imaging but if stable on imaging today, hgb fairly stable today, can restart tomorrow CBC to monitor hemoglobin in the morning-mild decrease so far to 11.8, HD stable Consult PT/OT appreciated rehab placement won't be till Sunday (3) Closed pelvic fracture: as above (4) Aspiration into airway: aspirated scrambled eggs AM of 05/01 as witnessed by RN, POx dropped to 70s but recovered fairly quickly CXR no infiltrate reduce diet to liquids for now Speech consult (5) COPD (chronic obstructive pulmonary disease): Per patient, has never had PFTs CXR here with chronic changes, fibrosis, also left suprahilar adenopathy DuoNebs as needed Continue home Spiriva or hospital alternative -check CT CHest today for nodularity (6) Acute respiratory failure with hypoxia: requiring 3-4LNC here, not on O2 at home has COPD, chronic cough, wheezing here which is improved on nebs -check CT chest routine given left suprahilar nodularity nebs prn wean off O2 as able to incentive spirometry ordered (7) Current smoker: encouraged cessation added NRT patch (8) Pulmonary nodule: as above, check CT chest especially given new hypoxia (9) Depression: Continue home sertraline 150 mg p.o. every morning (10) CVA (cerebral vascular accident): History of CVA Continue home atorvastatin 20 mg p.o. every morning Will hold Plavix as above for hematoma BP control (11) HTN (hypertension), benign: Continue home amlodipine 5 mg p.o. every morning (12) DVT prophylaxis: Diet: Heart healthy, reduce to liquids for now until SPeech eval DVT prophylaxis: SCDs only given hemorrhage from pelvic fracture Dispo: MedSurg telemetry, will dc to [facility] hopefully Sunday after auth obtained CODE STATUS: Full Admission and Anticipated Discharge Date Admission Date: April 29, 2020 Subjective had an episode of aspiration on his scrambled eggs as witnessed by RN, POx dropped to 70s but came back up fairly quickly to 90s. Pt does not feel it was a big deal, reports "it just went down hard, but I wasn't choking." Denies SOB, no chest pain, no nausea. Left hip only minimal pain with movement but was able to stand and pivot to chair today. Has no other concerns Tele with NSR, PACs, rates in 80s Review of Systems Review of Systems: All systems reviewed & are unremarkable except as noted in HPI & below Physical Exam Constitutional: WD/WN, vitals as above Eyes: + anicteric sclerae ENMT: Ears: no hearing impairment Neck: trachea midline, no thyromegaly Respiratory: normal respiratory effort, lungs clear to auscultation Auscultation: + diminished lung sounds (throughout); no rhonchi Cardiovascular: RRR, no murmur, no edema Chest (Breasts): Chest: normal inspection of chest Gastrointestinal (Abdomen): normal bowel sounds, soft, nontender, no h epatosplenomegaly Musculoskeletal: Extremities: extremities normal to inspection; no cyanosis and no clubbing Skin: no rashes, warm and dry Neurologic: moves all extremities and awake; no focal motor deficits Psychiatric: A+Ox3, euthymic affect Lymphatic: no lymphedema Results & Data Results & Data ([facility]) Vital Signs (Past 12 Hours) Vital Signs Temp Pulse Pulse Resp BP Pulse Ox 05/01/20 08:29 78 18 93 05/01/20 07:00 36.8 C 82 79 18 121/61 92 05/01/20 03:11 36.9 C 75 18 133/55 L 90 04/30/20 23:11 36.7 C 68 19 120/48 L 92 04/30/20 22:48 70 Laboratory Results 05/01/20 05/01/20 Range/Units 06:28 06:28 WBC 11.01 H (4.8-10.8) K/uL RBC 4.01 L (4.7-6.1) M/uL Hgb 11.8 L (14.0-18.0) g/dL Hct 36.0 L (42-52) % MCV 89.8 (80-100) fL MCH 29.4 (25-34) pg MCHC 32.8 (32-36) g/dL RDW Std Deviation 48.3 H (36.4-46.3) fL RDW Coeff of Kaylyn 14.7 H (11.5-14.5) % Plt Count 155 (130-400) K/uL MPV 8.4 (7.4-10.4) fL Immature Gran % (Auto) 0.1 % Neut % (Auto) 78.7 % Lymph % (Auto) 11.8 % [place] % (Auto) 5.7 % Eos % (Auto) 3.4 % Baso % (Auto) 0.3 % Neut # (Auto) 8.67 H (1.4-6.5) K/uL Lymph # (Auto) 1.30 (1.2-3.4) K/uL [place] # (Auto) 0.63 H (0.11-0.59) K/uL Eos # (Auto) 0.37 (0-0.5) K/uL Baso # (Auto) 0.03 (0-0.2) K/uL Immature Gran # (Auto) 0.01 (0.00-0.02) K/uL Sodium 138 (136-145) mmol/L Potassium 4.4 (3.5-5.1) mmol/L Chloride 104 (98-107) mmol/L Carbon Dioxide 27 (21-32) mmol/L Anion Gap 7.0 (3-11) BUN 24 H (7-18) mg/dl Creatinine 0.91 (0.6-1.4) mg/dl Est Cr Clr Drug Dosing 53.6 ml/min Est GFR ( Amer) 88.8 Est GFR (Non-Af Amer) 76.6 BUN/Creatinine Ratio 26.1 H (10-20) Glucose 99 (70-99) mg/dl Calcium 9.1 (8.5-10.1) mg/dl Diagnostic Findings CXR reviewed and with hyperinflation, emphysematous changes, no infiltrate, no atelectasis PG Care Time/CCT Total # of Minutes Spent Total Time Spent with Patient: Total time spent is greater than 50% in coordination of care (as documented) at patient's floor/unit and/or counseling patient: Coding Level of Care Code 53803 Subseq Hosp Care Lvl 3 Diagnoses Fall W19.XXXA Encounter type: initial encounter Acetabulum fracture, left S32.402A Encounter type: initial encounter Fracture alignment: nondisplaced Fracture type: closed Sublocation of acetabulum: unspecified portion of acetabulum Closed pelvic fracture S32.402A Encounter type: initial encounter Fracture alignment: nondisplaced Laterality: left Pelvic bone location: acetabulum Sublocation of acetabulum: unspecified portion of acetabulum Aspiration into airway T17.908A COPD (chronic obstructive pulmonary disease) J44.0 COPD type: COPD with acute lower respiratory infection Acute respiratory failure with hypoxia J96.01 Current smoker F17.200 Pulmonary nodule R91.1 Depression F32.9 CVA (cerebral vascular accident) I63.9 HTN (hypertension), benign I10 DVT prophylaxis Z29.9 (1) Fall Encounter type: initial encounter Qualified Code(s): W19.XXXA - Unspecified fall, initial encounter (2) Acetabulum fracture, left Encounter type: initial encounter Fracture alignment: nondisplaced Fracture type: closed Sublocation of acetabulum: unspecified portion of acetabulum Qualified Code(s): S32.402A - Unspecified fracture of left acetabulum, initial encounter for closed fracture (3) Closed pelvic fracture Encounter type: initial encounter Fracture alignment: nondisplaced Laterality: left Pelvic bone location: acetabulum Sublocation of acetabulum: unspecified portion of acetabulum Qualified Code(s): S32.402A - Unspecified fracture of left acetabulum, initial encounter for closed fracture (4) COPD (chronic obstructive pulmonary disease) COPD type: COPD with acute lower respiratory infection Qualified Code(s): J44.0 - Chronic obstructive pulmonary disease with acute lower respiratory infection
--- NOTE | 2020-05-01 10:05 | XRay Report ---
SINGLE VIEW CHEST CLINICAL HISTORY: Hypoxia. Aspiration. FINDINGS: 2 AP, portable, upright chest radiographs are compared to study dated 04/29/2020 and correla shane with chest CT dated 04/19/2018. The cardiomediastinal silhouette is unremarkable noting atheroscle rotic calcification of the thoracic aorta. Emphysematous change with chronic interstitial thickening and foci of parenchymal scarring is similar to previous. There is no airspace consolidation typical f or pneumonia or large pleural effusion. Fibrotic change in the upper lobes and pleural thickening at the lung bases is similar to previous. Again seen is nodularity in the left suprahilar region. No pne umothorax is seen. The skeletal structures are osteopenic. The bony thorax is grossly intact. Degener ative change is seen throughout the thoracic spine. IMPRESSION: Emphysema and chronic parenchymal changes as above with no acute cardiopulmonary abnorma lity. There has been no significant change from yesterday. ACT 112: Negative or not required by law. Electronically signed by: Kali Mason M.D. 05/01/2020 10:03 AM
[2020-05-01] MEDS ORDERED: OPTIRAY 320 100ml IV ONE (10:52)
--- NOTE | 2020-05-01 11:06 | CT Scan Report ---
CT SCAN OF THE CHEST WITH IV CONTRAST CLINICAL HISTORY: Abnormal chest x-ray. Smoking history. Hypoxia. COMPARISON STUDY: Chest x-ray dated 05/01/2020. Chest CT dated 09/11/2017 and 04/19/2018. TECHNIQUE: Following the IV administration of 94 cc of Optiray 320, CT scan of the thorax was perform ed from the thoracic inlet to the upper abdomen. Images are reviewed in the axial, sagittal, and kaylie nal planes. IV contrast was administered without complication. A dose lowering technique was utilize d adhering to the principles of ALARA. CT DOSE: 211.93 mGy.cm FINDINGS: Thyroid: Imaged portions of the thyroid gland are normal in size and attenuation. Thoracic aorta: There is atherosclerotic calcification of the thoracic aorta, which is normal in juan r bandar and demonstrates standard 3-vessel arch anatomy. No dissection is seen. Pulmonary vasculature: The pulmonary trunk is normal in caliber. There are no filling defects identif ied in the central pulmonary vessels to indicate pulmonary embolus. Note that this examination was no t protocoled for evaluation of the pulmonary arteries. Heart: The heart is normal in size and without pericardial effusion. The coronary arteries are densel y calcified. Lungs and pleural spaces: There is advanced emphysematous change. There are layering secretions/debri s seen in the trachea. Mild diffuse peribronchial thickening is noted. Fibrotic change in the upper l obes is similar in appearance to prior examinations. An 11 mm irregular density in the left upper lob e seen on image #90 is new from 04/19/2018. The residual scarlike density in the left upper lobe on im age #122 is unchanged from previous. There are mild dependent bibasilar opacities. This has increased from 2019. Irregular patchy nodules in the right middle lobe on image #192, #209, and #215 measure u p to 5 mm. No pleural effusion is identified. Mediastinum: There are numerous mildly enlarged mediastinal lymph nodes. A precarinal node on image # 108 and measures 12 mm in short axis. These are similar to prior studies. Aga: Clear. Axillae: There is no axillary lymphadenopathy. Upper abdomen: There is a small hiatal hernia. Partially visualized upper abdominal viscera is otherw ise grossly unremarkable. Skeletal structures: The skeletal structures are osteopenic. No lytic or blastic bony lesions are see n. IMPRESSION: 1. Advanced emphysema and chronic fibrotic change in the upper lobes is similar to previous. 2. There is an irregular 11 mm left upper lobe nodular density which is new from 04/19/2018. Additiona l smaller irregular nodules in the right middle lobe measuring up to 5 mm are also new from previous. These are pathologically indeterminant and may be on an inflammatory basis. A 3 month follow-up ches t CT is recommended for reassessment. 3. Dependent patchy airspace opacities are present at both lung bases. This could represent scarring/ atelectasis versus a mild infectious/inflammatory pneumonitis. Clinical correlation will be required. 4. Mild diffuse peribronchial thickening suggests bronchitis/reactive airway disease. 5. Mildly enlarged mediastinal lymph nodes are unchanged from prior studies and are likely related to chronic lung disease. This can also be reassessed at follow-up. 6. Additional findings as above. ACT 112: Positive. There are findings on this exam that require communication between the performing entity and the patient following Patient Test Result Information Act ([place] Act 112) guidelines. Electronically signed by: Kali Mason M.D. 05/01/2020 11:04 AM
[2020-05-01] MEDS: THIAMINE HCL 100 MG TAB PO SCH (11:31)
[2020-05-01] MEDS: UMECLIDINIUM BROMIDE 62.5MCG/BLISTER 7 PUFFS/INHALER INH SCH (11:32)
[2020-05-01] MEDS: FOLIC ACID 1 MG TAB PO SCH (11:32)
[2020-05-01] MEDS: CEROVITE ADV FORMULA TAB PO SCH (11:33)
[2020-05-01] MEDS: SERTRALINE HCL 50 MG TABLET PO SCH (11:33)
[2020-05-01] MEDS: ATORVASTATIN 20 MG TAB PO SCH (11:34)
[2020-05-01] MEDS: ACETAMINOPHEN 325 MG TAB PO PRN (15:41)
[2020-05-01] MEDS: CHOLECALCIFEROL 1,000 UNITS 25 MCG TAB PO SCH (21:17)
[2020-05-02 06:31] LABS: Basophils # (auto) 0.02 K/uL (0-0.2); Basophils % (auto) 0.2 %; Eosinophils # (auto) 0.16 K/uL (0-0.5); Eosinophils % (auto) 1.6 %; Hematocrit (blood only) 36.3 % (42-52); Hemoglobin 12.1 g/dL (14.0-18.0); Immature Granulocytes # (auto) 0.01 K/uL (0.00-0.02); Immature Granulocytes % (auto) 0.1 %; Lymphocytes # (auto) 1.01 K/uL (1.2-3.4); Mean Corpuscular Hemoglobin 29.6 pg (25-34); Mean Corpuscular Hgb Conc 33.3 g/dL (32-36); Mean Corpuscular Volume 88.8 fL (80-100); Mean Platelet Volume 8.8 fL (7.4-10.4); Monocytes # (auto) 0.74 K/uL (0.11-0.59); Monocytes % (auto) 7.3 %; Neutrophils # (auto) 8.16 K/uL (1.4-6.5); Neutrophils % (auto) 80.8 %; Platelet Count 176 K/uL (130-400); RDW Coefficient of Variation 14.5 % (11.5-14.5); RDW Standard Deviation 47.5 fL (36.4-46.3); Red Blood Count 4.09 M/uL (4.7-6.1)
[2020-05-02 07:05] LABS: BUN Creatinine Ratio 28.6 (10-20); Calcium 9.6 mg/dl (8.5-10.1); Creatinine Clr Calc Pharmacy 64.2 ml/min; Est GFR (African American) 96.4; Est GFR (Non-African American) 83.2
[2020-05-02] MEDS: SERTRALINE HCL 50 MG TABLET PO SCH (08:30)
[2020-05-02] MEDS: ATORVASTATIN 20 MG TAB PO SCH (08:34)
[2020-05-02] MEDS: THIAMINE HCL 100 MG TAB PO SCH (08:34)
[2020-05-02] MEDS: FOLIC ACID 1 MG TAB PO SCH (08:34)
[2020-05-02] MEDS: NICOTINE 14 MG/24 HR PATCH TD SCH (08:34)
[2020-05-02] MEDS: CEROVITE ADV FORMULA TAB PO SCH (08:34)
[2020-05-02] MEDS: UMECLIDINIUM BROMIDE 62.5MCG/BLISTER 7 PUFFS/INHALER INH SCH (08:40)
--- NOTE | 2020-05-02 11:43 | Hospitalist Progress Note ---
Date of Service May 02, 2020 Assessment & Plan (1) Fall: Antonio Nelson is an 84-year-old male with a past medical history of CVA, COPD, Depression, HTN, PAD who requires admission for left nondisplaced acetabular fracture after a mechanical fall at his personal alf. PT/OT needs rehab placement (2) Acetabulum fracture, left: Left acetabulum fracture secondary to mechanical fall-with multiple fractures to the acetabulum and the pelvis as below -Patient is doing fairly well, only requiring Tylenol occasionally for pain Orthopedics consultedno surgery recommended at this time No weightbearing x 6 weeks and should use walker with assistance, needs rehab -Ortho recommends repeat CT scan of the hip if has prolonged stay to make sure fracture alignment has not changed-hold off for now Tylenol as needed for pain, no NSAIDs given intrapelvic hemorrhage Home Plavix was on hold due to hematoma on imaging but since hgb fairly stable today, can restart CBC to monitor hemoglobin in the morning-mild decrease but stable from previous, hemodynamically stable Consult PT/OT appreciated rehab placement won't be till Sunday at the earliest (3) Closed pelvic fracture: as above (4) Aspiration into airway: aspirated scrambled eggs AM of 05/01 as witnessed by RN, POx dropped to 70s but recovered fairly quickly CXR no infiltrate Speech consult appreciated-doing well at this point No fevers Chest CT here shows possible inflammatory nodules-question if these are acute or chronic? No antibiotics unless has fevers or leukocytosis or worsening shortness of breath (5) COPD (chronic obstructive pulmonary disease): Per patient, has never had PFTs CXR here with chronic changes, fibrosis, also left suprahilar adenopathy DuoNebs as needed Continue home Spiriva or hospital alternative -checked CT CHest for nodularity noted on chest x-ray-shows: IMPRESSION: 1. Advanced emphysema and chronic fibrotic change in the upper lobes is similar to previous. 2. There is an irregular 11 mm left upper lobe nodular density which is new from 04/19/2018. Additional smaller irregular nodules in the right middle lobe measuring up to 5 mm are also new from previous. These are pathologically indeterminant and may be on an inflammatory basis. A 3 month follow-up chest CT is recommended for reassessment. 3. Dependent patchy airspace opacities are present at both lung bases. This could represent scarring/atelectasis versus a mild infectious/inflammatory pneumonitis. Clinical correlation will be required. 4. Mild diffuse peribronchial thickening suggests bronchitis/reactive airway disease. 5. Mildly enlarged mediastinal lymph nodes are unchanged from prior studies and are likely related to chronic lung disease. This can also be reassessed at follow-up. This 11 mm left upper lobe nodular density was also noted on a CT scan in 2018 and not sure if this is old or new? However the small irregular nodules in right middle lobe are new. This chest CT was performed right after he aspirated exam morning-question if this is from that? Again, no antibiotics needed unless has evidence of infection -Plan to repeat chest CT in 3 months given extensive smoking history (6) Delirium: Having some intermittent hallucinations and confusion, likely hospital delirium Has a history of declining cognitive ability in the last year as per daughter Continue reorientation and redirection, supportive care (7) Current smoker: encouraged cessation added NRT patch (8) Pulmonary nodule: as above, repeat CT chest in 3 months (9) Depression: Continue home sertraline 150 mg p.o. every morning (10) CVA (cerebral vascular accident): History of CVA Continue home atorvastatin 20 mg p.o. every morning Okay to restart Plavix today as above BP control (11) HTN (hypertension), benign: Continue home amlodipine 5 mg p.o. every morning (12) Chronic respiratory failure with hypoxia: requiring 3-4LNC here, is on O2 at home, unknown dose has COPD, chronic cough, wheezing here which is improved on nebs nebs prn incentive spirometry ordered (13) DVT prophylaxis: SCDs only given hemorrhage from pelvic fracture, but can now start SQ heparin given immobility and stabilization of hemoglobin Dispo: Stable for downgrade to [facility], will dc to [facility] hopefully Sunday after auth obtained and bed available CODE STATUS: Full Discussed his care with his daughter, Karma, on the phone today. Admission and Anticipated Discharge Date Admission Date: April 29, 2020 Subjective Patient is a little bit confused today more than yesterday and does think that there is a woman in the room next to him talking to him. He was redirectable. Otherwise, he reports some pain in the hip that is relieved with Tylenol. He denies shortness of breath or abdominal pains. Telemetry with normal sinus rhythm with rates in the 70s to 100s. Review of Systems Review of Systems: All systems reviewed & are unremarkable except as noted in HPI & below Physical Exam Constitutional: WD/WN, vitals as above Eyes: + anicteric sclerae ENMT: Ears: no hearing impairment Neck: trachea midline, no thyromegaly Respiratory: normal respiratory effort Auscultation: + diminished lung sounds (throughout); no rhonchi Cardiovascular: RRR, no murmur, no edema Chest (Breasts): Chest: normal inspection of chest Gastrointestinal (Abdomen): normal bowel sounds, soft, nontender, no hepatosplenomegaly Musculoskeletal: Extremities: extremities normal to inspection (No tenderness palpation over left hip); no cyanosis and no clubbing Skin: no rashes, warm and dry Neurologic: moves all extremities and awake; no focal motor deficits Psychiatric: Orientation: alert, oriented to person, oriented to place (Initially said "airport" but then said no it is the hospital) and cooperative Lymphatic: no lymphedema Results & Data Results & Data ([facility]) Vital Signs (Past 12 Hours) Vital Signs Temp Pulse Pulse Resp BP Pulse Ox 05/02/20 11:21 37.0 C 77 20 130/61 95 05/02/20 07:47 37.0 C 05/02/20 07:22 95 H 18 131/61 95 05/02/20 07:00 100 H 05/02/20 04:53 36.8 C 97 H 20 142/58 H 90 05/02/20 01:05 71 Laboratory Results 05/02/20 05/02/20 Range/Units 06:06 06:06 WBC 10.10 (4.8-10.8) K/uL RBC 4.09 L (4.7-6.1) M/uL Hgb 12.1 L (14.0-18.0) g/dL Hct 36.3 L (42-52) % MCV 88.8 (80-100) fL MCH 29.6 (25-34) pg MCHC 33.3 (32-36) g/dL RDW Std Deviation 47.5 H (36.4-46.3) fL RDW Coeff of Kaylyn 14.5 (11.5-14.5) % Plt Count 176 (130-400) K/uL MPV 8.8 (7.4-10.4) fL Immature Gran % (Auto) 0.1 % Neut % (Auto) 80.8 % Lymph % (Auto) 10.0 % [place] % (Auto) 7.3 % Eos % (Auto) 1.6 % Baso % (Auto) 0.2 % Neut # (Auto) 8.16 H (1.4-6.5) K/uL Lymph # (Auto) 1.01 L (1.2-3.4) K/uL [place] # (Auto) 0.74 H (0.11-0.59) K/uL Eos # (Auto) 0.16 (0-0.5) K/uL Baso # (Auto) 0.02 (0-0.2) K/uL Immature Gran # (Auto) 0.01 (0.00-0.02) K/uL Sodium 136 (136-145) mmol/L Potassium 4.0 (3.5-5.1) mmol/L Chloride 101 (98-107) mmol/L Carbon Dioxide 28 (21-32) mmol/L Anion Gap 7.0 (3-11) BUN 22 H (7-18) mg/dl Creatinine 0.76 (0.6-1.4) mg/dl Est Cr Clr Drug Dosing 64.2 ml/min Est GFR ( Amer) 96.4 Est GFR (Non-Af Amer) 83.2 BUN/Creatinine Ratio 28.6 H (10-20) Glucose 109 H (70-99) mg/dl Calcium 9.6 (8.5-10.1) mg/dl PG Care Time/CCT Total # of Minutes Spent Total Time Spent with Patient: Total time spent is greater than 50% in coordination of care (as documented) at patient's floor/unit and/or counseling patient: Coding Level of Care Code 89326 Subseq Hosp Care Lvl 2 Diagnoses Fall W19.XXXA Encounter type: initial encounter Acetabulum fracture, left S32.402A Encounter type: initial encounter Fracture alignment: nondisplaced Fracture type: closed Sublocation of acetabulum: unspecified portion of acetabulum Closed pelvic fracture S32.402A Encounter type: initial encounter Fracture alignment: nondisplaced Laterality: left Pelvic bone location: acetabulum Sublocation of acetabulum: unspecified portion of acetabulum Aspiration into airway T17.908A COPD (chronic obstructive pulmonary disease) J44.0 COPD type: COPD with acute lower respiratory infection Delirium R41.0 Current smoker F17.200 Pulmonary nodule R91.1 Depression F32.9 CVA (cerebral vascular accident) I63.9 HTN (hypertension), benign I10 Chronic respiratory failure with hypoxia J96.11 DVT prophylaxis Z29.9 (1) Fall Encounter type: initial encounter Qualified Code(s): W19.XXXA - Unspecified fall, initial encounter (2) Acetabulum fracture, left Encounter type: initial encounter Fracture alignment: nondisplaced Fracture type: closed Sublocation of acetabulum: unspecified portion of acetabulum Qualified Code(s): S32.402A - Unspecified fracture of left acetabulum, initial encounter for closed fracture (3) Closed pelvic fracture Encounter type: initial encounter Fracture alignment: nondisplaced Laterality: left Pelvic bone location: acetabulum Sublocation of acetabulum: unspecified portion of acetabulum Qualified Code(s): S32.402A - Unspecified fracture of left acetabulum, initial encounter for closed fracture (4) COPD (chronic obstructive pulmonary disease) COPD type: COPD with acute lower respiratory infection Qualified Code(s): J44.0 - Chronic obstructive pulmonary disease with acute lower respiratory infection
[2020-05-02] MEDS: CLOPIDOGREL BISULFATE 75 MG TAB PO SCH (12:23)
[2020-05-02] MEDS: ALBUTEROL 0.083% NEBU SOLN 3 ML VIAL INH SCH ×3 (13:35→19:15)
[2020-05-02] MEDS: HEPARIN SOD 5,000 UNIT/0.5 ML VIAL SQ SCH (21:11)
[2020-05-02] MEDS: CHOLECALCIFEROL 1,000 UNITS 25 MCG TAB PO SCH (21:11)
[2020-05-03 07:18] LABS: Basophils # (auto) 0.01 K/uL (0-0.2); Basophils % (auto) 0.1 %; Eosinophils # (auto) 0.04 K/uL (0-0.5); Eosinophils % (auto) 0.5 %; Hematocrit (blood only) 32.7 % (42-52); Immature Granulocytes # (auto) 0.02 K/uL (0.00-0.02); Immature Granulocytes % (auto) 0.2 %; Lymphocytes # (auto) 0.82 K/uL (1.2-3.4); Lymphocytes % (auto) 9.5 %; Mean Corpuscular Hemoglobin 29.7 pg (25-34); Mean Corpuscular Hgb Conc 33.6 g/dL (32-36); Mean Corpuscular Volume 88.4 fL (80-100); Mean Platelet Volume 8.9 fL (7.4-10.4); Monocytes # (auto) 0.72 K/uL (0.11-0.59); Monocytes % (auto) 8.4 %; Neutrophils # (auto) 7.01 K/uL (1.4-6.5); Neutrophils % (auto) 81.3 %; Platelet Count 164 K/uL (130-400); RDW Coefficient of Variation 14.5 % (11.5-14.5); RDW Standard Deviation 46.6 fL (36.4-46.3); White Blood Count 8.62 K/uL (4.8-10.8)
[2020-05-03] MEDS: ALBUTEROL 0.083% NEBU SOLN 3 ML VIAL INH SCH ×4 (07:31→19:21)
[2020-05-03 07:43] LABS: BUN Creatinine Ratio 26.1 (10-20); Calcium 8.6 mg/dl (8.5-10.1); Creatinine Clr Calc Pharmacy 68.8 ml/min; Est GFR (African American) 99.2; Est GFR (Non-African American) 85.6
[2020-05-03] MEDS: ATORVASTATIN 20 MG TAB PO SCH (08:28)
[2020-05-03] MEDS: CEROVITE ADV FORMULA TAB PO SCH (08:28)
[2020-05-03] MEDS: FOLIC ACID 1 MG TAB PO SCH (08:28)
[2020-05-03] MEDS: NICOTINE 14 MG/24 HR PATCH TD SCH (08:28)
[2020-05-03] MEDS: THIAMINE HCL 100 MG TAB PO SCH (08:28)
[2020-05-03] MEDS: HEPARIN SOD 5,000 UNIT/0.5 ML VIAL SQ SCH ×2 (08:28→21:08)
[2020-05-03] MEDS: CLOPIDOGREL BISULFATE 75 MG TAB PO SCH (08:28)
[2020-05-03] MEDS: amLODIPine BESYLATE 5 MG TAB PO SCH (08:28)
[2020-05-03] MEDS: SERTRALINE HCL 50 MG TABLET PO SCH (08:28)
[2020-05-03] MEDS: UMECLIDINIUM BROMIDE 62.5MCG/BLISTER 7 PUFFS/INHALER INH SCH (08:29)
--- NOTE | 2020-05-03 10:02 | Hospitalist Progress Note ---
Date of Service May 03, 2020 Assessment & Plan (1) Fall: THIS NOTE IS NOT FINALIZED AND IS PENDING Antonio Nelson is an 84-year-old male with a past medical history of CVA, COPD, Depression, HTN, PAD who requires admission for left nondisplaced acetabular fracture after a [facility] fall [facility]. Left acetabulum fracture secondary to mechanical [facility] Orthopedics consultedno surgery recommended at this time No weightbearing Tylenol, ibuprofen, oxycodone as needed Morphine for breakthrough pain Narcan as needed Will hold Plavix due to hematoma on imaging CBC to monitor hemoglobin in the morning Consult PT/OT COPD Per patient, has never had PFTs DuoNebs as needed Continue home Spiriva or hospital alternative Hypertension Continue home amlodipine 5 mg p.o. every morning History of CVA Continue home atorvastatin 20 mg p.o. every morning Will hold Plavix as above Depression Continue home sertraline 150 mg p.o. every morning Diet: Heart healthy DVT prophylaxis: SCDs Dispo: [facility] telemetry, will likely need transfer to inpatient rehabilitation at discharge CODE STATUS: Full (2) Acetabulum fracture, left: (3) Closed pelvic fracture: (4) COPD (chronic obstructive pulmonary disease): (5) CVA (cerebral vascular accident): Admission and Anticipated Discharge Date Admission Date: April 29, 2020 Results & Data Results & Data ([facility]) Vital Signs (Past 12 Hours) Vital Signs Temp Pulse Resp BP Pulse Ox Pulse Ox 05/03/20 07:21 37.0 C 74 18 112/53 L 97 05/03/20 00:00 96 05/02/20 23:23 37.5 C 82 20 136/53 L 93 (1) Fall Encounter type: initial encounter Qualified Code(s): W19.XXXA - Unspecified fall, initial encounter (2) Acetabulum fracture, left Encounter type: initial encounter Fracture alignment: nondisplaced Fracture type: closed Sublocation of acetabulum: unspecified portion of acetabulum Qualified Code(s): S32.402A - Unspecified fracture of left acetabulum, initial encounter for closed fracture (3) Closed pelvic fracture Encounter type: initial encounter Fracture alignment: nondisplaced Laterality: left Pelvic bone location: acetabulum Sublocation of acetabulum: unspecified portion of acetabulum Qualified Code(s): S32.402A - Unspecified fracture of left acetabulum, initial encounter for closed fracture (4) COPD (chronic obstructive pulmonary disease) COPD type: COPD with acute lower respiratory infection Qualified Code(s): J44.0 - Chronic obstructive pulmonary disease with acute lower respiratory infection
--- NOTE | 2020-05-03 17:20 | Hospitalist Progress Note ---
Date of Service May 03, 2020 Assessment & Plan (1) Fall: Antonio Nelson is an 84-year-old male with a past medical history of CVA, COPD, Depression, HTN, PAD who requires admission for left nondisplaced acetabular fracture after a mechanical fall at his personal long-term. PT/OT needs rehab placement - anticipate [facility]/snf w rehab emphasis once approved/etc (2) Acetabulum fracture, left: Left acetabulum fracture secondary to mechanical fall-with multiple fractures to the acetabulum and the pelvis as below -Patient is doing fairly well, only requiring Tylenol occasionally for pain Orthopedics consultedno surgery recommended at this time No weightbearing x 6 weeks and should use walker with assistance, needs rehab -Ortho recommends repeat CT scan of the hip if has prolonged stay to make sure fracture alignment has not changed-hold off for now Tylenol as needed for pain, no NSAIDs given intrapelvic hemorrhage Home Plavix was on hold due to hematoma on imaging but since hgb fairly stable today, can restart at discharge for snf/rehab once able --->presumably osteoporotic fracture - outpt w/u and Rx (3) Closed pelvic fracture: as above, presumed osteoporotic, outpt w/u and Rx (4) Aspiration into airway: no respiratory distress at this time follow clinically (5) COPD (chronic obstructive pulmonary disease): Per patient, has never had PFTs CXR here with chronic changes, fibrosis, also left suprahilar adenopathy DuoNebs as needed Continue home Spiriva or hospital alternative -checked CT [facility] for nodularity noted on chest x-ray-shows: IMPRESSION: 1. Advanced emphysema and chronic fibrotic change in the upper lobes is similar to previous. 2. There is an irregular 11 mm left upper lobe nodular density which is new from 04/19/2018. Additional smaller irregular nodules in the right middle lobe measuring up to 5 mm are also new from previous. These are pathologically indeterminant and may be on an inflammatory basis. A 3 month follow-up chest CT is recommended for reassessment. 3. Dependent patchy airspace opacities are present at both lung bases. This could represent scarring/atelectasis versus a mild infectious/inflammatory pneumonitis. Clinical correlation will be required. 4. Mild diffuse peribronchial thickening suggests bronchitis/reactive airway disease. 5. Mildly enlarged mediastinal lymph nodes are unchanged from prior studies and are likely related to chronic lung disease. This can also be reassessed at follow-up. This 11 mm left upper lobe nodular density was also noted on a CT scan in 2018 and not sure if this is old or new? However the small irregular nodules in right middle lobe are new. This chest CT was performed right after he aspirated exam morning-question if this is from that? Again, no antibiotics needed unless has evidence of infection -Plan to repeat chest CT in 3 months given extensive smoking history (6) Delirium: Having some intermittent hallucinations and confusion, likely hospital delirium Has a history of declining cognitive ability in the last year as per daughter Continue reorientation and redirection, supportive care reasonable today (7) Current smoker: encouraged cessation continue nicotine patch (8) Pulmonary nodule: as above, repeat CT chest in 3 months (9) Depression: Continue home sertraline 150 mg p.o. every morning (10) CVA (cerebral vascular accident): History of CVA Continue home atorvastatin 20 mg p.o. every morning Okay to restart Plavix today as above BP control (11) HTN (hypertension), benign: Continue home amlodipine 5 mg p.o. every morning (12) Chronic respiratory failure with hypoxia: requiring 3-4LNC here, is on O2 at home, unknown dose has COPD, chronic cough, wheezing here which is improved on nebs nebs prn incentive spirometry ordered (13) DVT prophylaxis: SCDs heparin SQ Dispo: Stable on med surg, for snf once able CODE STATUS: Full for snf once able Admission and Anticipated Discharge Date Admission Date: April 29, 2020 Subjective feeling ok eating well pain control pretty good awaiting placement Review of Systems Review of Systems: All systems reviewed & are unremarkable except as noted in HPI & below Physical Exam Physical Exam: gen aao pleasant nad heent nc at mmm breathing unlabored no accessory muscles good effort skin no rashes no pallor or icterus Results & Data Results & Data ([facility] [place]) Vital Signs (Past 12 Hours) Vital Signs Temp Pulse Pulse Resp BP Pulse Ox 05/03/20 15:30 80 14 95 05/03/20 14:42 97.9 F 75 16 129/60 94 05/03/20 11:23 76 20 96 05/03/20 11:03 98.1 F 71 20 129/62 90 05/03/20 07:21 98.6 F 74 18 112/53 L 97 PG Care Time/CCT Total # of Minutes Spent Total Time Spent with Patient: Total time spent is greater than 50% in coordination of care (as documented) at patient's floor/unit and/or counseling patient: Coding Level of Care Code 90183 Subseq Hosp Care Lvl 2 Diagnoses Fall W19.XXXA Encounter type: initial encounter Acetabulum fracture, left S32.402A Encounter type: initial encounter Fracture alignment: nondisplaced Fracture type: closed Sublocation of acetabulum: unspecified portion of acetabulum Closed pelvic fracture S32.402A Encounter type: initial encounter Fracture alignment: nondisplaced Laterality: left Pelvic bone location: acetabulum Sublocation of acetabulum: unspecified portion of acetabulum Aspiration into airway T17.908A COPD (chronic obstructive pulmonary disease) J44.0 COPD type: COPD with acute lower respiratory infection Delirium R41.0 Current smoker F17.200 Pulmonary nodule R91.1 Depression F32.9 CVA (cerebral vascular accident) I63.9 HTN (hypertension), benign I10 Chronic respiratory failure with hypoxia J96.11 DVT prophylaxis Z29.9 (1) Fall Encounter type: initial encounter Qualified Code(s): W19.XXXA - Unspecified fall, initial encounter (2) Acetabulum fracture, left Encounter type: initial encounter Fracture alignment: nondisplaced Fracture type: closed Sublocation of acetabulum: unspecified portion of acetabulum Qualified Code(s): S32.402A - Unspecified fracture of left acetabulum, initial encounter for closed fracture (3) Closed pelvic fracture Encounter type: initial encounter Fracture alignment: nondisplaced Laterality: left Pelvic bone location: acetabulum Sublocation of acetabulum: unspecified portion of acetabulum Qualified Code(s): S32.402A - Unspecified fracture of left acetabulum, initial encounter for closed fracture (4) COPD (chronic obstructive pulmonary disease) COPD type: COPD with acute lower respiratory infection Qualified Code(s): J44.0 - Chronic obstructive pulmonary disease with acute lower respiratory infection
[2020-05-03] MEDS: CHOLECALCIFEROL 1,000 UNITS 25 MCG TAB PO SCH (21:08)
[2020-05-04] MEDS: ALBUTEROL 0.083% NEBU SOLN 3 ML VIAL INH SCH ×4 (07:09→19:28)
[2020-05-04] MEDS: UMECLIDINIUM BROMIDE 62.5MCG/BLISTER 7 PUFFS/INHALER INH SCH (09:37)
[2020-05-04] MEDS: NICOTINE 14 MG/24 HR PATCH TD SCH (09:38)
[2020-05-04] MEDS: FOLIC ACID 1 MG TAB PO SCH (09:38)
[2020-05-04] MEDS: SERTRALINE HCL 50 MG TABLET PO SCH (09:39)
[2020-05-04] MEDS: ATORVASTATIN 20 MG TAB PO SCH (09:39)
[2020-05-04] MEDS: amLODIPine BESYLATE 5 MG TAB PO SCH (09:39)
[2020-05-04] MEDS: CLOPIDOGREL BISULFATE 75 MG TAB PO SCH (09:39)
[2020-05-04] MEDS: THIAMINE HCL 100 MG TAB PO SCH (09:39)
[2020-05-04] MEDS: CEROVITE ADV FORMULA TAB PO SCH (09:39)
[2020-05-04] MEDS: HEPARIN SOD 5,000 UNIT/0.5 ML VIAL SQ SCH ×2 (09:39→21:41)
--- NOTE | 2020-05-04 19:17 | Hospitalist Progress Note ---
Date of Service May 04, 2020 Assessment & Plan (1) Fall: Antonio Nelson is an 84-year-old male with a past medical history of CVA, COPD, Depression, HTN, PAD who requires admission for left nondisplaced acetabular fracture after a mechanical fall at his personal shelter. He remains here, working with PT and OT, while he awaits rehab placement at [facility] vs. SNF with Rehab. (2) Acetabulum fracture, left: Left acetabulum fracture secondary to mechanical fall-with multiple fractures to the acetabulum and the pelvis as below -Patient is doing fairly well, only requiring Tylenol occasionally for pain Orthopedics consultedno surgery recommended at this time No weightbearing x 6 weeks and should use walker with assistance, needs rehab -Ortho recommends repeat CT scan of the hip if has prolonged stay to make sure fracture alignment has not changed -- will defer for now Tylenol as needed for pain, no NSAIDs given intrapelvic hemorrhage Home Plavix was on hold due to hematoma on imaging but since hgb fairly stable today, can restart at discharge -SNF with Rehab/inpatient rehab once able -Will require outpatient work-up and possible therapy for osteoporotic-related fracture (3) Closed pelvic fracture: as above, presumed osteoporotic -- will require further work-up and possible treatment, dietary counselling (4) Aspiration into airway: no respiratory distress at this time follow clinically (5) COPD (chronic obstructive pulmonary disease): Per patient, has never had PFTs -CXR here with chronic changes, fibrosis, also left suprahilar adenopathy DuoNebs as needed Continue home Spiriva or hospital alternative -Fluttervalve, ISBs added to aid with respiratory care while here -CT Chest, ordered for nodularity assessment based on chest x-ray, shows: IMPRESSION: 1. Advanced emphysema and chronic fibrotic change in the upper lobes is similar to previous. 2. There is an irregular 11 mm left upper lobe nodular density which is new from 04/19/2018. Additional smaller irregular nodules in the right middle lobe measuring up to 5 mm are also new from previous. These are pathologically indeterminant and may be on an inflammatory basis. A 3 month follow-up chest CT is recommended for reassessment. 3. Dependent patchy airspace opacities are present at both lung bases. This could represent scarring/atelectasis versus a mild infectious/inflammatory pneumonitis. Clinical correlation will be required. 4. Mild diffuse peribronchial thickening suggests bronchitis/reactive airway disease. 5. Mildly enlarged mediastinal lymph nodes are unchanged from prior studies and are likely related to chronic lung disease. This can also be reassessed at follow-up. - This 11 mm left upper lobe nodular density was also noted on a CT scan in 2018. Unclear if this is old or new based on these reports. - However the small irregular nodules in right middle lobe are new. This chest CT was performed right after he aspirated exam morning- unclear whether or not this may be related -Plan to repeat chest CT in 3 months given extensive smoking history / to re- evaluate these nodules (6) Delirium: -Having some intermittent hallucinations and confusion, likely hospital delirium -Has a history of declining cognitive ability in the last year as per daughter -Continue reorientation and redirection, supportive care (7) Current smoker: -encouraged cessation throughout hospital course -continue nicotine patch (8) Pulmonary nodule: as above, repeat CT chest in 3 months (see CT details for specifics) (9) Depression: Continue home sertraline 150 mg p.o. every morning (10) CVA (cerebral vascular accident): History of CVA Continue home atorvastatin 20 mg p.o. every morning Okay to restart Plavix today as above - BP control while here, as outpatient (11) HTN (hypertension), benign: Continue home amlodipine 5 mg p.o. every morning (12) Chronic respiratory failure with hypoxia: - requiring 3-4LNC here, is on O2 at home, unknown dose - has COPD, chronic cough, wheezing here which is improved on nebs - nebs prn for shortness of breath - as above -- ISBs, flutter valve (13) DVT prophylaxis: SCDs heparin SQ Dispo: Stable on med surg, for snf once able -- awaiting approval from [employer] CODE STATUS: Full Admission and Anticipated Discharge Date Admission Date: April 29, 2020 Supervising Physician Co-Signing Physician Notes I personally examined the patient and verified all baez points of history and exam, discussed case, and agree with decision making with Dr Vaca. Resting comfortably. In getting information from case management, probably placement tomorrow. Vitals noted, no distress. Breathing unlabored no accessory muscle use good effort. Skin shows no rashes no pallor or icterus. Presumably osteoporotic pelvic fracturePT/OT, pain control, SNF with rehab emphasis. Outpatient bone health work-up and management. Otherwise as above. Subjective Reports feeling well overall. Pain minimal while in bed, increases with movement. Otherwise no concerns. Good appetite. Cough continues, unchanged. No shortness of breath. Review of Systems Review of Systems: Per HPI Physical Exam Constitutional: Well-appearing 84-year-old gentleman who is lying back in his hospital bed, relaxed, upon arrival. No acute distress. Respiratory: Respiratory effort with symmetric expansion of the chest. Lungs clear to auscultation bilaterally without crackles or wheezes. Cardiovascular: RRR, no murmur, no edema Gastrointestinal (Abdomen): normal bowel sounds, soft, nontender, no hepatosplenomegaly Results & Data Results & Data ([facility]) Vital Signs (Past 12 Hours) Vital Signs Temp Pulse Resp BP Pulse Ox 05/04/20 18:56 36.9 C 70 16 113/71 91 05/04/20 15:09 78 19 94 05/04/20 14:51 36.7 C 67 18 137/64 96 05/04/20 10:51 89 18 90 05/04/20 07:50 36.8 C 78 18 136/47 L 94 Resident Activity Tracking Resident Involvement: Resident Care Provided Care Provided: Adult Hospital Medicine (1) Closed pelvic fracture Encounter type: initial encounter Fracture alignment: nondisplaced Laterality: left Pelvic bone location: acetabulum Sublocation of acetabulum: unspecified portion of acetabulum Qualified Code(s): S32.402A - Unspecified fracture of left acetabulum, initial encounter for closed fracture (2) COPD (chronic obstructive pulmonary disease) COPD type: COPD with acute lower respiratory infection Qualified Code(s): J44.0 - Chronic obstructive pulmonary disease with acute lower respiratory infection (3) Acetabulum fracture, left Encounter type: initial encounter Fracture alignment: nondisplaced Fracture type: closed Sublocation of acetabulum: unspecified portion of acetabulum Qualified Code(s): S32.402A - Unspecified fracture of left acetabulum, initial encounter for closed fracture (4) Fall Encounter type: initial encounter Qualified Code(s): W19.XXXA - Unspecified fall, initial encounter
--- NOTE | 2020-05-04 19:53 | Billing Data ---
Date of Service May 04, 2020 Coding Level of Care Code 16833 Subseq Hosp Care Lvl 1
[2020-05-04] MEDS: CHOLECALCIFEROL 1,000 UNITS 25 MCG TAB PO SCH (21:41)
[2020-05-04] MEDS: ACETAMINOPHEN 325 MG TAB PO PRN (21:44)
--- NOTE | 2020-05-05 06:20 | Hospitalist Progress Note ---
Date of Service May 05, 2020 Assessment & Plan (1) Fall: Antonio Nelson is an 84-year-old male with a past medical history of CVA, COPD, Depression, HTN, PAD who requires admission for left nondisplaced acetabular fracture after a mechanical fall at his personal assisted. He remains here, working with PT and OT, while he awaits rehab placement at [facility] vs. [facility] with Rehab. (2) Acetabulum fracture, left: Left acetabulum fracture secondary to mechanical fall-with multiple fractures to the acetabulum and the pelvis as below -Patient is doing fairly well, only requiring Tylenol occasionally for pain Orthopedics consulted earlier in [place] surgery recommended at this time No weightbearing x 6 weeks and should use walker with assistance, needs rehab -Ortho recommends repeat CT scan of the hip if has prolonged stay to make sure fracture alignment has not changed -- will defer for now Tylenol as needed for pain, no NSAIDs given intrapelvic hemorrhage Home Plavix was on hold due to hematoma on imaging but since hgb fairly stable today - can restart at discharge -SNF with Rehab/inpatient rehab once able -- awaiting placement, [facility] should be able to take Sunday -Will require outpatient work-up and possible therapy for osteoporotic-related fracture (3) Closed pelvic fracture: as above, presumed osteoporotic -- will require further work-up and possible treatment, dietary counselling (4) Aspiration into airway: no respiratory distress at this time follow clinically (5) COPD (chronic obstructive pulmonary disease): -Good respiratory effort on exam, saturating appropriately on 2-4L NC Per patient, has never had PFTs -CXR here with chronic changes, fibrosis, also left suprahilar adenopathy DuoNebs as needed Continue home Spiriva or hospital alternative -Fluttervalve, ISBs added to aid with respiratory care while here -- encouraged use to aid with cough / mucus burden, instructions given -CT Chest, ordered for nodularity assessment based on chest x-ray, shows: IMPRESSION: 1. Advanced emphysema and chronic fibrotic change in the upper lobes is similar to previous. 2. There is an irregular 11 mm left upper lobe nodular density which is new from 04/19/2018. Additional smaller irregular nodules in the right middle lobe measuring up to 5 mm are also new from previous. These are pathologically indeterminant and may be on an inflammatory basis. A 3 month follow-up chest CT is recommended for reassessment. 3. Dependent patchy airspace opacities are present at both lung bases. This could represent scarring/atelectasis versus a mild infectious/inflammatory pneumonitis. Clinical correlation will be required. 4. Mild diffuse peribronchial thickening suggests bronchitis/reactive airway disease. 5. Mildly enlarged mediastinal lymph nodes are unchanged from prior studies and are likely related to chronic lung disease. This can also be reassessed at follow-up. - This 11 mm left upper lobe nodular density was also noted on a CT scan in 2018. Unclear if this is old or new based on these reports. - However the small irregular nodules in right middle lobe are new. This chest CT was performed right after he aspirated exam morning- unclear whether or not this may be related -Plan to repeat chest CT in 3 months given extensive smoking history / to re- evaluate these nodules (6) Delirium: -Having some intermittent hallucinations and confusion, likely hospital delirium -Has a history of declining cognitive ability in the last year as per daughter -Continue reorientation and redirection, supportive care (7) Current smoker: -encouraged cessation throughout hospital course -continue nicotine patch (8) Pulmonary nodule: as above, repeat CT chest in 3 months (see CT details for specifics) (9) Depression: Continue home sertraline 150 mg p.o. every morning (10) CVA (cerebral vascular accident): History of CVA Continue home atorvastatin 20 mg p.o. every morning Okay to restart Plavix today as above - BP control while here, as outpatient (11) HTN (hypertension), benign: Continue home amlodipine 5 mg p.o. every morning (12) Chronic respiratory failure with hypoxia: - requiring 3-4LNC here, is on O2 at home, unknown dose - has COPD, chronic cough, wheezing here which is improved on nebs - nebs prn for shortness of breath - as above -- ISBs, flutter valve (13) DVT prophylaxis: PPX - SCDs heparin SQ Dispo: Stable on med surg, for snf once able -- accepted to [facility] for Sunday. CODE STATUS: Full Admission and Anticipated Discharge Date Admission Date: April 29, 2020 Supervising Physician Co-Signing Physician Notes I personally examined the patient and verified all baez points of history and exam, discussed case, and agree with decision making with Dr Vaca. Yesterday [facility] gave us the impression placement will be today, today they note likely not until Sunday.. Vitals noted, no distress. Breathing unlabored no accessory muscle use good effort. Skin shows no rashes no pallor or icterus. Presumably osteoporotic pelvic fracturePT/OT, pain control, SNF with rehab emphasis. Outpatient bone health work-up and management. Stable for SNF once they are able to take him. Otherwise as above. Subjective NAEO. Feeling well this AM. Pain well controlled. Therapy going well - PT/OT. Eager to transition out of hospital. Appetite good. No SOB. Cough at baseline- has not used flutter valve. No concerns from him this AM Review of Systems Review of Systems: As per HPI Physical Exam Constitutional: WD/WN, vitals as above Respiratory: Good respiratory effort. Intermittent cough with production of mucus. Intermittent, mild wheezes heard throughout both lungs. No accessory muscle use. Cardiovascular: NRRR. S1/S2 present with Grade 1-2/6 JASWINDER best heard at RUSB, otherwise no other m/r/g Gastrointestinal (Abdomen): normal bowel sounds, soft, nontender, no hepatosplenomegaly Results & Data Results & Data ([facility]) Vital Signs (Past 12 Hours) Vital Signs Temp Pulse Resp BP Pulse Ox 05/04/20 22:59 36.3 C L 87 18 143/65 H 90 05/04/20 19:30 74 20 93 05/04/20 18:56 36.9 C 70 16 113/71 91 Resident Activity Tracking Resident Involvement: Resident Care Provided Care Provided: Adult Hospital Medicine (1) Closed pelvic fracture Encounter type: initial encounter Fracture alignment: nondisplaced Laterality: left Pelvic bone location: acetabulum Sublocation of acetabulum: unspecified portion of acetabulum Qualified Code(s): S32.402A - Unspecified fracture of left acetabulum, initial encounter for closed fracture (2) COPD (chronic obstructive pulmonary disease) COPD type: COPD with acute lower respiratory infection Qualified Code(s): J44.0 - Chronic obstructive pulmonary disease with acute lower respiratory infection (3) Acetabulum fracture, left Encounter type: initial encounter Fracture alignment: nondisplaced Fracture type: closed Sublocation of acetabulum: unspecified portion of acetabulum Qualified Code(s): S32.402A - Unspecified fracture of left acetabulum, initial encounter for closed fracture (4) Fall Encounter type: initial encounter Qualified Code(s): W19.XXXA - Unspecified fall, initial encounter
[2020-05-05] MEDS: ALBUTEROL 0.083% NEBU SOLN 3 ML VIAL INH SCH ×2 (08:01→11:49)
[2020-05-05] MEDS: THIAMINE HCL 100 MG TAB PO SCH (08:45)
[2020-05-05] MEDS: CLOPIDOGREL BISULFATE 75 MG TAB PO SCH (08:45)
[2020-05-05] MEDS: CEROVITE ADV FORMULA TAB PO SCH (08:45)
[2020-05-05] MEDS: ATORVASTATIN 20 MG TAB PO SCH (08:46)
[2020-05-05] MEDS: NICOTINE 14 MG/24 HR PATCH TD SCH (08:46)
[2020-05-05] MEDS: SERTRALINE HCL 50 MG TABLET PO SCH (08:46)
[2020-05-05] MEDS: FOLIC ACID 1 MG TAB PO SCH (08:46)
[2020-05-05] MEDS: amLODIPine BESYLATE 5 MG TAB PO SCH (08:46)
[2020-05-05] MEDS: HEPARIN SOD 5,000 UNIT/0.5 ML VIAL SQ SCH ×2 (08:47→20:02)
[2020-05-05] MEDS: UMECLIDINIUM BROMIDE 62.5MCG/BLISTER 7 PUFFS/INHALER INH SCH (08:48)
[2020-05-05] MEDS ORDERED: ALBUTEROL 0.083% NEBU SOLN 3 ML VIAL INH PRN (13:09)
--- NOTE | 2020-05-05 16:50 | Billing Data ---
Date of Service May 05, 2020 Coding Level of Care Code 70487 Subseq Hosp Care Lvl 1
[2020-05-05] MEDS: CHOLECALCIFEROL 1,000 UNITS 25 MCG TAB PO SCH (20:01)
[2020-05-06] MEDS: NICOTINE 14 MG/24 HR PATCH TD SCH (08:25)
[2020-05-06] MEDS: HEPARIN SOD 5,000 UNIT/0.5 ML VIAL SQ SCH ×2 (08:26→20:21)
[2020-05-06] MEDS: CEROVITE ADV FORMULA TAB PO SCH (10:06)
[2020-05-06] MEDS: SERTRALINE HCL 50 MG TABLET PO SCH (10:06)
[2020-05-06] MEDS: FOLIC ACID 1 MG TAB PO SCH (10:06)
[2020-05-06] MEDS: CLOPIDOGREL BISULFATE 75 MG TAB PO SCH (10:06)
[2020-05-06] MEDS: THIAMINE HCL 100 MG TAB PO SCH (10:07)
[2020-05-06] MEDS: UMECLIDINIUM BROMIDE 62.5MCG/BLISTER 7 PUFFS/INHALER INH SCH (10:07)
[2020-05-06] MEDS: amLODIPine BESYLATE 5 MG TAB PO SCH (10:07)
[2020-05-06] MEDS: ATORVASTATIN 20 MG TAB PO SCH (10:07)
--- NOTE | 2020-05-06 13:09 | Hospitalist Progress Note ---
Date of Service May 06, 2020 Assessment & Plan (1) Fall: Antonio Nelson is an 84-year-old male with a past medical history of CVA, COPD, Depression, HTN, PAD who requires admission for left nondisplaced acetabular fracture after a mechanical fall at his personal longterm. He remains here, working with PT and OT, while he awaits rehab placement at [facility]. Anticipated d/c on 05/07. (2) Acetabulum fracture, left: Left acetabulum fracture secondary to mechanical fall-with multiple fractures to the acetabulum and the pelvis as below -Patient is doing fairly well, only requiring Tylenol occasionally for pain Orthopedics consulted earlier in courseno surgery recommended at this time No weightbearing x 6 weeks and should use walker with assistance, needs rehab -Ortho recommends repeat CT scan of the hip if has prolonged stay to make sure fracture alignment has not changed -- will defer for now Tylenol as needed for pain, no NSAIDs given intrapelvic hemorrhage Home Plavix was on hold due to hematoma on imaging but since hgb fairly stable today - can restart at discharge -SNF with Rehab/inpatient rehab once able -- awaiting placement, [facility] should be able to take Sunday -Will require outpatient work-up and possible therapy for osteoporotic-related fracture -Pain well managed -- says PT, OT is going well and he is regaining some strength (3) Closed pelvic fracture: as above, presumed osteoporotic -- will require further work-up and possible treatment, dietary counselling (4) Aspiration into airway: no respiratory distress at this time follow clinically (5) COPD (chronic obstructive pulmonary disease): -Good respiratory effort on exam, saturating appropriately on 2-4L NC Per patient, has never had PFTs -CXR here with chronic changes, fibrosis, also left suprahilar adenopathy DuoNebs as needed Continue home Spiriva or hospital alternative -Fluttervalve, ISBs added to aid with respiratory care while here -- encouraged use to aid with cough / mucus burden, instructions given -CT Chest, ordered for nodularity assessment based on chest x-ray, shows: IMPRESSION: 1. Advanced emphysema and chronic fibrotic change in the upper lobes is similar to previous. 2. There is an irregular 11 mm left upper lobe nodular density which is new from 04/19/2018. Additional smaller irregular nodules in the right middle lobe measuring up to 5 mm are also new from previous. These are pathologically indeterminant and may be on an inflammatory basis. A 3 month follow-up chest CT is recommended for reassessment. 3. Dependent patchy airspace opacities are present at both lung bases. This could represent scarring/atelectasis versus a mild infectious/inflammatory pneumonitis. Clinical correlation will be required. 4. Mild diffuse peribronchial thickening suggests bronchitis/reactive airway disease. 5. Mildly enlarged mediastinal lymph nodes are unchanged from prior studies and are likely related to chronic lung disease. This can also be reassessed at follow-up. - This 11 mm left upper lobe nodular density was also noted on a CT scan in 2018. Unclear if this is old or new based on these reports. - However the small irregular nodules in right middle lobe are new. 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 every morning (10) CVA (cerebral vascular accident): History of CVA Continue home atorvastatin 20 mg p.o. every morning Restart Plavix at d/c - BP control while here, as outpatient (11) HTN (hypertension), benign: Continue home amlodipine 5 mg p.o. every morning (12) Chronic respiratory failure with hypoxia: - requiring 3-4LNC here, is on O2 at home, unknown dose - has COPD, chronic cough, wheezing here which is improved on nebs - nebs prn for shortness of breath - as above -- ISBs, flutter valve (13) DVT prophylaxis: PPX - SCDs heparin SQ Dispo: Stable on med surg, for snf once able -- accepted to [facility] for Sunday. CODE STATUS: Full Admission and Anticipated Discharge Date Admission Date: April 29, 2020 Supervising Physician Co-Signing Physician Notes I personally examined the patient and verified all baez points of history and exam, discussed case, and agree with decision making with Dr Vaca. resting. no new issues noted. Vitals noted, no distress. Breathing unlabored no accessory muscle use good effort. Skin shows no rashes no pallor or icterus. Presumably osteoporotic pelvic fracturePT/OT, pain controlled, SNF with rehab emphasis. Outpatient bone health work-up and management. Stable for SNF once they are able to take him. Otherwise as above. Subjective NAEO. Feeling well. Pain very well managed - continues to feel therapy is helping. Breathing well. Cough unchanged. Appetite good. Passing BMs/voiding well. Review of Systems Review of Systems: As per HPI Physical Exam Constitutional: WD/WN, vitals as above Respiratory: normal respiratory effort, lungs clear to auscultation Cardiovascular: RRR, no murmur, no edema Gastrointestinal (Abdomen): normal bowel sounds, soft, nontender, no hepatosplenomegaly Results & Data Results & Data ([facility]) Vital Signs (Past 12 Hours) Vital Signs Temp Pulse Resp BP Pulse Ox 05/06/20 07:14 36.4 C L 64 18 148/62 H 94 Resident Activity Tracking Resident Involvement: Resident Care Provided Care Provided: Adult Hospital Medicine (1) Closed pelvic fracture Encounter type: initial encounter Fracture alignment: nondisplaced Laterality: left Pelvic bone location: acetabulum Sublocation of acetabulum: unspecified portion of acetabulum Qualified Code(s): S32.402A - Unspecified fracture of left acetabulum, initial encounter for closed fracture (2) COPD (chronic obstructive pulmonary disease) COPD type: COPD with acute lower respiratory infection Qualified Code(s): J44.0 - Chronic obstructive pulmonary disease with acute lower respiratory infection (3) Acetabulum fracture, left Encounter type: initial encounter Fracture alignment: nondisplaced Fracture type: closed Sublocation of acetabulum: unspecified portion of acetabulum Qualified Code(s): S32.402A - Unspecified fracture of left acetabulum, initial encounter for closed fracture (4) Fall Encounter type: initial encounter Qualified Code(s): W19.XXXA - Unspecified fall, initial encounter
--- NOTE | 2020-05-06 16:57 | Billing Data ---
Date of Service May 06, 2020 Coding Level of Care Code 26334 Initial Inpt Care Lvl 1
--- NOTE | 2020-05-06 16:57 | Billing Data ---
Date of Service May 06, 2020 Coding Level of Care Code 28532 Subseq Hosp Care Lvl 1 Comment 231 today, not 221, sorry about that!
[2020-05-06] MEDS: CHOLECALCIFEROL 1,000 UNITS 25 MCG TAB PO SCH (20:21)
[2020-05-07] MEDS: HEPARIN SOD 5,000 UNIT/0.5 ML VIAL SQ SCH (08:30)
[2020-05-07] MEDS: NICOTINE 14 MG/24 HR PATCH TD SCH (08:30)
[2020-05-07] MEDS: CEROVITE ADV FORMULA TAB PO SCH (08:38)
[2020-05-07] MEDS: THIAMINE HCL 100 MG TAB PO SCH (08:38)
[2020-05-07] MEDS: amLODIPine BESYLATE 5 MG TAB PO SCH (08:38)
[2020-05-07] MEDS: CLOPIDOGREL BISULFATE 75 MG TAB PO SCH (08:39)
[2020-05-07] MEDS: FOLIC ACID 1 MG TAB PO SCH (08:39)
[2020-05-07] MEDS: ATORVASTATIN 20 MG TAB PO SCH (08:39)
[2020-05-07] MEDS: UMECLIDINIUM BROMIDE 62.5MCG/BLISTER 7 PUFFS/INHALER INH SCH (08:39)
[2020-05-07] MEDS: SERTRALINE HCL 50 MG TABLET PO SCH (08:40)
--- NOTE | 2020-05-07 11:04 | Discharge Summary ---
Date of Service May 07, 2020 Admission HPI Per Admitting Provider Antonio Nelson is an 84-year-old male with a past medical history of CVA, COPD, PAD who arrived after he tripped and fell at his personal residential. He says there was a wheelchair sticking out which she did not see and he tripped on it and fell on his left side. Says he did not hit his head, had no loss of consciousness, did not have dizziness, or headache. After the fall he was having severe pain with ambulation and bearing weight; pain was significantly better at rest. He denies chest pain, headache, neck and back pain. In the ED he had a hip/pelvis x-ray showing left ileal fracture extending into the acetabulum and a hip/pelvis CT with a complex nondisplaced left acetabular fracture, as well as intramuscular hemorrhage within the left obturator internus and iliacus muscles and an intrapelvic extraperitoneal hemorrhage along the left pelvic sidewall. Chest x-ray showing emphysema and chronic parenchymal changes, increasing nodularity in the left suprahilar region, nonemergent CT scan of chest recommended. Had an EKG showing normal sinus rhythm. Negative troponin. CBC with hemoglobin of 13.5. Electrolytes within normal limits. Received 1 dose of morphine 4 mg IV and 1 L normal saline. ED provider discussed the case with the on-call orthopedic physician who stated that at this time this does not appear to be a surgical fracture. The patient will likely require inpatient rehab. Admission Exam Per Admitting Provider General: WD/WN, cooperative, no acute distress HEENT: Atraumatic, normocephalic, PERRL, EOMI, anicteric sclerae Neck: Visual inspection normal CV: Regular rate and rhythm, S1-S2 normal, no murmurs, gallops or rubs Resp: CTAB, no increased work of breathing, no wheezes, rhonchi, rales GI: Nontender, nondistended, soft, bowel sounds positive in all 4 quadrants MSK: Muscle strength 5 out of 5 at bilateral upper extremities and right lower extremity, left lower extremity unable to move secondary to pain Skin: Warm and dry, no rashes or lesions Neuro: CN II to XII grossly intact Psych: A&Ox3, euthymic affect, speech normal Principal Diagnosis left acetabular fracture Discharge Exam General: Well-appearing 84yo gentleman sitting back in hospital bed eating breakfast upon arrival. A+Ox3, freely conversive. NAD. Respiratory normal respiratory effort, lungs clear to auscultation Cardiovascular RRR, no murmur, no edema Gastrointestinal (Abdomen) normal bowel sounds, soft, nontender, no hepatosplenomegaly Musculoskeletal LE pulses 2+ b/l Discharge Data Allergies Allergy/AdvReac Type Severity Reaction Status Date / Time Penicillins Allergy Unknown Unknown Verified 04/29/20 20:39 Consultations 04/29/20 20:00 Consult Orthopedic Surgery Stat 04/29/20 20:23 ED Decision to Admit Stat 05/01/20 17:10 Consult Case Management - Discharge Planning Routine Ordered Studies CT SCAN OF THE PELVIS WITHOUT IV CONTRAST; CT SCAN OF THE LEFT HIP WITHOUT IV CONTRAST CLINICAL HISTORY: Fall. Fracture. COMPARISON STUDY: Pelvic CT dated 12/13/2016. Pelvic radiographs performed the same day 04/29/2020. TECHNIQUE: CT scan of the bony pelvis is performed from the pelvic inlet to the proximal femora. Additionally, CT scan of the left hip is performed from the bony pelvis to the femoral shaft. Images for both examinations are reviewed in the axial, sagittal, and coronal planes. IV contrast was not administered for this examination. 3-D reformats are created and assessed. A dose lowering technique was utilized adhering to the principles of ALARA. CT DOSE: 316.39 mGy.cm FINDINGS: The skeletal structures are osteopenic. There is a complex left acetabular fracture. Fracture involves the superior, medial, anterior, and posterior belle of the acetabulum. Fracture lucency extends into the left iliac wing and the left superior pubic ring. No significantly displaced fragments are identified. The remainder of the bony pelvis appears intact. The proximal femora are maintained. Degenerative joint space narrowing is noted in the hips. Lumbosacral spondylosis is partially visualized. The sacroiliac joints appear maintained. There is no evidence of avascular necrosis of the femoral heads. No lytic or blastic lesion is seen. Mild hemarthrosis is noted in the left hip. There is no joint effusion on the right. There is intrapelvic extraperitoneal hemorrhage identified along the left pelvic sidewall. Intramuscular hemorrhage is noted within the left obturator internus muscle. There is also mild intramuscular hemorrhage within the left iliacus. No intraperitoneal hemorrhage is identified. The prostate gland is enlarged and heterogeneous noting median lobe hypertrophy. The bladder wall appears thickened and trabeculated suggesting chronic outlet obstruction. There are bilateral fat-containing inguinal hernias. No pelvic sidewall or inguinal adenopathy is identified. The visualized loops of small bowel and colon are normal in caliber. A normal appendix is identified. There is moderate diverticulosis of the sigmoid colon without CT evidence of acute diverticulitis. Advanced atherosclerotic calcification is noted in the distal abdominal aorta and iliac arteries. IMPRESSION: 1. Complex left acetabular fracture as detailed above. 2. No additional fracture is seen involving the bony pelvis or the proximal femora. 3. Intramuscular hemorrhage is noted within the left obturator internus and iliacus muscles. 4. There is intrapelvic extraperitoneal hemorrhage identified along the left pelvic sidewall. 5. There is mild hemarthrosis of the left hip. 6. Additional findings as above. SINGLE VIEW CHEST CLINICAL HISTORY: Hypoxia. Aspiration. FINDINGS: 2 AP, portable, upright chest radiographs are compared to study dated 04/29/2020 and correlated with chest CT dated 04/19/2018. The cardiomediastinal silhouette is unremarkable noting atherosclerotic calcification of the thoracic aorta. Emphysematous change with chronic interstitial thickening and foci of parenchymal scarring is similar to previous. There is no airspace consolidation typical for pneumonia or large pleural effusion. Fibrotic change in the upper lobes and pleural thickening at the lung bases is similar to previous. Again seen is nodularity in the left suprahilar region. No pneumothorax is seen. The skeletal structures are osteopenic. The bony thorax is grossly intact. D egenerative change is seen throughout the thoracic spine. IMPRESSION: Emphysema and chronic parenchymal changes as above with no acute cardiopulmonary abnormality. There has been no significant change from yesterday. T SCAN OF THE CHEST WITH IV CONTRAST CLINICAL HISTORY: Abnormal chest x-ray. Smoking history. Hypoxia. COMPARISON STUDY: Chest x-ray dated 05/01/2020. Chest CT dated 09/11/2017 and 04/19/2018. TECHNIQUE: Following the IV administration of 94 cc of Optiray 320, CT scan of the thorax was performed from the thoracic inlet to the upper abdomen. Images are reviewed in the axial, sagittal, and coronal planes. IV contrast was administered without complication. A dose lowering technique was utilized adhering to the principles of ALARA. CT DOSE: 211.93 mGy.cm FINDINGS: Thyroid: Imaged portions of the thyroid gland are normal in size and attenuation. Thoracic aorta: There is atherosclerotic calcification of the thoracic aorta, which is normal in caliber and demonstrates standard 3-vessel arch anatomy. No dissection is seen. Pulmonary vasculature: The pulmonary trunk is normal in caliber. There are no filling defects identified in the central pulmonary vessels to indicate pulmonary embolus. Note that this examination was not protocoled for evaluation of the pulmonary arteries. Heart: The heart is normal in size and without pericardial effusion. The coronary arteries are densely calcified. Lungs and pleural spaces: There is advanced emphysematous change. There are layering secretions/debris seen in the trachea. Mild diffuse peribronchial thickening is noted. Fibrotic change in the upper lobes is similar in appearance to prior examinations. An 11 mm irregular density in the left upper lobe seen on image #90 is new from 04/19/2018. The residual scarlike density in the left upper lobe on image #122 is unchanged from previous. There are mild dependent bibasilar opacities. This has increased from 2019. Irregular patchy nodules in the right middle lobe on image #192, #209, and #215 measure up to 5 mm. No pleural effusion is identified. Mediastinum: There are numerous mildly enlarged mediastinal lymph nodes. A precarinal node on image #108 and measures 12 mm in short axis. These are similar to prior studies. Aga: Clear. Axillae: There is no axillary lymphadenopathy. Upper abdomen: There is a small hiatal hernia. Partially visualized upper abdominal viscera is otherwise grossly unremarkable. Skeletal structures: The skeletal structures are osteopenic. No lytic or blastic bony lesions are seen. IMPRESSION: 1. Advanced emphysema and chronic fibrotic change in the upper lobes is similar to previous. 2. There is an irregular 11 mm left upper lobe nodular density which is new from 04/19/2018. Additional smaller irregular nodules in the right middle lobe measuring up to 5 mm are also new from previous. These are pathologically indeterminant and may be on an inflammatory basis. A 3 month follow-up chest CT is recommended for reassessment. 3. Dependent patchy airspace opacities are present at both lung bases. This could represent scarring/atelectasis versus a mild infectious/inflammatory pneumonitis. Clinical correlation will be required. 4. Mild diffuse peribronchial thickening suggests bronchitis/reactive airway disease. 5. Mildly enlarged mediastinal lymph nodes are unchanged from prior studies and are likely related to chronic lung disease. This can also be reassessed at follow-up. 6. Additional findings as above. Hospital Course (1) Fall: Antonio Nelson is an 84-year-old male with a past medical history of CVA, COPD, Depression, HTN, PAD who requires admission for left nondisplaced acetabular fracture after a mechanical fall at his personal residential. #Acetabulum fracture, left -- Left acetabulum fracture secondary to mechanical fall-with multiple fractures to the acetabulum and the pelvis as below - Patient did well over course. Pain overall well controlled. Tolerated PT/OT well during stay. Orthopedics consulted earlier in courseno surgical intervention recommended No weightbearing x 6 weeks and should use walker with assistance, needs rehab - OK to continue Plavix - Will require outpatient work-up and possible therapy for osteoporotic-related fracture - Continue PT, OT at discharge #Aspiration into airway: - Aspiration of food early during course - No respiratory distress developed thereafter #COPD (chronic obstructive pulmonary disease): - Good respiratory effort on exam, saturating appropriately on 2-4L NC (pt does use O2 at home) Recommend PFTs as outpatient (patient said he never had any) Continue home Spiriva - Recommend continuing fluttervalve, ISBs added to aid with respiratory care while here -- encouraged use to aid with cough / mucus burden, instructions given - CT Chest, ordered for nodularity assessment based on chest x-ray, shows: IMPRESSION: 1. Advanced emphysema and chronic fibrotic change in the upper lobes is similar to previous. 2. There is an irregular 11 mm left upper lobe nodular density which is new from 04/19/2018. Additional smaller irregular nodules in the right middle lobe measuring up to 5 mm are also new from previous. These are pathologically indeterminant and may be on an inflammatory basis. A 3 month follow-up chest CT is recommended for reassessment. 3. Dependent patchy airspace opacities are present at both lung bases. This could represent scarring/atelectasis versus a mild infectious/inflammatory pneumonitis. Clinical correlation will be required. 4. Mild diffuse peribronchial thickening suggests bronchitis/reactive airway disease. 5. Mildly enlarged mediastinal lymph nodes are unchanged from prior studies and are likely related to chronic lung disease. This can also be reassessed at follow-up. - 11 mm left upper lobe nodular density was also noted on a CT scan in 2018. Unclear if this is old or new based on these reports. - Small irregular nodules in right middle lobe are new. Unclear if this may be related to early aspiration event or not - Plan to repeat chest CT in 3 months given extensive smoking history / to re- evaluate these nodules #Delirium: - Intermittent hallucinations and confusion, 2/2 hospital delirium, appreciated while here - Has a history of declining cognitive ability in the last year as per daughter - Continue reorientation and redirection, supportive care #Current smoker: - encouraged cessation throughout hospital course - nicotine patch while hospitalized #Pulmonary nodule: - as above, repeat CT chest in 3 months (see CT details for specifics) #Depression: Continue home sertraline 150 mg p.o. every morning #CVA (cerebral vascular accident): - History of CVA Continue home atorvastatin 20 mg p.o. every morning Restart Plavix - BP control while here, as outpatient #HTN (hypertension), benign: Continue home amlodipine 5 mg p.o. every morning #Chronic respiratory failure with hypoxia: - requiring 3-4LNC here, is on O2 at home, unknown dose - has COPD, chronic cough, wheezing here which is improved on nebs - nebs prn for shortness of breath - as above -- ISBs, flutter valve (2) Acetabulum fracture, left: (3) Closed pelvic fracture: (4) Aspiration into airway: (5) COPD (chronic obstructive pulmonary disease): (6) Delirium: (7) Current smoker: (8) Pulmonary nodule: (9) Depression: (10) CVA (cerebral vascular accident): (11) HTN (hypertension), benign: (12) Chronic respiratory failure with hypoxia: (13) DVT prophylaxis: Total Time Total Time Spent Total Time Spent (In Minutes): <30 Discharge Plan Discharge Items Patient Disposition: Transfer Inpatient Rehab Fac Reason For Visit: MECHANICAL FALL Discharge Diagnosis: left acetabular (hip) fracture from mechanical fall Condition on Discharge: Good Activity: Per Instructions section Non-emergency contact: Primary Care Provider and Specialist Call non-emergency contact if: you have any medication questions, your pain is not controlled, your pain is worsening and your temperature is above 101 Follow-up/Referrals: [facility] [Primary Care Provider] - Diet: Regular Addtl Attending Provider Instructions: [facility] were seen at [facility] following a fall that resulted in a fracture in your left hip. During your stay here, you underwent evaluation to determine the severity of this fracture. Thankfully, it was not determined to need surgery. However, as thoroughly discussed throughout your stay here, you will continue to need regular physical and occupational therapy upon discharge to ensure that you build strength in your left side. There should be no weightbearing on your left side until 6 weeks after the fall -- approx. around the first week of June. You should be cleared by your physical therapist to do this prior to trying. You should continue to use a walker for assistance in the interim for activities that require being out of bed. Upon discharge, you will be transferred to [ insert rehab / SNF name here ] to help you further recuperate and receive rehabilitation services. Please avoid NSAIDs during your recovery (non-steroidal antiinflammatory drugs) / until approved by your doctor; medications in this class include ibuprofen, Motrin, and aspirin. Tylenol is OK. Upon discharge, you may restart your Plavix and continue taking as prescribed. This was briefly held during your stay here to prevent further bleeding during your immediate recovery. No other medication changes were made while here. If you experience any sudden increases in pain, lightheadedness, dizziness, fevers, chills, night sweats, shortness of breath, or other worrisome symptoms, please seek immediate medical attention or call 911. ---- FACILITY DISCHARGE NOTES --- Antonio Nelson is an 84-year-old male with a past medical history of CVA, COPD, Depression, HTN, PAD who requires admission for left nondisplaced acetabular fracture after a mechanical fall at his personal residential. #Acetabulum fracture, left -- Left acetabulum fracture secondary to mechanical fall-with multiple fractures to the acetabulum and the pelvis as below - Patient did well over course. Pain overall well controlled. Tolerated PT/OT well during stay. Orthopedics consulted earlier in courseno surgical intervention recommended No weightbearing x 6 weeks and should use walker with assistance, needs rehab - OK to continue Plavix - Will require outpatient work-up and possible therapy for osteoporotic-related fracture - Continue PT, OT at discharge #Aspiration into airway: - Aspiration of food early during course - No respiratory distress developed thereafter #COPD (chronic obstructive pulmonary disease): - Good respiratory effort on exam, saturating appropriately on 2-4L NC (pt does use O2 at home) Recommend PFTs as outpatient (patient said he never had any) Continue home Spiriva - Recommend continuing fluttervalve, ISBs added to aid with respiratory care while here -- encouraged use to aid with cough / mucus burden, instructions given - CT Chest, ordered for nodularity assessment based on chest x-ray, shows: IMPRESSION: 1. Advanced emphysema and chronic fibrotic change in the upper lobes is similar to previous. 2. There is an irregular 11 mm left upper lobe nodular density which is new from 04/19/2018. Additional smaller irregular nodules in the right middle lobe measuring up to 5 mm are also new from previous. These are pathologically indeterminant and may be on an inflammatory basis. A 3 month follow-up chest CT is recommended for reassessment. 3. Dependent patchy airspace opacities are present at both lung bases. This could represent scarring/atelectasis versus a mild infectious/inflammatory pneumonitis. Clinical correlation will be required. 4. Mild diffuse peribronchial thickening suggests bronchitis/reactive airway disease. 5. Mildly enlarged mediastinal lymph nodes are unchanged from prior studies and are likely related to chronic lung disease. This can also be reassessed at follow-up. - 11 mm left upper lobe nodular density was also noted on a CT scan in 2018. Unclear if this is old or new based on these reports. - Small irregular nodules in right middle lobe are new. Unclear if this may be related to early aspiration event or not - Plan to repeat chest CT in 3 months given extensive smoking history / to re- evaluate these nodules #Delirium: - Intermittent hallucinations and confusion, 2/2 hospital delirium, appreciated while here - Has a history of declining cognitive ability in the last year as per daughter - Continue reorientation and redirection, supportive care #Current smoker: - encouraged cessation throughout hospital course - nicotine patch while hospitalized #Pulmonary nodule: - as above, repeat CT chest in 3 months (see CT details for specifics) #Depression: Continue home sertraline 150 mg p.o. every morning #CVA (cerebral vascular accident): - History of CVA Continue home atorvastatin 20 mg p.o. every morning Restart Plavix - BP control while here, as outpatient #HTN (hypertension), benign: Continue home amlodipine 5 mg p.o. every morning #Chronic respiratory failure with hypoxia: - requiring 3-4LNC here, is on O2 at home, unknown dose - has COPD, chronic cough, wheezing here which is improved on nebs - nebs prn for shortness of breath - as above -- ISBs, flutter valve Pending Studies at Discharge: No Stand-Alone Forms: My [facility] Skilled Items Patient informed of condition?: Yes DNR: No Discharge Level of Care: Other Communicable Disease: No Discharge Prognosis: Stable Lines: None Urinary Catheter: No Medications and DC Order Prescriptions: Continued albuterol sulfate 2.5 mg /3 mL (0.083 %) Solution For Nebulization 2.5 mg INHALATION QID RF: 0 sertraline 100 mg Tablet 150 mg PO QAM RF: 0 thiamine HCl (vitamin B1) [Vitamin B-1] 100 mg Tablet 100 mg PO QAM RF: 0 clopidogrel 75 mg Tablet 75 mg PO QAM RF: 0 amlodipine 5 mg Tablet 5 mg PO QAM RF: 0 folic acid 1 mg Tablet 1 mg PO QAM RF: 0 Centrum Silver 0.4-300-250 mg-mcg-mcg Tablet 1 tab PO QAM RF: 0 cholecalciferol (vitamin D3) [Vitamin D3] 2,000 unit Capsule 2,000 unit PO QPM RF: 0 atorvastatin 20 mg tablet 20 mg PO QAM RF: 0 Spiriva with HandiHaler 18 mcg capsule, w/inhalation device 1 cap INHALATION QAM RF: 0 Discharge Orders: Discharge Order (Routine); Ordered 05/07/20 Ordered By: Artur Vaca Admission Data Admit Date/Time: 04/29/20 22:18 Attending Provider: Artur Alberto Admit Provider: John Gutierrez [facility] Other Providers: Fernanda Bernabe Winsted ; Garrison Flores ; Scotty Hart Other Interventions: Discharge Summary Assessment (RN) Last Done: 05/07/20 11:40 Supervising Physician Co-Signing Physician Notes I personally examined the patient and verified all baez points of history and exam, discussed case, and agree with decision making with Dr Vaca. resting. no new issues noted. Vitals noted, no distress. Breathing unlabored no accessory muscle use good effort. Skin shows no rashes no pallor or icterus. Presumably osteoporotic pelvic fracturePT/OT, pain controlled, SNF with rehab emphasis. Outpatient bone health work-up and management. Stable for SNF and finally able to go today Otherwise as above. Resident Activity Tracking Resident Involvement: Resident Care Provided Care Provided: Adult [facility]
[2020-05-07] MEDS: ACETAMINOPHEN 325 MG TAB PO PRN (12:04)
--- NOTE | 2020-05-07 17:35 | Billing Data ---
Date of Service May 07, 2020 Coding Level of Care Code D/C Day Management <30 mins
== END 2020-05-07 12:53 | disposition home or self-care (01) ==
LOC: ED 17:03 → INTOOBSV 22:18 → 2N 22:18 → SUATTDRO 22:18 → 2N 23:31